=== PATIENT | male | born 1975 | race Caucasian/White ===

== ENCOUNTER 2021-08-12 17:37 | Inpatient (IN) | payer OTHER, SELFPAY ==
[2021-08-12] VITALS (33 sets, daily range): BP systolic 0–165; BP diastolic 0–120; PULSE 0–138; RESP 0–29; TEMP 33.8–34.8; O2SAT 0–100; BMI 22.8
--- NOTE | ~2021-08-12 | XR_ITS ---
EXAMINATION: XR chest 1V portable DATE: 08/14/2021 05:56 INDICATION: Respiratory failure. Cardiac arrest. TECHNIQUE: frontal view of the chest was obtained. COMPARISON: Chest radiograph dated 08/12/2021 FINDINGS: Endotracheal tube tip 5.2 cm above the [place]. Nasogastric tube extends below the left hemidiaphragm with distal tip collimated off the study. Defibrillator pads at the right upper and left lower chest stone. Mild left basilar opacities. No pulmonary edema, pleural effusion or pneumothorax. The cardiomediasti nal silhouette is normal. IMPRESSION: 1. Mild left basilar opacities which could represent atelectasis or pneumonia. Reviewed, dictated and finalized at location A.
--- NOTE | ~2021-08-12 | XR_ITS ---
EXAMINATION: XR chest 1V portable DATE: 08/16/2021 05:38 INDICATION: Respiratory failure. Cardiac arrest. TECHNIQUE: frontal view of the chest was obtained. COMPARISON: Chest radiograph dated 08/15/2021 FINDINGS: Endotracheal tube tip 5.6 cm above the le[place]. Nasogastric tube extends below the left hemidiaphragm with distal tip collimated off the study. Superolateral pads of the superolateral right chest and la teral left lower upper quadrant of the abdomen. Persistent opacities in the left lower lung zone. New more subtle opacities in the infrahilar region of the right lower lung zone. Prior opacities at the right upper lung zone have resolved. No pneumoth orax or pleural effusion. The cardiomediastinal silhouette is normal. Visualized bones and soft tissu es are unremarkable. IMPRESSION: 1. Opacities in the lower lung zones, left greater than right which could represent atelectasis and/o r pneumonia. Reviewed, dictated and finalized at location A. IMPRESSION: 1. Opacities in the lower lung zones, left greater than right which could repre sent atelectasis and/or pneumonia.
--- NOTE | ~2021-08-12 | US_ITS ---
EXAMINATION: US venous doppler [facility] DATE: 08/22/2021 12:59 INDICATION: Fevers. Respiratory failure. TECHNIQUE: Grayscale ultrasound images without and with compression and Doppler ultrasound images of the bilateral lower extremity veins were obtained. COMPARISON: None. FINDINGS: The visualized portions of right external iliac, common femoral vein, profunda (deep) femoral vein, f emoral vein, popliteal vein, posterior tibial veins, peroneal veins, gastrocnemius vein and greater s aphenous vein outflow are patent. Small amount of peripheral noncompressible, nonocclusive thrombus at the left common femoral vein. Th e visualized portions of left external iliac, profunda femoral vein, femoral vein, popliteal vein, po sterior tibial veins, peroneal veins, gastrocnemius vein and greater saphenous vein outflow are paten t. IMPRESSION: 1. Small amount of nonocclusive deep venous thrombosis at the right common femoral vein. Findings we re discussed with Sarah Sarkar, the nurse caring for the patient, at 1:05 PM. 2. No deep venous thrombosis in the right lower limb. Reviewed, dictated and finalized at location B. IMPRESSION: 1. Small amount of nonocclusive deep venous thrombosis at the right common fem oral vein. Findings were discussed with Sarah Sarkar, the nurse caring for the patient, at 1:05 PM. 2. No deep venous thrombosis in the right lower limb.
--- NOTE | ~2021-08-12 | XR_ITS ---
EXAMINATION: XR chest 1V portable DATE: 08/21/2021 05:37 INDICATION: Respiratory failure. TECHNIQUE: A single frontal view of the chest was obtained. COMPARISON: Chest single view 08/20/2021 FINDINGS: There is mild scarring at the lung apices. No pleural effusion or pneumothorax. The heart s ize is normal. The endotracheal tube tip is 5.6 cm above the leland. The nasogastric tube tip is beyo nd the inferior margin of the radiograph, but at least to the stomach. IMPRESSION: 1. Mild scarring at the lung apices. Reviewed, dictated and finalized at location A.
--- NOTE | ~2021-08-12 | XR_ITS ---
EXAMINATION: XR chest 1V portable DATE: 08/22/2021 05:36 INDICATION: Respiratory failure. TECHNIQUE: A single frontal view of the chest was obtained. COMPARISON: Chest single view 08/21/2021 FINDINGS: There is mild scarring at the lung apices. No pleural effusion or pneumothorax. The heart s ize is normal. The endotracheal tube tip is 7.0 cm above the leland. The nasogastric tube tip is in t he stomach. IMPRESSION: 1. Mild scarring at the lung apices. Reviewed, dictated and finalized at location A.
--- NOTE | ~2021-08-12 | XR_ITS ---
EXAMINATION: XR chest ET placement EXAM DATE: 08/12/2021 20:35 INDICATION: Chest Pain, post ET TUBE intubation. TECHNIQUE: Portable AP frontal chest x-ray was obtained. There is no prior study for comparison. FINDINGS: Endotracheal tube tip is 4 centimeters above the leland. There is a nasogastric tube seen with tip collimated off the study, but below the left hemidiaphragm. No confluent consolidation, pneu mothorax or pleural effusion suspected. Cardiomediastinal silhouette is normal. There are bony degene rative changes. IMPRESSION: ET, NG tube in position. Reviewed, dictated and finalized at location G. IMPRESSION: ET, NG tube in position.
--- NOTE | ~2021-08-12 | XR_ITS ---
XR chest ET placement DATE: 08/16/2021 13:13 INDICATION: ET tube placement. Cardiac arrest, respiratory failure. TECHNIQUE: Portable AP chest on 08/16/2021 at 1307 hours COMPARISON: 08/16/2021 portable AP chest at 0506 hours FINDINGS: ET tube is in satisfactory position 2.2 cm above leland. NG tube in stomach. No central lines are identified. Mild infiltrate and/or atelectasis in the mid to lower lung zones, left greater than right. Normal heart size. No hilar or mediastinal enlargement. No pleural effusion or pneumothorax. IMPRESSION: ET tube in satisfactory position NG tube in stomach Bilateral predominantly lower lung infiltrates, left greater than right Reviewed, dictated and finalized at Location A. Reviewed, dictated and finalized at location A.
--- NOTE | ~2021-08-12 | CT_ITS ---
EXAMINATION: CT brain wo [facility] EXAM DATE: 09/05/2021 08:32 INDICATION: Restlessness/agitation. On ventilator. TECHNIQUE: Spiral CT of the head was performed without contrast. Axial, coronal and sagittal images were reviewed. The dose-length product (DLP) for this examination was 681.00 mGy-cm. The exposure w as tailored according to patient size, and iterative reconstruction (ASIR) was used as additional dos e reduction technique. Comparison is made to prior examination from 08/19/2021. FINDINGS: There is artifact at the skull base, but on prior studies the cerebellum was low density, e nlarged from edema, consistent with acute ischemic event. This swelling has subsided and no definite encephalomalacia, no supratentorial focal density abnormality. There is no acute intraparenchymal hem orrhage. No evidence of intraparenchymal brain mass lesion. There is no mass effect or midline shift . The ventricles are normal in size. There are no extra-axial collections. There are no acute calv arial fractures. The orbits are unremarkable. Soft tissue is unremarkable. Small to moderate-sized right maxillary sinus mucous retention cyst. IMPRESSION: 1. Improvement or resolution of previously seen cerebellar edema. 2. Limited study but no acute intracranial findings. Reviewed, dictated and finalized at location A.
--- NOTE | ~2021-08-12 | CT_ITS ---
EXAMINATION: CT brain wo con DATE: 08/19/2021 16:03 INDICATION: Anoxic brain injury. TECHNIQUE: Computed tomography (CT) of the head was performed without intravenous contrast. The mA wa s adjusted according to patient size. Iterative reconstruction technique was employed. The dose-lengt h product was 681.00 mGy-cm. COMPARISON: Head CT 08/15/2021, 08/12/2021 FINDINGS: There is low attenuation involving the bilateral temporal lobes, cerebellum, and braulio. Ther e is no intracranial hemorrhage or abnormal mass lesion. The ventricles are normal in size. The masto id air cells are normal. There is mucosal thickening in the paranasal sinuses. The orbits are normal. IMPRESSION: 1. Low attenuation involving the bilateral temporal lobes, cerebellum, and braulio, stable from 08/15/21 and worsened from 08/12/21, consistent with infarcts from anoxic brain injury. Reviewed, dictated and finalized at location E. IMPRESSION: 1. Low attenuation involving the bilateral temporal lobes, cerebellum, and braulio , stable from 08/15/21 and worsened from 08/12/21, consistent with infarcts from anoxic brain injury.
--- NOTE | ~2021-08-12 | US_ITS ---
EXAMINATION: US abdomen limited DATE: 09/03/2021 09:08 INDICATION: Abnormal liver function tests. TECHNIQUE: Multiple grayscale and Doppler ultrasound images of the abdomen were obtained. COMPARISON: CT abdomen and pelvis 08/28/2021 FINDINGS: The visualized portions of the head and body of the pancreas are normal. The liver is yoana l without focal lesion. No liver surface nodularity. There is normal flow in main portal vein. The ga llbladder is contracted. No gallstones. The common duct is normal and measures 4 mm. IMPRESSION: 1. Normal right upper quadrant ultrasound. Reviewed, dictated and finalized at location B.
--- NOTE | ~2021-08-12 | XR_ITS ---
EXAMINATION: XR chest 1V portable INDICATION: Respiratory failure, cardiac arrest TECHNIQUE: Portable AP chest at 0511 hours COMPARISON: 08/17/2021 FINDINGS: The endotracheal tube ends approximately 6.0 cm above the [place]. The nasogastric tube is f ollowed as far as the stomach. Its tip is beyond the inferior margin of the radiograph. There are min imal left basilar airspace opacities. No pleural effusion or pneumothorax is identified. The cardiome diastinal silhouette is stable. IMPRESSION: 1. Left basilar airspace opacity, consistent with atelectasis versus pneumonia. Reviewed, dictated and finalized at location A.
--- NOTE | ~2021-08-12 | XR_ITS ---
EXAMINATION: XR chest 1V portable INDICATION: Sepsis TECHNIQUE: Portable AP chest at 0750 hours COMPARISON: 08/25/2021 FINDINGS: A tracheostomy is unchanged in position. The lungs are free of acute opacities. There is no pleural effusion or pneumothorax. The cardiomediastinal silhouette is normal. IMPRESSION: 1. No acute cardiopulmonary abnormality. Reviewed, dictated and finalized at location A.
--- NOTE | ~2021-08-12 | XR_ITS ---
EXAMINATION: XR chest 1V portable DATE: 08/15/2021 06:01 INDICATION: Respiratory failure. Cardiac arrest. TECHNIQUE: frontal view of the chest was obtained. COMPARISON: Chest radiograph dated 08/14/2021 FINDINGS: Endotracheal tube tip 4.6 cm above the leland. Nasogastric tube extends below the left hemidiaphragm with distal tip collimated off the study. Fibrillator pad projects over the superolateral right ches t wall. There are opacities in the right upper and left lower lung zone. Possible very small left ple ural effusion. No pneumothorax. The cardiomediastinal silhouette is normal. IMPRESSION: 1. Opacities in the right upper and left lower lung zones which could represent atelectasis and/or pn eumonia. 2. Possible very small left pleural effusion. Reviewed, dictated and finalized at location A. IMPRESSION: 1. Opacities in the right upper and left lower lung zones which could represent atelectasis and/or pneumonia. 2. Possible very small left pleural effusion.
--- NOTE | ~2021-08-12 | XR_ITS ---
EXAMINATION: XR chest 1V portable DATE: 08/20/2021 05:31 INDICATION: Respiratory failure. TECHNIQUE: A single frontal view of the chest was obtained. COMPARISON: Chest single view 08/19/2021 FINDINGS: There are mild airspace opacities in right mid and lower lung zones. There is mild scarring at the lung apices. No pleural effusion or pneumothorax. The heart size is normal. The endotracheal tube tip is 7.0 cm above the leland. The nasogastric tube tip is beyond the inferior margin of the ra diograph, but at least to the stomach. IMPRESSION: 1. Worsened mild airspace opacities in right mid and lower lung zones, consistent with atelectasis ve rsus pneumonia. Reviewed, dictated and finalized at location A. IMPRESSION: 1. Worsened mild airspace opacities in right mid and lower lung zones, consiste nt with atelectasis versus pneumonia.
--- NOTE | ~2021-08-12 | CT_ITS ---
EXAMINATION: CT brain wo con EXAM DATE: 08/15/2021 08:42 INDICATION: Anoxic Brain Injury . TECHNIQUE: Spiral CT of the head was performed without contrast. Axial, coronal and sagittal images were reviewed. The dose-length product (DLP) for this examination was 681.00 mGy-cm. The exposure w as tailored according to patient size, and iterative reconstruction (ASIR) was used as additional dos e reduction technique. Comparison is made to prior examination from 08/12/2021. FINDINGS: There has been interval development of decreased density involving the entire cerebellum, a nd diffuse cerebellar swelling. The cerebellum now crowds the posterior fossa and the cerebellar tons ils extending slightly below the foramen magnum. No ventricular dilation as yet, no evidence of obstr uctive hydronephrosis. The cerebral ascencio-white matter differentiation is intact. No acute hemorrhage. No brain mass. No extra-axial collections. There is endotracheal tube and orogastric tube. Sinus opa city. IMPRESSION: 1. Development of diffuse cerebellar swelling, anoxic injury. No obstructive hydrocephalus but patie nt at risk. 2. No acute hemorrhage. Reviewed, dictated and finalized at location B. IMPRESSION: 1. Development of diffuse cerebellar swelling, anoxic injury. No obstructive h ydrocephalus but patient at risk. 2. No acute hemorrhage.
--- NOTE | ~2021-08-12 | XR_ITS ---
EXAMINATION: XR abdomen NG/feed tube insert DATE: 08/16/2021 13:13 INDICATION: Orogastric tube placement TECHNIQUE: A supine view of the abdomen and lower chest was obtained for evaluation of feeding tube placement. COMPARISON: 08/12/2021 FINDINGS: Orogastric tube tip in proximal side port in the body of the stomach. Endotracheal tube tip 2.0 cm ab ove the leland. No dilated loops of gas-filled bowel in the visualized upper abdomen. Minimal streaky left basilar atelectasis. Heart size is normal. IMPRESSION: 1. Orogastric tube in the stomach. Reviewed, dictated and finalized at location A.
--- NOTE | ~2021-08-12 | CT_ITS ---
EXAMINATION: CT brain wo con EXAM DATE: 08/12/2021 22:28 INDICATION: Cardiac Arrest . Found unresponsive. TECHNIQUE: Spiral CT of the head was performed without contrast. Axial, coronal and sagittal images were reviewed. The dose-length product (DLP) for this examination was 681.00 mGy-cm. The exposure w as tailored according to patient size, and iterative reconstruction (ASIR) was used as additional dos e reduction technique. There is no prior study for comparison. FINDINGS: The arteries, sagittal and transverse sinuses, internal cerebral veins are hyperdense. Over all this appearance is suggesting that patient had contrast prior to this imaging. I discussed this f inding with Martha Melvin MD at 08/13/2021 08:22 CDT, states the patient had cardiac catheteriz ation. There is no acute intraparenchymal hemorrhage. No evidence of intraparenchymal brain mass lesion. N o evidence of acute infarction. There is no mass effect or midline shift. The ventricles are normal in size. There are no extra-axial collections. There are no acute calvarial fractures. The orbits are unremarkable. Soft tissue is unremarkable. The visualized sinuses and mastoid air cells are wel l aerated. IMPRESSION: 1. No acute intracranial findings. Reviewed, dictated and finalized at location B.
--- NOTE | ~2021-08-12 | XR_ITS ---
EXAMINATION: XR chest 1V portable EXAM DATE: 08/25/2021 10:06 INDICATION: Tracheostomy, respiratory failure. TECHNIQUE: Portable AP frontal chest x-ray was obtained. Comparison is made to prior examination from 08/23/2021. FINDINGS: Interval tracheostomy placement, in position. The previously seen feeding tube is no longer identified. No confluent consolidation, pneumothorax or pleural effusion suspected. Cardiomediastina l silhouette is normal. There are no osseous abnormalities identified. IMPRESSION: Tracheostomy tube in position. Reviewed, dictated and finalized at location A.
--- NOTE | ~2021-08-12 | XR_ITS ---
EXAMINATION: XR chest 1V portable DATE: 08/23/2021 05:36 INDICATION: Respiratory failure. TECHNIQUE: A single frontal view of the chest was obtained. COMPARISON: Chest single view 08/22/2021 FINDINGS: The patient is rotated to his right. There is mild atelectasis in right lower lung zone. No pleural effusion or pneumothorax. The heart size is normal. The endotracheal tube tip is 5.1 cm abov e the leland. The nasogastric tube tip is in the stomach. IMPRESSION: 1. Mild atelectasis in right lower lung zone. Reviewed, dictated and finalized at location A.
--- NOTE | ~2021-08-12 | CT_ITS ---
EXAMINATION: CT sinus wo con EXAM DATE: 08/28/2021 08:30 INDICATION: Fever TECHNIQUE: Spiral CT of the sinuses was acquired in the axial plane. Coronal and sagittal reformatte d images were also reviewed. The dose-length product (DLP) for this examination was 272.65 mGy-cm. Iterative reconstruction (ASIR) was used as dose reduction technique. Correlation is made to head CT 08/19/2021. FINDINGS: The sinuses are normally developed. Small to moderate amount of fluid in the larger left sphenoid sinus. Small to moderate-sized right maxillary sinus mucous retention cyst. Otherwise sinus es are well aerated. The ostiomeatal units are patent. There is no sinus wall thickening. There is moderate rightward nasal septal deviation. The mastoid air cells and middle ears are well aerated . External auditory canals are patent. The orbits and visualized soft tissues are unremarkable. IMPRESSION: 1. Small to moderate amount of left sphenoid fluid. 2. Small to moderate-sized right maxillary mucous retention cyst. Reviewed, dictated and finalized at location B.
--- NOTE | ~2021-08-12 | XR_ITS ---
EXAMINATION: XR chest 1V portable DATE: 08/17/2021 06:00 INDICATION: Respiratory failure. Cardiac arrest. TECHNIQUE: frontal view of the chest was obtained. COMPARISON: Chest radiograph dated 08/16/2021 FINDINGS: Endotracheal tube tip 4.9 cm above the leland. Nasogastric tube extends below the left hemidiaphragm with distal tip collimated off the study. Linear atelectasis/scarring at the lateral left lower lung zone. Additional more ill-defined patchy a irspace opacity in the bilateral infrahilar lower lungs. No pneumothorax. Possible very small right p leural effusion. The cardiomediastinal silhouette is normal. IMPRESSION: 1. No significant change in opacities in the lower lung zones which could represent atelectasis and/o r pneumonia. 2. Possible very small right pleural effusion. Reviewed, dictated and finalized at location A. IMPRESSION: 1. No significant change in opacities in the lower lung zones which could repre sent atelectasis and/or pneumonia. 2. Possible very small right pleural effusion.
--- NOTE | ~2021-08-12 | XR_ITS ---
EXAMINATION: XR chest 1V portable INDICATION: Respiratory failure TECHNIQUE: Portable AP chest at 0446 hours COMPARISON: 08/18/2021 FINDINGS: The endotracheal tube ends approximately 4.1 cm above the leland. The nasogastric tube is f ollowed as far as the stomach. Its tip is beyond the inferior margin of the radiograph. Left basilar airspace opacities have nearly completely resolved. There is mild atelectasis of the lung bases. No p leural effusion or pneumothorax is identified. The cardiomediastinal silhouette is stable. IMPRESSION: 1. Mild atelectasis. Reviewed, dictated and finalized at location A. IMPRESSION: 1. Mild atelectasis.
--- NOTE | ~2021-08-12 | XR_ITS ---
EXAMINATION: XR abdomen NG/feed tube insert EXAM DATE: 08/12/2021 20:35 INDICATION: Orogastric tube placed post arrest. TECHNIQUE: Frontal projection(s) of the abdomen for interpretation. There is no prior study for pat rios. FINDINGS: Feeding tube tip and side-port project over gastric bubble, expected position. There is no nobstructive bowel gas pattern. Lung bases are clear. There is no organomegaly. IMPRESSION: Feeding tube in position. Reviewed, dictated and finalized at location G. IMPRESSION: Feeding tube in position.
--- NOTE | ~2021-08-12 | CT_ITS ---
EXAMINATION: CT chest abdomen pelvis wo con EXAM DATE: 08/28/2021 08:30 INDICATION: Fever TECHNIQUE: Spiral CT of the chest, abdomen and pelvis was performed without contrast. Axial, driscoll l and sagittal images chest, abdomen and pelvis were reviewed. Coronal maximum intensity pixel image s of chest reviewed. The dose-length product (DLP) for this examination was 575.75 mGy-cm. The expo sure was tailored according to patient size (auto mA exposure control), and iterative reconstruction (ASIR) was used as additional dose reduction technique. There is no prior study for comparison. FINDINGS: CHEST: There is a tracheostomy tube in position. Bibasilar dependent subsegmental atelectasis. Trace small regions right upper lobe groundglass opacity, nonspecific pneumonitis. The lungs are otherwise clear. Mild emphysema. There are no pleural or pericardial effusions. Tracheobronchial tree is pa tent. There is no mediastinal, hilar or axillary lymphadenopathy. There is no pneumothorax. Hea rt normal in size. There is mild coronary arterial calcification, arterial sclerosis. ABDOMEN PELVIS: The liver, spleen, adrenal glands and pancreas are unremarkable. Gallbladder contrac ivon, difficult to visualize; there is motion on the study. There is no nephrolithiasis or hydronephr osis. The prostate is unremarkable. The bladder is collapsed with Steinberg catheter balloon anchor in side. There is no retroperitoneal or pelvic lymphadenopathy. There are no findings to suggest appendicitis. PEG tube. No small bowel obstruction. There is colon ic fluid, correlate for diarrhea. There is a rectal tube. No free intraperitoneal gas. There are no osteoblastic or osteolytic lesions identified. IMPRESSION: 1. Tracheostomy tube, PEG tube, rectal tube, Steinberg catheter in position. 2. Trace right upper lobe nonspecific pneumonitis. 3. Dependent subsegmental atelectasis. Mild emphysema. 4. Colonic fluid without wall thickening. Diarrhea. Reviewed, dictated and finalized at location B.
--- NOTE | ~2021-08-12 | XR_ITS ---
EXAMINATION: XR chest 1V portable INDICATION: Pneumonia and sepsis TECHNIQUE: Portable AP chest at 0535 hours COMPARISON: 08/27/2021 FINDINGS: A tracheostomy is noted. The lungs are free of acute opacities. There is no pleural effusio n or pneumothorax. The cardiomediastinal silhouette is normal. IMPRESSION: 1. No acute cardiopulmonary abnormality. Reviewed, dictated and finalized at location A.
--- NOTE | 2021-08-12 18:12 | PC.NURSE ---
additional mag 2 grams given ivp. runs of vtach noted on monitor. family at bedside
--- NOTE | 2021-08-12 18:14 | ECG_ITS ---
Measurements Intervals [place] Rate: 116 P: [place]: 0 QRS: -83 QRSD: 113 T: -25 QT: 329 QTc: 458 Interpretive Statements ATRIAL FIBRILLATION WITH RAPID VENTRICULAR RESPONSE WITH ABERRANT CONDUCTION OR VENTRICULAR PREMATURE COMPLEXES INFERIOR MYOCARDIAL INFARCTION , PROBABLY RECENT [40+ ms Q WAVE AND/OR ST/T ABNORMALITY IN II/aVF] MARKED ST ELEVATION, CONSIDER ANTEROLATERAL INJURY [MARKED ST ELEVATION W/O NORMALLY INFLECTED T WAVE IN V3-V6] ACUTE PR NO PREVIOUS ECG AVAILABLE FOR COMPARISON Electronically Signed On 08-12-2021 20:54:06 CDT by Mg Santos M.D.
--- NOTE | 2021-08-12 18:18 | ED.CPR ---
HPI - CPR General Chief Complaint: Cardiac Arrest/CPR Stated Complaint: cardiac arrest Time Seen by Provider: 08/12/21 18:18 Source: EMS Mode of arrival: EMS Limitations: altered mental status History of Present Illness HPI narrative: Patient is a 46-year-old male brought in by EMS in cardiorespiratory arrest. Total downtime before arrival 18 minutes. According to EMS patient was in the kitchen and suddenly went unresponsive, witnessed arrest by girlfriend. Patient's initial rhythm was V. fib, was shocked by EMS went into PEA. Patient intubated at the scene. Patient was given approximately 3 epi, 1 Narcan and 1 bicarb along with continuous cardiopulmonary resuscitation prior to arrival. Upon arrival to the emergency room patient was unresponsive with no pulse, ACLS continued. Review of Systems Review of Systems: ROS unobtainable: Yes unobtainable due to mental status Exam Narrative: PE: Unresponsive Pupils fixed and dilated No spontaneous respiration No pulse GCS 3 HENMT: Head: normal to inspection Neck: Neck: normal visual inspection Chest: Chest palpation & inspection: normal inspection of the chest Course Course Emergency Course: After 40 minutes of continuous cardiopulmonary resuscitation here in the emergency room, total downtime approximately an hour and 8 minutes, we are able to gain return of spontaneous circulation. Family at bedside throughout the resuscitation. EKG done, shows ST elevation in inferior leads, acute OR. STEMI protocol started. Discussed with Dr. Santos advised to give Brilinta and aspirin through an NG tube and patient will be taken to [facility]. Vital Signs Vital signs: Vital Signs Pulse Rate 82 08/12/21 18:26 Pulse Oximetry 100 08/12/21 18:26 Pulse Rate 82 08/12/21 18:26 Pulse Oximetry 100 08/12/21 18:26 MDM - Cardiac Arrest/CPR MDM Narrative Medical decision making narrative: Please see ACLS resuscitation sheet. After 40 minutes of continuous cardiopulmonary resuscitation here in the emergency room, with a total downtime of approximately 1 hour and 8 minutes, we were able to obtain return of spontaneous circulation. EKG done, shows ST elevation in the inferior leads, acute OR. STEMI protocol started. Discussed with Dr. Santos, advised to give aspirin and Brilinta per NG tube and will take the patient to the [facility]ist. Differential Diagnosis Differential diagnosis: Likely acute respiratory failure, acute myocardial infarction, cardiac arrest and sudden cardiac Lab Data Result diagrams: 08/12/21 18:18 08/12/21 18:18 Labs: Lab Results 08/12/21 08/12/21 08/12/21 Range/Units 18:18 18:18 18:18 WBC 15.0 H (4.5-10.0) K/mm3 RBC 4.68 (4.6-6.20) M/mm3 Hgb 13.5 L (14.0-18.0) g/dL Hct 45.1 (42.0-52.0) % MCV 96.4 (80-100) fl MCH 28.8 (26-34) pg MCHC 29.9 L (32-36) g/dl RDW 12.5 (11.5-14.5) % Plt Count 109 L (150-375) k/mm3 MPV 10.0 (7.4-10.4) fl Immature Gran % (Auto) 5.1 H (0-0.5) % Neut % (Auto) 42.0 L (45.5-73.1) % Lymph % (Auto) 46.9 H (18.3-44.2) % [place] % (Auto) 3.0 (2.6-8.5) % Eos % (Auto) 2.1 (0-4.4) % Baso % (Auto) 0.9 (0.2-1.2) % Lymph # (Auto) 7.03 H (0.9-3.2) K/mm3 [place] # (Auto) 0.5 (0.1-0.6) K/mm3 Eos # (Auto) 0.3 (0-0.3) K/mm3 Baso # (Auto) 0.1 (0.0-0.1) K/mm3 Abs Immat Gran (auto) 0.76 H (0.00-0.031) K/mm3 Absolute Neuts (auto) 6.3 (1.3-6.7) K/mm3 Absolute Nucleated RBC 0.0 (0.0-0.012) K/mm3 Nucleated RBC % 0.2 (0.0-0.2) % % Immature Plt Fraction 4.8 (0.9-11.2) % PT 17.0 H (11.1-14.7) Seconds INR 1.4 APTT 53.0 H (22.3-36.8) SECONDS Sodium 135 L (137-145) mmol/L Potassium 3.3 L (3.4-5.0) mmol/L Chloride 106 (98-107) mmol/L Carbon Dioxide 18 L (22-30) mmol/L Anion Gap 11 (8-16) mmol/L BUN 11 (9-20) mg/dL Creatinine 0.90 (0.7-1.3) mg/dL Estim Cr
--- NOTE | 2021-08-12 18:23 | PC.NURSE ---
pt went into vfib and pt shocked at 360 j into irregular rhythm
[2021-08-12 18:26] LABS: Basophils Absolute Auto 0.1 K/mm3 (0.0-0.1); Basophils Percent Auto 0.9 % (0.2-1.2); Eosinophils Absolute Auto 0.3 K/mm3 (0-0.3); Eosinophils Percent Auto 2.1 % (0-4.4); Hematocrit 45.1 % (42.0-52.0); Hemoglobin 13.5 g/dL (14.0-18.0); Immature Granulocyte Absolute 0.76 K/mm3 (0.00-0.031); Immature Granulocyte Percent A 5.1 % (0-0.5); Immature Platelet Fraction Pct 4.8 % (0.9-11.2); Lymphocytes Absolute Auto 7.03 K/mm3 (0.9-3.2); Lymphocytes Percent Auto 46.9 % (18.3-44.2); Mean Corpuscular HGB Conc 29.9 g/dl (32-36); Mean Corpuscular Hemoglobin 28.8 pg (26-34); Mean Corpuscular Volume 96.4 fl (80-100); Monocytes Absolute Auto 0.5 K/mm3 (0.1-0.6); Neutrophils Absolute Auto 6.3 K/mm3 (1.3-6.7); Nucleated Red Blood Cells Perc 0.2 % (0.0-0.2); Platelet Count Result 109 k/mm3 (150-375); Red Blood Count 4.68 M/mm3 (4.6-6.20); Red Cell Distribution Width 12.5 % (11.5-14.5)
--- NOTE | 2021-08-12 18:30 | PC.NURSE ---
stemi called on pt
[2021-08-12 18:35] LABS: Alanine Aminotransferase 250 U/L (4-50); Albumin Level 2.7 g/dL (3.5-5.1); Alkaline Phosphatase 95 U/L (38-126); Anion Gap 11 mmol/L (8-16); Aspartate Amino Transferase 440 U/L (17-59); Bilirubin,Total 0.4 mg/dL (0.2-1.3); Blood Urea Nitrogen 11 mg/dL (9-20); Calcium 7.3 mg/dL (8.4-10.2); Carbon Dioxide 18 mmol/L (22-30); Chloride 106 mmol/L (98-107); Estimated Glomerular Filt Rate > 60; Glucose 366 mg/dL (65-110); INR 1.4; Lipase 51 U/L (23-300); Potassium 3.3 mmol/L (3.4-5.0); Sodium 135 mmol/L (137-145)
--- NOTE | 2021-08-12 18:36 | PC.NURSE ---
heparin 4,000 units given ivp
--- NOTE | 2021-08-12 18:37 | PC.NURSE ---
Stemi O/H - 1830 Tom - 1831 Timothy - 1832 Kenna - 1832
[2021-08-12 18:47] LABS: Troponin I 0.431 ng/mL (0.000-0.034)
[2021-08-12 19:34] LABS: Glucose Point of Care 280 mg/dl (65-105)
--- NOTE | 2021-08-12 20:00 | ECG_ITS ---
Measurements Intervals [place] Rate: 87 P: 61 CT: 171 QRS: -33 QRSD: 110 T: -67 QT: 412 QTc: 496 Interpretive Statements SINUS RHYTHM INFERIOR MYOCARDIAL INFARCTION , ACUTE ACUTE MS COMPARED TO ECG 08/12/2021 18:21:06 SINUS RHYTHM NOW PRESENT Electronically Signed On 08-12-2021 20:55:39 CDT by Mg Santos M.D.
--- NOTE | 2021-08-12 20:01 | PM.IMHP ---
H&P: HPI History of Present Illness Date/Time: 08/12/21 20:01 Chief Complaint: [id number] cardiac arrest Narrative: this is a 46 patient was brought to the emergency room by EMS following out of hospital ventricular fibrillation. There is no direct history of painful from this patient at this time. He apparently was at his home in the kitchen this evening and suddenly lost consciousness. 911 was called and he was found in ventricular fibrillation. Resuscitation efforts were initiated and he was brought to the emergency room. Resuscitation efforts continued for more than an hour with finally return of spontaneous circulation. ECG at that time was felt to show evidence of acute inferior injury and I was activated for STEMI protocol. Patient is prepped for emergency coronary angiography as I dictate this. He is on on a ventilator. Was placed in the ER per my instructions and he received full dose of aspirin and 180 mg of Brilinta. There apparently is no previous history of cardiac disease. The ER physician indicates the patient has diabetes. I have no other medical history available to me. Review of Systems Review of Systems: ROS unobtainable: Yes unobtainable due to endotracheal tube, unobtainable due to medical condition and unobtainable due to mental status Meds Vital Signs Vital Signs - 24 hr 08/12/21 17:28 08/12/21 18:23 08/12/21 18:26 Pulse Rate 0 L 138 H 82 Respiratory Rate 0 L Blood Pressure 0/0 L 143/91 H Pulse Oximetry 0 L 100 08/12/21 18:30 08/12/21 19:00 Pulse Rate 118 H 100 Respiratory Rate Blood Pressure 110/86 94/76 L Pulse Oximetry 100 100 Exam Const: General: comfortable and no acute distress Other: Intubated unresponsive white male appears to be about his stated age HENMT: Mouth: Yes moist mucous membranes Eyes: Sclera: sclerae normal Neck: Neck: supple and no JVD Other: carotid pulses are intact and free of bruits Resp: Effort & Inspection: normal respiratory effort Auscultation: clear to auscultation bilaterally Cardio: Rate: regular rate Rhythm: regular rhythm Other: PMI grossly nondisplaced adequate activity there is no audible murmur or gallop GI: GI Palp: Yes Soft to palpation Auscultation: normal bowel sounds Skin: General skin exam: normal color Neuro: Other: intubated/unresponsive Extrem: General: normal to inspection H&P: Results Labs Labs: Short CBC 08/12/21 Range/Units 18:18 WBC 15.0 H (4.5-10.0) K/mm3 Hgb 13.5 L (14.0-18.0) g/dL Hct 45.1 (42.0-52.0) % Plt Count 109 L (150-375) k/mm3 BMP 08/12/21 18:18 Sodium 135 L Potassium 3.3 L Chloride 106 Carbon Dioxide 18 L BUN 11 Creatinine 0.90 Glucose 366 H Calcium 7.3 L Cardiac Enzymes 08/12/21 Range/Units 18:18 Troponin I 0.431 H* (0.000-0.034) ng/mL Liver Function 08/12/21 Range/Units 18:18 Total Bilirubin 0.4 (0.2-1.3) mg/dL AST 440 H (17-59) U/L ALT 250 H (4-50) U/L Alkaline Phosphatase 95 (38-126) U/L Albumin 2.7 L (3.5-5.1) g/dL Assessment and Plan Additional Plan this is a 46-year-old patient without prior history of cardiac disease apparently he has diabetes. The patient presented with out of hospital ventricular fibrillation and following a long resuscitation effort the patient was restored to effective rhythm and appears to have acute inferior wall current of injury. Despite his long resuscitation time the decision has been made to bring him to the [facility] for angiography and revascularization if indicated by the findings. Mg Santos MD [facility]
--- NOTE | 2021-08-12 20:05 | ADMGEN ---
This patient, Sidney Raphael, was admitted to [facility] ICU-8. Patient/family oriented to hospital policies and general routines including ID bracelet, bed and alarms, visiting hours, pain management, procedures, bathroom and other care routines, personal items, smoking policy, room service/diet, and visiting hours. Information on how to activate the Rapid Response Team has been discussed. Patient/Family are encouraged to report perceived risks to care and to ask questions if they do not understand what they are told or what they should do.
--- NOTE | 2021-08-12 20:05 | WPDCARDPROC ---
Cardiac Cath Procedure Note Date of procedure:: 08/12/21 Performing physician:: Mg Santos MD Indication:: inferior ST-elevation CA Brief clinical history:: this is a 46-year-old patient without previous cardiac history. Patient has diabetes. He was resuscitated out of out of hospital ventricular fibrillation this evening ECG following resuscitation appears to show inferior current of injury. Procedure Procedure performed:: Emergency coronary angiography emergency PCI(PAT) to the proximal right coronary artery left ventriculogram Sedation/Medication given:: no sedation /patient unresponsive Access site:: right femoral artery Estimated blood loss:: 25 cc Procedure note:: patient was brought to the cardiac catheterization lab intubated following resuscitation in the emergency department. The right femoral triangle was prepared and draped in the usual fashion. Anesthesia was provided with 1% lidocaine infiltrated locally. Using the modified Seldinger technique a 6 [place] sheath was placed into the right femoral artery after this left heart catheterization to placed. I used standard 5 [place] FL4 and JR4 catheters to engage and inject the left coronary artery and right coronary arteries respectively. The cineangiograms were then reviewed. Following this PCI of the right coronary artery was recommended and carried out as detailed below. Prior to PCI the patient received bolus and infusion of Angiomax for procedural anticoagulation. As mentioned above he already had received aspirin and Brilinta per the NG tube in the emergency department. Following PCI the patient had a left ventriculogram done using a 5 [place] angled pigtail catheter. The case was then terminated the sheath was sutured into position he was taken to the ICU for post CA PCI and post out of hospital VFib care. Findings:: Hemodynamics: Central aortic pressure is 104 over 76 left ventricle 104/12 end-diastolic pressure 25 there is no gradient on pullback across the aortic valve. Left ventricle: The LV is normal in size the infero posterior segments are akinetic the anterior wall contracts relatively well the global ejection fraction I would visually estimate to be 40%. The left artery is nicely patent the left anterior descending is a medium caliber artery extending down to and just around the apex. The LAD and its branches are free of significant disease. Circumflex is a medium caliber artery giving rise to marginal branches. The mid circumflex trunk has a 80% stenosis. There is LEIF 3 flow through the circumflex system. The right coronary artery is moderate to large in caliber and dominant to the posterior circulation the proximal RCA has subtotal 99% stenosis which is the culprit for the presentation. The remainder of the RCA trunk the PDA and PL branches are free of significant disease. Intervention: The right coronary artery was engaged using a 6 [place] JR4 catheter with side holes. I used a 0.014 BMW coronary guidewire to wire the RCA. The lesion was pre-dilated using a 3 by 20 mm Michael angioplasty balloon. The lesion was then stented using a 3.5 x 22 mm Joppeliro drug-eluting stent with an excellent anatomical result following to stent deployment there was no residual stenosis dissection disruption or distal embolization and LEIF 3 flow was restored in the RCA. Conclusion:: 1. Coronary artery disease unfortunately presenting with [id number] ventricular fibrillation with long time of resuscitation effort before circulation was restored. 2. ECG evidence of acute inferior current of injury with subtotal 99% proximal RCA lesion as described above which was successfully treated using the drug-eluting stent with an excellent anatomical result and samaritan of excellent flow in the vessel 3. moderate mid says stenosis of 80% in the trunk of the circumflex unrelated to this event 4. infero posterior akinesia with global ejection
[2021-08-12 20:18] LABS: Cholesterol 99 mg/dL (0-200); HDL Direct 21 mg/dL; Triglycerides 71 mg/dL (<150)
[2021-08-12 20:28] LABS: LDL Cholesterol Direct 67 mg/dL
[2021-08-12] MEDS: SODIUM CHLORIDE 0.9% IV 1,000 ML 125 ML IV CONT (20:31)
[2021-08-12 21:07] LABS: Alveolar/Arterial O2 Gradient 189.2 mmHg; Base Excess ABG -10.8 mEq/l (+/-2.0); Carboxyhemoglobin 0.8 % THb (0-2.0); Fractional Inspired Oxygen 50 %; HCO3 ABG 16.3 mEq/l (22.0-26.0); Methemoglobin ABG 0.3 %THb (0-1.5); Oxygen Content ABG 21.9 %vol (16.0-22.0); Oxygen Saturation ABG 97.7 % (95.0-100.0); Oxyhemoglobin 96.1 % THb (90.0-100.0); PCO2 ABG 40.6 mmHg (35.0-45.0); PO2 ABG 121.6 mmHg (80.0-100.0); PO2 FiO2 Ratio Arterial Blood 2.43 %; Reduced Hemoglobin 2.8 %THb (0-5.0); Total Hemoglobin 16.1 g/dL (12.0-18.0)
[2021-08-12 21:09] LABS: pH ABG 7.222 (7.350-7.450)
[2021-08-12 21:10] LABS: Arterial Blood Gas PEEP 5 cmH2O; Arterial Blood Gas Tidal Volume 420 ml; Arterial Blood Gas Vent Mode CMV; Arterial Blood Gas Ventilator rate 20 /MIN; Device VENTILATOR; Modified Allen's Test Unable to perform; Site Drawn LEFT RADIAL
[2021-08-12] MEDS: levETIRAcetam 1000MG/NACL100ML 1,000 MG/100 ML BAG 400 MG IVPB (21:15)
[2021-08-12 21:35] LABS: Glucose Point of Care 302 mg/dl (65-105)
[2021-08-12 21:59] LABS: Amphetamine Screen Urine Negative (Negative); Barbiturate Screen Urine Negative (Negative); Benzodiazepines Screen Urine Negative (Negative); Cannabinoid Screen Urine Negative (Negative); Cocaine Screen Urine Negative (Negative); Methadone Screen Urine Negative (Negative); Opiate Screen Urine Negative (Negative); Phencyclidine Screen Urine Negative (Negative)
[2021-08-12] MEDS: FENTANYL 2,500MCG/NS250ML(*CRX 2,500 MCG/250 ML BAG IV CONT (22:34)
[2021-08-12] MEDS: MIDAZOLAM 100MG/NS 100ML(*CRX) 100 MG/100 ML BAG IV CONT (22:35)
[2021-08-13] VITALS (77 sets, daily range): BP systolic 85–169; BP diastolic 54–100; PULSE 48–101; RESP 22–26; TEMP 31.1–35.4; O2SAT 100; BMI 24.4
--- NOTE | 2021-08-13 00:01 | PM.IMCN ---
Assessment and Plan Assessment and plan (1) Cardiac arrest: Code(s): I46.9 - Cardiac arrest, cause unspecified Status: Acute (2) ST elevation (STEMI) myocardial infarction: Qualifiers: Involved coronary artery: unspecified coronary artery Qualified Code(s): I21.3 - ST elevation (STEMI) myocardial infarction of unspecified site Code(s): I21.3 - ST elevation (STEMI) myocardial infarction of unspecified site Status: Acute (3) Diabetes mellitus with hyperglycemia, with long-term current use of insulin: Qualifiers: Diabetes mellitus type: type 2 Qualified Code(s): E11.65 - Type 2 diabetes mellitus with hyperglycemia; Z79.4 - nursing home (current) use of insulin Code(s): E11.65 - Type 2 diabetes mellitus with hyperglycemia; Z79.4 - adjunct faculty for medical terminology (current) use of insulin Status: Acute (4) Shock liver: Code(s): K72.00 - Acute and subacute hepatic failure without coma Status: Acute Additional Plan Patient had VFib arrest due to STEMI with 99% subtotal stenosis of the RCA status post cardiac stenting. The patient had prolonged down time and has been placed on targeted temperature therapy per protocol. Central line was placed after patient arrived to the ICU. Post arrest cardiac management per Cardiology Service. Patient has received dual anti-platelet therapy and is on heparin drip. He has also on statin therapy. Will check lipid The patient patient is ventilated and sedated. Repeat ABG demonstrated pH of 7.2 pCO2 of 40. We did try to increase patient's tidal volume of 500 however the patient was not having high peak pressures. Tidal volume was dropped back down to 470. Ventilator rate was increased to 26. Repeat ABG has been ordered for a.m.. Patient has diabetes with hyperglycemia. The patient will be placed on sliding scale insulin q.4 hours with Accu-Cheks q.4 hours. Hypoglycemia protocol has been ordered. Will check hemoglobin A1c in a.m.. Will also continue Lantus 10 units q.12 hours. The patient has markedly elevated liver enzymes. This could be in part due to his chronic hepatitis/cirrhosis. However, given the rapid elevation in LFTs there is definitely component of shock liver. The patient was having jerking movements uncertain if myoclonic jerks versus seizure. Patient was started on Keppra. Patient is on Protonix for stress ulcer prophylaxis. 1 hour spent in critical care activities. Due to a high probability of clinically significant, life threatening deterioration, the patient required my highest level of preparedness to intervene emergently and I personally spent this critical care time directly and personally managing the patient. This critical care time included obtaining a history; examining the patient; pulse oximetry; ordering and review of studies; arranging urgent treatment with development of a management plan; evaluation of patient's response to treatment; frequent reassessment; and discussions with other providers. It was exclusive of separately billable procedures and treating other patients and teaching time. Please see Assessment and Plan section and the rest of the note for further information on patient assessment and treatment. HPI Data of Consult Consult date: 08/13/21 Requesting Physician: Mg Santos MD Primary Care Provider: PHYSICIAN NOT ON STAFF Consult Narrative Narrative: Date and time of patient contact: 08/12/2021 at 10:00 p.m. Sidney Raphael is a 46 year old male with a past medical history of alcoholic pancreatitis, cirrhosis, tobacco abuse and insulin-dependent diabetes mellitus with complications who presented to the ER after cardiac arrest at home. Patient's girlfriend reports the patient was putting some food in the oven when he suddenly sat down on the floor and then collapsed backwards. The patient had brief episode of shaking and within 30 seconds was having agonal respirations. She called EMS who arrive
[2021-08-13 00:13] LABS: INR 1.7; Lactic Acid Reflex 3.9 mmol/L (0.7-2.1); Prothrombin Time 19.1 Seconds (11.1-14.7)
[2021-08-13 00:14] LABS: Alanine Aminotransferase 446 U/L (4-50); Albumin Level 3.7 g/dL (3.5-5.1); Alkaline Phosphatase 174 U/L (38-126); Anion Gap 10 mmol/L (8-16); Bilirubin,Total 0.6 mg/dL (0.2-1.3); Blood Urea Nitrogen 17 mg/dL (9-20); Calcium 7.4 mg/dL (8.4-10.2); Carbon Dioxide 21 mmol/L (22-30); Chloride 104 mmol/L (98-107); Estimated CRCL calculation 71 ml/min; Estimated Glomerular Filt Rate > 60; Glucose 440 mg/dL (65-110); Magnesium 2.2 mg/dL (1.6-2.3); Potassium 4.3 mmol/L (3.4-5.0); Sodium 135 mmol/L (137-145)
[2021-08-13 00:21] LABS: Glucose Point of Care 392 mg/dl (65-105)
[2021-08-13] MEDS: METOPROLOL TARTRATE 25 MG TABLET PO (00:21)
[2021-08-13 00:29] LABS: Creatine Kinase 7831 U/L (55-170)
[2021-08-13 00:32] LABS: Aspartate Amino Transferase 1156 U/L (17-59)
[2021-08-13 00:33] LABS: Hematocrit 45.4 % (42.0-52.0); Hemoglobin 14.4 g/dL (14.0-18.0); Mean Corpuscular HGB Conc 31.7 g/dl (32-36); Mean Corpuscular Volume 91.5 fl (80-100); Mean Platelet Volume 10.4 fl (7.4-10.4); Platelet Count Result 265 k/mm3 (150-375); Red Blood Count 4.96 M/mm3 (4.6-6.20); Red Cell Distribution Width 12.7 % (11.5-14.5); White Blood Count 31.9 K/mm3 (4.5-10.0)
[2021-08-13 00:46] LABS: Alveolar/Arterial O2 Gradient 124.5 mmHg; Base Excess ABG -10.4 mEq/l (+/-2.0); Carboxyhemoglobin 0.5 % THb (0-2.0); Fractional Inspired Oxygen 45 %; HCO3 ABG 16.7 mEq/l (22.0-26.0); Methemoglobin ABG 0.2 %THb (0-1.5); Oxygen Content ABG 20.8 %vol (16.0-22.0); Oxygen Saturation ABG 98.8 % (95.0-100.0); Oxyhemoglobin 97.5 % THb (90.0-100.0); PCO2 ABG 40.9 mmHg (35.0-45.0); PO2 ABG 165.3 mmHg (80.0-100.0); PO2 FiO2 Ratio Arterial Blood 3.67 %; Reduced Hemoglobin 1.8 %THb (0-5.0)
--- NOTE | 2021-08-13 00:46 | WPDPROCEDUR ---
Procedures Central Line Placement Left Femoral: Central Line Date: 08/12/21 Central Line Time: 23:23 Discussed w/ the patient/family/POA,the placement of a central venous catheter, including its clinical necessity/indication & associated potential risks, benifits and alternatives.: Yes The patient/family/POA understand(s) and acknowledge(s) the need to proceed with central venous catheter insertion as an important element of the patient's clinical management.: Yes Time Out Performed: Yes Patient Position: trendelenburg Patient placed on monitor/pulse ox: Yes Provider Prep: mask, sterile gown, sterile gloves, Max. sterile barrier precautions, cap and hand hygiene with conventional soap/water or alcohol based hand rub Central line prep: 2% Chlorhexidine scrub and sterile full body sheet applied Sterile US Technique with sterile gel/sterile probe covers: Yes Central line lumen inserted: triple [place]: 7 Length (cm): 20 Depth of Insertion (cm): 19 Post Procedure: sutured in place, good blood return, all ports aspirated, flushed, capped, transparent dressing, securement product and aseptic technique maintained throughout procedure Patient tolerated procedure: no complications
[2021-08-13 00:49] LABS: Device VENTILATOR; Site Drawn LEFT RADIAL; pH ABG 7.228 (7.350-7.450)
[2021-08-13 00:50] LABS: Arterial Blood Gas PEEP 5 cmH2O; Arterial Blood Gas Tidal Volume 470 ml; Arterial Blood Gas Vent Mode CMV; Arterial Blood Gas Ventilator rate 22 /MIN
[2021-08-13 01:20] LABS: Hemoglobin A1C 10.2 % (<5.7)
[2021-08-13] MEDS: ROCURONIUM BROMIDE 50 MG/5 ML VIAL IV PUSH ×2 (01:30→10:33)
[2021-08-13 01:38] LABS: Glucose Point of Care 430 mg/dl (65-105)
[2021-08-13] MEDS: INSULIN ASPART (*BKC) 100 UNITS/ML 15 UNITS SUB-Q (02:06)
--- NOTE | 2021-08-13 02:29 | WPDPROCEDUR ---
Procedures Arterial Line Arterial Line Date: 08/13/21 Arterial Line Time: 01:30 Discussed with the patient/family/POA, the placement of an arterial catheter, including its clinical necessity/indication and associated potential risks, benefits and alternatives.: Yes Patient/family/POA and/or understands and acknowledges the need to proceed with the arterial catheter insertion as an important element of the patient's clinical management.: Yes Time Out Performed: Yes Patient Position: supine [employer]st Prep: sterile gown, sterile gloves, mask and hat Site: right and radial Site Prep: chlorhexidine and sterile drape Technique used: direct puncture technique Size (Gauge): 20 Length: 12 cm Closure/Dressing: suture, transparent dressing and securement product Patient tolerated procedure: well Complications: none Additional comments: Attempted ultrasound-guided left radial art line but catheter would not advance or the guidewire. Subsequently the procedure was transitioned to a right radial art line with landmark technique.
[2021-08-13 02:58] LABS: Reflex Lactic Acid Yes or No Add Lactic
[2021-08-13] MEDS: NOREPINEPHRINE 8 MG/D5W 250 ML 8 MG/250 ML BAG 9.38 MG IV CONT (03:22)
[2021-08-13 03:43] LABS: Glucose Point of Care 435 mg/dl (65-105)
[2021-08-13 03:57] LABS: Lactic Acid Reflex 3.1 mmol/L (0.7-2.1)
[2021-08-13 04:24] LABS: Creatine Kinase 10931 U/L (55-170)
[2021-08-13 04:32] LABS: Glucose Point of Care 397 mg/dl (65-105)
[2021-08-13 04:57] LABS: Alveolar/Arterial O2 Gradient 75.2 mmHg; Carboxyhemoglobin 0.3 % THb (0-2.0); Fractional Inspired Oxygen 30 %; HCO3 ABG 17.3 mEq/l (22.0-26.0); Oxygen Content ABG 19.6 %vol (16.0-22.0); Oxygen Saturation ABG 97.6 % (95.0-100.0); Oxyhemoglobin 96.9 % THb (90.0-100.0); PCO2 ABG 38.6 mmHg (35.0-45.0); PO2 ABG 112.8 mmHg (80.0-100.0); PO2 FiO2 Ratio Arterial Blood 3.76 %; Reduced Hemoglobin 2.8 %THb (0-5.0); Total Hemoglobin 14.3 g/dL (12.0-18.0)
[2021-08-13 05:04] LABS: Arterial Blood Gas PEEP 5 cmH2O; Arterial Blood Gas Vent Mode CMV; Arterial Blood Gas Ventilator rate 26 /MIN; Device VENTILATOR; Site Drawn ARTLINE; pH ABG 7.269 (7.350-7.450)
[2021-08-13 05:05] LABS: Arterial Blood Gas Tidal Volume 470 ml
--- NOTE | 2021-08-13 05:11 | ECG_ITS ---
Measurements Intervals Secretary Rate: 73 P: 83 GA: 168 QRS: -43 QRSD: 101 T: -51 QT: 410 QTc: 453 Interpretive Statements SINUS RHYTHM LEFT AXIS DEVIATION [QRS AXIS < -30] ST DEVIATION AND MODERATE T-WAVE ABNORMALITY, CONSIDER INFERIOR ISCHEMIA [-0.1+ mV T WAVE IN II/aVF] INFERIOR INFARCTION, PROBABLY RECENT ABNORMAL ECG COMPARED TO ECG 08/12/2021 20:10:[address] ELEVATION NO LONGER APPRECIATED Electronically Signed On 08-13-2021 12:23:01 CDT by Fernando Groves M.D.
[2021-08-13] MEDS: INSULIN ASPART (*BKC) 100 UNITS/ML SUB-Q ×2 (05:37→09:13)
[2021-08-13 05:43] LABS: Glucose Point of Care 307 mg/dl (65-105)
[2021-08-13] MEDS: SODIUM CHLORIDE 0.9% IV 1,000 ML 100 ML IV CONT ×3 (06:00→16:51)
[2021-08-13 06:54] LABS: Glucose Point of Care 298 mg/dl (65-105)
[2021-08-13 06:57] LABS: Toxigenic C. Diff NEGATIVE (NEGATIVE)
[2021-08-13] MEDS: SODIUM CHLORIDE 0.9% IV 1,000 ML 999 ML IV CONT (07:08)
[2021-08-13] MEDS: SODIUM BICARBONATE 8.4% 50 MEQ/50 ML SYRINGE IV PUSH (08:09)
--- NOTE | 2021-08-13 08:16 | WPDCNINT ---
Assessment and Plan Assessment and plan (1) Acute respiratory failure: Code(s): J96.00 - Acute respiratory failure, unspecified whether with hypoxia or hypercapnia Status: Acute Assessment and Plan: Acute respiratory failure likely related to VFib arrest, patient was intubated on 08/12/2021 ABGs and chest x-ray reviewed -ventilator adjusted, currently on CMV mode of ventilation, peep of 5 and 30% FiO2 -add bronchodilators -patient sedated with fentanyl and Versed infusion -if she wearing occurs due to hypothermia protocol, may add neuromuscular blockade (2) Cardiac arrest: Code(s): I46.9 - Cardiac arrest, cause unspecified Status: Acute Assessment and Plan: Prolonged out of the hospital VFib arrest (down time was 1 hour and 8 minutes per records) -VFib likely secondary to inferior HI, status post cardiac catheterization with PTCA/PCI with PAT x1 to proximal RCA -currently on hypothermia protocol -currently on the cooling phase -Keppra has been started for possible myoclonic jerks (3) ST elevation (STEMI) myocardial infarction: Qualifiers: Involved coronary artery: unspecified coronary artery Qualified Code(s): I21.3 - ST elevation (STEMI) myocardial infarction of unspecified site Code(s): I21.3 - ST elevation (STEMI) myocardial infarction of unspecified site Status: Acute Assessment and Plan: As above -cardiology following the patient -continue aspirin, Brilinta, statin -will hold beta-tapan and losartan as patient is on vasopressors (4) Elevated LFTs: Code(s): R79.89 - Other specified abnormal findings of blood chemistry Status: Acute Assessment and Plan: Elevated LFTs most likely related to cardiac arrest, shock liver -continue to maintain adequate mean arterial pressures for end-organ perfusion (5) Diabetes mellitus with hyperglycemia, with long-term current use of insulin: Qualifiers: Diabetes mellitus type: type 2 Qualified Code(s): E11.65 - Type 2 diabetes mellitus with hyperglycemia; Z79.4 - terminologist (current) use of insulin Code(s): E11.65 - Type 2 diabetes mellitus with hyperglycemia; Z79.4 - terminologist (current) use of insulin Status: Acute Assessment and Plan: Hyperglycemia could be related to uncontrolled diabetes, acute stress from cardiac arrest, cardiac catheterization, shock -hemoglobin A1c 10.2 -continue sliding scale insulin and Lantus (6) Shock: Code(s): R57.9 - Shock, unspecified Status: Acute Assessment and Plan: Shock likely related to cardiac arrest -patient also could have developed aspiration pneumonia -lactic acid was initially elevated but has normalized -patient only received 1 L of IV fluids, given 1 L IV fluid bolus in the ICU this morning -patient also given an amp of bicarb -maintain mean arterial pressures > 70 mmHg for adequate end organ perfusion (7) Coffee ground emesis: Code(s): K92.0 - Hematemesis Status: Acute Assessment and Plan: NG with coffee-ground drainage, for possibility of some dark maroon drainage -this could be related to the Brilinta was given for a STEMI -patient started on a Protonix infusion, will monitor hemoglobin levels closely Additional Plan DVT prophylaxis: SCDs Stress ulcer prophylaxis: Protonix infusion Nutrition: NPO for now Code status: Full code Critical care time spent: 49 minutes This dictation may have been done utilizing a voice recognition system. Attempts have been made to correct errors. However, there may be uncorrected grammatical, spelling, and recognition errors present. Due to a high probability of clinically significant, life threatening deterioration, the patient required my highest level of preparedness to intervene emergently and I personally spent this critical care time directly and personally managing the patient. This critical care time included obtaining a history; examining the pat
[2021-08-13] MEDS: levETIRAcetam 500MG/NACL 100ML 500 MG/100 ML BAG 400 MG IVPB ×2 (08:24→20:40)
[2021-08-13 08:32] LABS: Basophils Absolute Auto 0.1 K/mm3 (0.0-0.1); Basophils Percent Auto 0.2 % (0.2-1.2); Hematocrit 39.6 % (42.0-52.0); Immature Granulocyte Absolute 0.27 K/mm3 (0.00-0.031); Immature Granulocyte Percent A 0.9 % (0-0.5); Lymphocytes Absolute Auto 2.28 K/mm3 (0.9-3.2); Lymphocytes Percent Auto 7.6 % (18.3-44.2); Mean Corpuscular HGB Conc 32.8 g/dl (32-36); Mean Corpuscular Hemoglobin 29.2 pg (26-34); Mean Platelet Volume 10.6 fl (7.4-10.4); Monocytes Absolute Auto 1.8 K/mm3 (0.1-0.6); Monocytes Percent Auto 5.9 % (2.6-8.5); Neutrophils Absolute Auto 25.7 K/mm3 (1.3-6.7); Neutrophils Percent Auto 85.4 % (45.5-73.1); Platelet Count Result 262 k/mm3 (150-375); Red Blood Count 4.45 M/mm3 (4.6-6.20); Red Cell Distribution Width 12.5 % (11.5-14.5)
[2021-08-13 08:38] LABS: Glucose Point of Care 205 mg/dl (65-105)
[2021-08-13 08:44] LABS: Ammonia < 9 umol/L (9-30)
[2021-08-13 08:46] LABS: Lactic Acid Reflex 1.6 mmol/L (0.7-2.1)
[2021-08-13 08:48] LABS: Alanine Aminotransferase 291 U/L (4-50); Albumin Level 2.5 g/dL (3.5-5.1); Alkaline Phosphatase 93 U/L (38-126); Anion Gap 0 mmol/L (8-16); Aspartate Amino Transferase 626 U/L (17-59); Bilirubin,Total 0.3 mg/dL (0.2-1.3); Blood Urea Nitrogen 20 mg/dL (9-20); Calcium 6.2 mg/dL (8.4-10.2); Carbon Dioxide 34 mmol/L (22-30); Chloride 104 mmol/L (98-107); Estimated CRCL calculation 96 ml/min; Estimated Glomerular Filt Rate > 60; Glucose 178 mg/dL (65-110); Magnesium 1.7 mg/dL (1.6-2.3); Phosphorus 2.8 mg/dL (2.5-4.5); Potassium 4.2 mmol/L (3.4-5.0); Sodium 138 mmol/L (137-145)
[2021-08-13 09:07] LABS: Lipase 16 U/L (23-300)
[2021-08-13] MEDS: MAGNESIUM SULF 2 GM/WATER 50ML 2 GM/50 ML BAG IVPB (09:12)
[2021-08-13] MEDS: INSULIN GLARGINE (*BKC) 100 UNITS/ML 10 UNITS SUB-Q (09:13)
[2021-08-13 09:20] LABS: INR 1.3; Prothrombin Time 15.5 Seconds (11.1-14.7)
[2021-08-13 09:21] LABS: Partial Thromboplastin Time 31.2 SECONDS (22.3-36.8)
[2021-08-13] MEDS: CALCIUM GLUC 2,000 MG/NS 100ML 2,000 MG/100 ML BAG 100 MG IVPB (09:27)
[2021-08-13] MEDS: hetaSTARCH 6%/NACL 500 ML 250 ML IV CONT (09:27)
[2021-08-13] MEDS: MINERAL OIL/WHITE PETROLATUM OINTMENT 1 APPLIC EACH EYE ×2 (09:33→20:33)
[2021-08-13] MEDS: ASPIRIN 81 MG CHEWABLE TABLET PO (09:34)
[2021-08-13] MEDS: TICAGRELOR 90 MG TABLET PO ×2 (09:34→20:33)
[2021-08-13] MEDS: ROSUVASTATIN 10 MG TABLET 20 MG PO (09:34)
--- NOTE | 2021-08-13 09:49 | PM.PNCARD ---
Progress Note: A&P Additional Plan 46-year-old patient with previous history of diabetes and alcohol abuse. Presenting yesterday with out of hospital ventricular fibrillation with subtotal occlusion of the proximal RCA and inferior ST segment elevation noted following resuscitation. Unfortunately resuscitation effort was prolonged with no effective pulse for more than an hour. Therefore do not anticipate a good neurological outcome. He is currently on hypothermia protocol and there are no other cardiac recommendations today to make. Mg Santos MD [facility] Subjective Date/time seen: Date of service: 08/13/21 09:49 Interval history: Follow-up visit in this 46-year-old man with: Acute inferior wall myocardial infarction unfortunately presenting with yit-ta-atitablr ventricular fibrillation. Following prolonged resuscitation effort he was brought to the rn cardiac cath and underwent successful emergency PCI of the proximal RCA. Patient also has moderate mid circumflex disease unrelated to this event. Patient is now in the ICU intubated sedated on hypothermia protocol. Receiving aspirin and Brilinta. Beta-tapan and ARB are on hold because of hypotension requiring pressor support. Prognosis for meaningful neurological recovery is very poor as dictated in initial notes Exam Const: Other: Sedated white male appears to be about his stated age intubated on ventilator support HENMT: Mouth: Yes moist mucous membranes Eyes: Sclera: sclerae normal Neck: Neck: supple and no JVD Other: Normal carotid pulses Resp: Other: Scattered rhonchi noted Cardio: Rate: regular rate Rhythm: regular rhythm Other: No murmur no gallop GI: GI Palp: Yes Soft to palpation Neuro: Other: Sedated unresponsive, pupils are fixed Extrem: General: normal to inspection Other: No edema, no hematoma at femoral puncture site Objective Data Vital Signs Vital Signs: Vital Signs - 24 hr 08/12/21 17:28 08/12/21 18:23 08/12/21 18:26 Temperature Pulse Rate 0 L 138 H 82 Pulse Rate [Bilateral Pedal (Dorsalis Pedis) Palpation] Pulse Rate [Left Pedal (Dorsalis Pedis) Doppler] Pulse Rate [Right Pedal (Dorsalis Pedis) Doppler] Respiratory Rate 0 L Blood Pressure 0/0 L 143/91 H Pulse Oximetry 0 L 100 08/12/21 18:30 08/12/21 19:00 08/12/21 20:15 Temperature Pulse Rate 118 H 90 85 Pulse Rate [Bilateral Pedal (Dorsalis Pedis) Palpation] Pulse Rate [Left Pedal (Dorsalis Pedis) Doppler] Pulse Rate [Right Pedal (Dorsalis Pedis) Doppler] Respiratory Rate Blood Pressure 110/86 94/76 L Pulse Oximetry 100 98 08/12/21 20:16 08/12/21 20:31 08/12/21 20:47 Temperature 33.9 C L 34.1 C L Pulse Rate 86 84 98 Pulse Rate [Bilateral Pedal (Dorsalis Pedis) Palpation] Pulse Rate [Left Pedal (Dorsalis Pedis) Doppler] Pulse Rate [Right Pedal (Dorsalis Pedis) Doppler] Respiratory Rate 20 20 16 Blood Pressure 125/92 H 134/93 H 155/96 H Pulse Oximetry 100 100 100 08/12/21 21:16 08/12/21 21:31 08/12/21 21:46 Temperature 34.2 C L 34.3 C L 34.4 C L Pulse Rate 89 92 87 Pulse Rate [Bilateral Pedal (Dorsalis Pedis) Palpation] Pulse Rate [Left Pedal (Dorsalis Pedis) Doppler] Pulse Rate [Right Pedal (Dorsalis Pedis) Doppler] Respiratory Rate 23 H 24 H 23 H Blood Pressure 131/94 H 148/117 H 126/98 H Pulse Oximetry 100 99 100 08/12/21 21:47 08/12/21 22:00 08/12/21 22:01 Temperature 34.4 C L 34.4 C L 34.4 C L Pulse Rate 90 87 105 H Pulse Rate [Bilateral Pedal (Dorsalis Pedis) Palpation] Pulse Rate [Left Pedal (Dorsalis Pedis) Doppler] Pulse Rate [Right Pedal (Dorsalis Pedis) Doppler] Respiratory Rate 27 H 23 H 29 H Blood Pressure 165/120 H Pulse Oximetry 100 100 100 08/12/21 22:12 08/12/21 22:15 08/12/21 22:16 Temperature Pulse Rate 90 95 95 Pulse Rate [Bilateral Pedal (Dorsalis Pedis) Palpation] Pulse Rate [Left Pedal (Dorsalis Pedis) Doppler] Pulse Rate [Right Pedal (Dorsalis Pedis) Dopp
[2021-08-13 09:51] LABS: Creatine Kinase 10742 U/L (55-170)
[2021-08-13 09:52] LABS: Glucose Point of Care 215 mg/dl (65-105)
[2021-08-13 11:12] LABS: Glucose Point of Care 177 mg/dl (65-105)
[2021-08-13 11:12] LABS: Glucose Point of Care 187 mg/dl (65-105)
[2021-08-13 12:09] LABS: Glucose Point of Care 150 mg/dl (65-105)
[2021-08-13] MEDS: FENTANYL 2,500MCG/NS250ML(*CRX 2,500 MCG/250 ML BAG 17.5 MCG IV CONT (12:46)
[2021-08-13 13:10] LABS: Glucose Point of Care 140 mg/dl (65-105)
--- NOTE | 2021-08-13 13:12 | PM.IMPN ---
Progress Note: A&P Assessment and Plan (1) Acute respiratory failure: Code(s): J96.00 - Acute respiratory failure, unspecified whether with hypoxia or hypercapnia Status: Acute Assessment and Plan: Acute respiratory failure likely related to VFib arrest, patient was intubated on 08/12/2021 ABGs and chest x-ray reviewed Ventilator management per transitional care manager. -patient sedated with fentanyl and Versed infusion Further management per transitional care manager (2) Cardiac arrest: Code(s): I46.9 - Cardiac arrest, cause unspecified Status: Acute Assessment and Plan: Prolonged out of the hospital VFib arrest (down time was 1 hour and 8 minutes per records) -VFib likely secondary to inferior VT, status post cardiac catheterization with PTCA/PCI with PAT x1 to proximal RCA -currently on hypothermia protocol -currently on the cooling phase -Keppra has been started for possible myoclonic jerks (3) ST elevation (STEMI) myocardial infarction: Qualifiers: Involved coronary artery: unspecified coronary artery Qualified Code(s): I21.3 - ST elevation (STEMI) myocardial infarction of unspecified site Code(s): I21.3 - ST elevation (STEMI) myocardial infarction of unspecified site Status: Acute Assessment and Plan: -cardiology following the patient -continue aspirin, Brilinta, statin -will hold beta-tapan and losartan as patient is on vasopressors (4) Elevated LFTs: Code(s): R79.89 - Other specified abnormal findings of blood chemistry Status: Acute Assessment and Plan: Elevated LFTs most likely related to cardiac arrest, shock liver -continue to maintain adequate mean arterial pressures for end-organ perfusion (5) Diabetes mellitus with hyperglycemia, with long-term current use of insulin: Qualifiers: Diabetes mellitus type: type 2 Qualified Code(s): E11.65 - Type 2 diabetes mellitus with hyperglycemia; Z79.4 - snf (current) use of insulin Code(s): E11.65 - Type 2 diabetes mellitus with hyperglycemia; Z79.4 - terminal operator (current) use of insulin Status: Acute Assessment and Plan: Hyperglycemia could be related to uncontrolled diabetes, acute stress from cardiac arrest, cardiac catheterization, shock -hemoglobin A1c 10.2 -continue sliding scale insulin and Lantus (6) Shock: Code(s): R57.9 - Shock, unspecified Status: Acute Assessment and Plan: Shock likely related to cardiac arrest -patient also could have developed aspiration pneumonia -lactic acid was initially elevated but has normalized -patient only received 1 L of IV fluids, given 1 L IV fluid bolus in the ICU this morning -patient also given an amp of bicarb -maintain mean arterial pressures > 70 mmHg for adequate end organ perfusion (7) Coffee ground emesis: Code(s): K92.0 - Hematemesis Status: Acute Assessment and Plan: NG with coffee-ground drainage, for possibility of some dark maroon drainage -this could be related to the Brilinta was given for a STEMI -patient started on a Protonix infusion, will monitor hemoglobin levels closely Additional Plan DVT prophylaxis: SCDs Stress ulcer prophylaxis: Protonix infusion Nutrition: NPO Code status: Full code Subjective Date/time seen: 08/13/21 13:12 Interval history: HPI:iSdney Raphael is a 46 year old male with a past medical history of alcoholic pancreatitis, cirrhosis, tobacco abuse and insulin-dependent diabetes mellitus with complications who presented to the ER after cardiac arrest at home. Patient's girlfriend reports the patient was putting some food in the oven when he suddenly sat down on the floor and then collapsed backwards. The patient had brief episode of shaking and within 30 seconds was having agonal respirations. She called EMS who arrived at the residence within 1-2 minutes of EMS call. She was unable to do chest compressions is she herself has any EF of 20% has a LifeVest
[2021-08-13] MEDS: IPRATROPIUM BR 0.02% INH SOLN 0.5 MG/2.5 ML VIAL INHALATION ×2 (14:10→21:23)
[2021-08-13] MEDS: LEVALBUTEROL NEB 1.25 MG/3 ML 0.63 MG INHALATION ×2 (14:10→21:23)
[2021-08-13] MEDS: MIDAZOLAM 100MG/NS 100ML(*CRX) 100 MG/100 ML BAG 6 MG IV CONT (14:12)
[2021-08-13 14:27] LABS: Glucose Point of Care 135 mg/dl (65-105)
[2021-08-13 15:33] LABS: Glucose Point of Care 117 mg/dl (65-105)
[2021-08-13] MEDS: NOREPINEPHRINE 8 MG/D5W 250 ML 8 MG/250 ML BAG 26.25 MG IV CONT (16:00)
[2021-08-13 16:13] LABS: Creatine Kinase 11316 U/L (55-170)
[2021-08-13 16:15] LABS: Glucose Point of Care 92 mg/dl (65-105)
[2021-08-13 16:57] LABS: Alveolar/Arterial O2 Gradient 31.9 mmHg; Base Excess ABG -7.8 mEq/l (+/-2.0); Fractional Inspired Oxygen 30 %; HCO3 ABG 18.4 mEq/l (22.0-26.0); Oxygen Content ABG 18.4 %vol (16.0-22.0); Oxygen Saturation ABG 98.4 % (95.0-100.0); Total Hemoglobin 13.3 g/dL (12.0-18.0)
[2021-08-13 16:58] LABS: Device VENTILATOR; Site Drawn ARTLINE; pH ABG 7.281 (7.350-7.450)
[2021-08-13 16:59] LABS: Arterial Blood Gas PEEP 5 cmH2O; Arterial Blood Gas Tidal Volume 470 ml; Arterial Blood Gas Vent Mode CMV; Arterial Blood Gas Ventilator rate 26 /MIN
[2021-08-13 17:08] LABS: Glucose Point of Care 68 mg/dl (65-105)
--- NOTE | 2021-08-13 17:14 | PC.NURSE ---
Notified Dr. Melvin of critical pH of 7.281 on ABG. Increasing CK of 11,316, 1 L LR bolus was ordered for this. Blood glucose of 68 also reported, D5NS ordered at 100 ml/hr.
[2021-08-13] MEDS: LACTATED RINGERS 1,000 ML 999 ML IV CONT ×2 (17:25→18:56)
[2021-08-13] MEDS: DEXTROSE 5%/0.9% SOD CHL 1,000 ML 100 ML IV CONT (17:25)
[2021-08-13 18:44] LABS: Glucose Point of Care 77 mg/dl (65-105)
[2021-08-13 19:30] LABS: Glucose Point of Care 83 mg/dl (65-105)
[2021-08-13 20:58] LABS: INR 1.2; Prothrombin Time 14.9 Seconds (11.1-14.7)
[2021-08-13 20:59] LABS: Partial Thromboplastin Time 35.7 SECONDS (22.3-36.8)
[2021-08-13 21:22] LABS: Glucose Point of Care 89 mg/dl (65-105)
[2021-08-13 21:22] LABS: Glucose Point of Care 71 mg/dl (65-105)
[2021-08-13 21:48] LABS: Creatine Kinase 10609 U/L (55-170)
[2021-08-13 22:12] LABS: Glucose Point of Care 96 mg/dl (65-105)
[2021-08-13 23:11] LABS: Glucose Point of Care 97 mg/dl (65-105)
[2021-08-14] VITALS (63 sets, daily range): BP systolic 89–118; BP diastolic 51–68; PULSE 52–88; RESP 26; TEMP 32.4–36.7; O2SAT 98–100; BMI 26.5
[2021-08-14 00:16] LABS: Glucose Point of Care 110 mg/dl (65-105)
[2021-08-14] MEDS: NOREPINEPHRINE 8 MG/D5W 250 ML 8 MG/250 ML BAG 24.38 MG IV CONT (01:18)
[2021-08-14 01:26] LABS: Glucose Point of Care 107 mg/dl (65-105)
[2021-08-14 02:08] LABS: Glucose Point of Care 133 mg/dl (65-105)
[2021-08-14] MEDS: IPRATROPIUM BR 0.02% INH SOLN 0.5 MG/2.5 ML VIAL INHALATION ×4 (02:31→20:24)
[2021-08-14] MEDS: LEVALBUTEROL NEB 1.25 MG/3 ML 0.63 MG INHALATION ×4 (02:32→20:24)
[2021-08-14 03:04] LABS: Glucose Point of Care 127 mg/dl (65-105)
[2021-08-14] MEDS: DEXTROSE 5%/0.9% SOD CHL 1,000 ML 100 ML IV CONT (03:06)
[2021-08-14] MEDS: FENTANYL 2,500MCG/NS250ML(*CRX 2,500 MCG/250 ML BAG 17.5 MCG IV CONT (03:08)
[2021-08-14 04:28] LABS: Glucose Point of Care 141 mg/dl (65-105)
[2021-08-14 04:32] LABS: Basophils Percent Auto 0.2 % (0.2-1.2); Eosinophils Absolute Auto 0.1 K/mm3 (0-0.3); Eosinophils Percent Auto 0.4 % (0-4.4); Hematocrit 37.2 % (42.0-52.0); Hemoglobin 12.5 g/dL (14.0-18.0); Immature Granulocyte Absolute 0.12 K/mm3 (0.00-0.031); Immature Granulocyte Percent A 0.5 % (0-0.5); Lymphocytes Absolute Auto 2.83 K/mm3 (0.9-3.2); Lymphocytes Percent Auto 12.3 % (18.3-44.2); Mean Corpuscular HGB Conc 33.6 g/dl (32-36); Mean Corpuscular Hemoglobin 29.3 pg (26-34); Mean Corpuscular Volume 87.1 fl (80-100); Mean Platelet Volume 10.3 fl (7.4-10.4); Monocytes Absolute Auto 1.2 K/mm3 (0.1-0.6); Monocytes Percent Auto 5.1 % (2.6-8.5); Neutrophils Absolute Auto 18.7 K/mm3 (1.3-6.7); Neutrophils Percent Auto 81.5 % (45.5-73.1); Platelet Count Result 215 k/mm3 (150-375); Red Blood Count 4.27 M/mm3 (4.6-6.20); Red Cell Distribution Width 12.8 % (11.5-14.5); White Blood Count 22.9 K/mm3 (4.5-10.0)
[2021-08-14 04:35] LABS: Alveolar/Arterial O2 Gradient 92.9 mmHg; Base Excess ABG -7.1 mEq/l (+/-2.0); Fractional Inspired Oxygen 30 %; HCO3 ABG 17.2 mEq/l (22.0-26.0); Oxygen Content ABG 18.2 %vol (16.0-22.0); Oxygen Saturation ABG 98.2 % (95.0-100.0); Oxyhemoglobin 97.1 % THb (90.0-100.0); PO2 ABG 116.3 mmHg (80.0-100.0); PO2 FiO2 Ratio Arterial Blood 3.88 %; Total Hemoglobin 13.2 g/dL (12.0-18.0); pH ABG 7.361 (7.350-7.450)
[2021-08-14 04:37] LABS: Device VENTILATOR; Site Drawn ARTLINE
[2021-08-14 04:38] LABS: Arterial Blood Gas PEEP 5 cmH2O; Arterial Blood Gas Tidal Volume 470 ml; Arterial Blood Gas Vent Mode CMV; Arterial Blood Gas Ventilator rate 26 /MIN
[2021-08-14 04:46] LABS: Lactic Acid Reflex 1.3 mmol/L (0.7-2.1)
[2021-08-14 04:47] LABS: Alanine Aminotransferase 227 U/L (4-50); Albumin Level 2.2 g/dL (3.5-5.1); Alkaline Phosphatase 83 U/L (38-126); Anion Gap 2 mmol/L (8-16); Aspartate Amino Transferase 476 U/L (17-59); Bilirubin,Total 0.4 mg/dL (0.2-1.3); Blood Urea Nitrogen 14 mg/dL (9-20); Calcium 7.1 mg/dL (8.4-10.2); Carbon Dioxide 20 mmol/L (22-30); Chloride 112 mmol/L (98-107); Estimated CRCL calculation 125 ml/min; Estimated Glomerular Filt Rate > 60; Glucose 203 mg/dL (65-110); Magnesium 1.7 mg/dL (1.6-2.3); Phosphorus 2.2 mg/dL (2.5-4.5); Potassium 3.2 mmol/L (3.4-5.0); Sodium 134 mmol/L (137-145)
[2021-08-14 04:54] LABS: Burr Cells 1+ (NORMAL); Platelet Estimate Adequate (Adequate)
[2021-08-14 05:28] LABS: Creatine Kinase 9379 U/L (55-170)
[2021-08-14] MEDS: MIDAZOLAM 100MG/NS 100ML(*CRX) 100 MG/100 ML BAG 6 MG IV CONT (05:42)
[2021-08-14 06:09] LABS: Glucose Point of Care 148 mg/dl (65-105)
[2021-08-14 06:25] LABS: Glucose Point of Care 182 mg/dl (65-105)
[2021-08-14 07:00] LABS: Glucose Point of Care 173 mg/dl (65-105)
[2021-08-14] MEDS: MAGNESIUM SULF 2 GM/WATER 50ML 2 GM/50 ML BAG IVPB (08:09)
[2021-08-14] MEDS: SODIUM BICARBONATE 8.4% 150 MEQ in WATER, STERILE FOR INJECTION 950 ML 125 MEQ IV CONT ×2 (08:09→17:47)
[2021-08-14] MEDS: SODIUM PHOSPHATE 20 MM in DEXTROSE 5% IN WATER 250 ML 50 MM IVPB (08:11)
[2021-08-14] MEDS: levETIRAcetam 500MG/NACL 100ML 500 MG/100 ML BAG 400 MG IVPB ×2 (08:11→20:28)
[2021-08-14] MEDS: CALCIUM CHLOR 1,000MG/100ML NS 1,000 MG/100 ML BAG 100 MG IVPB (08:15)
[2021-08-14] MEDS: ASPIRIN 81 MG CHEWABLE TABLET PO (08:18)
[2021-08-14] MEDS: MINERAL OIL/WHITE PETROLATUM OINTMENT 1 APPLIC EACH EYE ×2 (08:19→20:32)
[2021-08-14] MEDS: ROSUVASTATIN 10 MG TABLET 20 MG PO (08:19)
[2021-08-14] MEDS: TICAGRELOR 90 MG TABLET PO ×2 (08:19→20:32)
[2021-08-14 08:21] LABS: Glucose Point of Care 185 mg/dl (65-105)
[2021-08-14] MEDS: INSULIN ASPART (*BKC) 100 UNITS/ML SUB-Q (09:05)
[2021-08-14 09:21] LABS: Glucose Point of Care 204 mg/dl (65-105)
--- NOTE | 2021-08-14 09:50 | WPDINTPN ---
Progress Note: A&P Assessment and Plan (1) Acute respiratory failure: Code(s): J96.00 - Acute respiratory failure, unspecified whether with hypoxia or hypercapnia Status: Acute Assessment and Plan: Acute respiratory failure likely related to VFib arrest, patient was intubated on 08/12/2021 ABGs and chest x-ray reviewed -advance ET tube by 2 cm -ventilator settings reviewed -continue bronchodilators -patient sedated with fentanyl and Versed infusion -continue antibiotics for possible aspiration pneumonia. Cultures have been sent and are pending (2) Cardiac arrest: Code(s): I46.9 - Cardiac arrest, cause unspecified Status: Acute Assessment and Plan: Prolonged out of the hospital VFib arrest (down time was 1 hour and 8 minutes per records) -VFib likely secondary to inferior GA, status post cardiac catheterization with PTCA/PCI with PAT x1 to proximal RCA (3) ST elevation (STEMI) myocardial infarction: Qualifiers: Involved coronary artery: unspecified coronary artery Qualified Code(s): I21.3 - ST elevation (STEMI) myocardial infarction of unspecified site Code(s): I21.3 - ST elevation (STEMI) myocardial infarction of unspecified site Status: Acute Assessment and Plan: As above -cardiology following the patient -continue aspirin, Brilinta, statin -will hold beta-tapan and losartan as patient is on vasopressors (4) Elevated LFTs: Code(s): R79.89 - Other specified abnormal findings of blood chemistry Status: Acute Assessment and Plan: Elevated LFTs most likely related to cardiac arrest, shock liver -continue to maintain adequate mean arterial pressures for end-organ perfusion -improving (5) Diabetes mellitus with hyperglycemia, with long-term current use of insulin: Qualifiers: Diabetes mellitus type: type 2 Qualified Code(s): E11.65 - Type 2 diabetes mellitus with hyperglycemia; Z79.4 - assisted (current) use of insulin Code(s): E11.65 - Type 2 diabetes mellitus with hyperglycemia; Z79.4 - watermelon inspector (current) use of insulin Status: Acute Assessment and Plan: Hyperglycemia could be related to uncontrolled diabetes, acute stress from cardiac arrest, cardiac catheterization, shock -hemoglobin A1c 10.2 -patient was started on sliding scale insulin and Lantus but became hypoglycemic -blood sugars are now pain elevated. Discontinue dextrose IV fluids -continue sliding scale but hold Lantus for now (6) Shock: Code(s): R57.9 - Shock, unspecified Status: Acute Assessment and Plan: Shock likely related to cardiac arrest -patient also could have developed aspiration pneumonia -lactic acid was initially elevated but has normalized -patient only received 1 L of IV fluids, given 1 L IV fluid bolus in the ICU this morning -patient also given an amp of bicarb -maintain mean arterial pressures > 70 mmHg for adequate end organ perfusion -continue Levophed -continue antibiotics (7) Coffee ground emesis: Code(s): K92.0 - Hematemesis Status: Acute Assessment and Plan: NG with coffee-ground drainage, for possibility of some dark maroon drainage -this could be related to the Brilinta was given for a STEMI -patient started on a Protonix infusion -his hemoglobin has been stable. Change to Protonix IV q.12 hours -continue to monitor hemoglobin (8) Anoxic brain injury: Code(s): G93.1 - Anoxic brain damage, not elsewhere classified Status: Acute Assessment and Plan: Anoxic brain injury suspected due to prolonged down time Patient currently on TTM protocol and will start reforming around 11:00 a.m. this morning Will hold sedation once patient is rewarming Repeat head CT tomorrow and check EEG tomorrow Will consult neurology depending on neuro exam Continue Keppra that has been started for possible myoclonic jerks (9) Rhabdomyolysis: Code(s): M62.82 - Rhabdomyolysis
[2021-08-14 10:18] LABS: Glucose Point of Care 211 mg/dl (65-105)
--- NOTE | 2021-08-14 10:25 | PM.PNCARD ---
Progress Note: A&P Assessment and Plan (1) ST elevation (STEMI) myocardial infarction: Qualifiers: Involved coronary artery: unspecified coronary artery Qualified Code(s): I21.3 - ST elevation (STEMI) myocardial infarction of unspecified site Code(s): I21.3 - ST elevation (STEMI) myocardial infarction of unspecified site Status: Acute Assessment and Plan: Presented following witnessed cardiac arrest at home. ECG with findings consistent with inferior CT. He was taken to the custodial laborer emergently and was found to have 99% stenosis of the proximal RCA which was stented with The lesion was then stented using a 3.5 x 22 mm [employer] drug-eluting stent which provided a good anatomical result. EF estimated to be 40% Continue ASA Continue Brilinta Continue statin Losartan and metoprolol on hold as he is currently requiring vasopressors Echo has been ordered (2) Cardiac arrest: Code(s): I46.9 - Cardiac arrest, cause unspecified Status: Acute Assessment and Plan: Suffered VF cardiac arrest at home secondary to subtotal occlusion of RCA. (3) Anoxic brain injury: Code(s): G93.1 - Anoxic brain damage, not elsewhere classified Status: Acute Assessment and Plan: Reportedly had prolonged down time despite having a witnessed arrest. As such, likelihood of meaningful neurological recovery is low. Plan for EEG tomorrow per critical care team. Prognosis guarded. Subjective Date/time seen: 08/14/21 10:25 Interval history: Follow-up visit in this 46-year-old man with: Acute inferior wall myocardial infarction unfortunately presenting with [id number] ventricular fibrillation. Following prolonged resuscitation effort he was brought to the custodial laborer and underwent successful emergency PCI of the proximal RCA. Patient also has moderate mid circumflex disease unrelated to this event. Patient is now in the ICU intubated sedated on hypothermia protocol. Receiving aspirin and Brilinta. Beta-tapan and ARB are on hold because of hypotension requiring pressor support. Prognosis for meaningful neurological recovery is very poor as dictated in initial notes Date of service 08/14/2021: No acute events overnight. Patient remains intubated and sedated. Beginning to warm patient today. BP is improving, he does remain on norepinephrine. Review of Systems Review of Systems: ROS unobtainable: Yes unobtainable due to endotracheal tube, unobtainable due to medical condition and unobtainable due to mental status Exam Const: General: comfortable and no acute distress Other: Intubated and sedated white male appears to be about his stated age intubated on ventilator support HENMT: Mouth: Yes moist mucous membranes Eyes: Sclera: sclerae normal Neck: Neck: supple and no JVD Resp: Effort & Inspection: normal respiratory effort Auscultation: clear to auscultation bilaterally and rhonchi Cardio: Rate: regular rate Rhythm: regular rhythm Other: No murmur no gallop GI: Auscultation: normal bowel sounds Skin: General skin exam: normal color Neuro: Other: Sedated unresponsive, pupils are fixed Extrem: General: normal to inspection Other: Arterial access site free from bleeding, hematoma Objective Data Vital Signs Vital Signs: Vital Signs - 24 hr 08/13/21 10:35 08/13/21 10:50 08/13/21 10:55 Temperature Pulse Rate 77 62 69 Pulse Rate [Bilateral Pedal (Dorsalis Pedis) Palpation] Respiratory Rate Blood Pressure 119/71 169/95 H 158/89 H Pulse Oximetry 08/13/21 11:00 08/13/21 11:02 08/13/21 11:08 Temperature 32.7 C L Pulse Rate 58 L 59 L 58 L Pulse Rate [Bilateral Pedal (Dorsalis Pedis) Palpation] Respiratory Rate 26 H Blood Pressure 148/87 H 154/89 H 148/87 H Pulse Oximetry 100 08/13/21 11:18 08/13/21 11:25 08/13/21 11:31 Temperature Pulse Rate 56 L 56 L 54 L Pulse Rate [Bilateral Pedal (Dorsalis Pedis) Palpation] Respiratory
[2021-08-14 11:02] LABS: Glucose Point of Care 220 mg/dl (65-105)
[2021-08-14 12:31] LABS: Glucose Point of Care 183 mg/dl (65-105)
--- NOTE | 2021-08-14 13:21 | PM.IMPN ---
Progress Note: A&P Assessment and Plan (1) Acute respiratory failure: Code(s): J96.00 - Acute respiratory failure, unspecified whether with hypoxia or hypercapnia Status: Acute Assessment and Plan: Acute respiratory failure likely related to VFib arrest, patient was intubated on 08/12/2021 ABGs and chest x-ray reviewed Ventilator management per portfolio assistant. -patient sedated with fentanyl and Versed infusion Further management per portfolio assistant (2) Cardiac arrest: Code(s): I46.9 - Cardiac arrest, cause unspecified Status: Acute Assessment and Plan: Prolonged out of the hospital VFib arrest (down time was 1 hour and 8 minutes per records) -VFib likely secondary to inferior RI, status post cardiac catheterization with PTCA/PCI with PAT x1 to proximal RCA -currently on hypothermia protocol -currently on the cooling phase -Keppra has been started for possible myoclonic jerks (3) ST elevation (STEMI) myocardial infarction: Qualifiers: Involved coronary artery: unspecified coronary artery Qualified Code(s): I21.3 - ST elevation (STEMI) myocardial infarction of unspecified site Code(s): I21.3 - ST elevation (STEMI) myocardial infarction of unspecified site Status: Acute Assessment and Plan: -cardiology following the patient -continue aspirin, Brilinta, statin -will hold beta-tapan and losartan as patient is on vasopressors (4) Elevated LFTs: Code(s): R79.89 - Other specified abnormal findings of blood chemistry Status: Acute Assessment and Plan: Elevated LFTs most likely related to cardiac arrest, shock liver -continue to maintain adequate mean arterial pressures for end-organ perfusion (5) Diabetes mellitus with hyperglycemia, with long-term current use of insulin: Qualifiers: Diabetes mellitus type: type 2 Qualified Code(s): E11.65 - Type 2 diabetes mellitus with hyperglycemia; Z79.4 - group home (current) use of insulin Code(s): E11.65 - Type 2 diabetes mellitus with hyperglycemia; Z79.4 - theoretical physics teacher (current) use of insulin Status: Acute Assessment and Plan: Hyperglycemia could be related to uncontrolled diabetes, acute stress from cardiac arrest, cardiac catheterization, shock -hemoglobin A1c 10.2 -continue sliding scale insulin and Lantus (6) Shock: Code(s): R57.9 - Shock, unspecified Status: Acute Assessment and Plan: Shock likely related to cardiac arrest -patient also could have developed aspiration pneumonia -lactic acid was initially elevated but has normalized -patient only received 1 L of IV fluids, given 1 L IV fluid bolus in the ICU this morning -patient also given an amp of bicarb -maintain mean arterial pressures > 70 mmHg for adequate end organ perfusion (7) Coffee ground emesis: Code(s): K92.0 - Hematemesis Status: Acute Assessment and Plan: NG with coffee-ground drainage, for possibility of some dark maroon drainage -this could be related to the Brilinta was given for a STEMI -patient started on a Protonix infusion, will monitor hemoglobin levels closely Additional Plan DVT prophylaxis: SCDs Stress ulcer prophylaxis: Protonix infusion Nutrition: NPO Code status: Full code Subjective Date/time seen: 08/14/21 13:21 Interval history: HPI:Sidney Raphael is a 46 year old male with a past medical history of alcoholic pancreatitis, cirrhosis, tobacco abuse and insulin-dependent diabetes mellitus with complications who presented to the ER after cardiac arrest at home. Patient's girlfriend reports the patient was putting some food in the oven when he suddenly sat down on the floor and then collapsed backwards. The patient had brief episode of shaking and within 30 seconds was having agonal respirations. She called EMS who arrived at the residence within 1-2 minutes of EMS call. She was unable to do chest compressions is she herself has any EF of 20% has a LifeVest
[2021-08-14 13:37] LABS: Glucose Point of Care 171 mg/dl (65-105)
[2021-08-14 14:00] LABS: Glucose Point of Care 173 mg/dl (65-105)
[2021-08-14] MEDS: NOREPINEPHRINE 8 MG/D5W 250 ML 8 MG/250 ML BAG 22.5 MG IV CONT (14:03)
[2021-08-14 15:07] LABS: Glucose Point of Care 170 mg/dl (65-105)
[2021-08-14 16:52] LABS: Glucose Point of Care 131 mg/dl (65-105)
--- NOTE | 2021-08-14 18:08 | PC.NURSE ---
Spoke with Dr. Mukherjee regarding sedation medications. New order to stop sedation and d/c sedation orders. Give 500ml bolus of LR. Night RN to call MD if patient having seizure like activity or alarming ventilator
[2021-08-14] MEDS: LACTATED RINGERS 500 ML 999 ML IV CONT (18:20)
[2021-08-14] MEDS: PANTOPRAZOLE SODIUM IV 40 MG VIAL IV PUSH (20:32)
[2021-08-14 20:52] LABS: Glucose Point of Care 112 mg/dl (65-105)
[2021-08-14 22:36] LABS: Vancomycin Trough 10.3 ug/mL (10.0-20.0)
[2021-08-15] VITALS (33 sets, daily range): BP systolic 103–151; BP diastolic 57–79; PULSE 86–105; RESP 26; TEMP 36.4–37.4; O2SAT 95–99
[2021-08-15 01:09] LABS: Glucose Point of Care 71 mg/dl (65-105)
[2021-08-15] MEDS: SODIUM BICARBONATE 8.4% 150 MEQ in WATER, STERILE FOR INJECTION 950 ML 125 MEQ IV CONT (01:58)
[2021-08-15 02:04] LABS: Glucose Point of Care 74 mg/dl (65-105)
[2021-08-15] MEDS: LEVALBUTEROL NEB 1.25 MG/3 ML 0.63 MG INHALATION ×4 (02:12→20:20)
[2021-08-15] MEDS: IPRATROPIUM BR 0.02% INH SOLN 0.5 MG/2.5 ML VIAL INHALATION ×4 (02:12→20:20)
[2021-08-15 05:05] LABS: Glucose Point of Care 99 mg/dl (65-105)
[2021-08-15 05:11] LABS: Alveolar/Arterial O2 Gradient 103.2 mmHg; Base Excess ABG 4.4 mEq/l (+/-2.0); Carboxyhemoglobin 0.3 % THb (0-2.0); Fractional Inspired Oxygen 30 %; Methemoglobin ABG 0.3 %THb (0-1.5); Oxygen Content ABG 18.1 %vol (16.0-22.0); Oxygen Saturation ABG 94.3 % (95.0-100.0); Oxyhemoglobin 92.2 % THb (90.0-100.0); PCO2 ABG 38.3 mmHg (35.0-45.0); PO2 ABG 65.7 mmHg (80.0-100.0); PO2 FiO2 Ratio Arterial Blood 2.19 %; Reduced Hemoglobin 7.2 %THb (0-5.0); pH ABG 7.482 (7.350-7.450)
[2021-08-15 05:14] LABS: Arterial Blood Gas PEEP 5 cmH2O; Arterial Blood Gas Tidal Volume 470 ml; Arterial Blood Gas Vent Mode CMV; Arterial Blood Gas Ventilator rate 26 /MIN; Device VENTILATOR; Site Drawn ARTLINE
[2021-08-15 05:24] LABS: Basophils Percent Auto 0.1 % (0.2-1.2); Eosinophils Percent Auto 0.2 % (0-4.4); Hemoglobin 11.9 g/dL (14.0-18.0); Immature Granulocyte Absolute 0.09 K/mm3 (0.00-0.031); Immature Granulocyte Percent A 0.5 % (0-0.5); Lymphocytes Absolute Auto 2.03 K/mm3 (0.9-3.2); Lymphocytes Percent Auto 12.1 % (18.3-44.2); Mean Corpuscular Hemoglobin 29.1 pg (26-34); Mean Corpuscular Volume 85.6 fl (80-100); Mean Platelet Volume 10.8 fl (7.4-10.4); Monocytes Absolute Auto 0.9 K/mm3 (0.1-0.6); Monocytes Percent Auto 5.5 % (2.6-8.5); Neutrophils Absolute Auto 13.7 K/mm3 (1.3-6.7); Neutrophils Percent Auto 81.6 % (45.5-73.1); Platelet Count Result 184 k/mm3 (150-375); Red Blood Count 4.09 M/mm3 (4.6-6.20); Red Cell Distribution Width 13.1 % (11.5-14.5); White Blood Count 16.8 K/mm3 (4.5-10.0)
[2021-08-15 05:45] LABS: Alanine Aminotransferase 180 U/L (4-50); Albumin Level 2.3 g/dL (3.5-5.1); Alkaline Phosphatase 91 U/L (38-126); Anion Gap 2 mmol/L (8-16); Aspartate Amino Transferase 329 U/L (17-59); Bilirubin,Total 0.5 mg/dL (0.2-1.3); Blood Urea Nitrogen 12 mg/dL (9-20); Calcium 7.3 mg/dL (8.4-10.2); Carbon Dioxide 28 mmol/L (22-30); Chloride 103 mmol/L (98-107); Estimated CRCL calculation 96 ml/min; Estimated Glomerular Filt Rate > 60; Glucose 101 mg/dL (65-110); Magnesium 1.6 mg/dL (1.6-2.3); Phosphorus 3.7 mg/dL (2.5-4.5); Potassium 2.9 mmol/L (3.4-5.0); Sodium 133 mmol/L (137-145)
[2021-08-15 06:02] LABS: Creatine Kinase 4417 U/L (55-170)
[2021-08-15] MEDS: POTASSIUM CHLORIDE 20 MEQ PACKET (FOR LIQUID) 40 MEQ FEED TUBE ×2 (08:09→14:43)
[2021-08-15] MEDS: ROSUVASTATIN 10 MG TABLET 20 MG PO (08:10)
[2021-08-15] MEDS: MINERAL OIL/WHITE PETROLATUM OINTMENT 1 APPLIC EACH EYE ×2 (08:10→20:25)
[2021-08-15] MEDS: TICAGRELOR 90 MG TABLET PO ×2 (08:10→20:26)
[2021-08-15] MEDS: levETIRAcetam 500MG/NACL 100ML 500 MG/100 ML BAG 400 MG IVPB ×2 (08:11→20:24)
[2021-08-15] MEDS: ASPIRIN 81 MG CHEWABLE TABLET PO (08:11)
[2021-08-15] MEDS: LACTATED RINGERS 1,000 ML 50 ML IV CONT (08:14)
[2021-08-15] MEDS: PANTOPRAZOLE SODIUM IV 40 MG VIAL IV PUSH ×2 (08:20→20:25)
--- NOTE | 2021-08-15 09:00 | ECHO_ITS ---
Patient Info Name: Sidney Raphael Age: 46 years : 1975 Gender: Male Ht: 68 in Wt: 174 lbs BSA: 1.96 m2 HR: 100 bpm BP: 151 / 75 mmHg Heart Rhythm: Sinus Rhythm Technical Quality: Fair Exam Date: 08/15/2021 9:56 AM Exam Location: [facility] Patient Status: Inpatient Admit Date: 08/12/2021 Staff Ordering Physician: Juan Ramon Mukherjee MD [employer] Offbearer: Lauren Lyn RDCS Attending Provider: Mg Santos MD Exam Type: CA echo doppler color flow Study Info Indications - cardiac arrest Complete two-dimensional, color flow and Doppler transthoracic echocardiogram is performed. Summary 1. Complete two-dimensional, color flow and Doppler transthoracic echocardiogram is performed. 2. Left ventricular systolic function is normal, estimated at 60-65% with mild hypokinesis of the mid to basal inferoseptal, mid to basal inferolateral, and basal inferolateral stone.. 3. Left ventricular chamber dimension is normal. 4. Technically difficult study with limited views. 5. There is trace mitral valve regurgitation. 6. There is no aortic valve stenosis. 7. There is trace tricuspid valve regurgitation. 8. No pulmonary hypertension, estimated pulmonary arterial systolic pressure is 22 mmHg. Left Ventricle Technically difficult study with limited views. Left ventricular chamber dimension is normal. Left ventricular systolic function is normal, estimated at 60-65% with mild hypokinesis of the mid to basal inferoseptal, mid to basal inferolateral, and basal inferolateral stone.. There is no increased left ventricular wall thickness. The left ventricular diastolic function is normal. Right Ventricle Right ventricular chamber dimension is normal. Right ventricular systolic function is normal. Left Atria Left atrial chamber dimension is normal. Right Atria Right atrial chamber dimension is normal. Aortic Valve The aortic valve is not well visualized. There is no aortic valve stenosis. There is no aortic valve regurgitation. Pulmonic Valve The pulmonic valve is not well visualized. Mitral Valve The mitral valve has normal leaflets. There is trace mitral valve regurgitation. Tricuspid Valve The tricuspid valve leaflets are not well visualized. There is trace tricuspid valve regurgitation. No pulmonary hypertension, estimated pulmonary arterial systolic pressure is 22 mmHg. Pericardium/Pleural The pericardium appears not well visualized. Aorta The aortic root size at the sinus of Valsalva is normal. Left Ventricular Outflow Tract Name Value Normal LVOT 2D LVOT Diameter 2.0 cm LVOT Doppler LVOT Peak Gradient 5 mmHg LVOT Mean Gradient 3 mmHg LVOT VTI 16 cm LVOT VTI/AV VTI Ratio 0.9 LVOT Stroke Volume 51 ml LVOT CO 5.2 l/min LVOT CI 2.6 l/min/m2 Pulmonic Valve Name
[2021-08-15] MEDS: CALCIUM GLUC 2,000 MG/NS 100ML 2,000 MG/100 ML BAG 100 MG IVPB (09:07)
[2021-08-15] MEDS: KCL 40 MEQ/WATER 100 ML 100 ML 25 ML IVPB (09:08)
--- NOTE | 2021-08-15 09:39 | PM.PNCARD ---
Progress Note: A&P Additional Plan 46-year-old man with coronary artery disease unfortunately experienced [id number] ventricular fibrillation and a long resuscitation effort in sued prior to return of effective circulation. Patient had subtotal occlusion of the right coronary artery is the culprit for this event which was successfully treated with emergency PCI. Unfortunately and as expected he has a severe anoxic encephalopathy. EEG planned for this afternoon. Very unlikely there will be any meaningful neurological recovery Mg Santos MD [facility] Subjective Date/time seen: Date of service: 08/15/21 09:39 Interval history: Follow-up visit in this 46-year-old man with: Acute inferior wall myocardial infarction unfortunately presenting with [id number] ventricular fibrillation. Following prolonged resuscitation effort he was brought to the catheterization laboratory technician and underwent successful emergency PCI of the proximal RCA. Patient also has moderate mid circumflex disease unrelated to this event. Patient is now in the ICU intubated sedated on hypothermia protocol. Receiving aspirin and Brilinta. Beta-tapan and ARB are on hold because of hypotension requiring pressor support. Prognosis for meaningful neurological recovery is very poor as dictated in initial notes Date of service 08/14/2021: No acute events overnight. Patient remains intubated and sedated. Beginning to warm patient today. BP is improving, he does remain on norepinephrine. Date of service 08/15/2021: Clinically unchanged. Patient is off sedation and off of norepinephrine. On ventilator support remains unresponsive. EEG planned for later today Exam Const: General: comfortable and no acute distress Other: Intubated and sedated white male appears to be about his stated age intubated on ventilator support HENMT: Mouth: Yes moist mucous membranes Eyes: Sclera: sclerae normal Neck: Neck: supple and no JVD Other: Normal carotid pulses Resp: Effort & Inspection: normal respiratory effort Auscultation: clear to auscultation bilaterally and rhonchi Other: Scattered rhonchi noted Cardio: Rate: regular rate Rhythm: regular rhythm Other: No murmur no gallop GI: Auscultation: normal bowel sounds Skin: General skin exam: normal color Neuro: Other: Sedated unresponsive, pupils are fixed Extrem: General: normal to inspection Other: Arterial access site free from bleeding, hematoma Objective Data Vital Signs Vital Signs: Vital Signs - 24 hr 08/14/21 10:00 08/14/21 11:00 08/14/21 11:08 Temperature 33.5 C L 33.4 C L Pulse Rate 61 57 L 56 L Respiratory Rate 26 H 26 H Blood Pressure 97/57 L 97/57 L Pulse Oximetry 100 100 100 08/14/21 12:00 08/14/21 12:53 08/14/21 13:00 Temperature 32.7 C L 33.7 C L Pulse Rate 54 L 64 Respiratory Rate 26 H 26 H Blood Pressure 96/57 L 90/51 L 99/56 L Pulse Oximetry 100 100 08/14/21 13:22 08/14/21 13:51 08/14/21 13:54 Temperature Pulse Rate 73 Respiratory Rate 26 H Blood Pressure 92/53 L 106/58 L Pulse Oximetry 100 08/14/21 14:00 08/14/21 14:01 08/14/21 14:03 Temperature 34.7 C L Pulse Rate 73 75 Respiratory Rate 26 H 26 H Blood Pressure 103/57 L 106/58 L Pulse Oximetry 100 08/14/21 14:04 08/14/21 15:00 08/14/21 15:30 Temperature 36.2 C L Pulse Rate 73 83 85 Respiratory Rate 26 H 26 H Blood Pressure 103/57 L 110/57 L Pulse Oximetry 100 08/14/21 16:00 08/14/21 16:41 08/14/21 17:00 Temperature 36.6 C 36.7 C Pulse Rate 84 83 83 Respiratory Rate 26 H 26 H Blood Pressure 114/60 115/60 114/60 Pulse Oximetry 100 100 08/14/21 17:16 08/14/21 17:47 08/14/21 18:00 Temperature 36.6 C Pulse Rate 83 68 83 Respiratory Rate 26 H Blood Pressure 114/60 105/63 Pulse Oximetry 100 100 08/14/21 18:15 08/14/21 18:24 08/14/21 18:59 Temperature Pulse Rate 83 82 83 Respiratory Rate Blood Pressure 117/67 118/68 107/64 Pulse Oximetry
--- NOTE | 2021-08-15 09:44 | WPDINTPN ---
Progress Note: A&P Assessment and Plan (1) Acute respiratory failure: Code(s): J96.00 - Acute respiratory failure, unspecified whether with hypoxia or hypercapnia Status: Acute Assessment and Plan: Acute respiratory failure likely related to VFib arrest, patient was intubated on 08/12/2021 ABGs and chest x-ray reviewed -ventilator settings reviewed -continue bronchodilators - Off sedation. - Ventilator weaning will depend on his neurological improvement -continue antibiotics for possible aspiration pneumonia. Cultures have been sent and are pending (2) Cardiac arrest: Code(s): I46.9 - Cardiac arrest, cause unspecified Status: Acute Assessment and Plan: Prolonged out of the hospital VFib arrest (down time was 1 hour and 8 minutes per records) -VFib likely secondary to inferior [place], status post cardiac catheterization with PTCA/PCI with PAT x1 to proximal RCA (3) ST elevation (STEMI) myocardial infarction: Qualifiers: Involved coronary artery: unspecified coronary artery Qualified Code(s): I21.3 - ST elevation (STEMI) myocardial infarction of unspecified site Code(s): I21.3 - ST elevation (STEMI) myocardial infarction of unspecified site Status: Acute Assessment and Plan: As above -cardiology following the patient -continue aspirin, Brilinta, statin -beta-tapan and losartan are on hold as patient is on vasopressors (4) Elevated LFTs: Code(s): R79.89 - Other specified abnormal findings of blood chemistry Status: Acute Assessment and Plan: Elevated LFTs most likely related to cardiac arrest, shock liver -continue to maintain adequate mean arterial pressures for end-organ perfusion -improving (5) Diabetes mellitus with hyperglycemia, with long-term current use of insulin: Qualifiers: Diabetes mellitus type: type 2 Qualified Code(s): E11.65 - Type 2 diabetes mellitus with hyperglycemia; Z79.4 - [facility] (current[facility] use of insulin Code(s): E11.65 - Type 2 diabetes mellitus with hyperglycemia; Z79.4 - [facility] (current) use of insulin Status: Acute Assessment and Plan: Hyperglycemia could be related to uncontrolled diabetes, acute stress from cardiac arrest, cardiac catheterization, shock -hemoglobin A1c 10.2 -patient was started on sliding scale insulin and Lantus but became hypoglycemic -blood sugars are now pain elevated. Discontinue dextrose IV fluids -continue sliding scale but hold Lantus for now (6) Shock: Code(s): R57.9 - Shock, unspecified Status: Acute Assessment and Plan: Shock likely related to cardiac arrest -patient also could have developed aspiration pneumonia -lactic acid was initially elevated but has normalized -decrease IV fluids -maintain mean arterial pressures > 70 mmHg for adequate end organ perfusion -Levophed has been weaned off -continue antibiotics (7) Coffee ground emesis: Code(s): K92.0 - Hematemesis Status: Acute Assessment and Plan: NG with coffee-ground drainage, for possibility of some dark maroon drainage -this could be related to the Brilinta was given for a STEMI -patient started on a Protonix infusion later switched to IV q.12 hours Protonix IV q.12 hours -his hemoglobin has been stable and overnight there was no significant output from his OG tube -continue to monitor hemoglobin -I will start tube feeds (8) Anoxic brain injury: Code(s): G93.1 - Anoxic brain damage, not elsewhere classified Status: Acute Assessment and Plan: Patient has sustained a significant Anoxic brain injury due to prolonged down time Patient has completed TTM protocol and has rewarming Sedation has been discontinued since yesterday evening Neuro exam as above CT head done this morning showed - Development of diffuse cerebellar swelling, anoxic injury. No obstructive hydrocephalus but patient at risk. EEG pending Will consult neurology dependi
[2021-08-15 09:51] LABS: Glucose Point of Care 138 mg/dl (65-105)
--- NOTE | 2021-08-15 10:37 | PC.NURSE ---
1030-[facility] notified of patient's condition. Talked to Xenia.
--- NOTE | 2021-08-15 12:09 | PCFNICU ---
ICU Rounding Note: Pt current nutrition is Vital AF 1.2 at 20ml/hr over 22 hours. Last recorded weight is 80.1 kg, up from 72.8 kg on admit. Bowel Motility:+BM reported 08/13 Labs Reviewed:K 2.9,Alb 2.3,Hct 35.0,Hgb 11.9 Meds Noted:Keppra, LR, Atrovent, Levophed, Protonix,Crestor, Zosyn, KCL powder, Brilinta Skin: WNL Additional Notes: Patient remains on mechanical vent. Tube feeding running with Vital AF 1.2 at 20 ml/hr over 22 hours. Free water flush 30 ml q 4 hours. Plans for EEG. Family meeting today to discuss plan of care. Following daily in ICU rounds. Will monitor every Friday and Friday.
[2021-08-15 13:02] LABS: Glucose Point of Care 190 mg/dl (65-105)
[2021-08-15] MEDS: INSULIN ASPART (*BKC) 100 UNITS/ML SUB-Q (17:38)
[2021-08-15 18:02] LABS: Glucose Point of Care 262 mg/dl (65-105)
--- NOTE | 2021-08-15 19:57 | WPDNEUROLOGY ---
Neurology EEG Report General Information Date of Study: 08/15/21 TEST EEG DIAGNOSIS Coma. CONDITION OF RECORDING coma CLINICAL HISTORY coma after cardiac arrest EEG DESCRIPTION There was a background of medium to high voltage amplitude, generalized synchronous delta activity at 1.5 to 2.5 Hz . Hyperventilation and photic stimulation were not obtained. IMPRESSION This EEG was abnormal due the presence of severely diffuse background slowing. This EEG was indicative of the presence of severe, bihemispheric cerebral dysfunction of the type seen most commonly in the setting of severe toxicometabolic encephalopathies or anoxic injury.The was no evidence of epileptiform activity or focal cerebral dysfunction.
[2021-08-15 21:19] LABS: Glucose Point of Care 190 mg/dl (65-105)
[2021-08-15] MEDS: LABETALOL HCL INJ 100 MG/20 ML VIAL 20 MG IV PUSH (22:49)
[2021-08-15 23:47] LABS: Glucose Point of Care 223 mg/dl (65-105)
[2021-08-16] VITALS (37 sets, daily range): BP systolic 103–191; BP diastolic 64–107; PULSE 81–109; RESP 26–45; TEMP 37.1–37.7; O2SAT 95–99
[2021-08-16] MEDS: INSULIN ASPART (*BKC) 100 UNITS/ML SUB-Q ×5 (00:06→20:40)
[2021-08-16] MEDS: LEVALBUTEROL NEB 1.25 MG/3 ML 0.63 MG INHALATION ×4 (01:46→20:34)
[2021-08-16] MEDS: IPRATROPIUM BR 0.02% INH SOLN 0.5 MG/2.5 ML VIAL INHALATION ×4 (01:46→20:34)
[2021-08-16] MEDS: LABETALOL HCL INJ 100 MG/20 ML VIAL 20 MG IV PUSH (03:41)
--- NOTE | 2021-08-16 04:04 | PC.NURSE ---
02:20 Patient's significant other called. Update provided.
[2021-08-16] MEDS: LACTATED RINGERS 1,000 ML 50 ML IV CONT (04:14)
[2021-08-16] MEDS: METOPROLOL TARTRATE 25 MG TABLET PO (04:29)
[2021-08-16] MEDS: amLODIPine BESYLATE 5 MG TABLET 10 MG PO ×2 (04:29→16:49)
[2021-08-16 04:58] LABS: Glucose Point of Care 276 mg/dl (65-105)
[2021-08-16 05:02] LABS: Basophils Percent Auto 0.2 % (0.2-1.2); Eosinophils Percent Auto 0.2 % (0-4.4); Hematocrit 34.4 % (42.0-52.0); Hemoglobin 11.7 g/dL (14.0-18.0); Immature Granulocyte Absolute 0.12 K/mm3 (0.00-0.031); Immature Granulocyte Percent A 0.7 % (0-0.5); Lymphocytes Absolute Auto 1.82 K/mm3 (0.9-3.2); Lymphocytes Percent Auto 10.4 % (18.3-44.2); Mean Corpuscular Hemoglobin 29.5 pg (26-34); Mean Corpuscular Volume 86.9 fl (80-100); Mean Platelet Volume 10.3 fl (7.4-10.4); Monocytes Absolute Auto 0.9 K/mm3 (0.1-0.6); Monocytes Percent Auto 5.2 % (2.6-8.5); Neutrophils Absolute Auto 14.6 K/mm3 (1.3-6.7); Neutrophils Percent Auto 83.3 % (45.5-73.1); Platelet Count Result 150 k/mm3 (150-375); Red Blood Count 3.96 M/mm3 (4.6-6.20); Red Cell Distribution Width 13.2 % (11.5-14.5); White Blood Count 17.5 K/mm3 (4.5-10.0)
[2021-08-16 05:21] LABS: Alanine Aminotransferase 129 U/L (4-50); Albumin Level 2.4 g/dL (3.5-5.1); Alkaline Phosphatase 104 U/L (38-126); Anion Gap 0 mmol/L (8-16); Aspartate Amino Transferase 189 U/L (17-59); Bilirubin,Total 0.6 mg/dL (0.2-1.3); Blood Urea Nitrogen 16 mg/dL (9-20); Calcium 7.7 mg/dL (8.4-10.2); Carbon Dioxide 27 mmol/L (22-30); Chloride 104 mmol/L (98-107); Estimated CRCL calculation 78 ml/min; Estimated Glomerular Filt Rate > 60; Glucose 269 mg/dL (65-110); Magnesium 1.7 mg/dL (1.6-2.3); Phosphorus 3.1 mg/dL (2.5-4.5); Potassium 4.4 mmol/L (3.4-5.0); Sodium 131 mmol/L (137-145)
[2021-08-16 05:37] LABS: Creatine Kinase 2192 U/L (55-170)
[2021-08-16 05:52] LABS: Alveolar/Arterial O2 Gradient 69.6 mmHg; Base Excess ABG 0.1 mEq/l (+/-2.0); Carboxyhemoglobin 0.2 % THb (0-2.0); Fractional Inspired Oxygen 30 %; Methemoglobin ABG 0.3 %THb (0-1.5); Oxygen Content ABG 16.5 %vol (16.0-22.0); Oxygen Saturation ABG 97.8 % (95.0-100.0); Oxyhemoglobin 96.3 % THb (90.0-100.0); PCO2 ABG 36.4 mmHg (35.0-45.0); PO2 ABG 101.5 mmHg (80.0-100.0); PO2 FiO2 Ratio Arterial Blood 3.38 %; Reduced Hemoglobin 3.2 %THb (0-5.0); Total Hemoglobin 12.1 g/dL (12.0-18.0); pH ABG 7.437 (7.350-7.450)
[2021-08-16 05:53] LABS: Arterial Blood Gas PEEP 5 cmH2O; Arterial Blood Gas Tidal Volume 470 ml; Arterial Blood Gas Vent Mode CMV; Arterial Blood Gas Ventilator rate 26 /MIN; Device VENTILATOR; Site Drawn ARTLINE
[2021-08-16] MEDS: hydrALAZINE HCL 20 MG/ML VIAL IV PUSH (06:02)
[2021-08-16] MEDS: TICAGRELOR 90 MG TABLET PO ×2 (08:27→20:41)
[2021-08-16] MEDS: ROSUVASTATIN 10 MG TABLET 20 MG PO (08:27)
[2021-08-16] MEDS: ASPIRIN 81 MG CHEWABLE TABLET PO (08:30)
[2021-08-16] MEDS: MINERAL OIL/WHITE PETROLATUM OINTMENT 1 APPLIC EACH EYE ×2 (08:34→20:41)
[2021-08-16] MEDS: PANTOPRAZOLE SODIUM IV 40 MG VIAL IV PUSH ×2 (08:34→20:41)
[2021-08-16] MEDS: levETIRAcetam 500MG/NACL 100ML 500 MG/100 ML BAG 400 MG IVPB ×2 (08:42→20:38)
[2021-08-16 08:55] LABS: Glucose Point of Care 265 mg/dl (65-105)
--- NOTE | 2021-08-16 09:38 | WPDINTPN ---
Progress Note: A&P Assessment and Plan (1) Anoxic brain injury: Code(s): G93.1 - Anoxic brain damage, not elsewhere classified Status: Acute Assessment and Plan: Patient has sustained a significant Anoxic brain injury due to prolonged down time Patient has completed TTM protocol and has rewarming Sedation has been discontinued since 08/14 evening Neuro exam as above. There has been some improvement as expected after holding sedation but no purposeful activity at this point CT head done this morning showed - Development of diffuse cerebellar swelling, anoxic injury. No obstructive hydrocephalus but patient at risk. 08/15 EEG - This EEG was abnormal due the presence of severely diffuse background slowing. This EEG was indicative of the presence of severe, bihemispheric cerebral dysfunction of the type seen most commonly in the setting of severe toxicometabolic encephalopathies or anoxic injury.The was no evidence of epileptiform activity or focal cerebral dysfunction. Neurology consultation pending Continue Keppra that has been started for possible myoclonic jerks (2) Acute respiratory failure: Code(s): J96.00 - Acute respiratory failure, unspecified whether with hypoxia or hypercapnia Status: Acute Assessment and Plan: Acute respiratory failure likely related to VFib arrest, patient was intubated on 08/12/2021 ABGs and chest x-ray reviewed -advance ET tube by 2 cm -ventilator settings reviewed -continue bronchodilators - Off sedation. - Ventilator weaning will depend on his neurological improvement -continue antibiotics for possible aspiration pneumonia. Cultures have been sent and are pending -continue Zosyn but vancomycin was discontinued (3) Cardiac arrest: Code(s): I46.9 - Cardiac arrest, cause unspecified Status: Acute Assessment and Plan: Prolonged out of the hospital VFib arrest (down time was 1 hour and 8 minutes per records) -VFib likely secondary to inferior [place], status post cardiac catheterization with PTCA/PCI with PAT x1 to proximal RCA (4) ST elevation (STEMI) myocardial infarction: Qualifiers: Involved coronary artery: unspecified coronary artery Qualified Code(s): I21.3 - ST elevation (STEMI) myocardial infarction of unspecified site Code(s): I21.3 - ST elevation (STEMI) myocardial infarction of unspecified site Status: Acute Assessment and Plan: As above -cardiology following the patient -continue aspirin, Brilinta, statin -resume beta-tapan and losartan (5) Elevated LFTs: Code(s): R79.89 - Other specified abnormal findings of blood chemistry Status: Acute Assessment and Plan: Elevated LFTs most likely related to cardiac arrest, shock liver -continue to maintain adequate mean arterial pressures for end-organ perfusion -improving (6) Diabetes mellitus with hyperglycemia, with long-term current use of insulin: Qualifiers: Diabetes mellitus type: type 2 Qualified Code(s): E11.65 - Type 2 diabetes mellitus with hyperglycemia; Z79.4 - [facility] (current) use of insulin Code(s): E11.65 - Type 2 diabetes mellitus with hyperglycemia; Z79.4 - termite exterminator (current) use of insulin Status: Acute Assessment and Plan: Hyperglycemia could be related to uncontrolled diabetes, acute stress from cardiac arrest, cardiac catheterization, shock -hemoglobin A1c 10.2 -continue sliding scale -added Lantus again (7) Shock: Code(s): R57.9 - Shock, unspecified Status: Acute Assessment and Plan: Shock likely related to cardiac arrest -patient also could have developed aspiration pneumonia Resolved and now patient is hypertensive (8) Coffee ground emesis: Code(s): K92.0 - Hematemesis Status: Acute Assessment and Plan: NG with coffee-ground drainage, for possibility of some dark maroon drainage -this could be related to the Brilinta was given for a STEMI -patien
[2021-08-16] MEDS: METOPROLOL TARTRATE 50 MG TAB PO ×2 (09:53→20:40)
[2021-08-16] MEDS: INSULIN GLARGINE (*BKC) 100 UNITS/ML 20 UNITS SUB-Q ×2 (09:53→20:40)
[2021-08-16] MEDS: LOSARTAN POTASSIUM 12.5 MG TABLET PO (09:53)
[2021-08-16 11:11] LABS: Anion Gap 3 mmol/L (8-16); Blood Urea Nitrogen 16 mg/dL (9-20); Calcium 8.2 mg/dL (8.4-10.2); Carbon Dioxide 29 mmol/L (22-30); Chloride 106 mmol/L (98-107); Estimated CRCL calculation 78 ml/min; Estimated Glomerular Filt Rate > 60; Glucose 197 mg/dL (65-110); Sodium 138 mmol/L (137-145)
[2021-08-16 11:13] LABS: Creatinine Urine 10.1 mg/dL
[2021-08-16 11:17] LABS: Sodium Urine Random 126 meq/L
--- NOTE | 2021-08-16 11:24 | PCFNICU ---
ICU Rounding Note: Pt current nutrition is Vital AF 1.2 at 50 ml/hr over 22 hours. Last recorded weight is 79.8 kg, up from 72.8 kg on admit. Bowel Motility:+BM reported 08/13 Labs Reviewed:Na 131, Alb 2.4,Glu 269, Hgb 11.7,Hct 34.4 Meds Noted:Keppra, Brilinta, Cozaar, Levophed, Crestor, Protonix,NovoLog, Apresoline, Atrovent, Lantus Skin: WNL Additional Notes: Patient remains on mechanical vent/CMV mode. Tube feedings of Vital AF 1.2 at 50 ml/hr, goal rate at 70 ml/hr. Tolerating per nursing. EEG to be read today. Free water flush 30 ml q 4 hours. Agree with diet orders. Following daily in ICU rounds. Will monitor every Friday and Friday.
[2021-08-16] MEDS: PROPOFOL IV EMULSION 100 ML 11.97 MG IV CONT (13:00)
[2021-08-16 13:05] LABS: Glucose Point of Care 199 mg/dl (65-105)
--- NOTE | 2021-08-16 14:37 | P.PNIM_ITS ---
Progress Note: A&P Assessment and Plan (1) Acute respiratory failure: Code(s): J96.00 - Acute respiratory failure, unspecified whether with hypoxia or hypercapnia Status: Acute Assessment and Plan: Acute respiratory failure likely related to VFib arrest, patient was intubated on 08/12/2021 ABGs and chest x-ray reviewed -ventilator settings reviewed -continue bronchodilators - Off sedation. - Ventilator weaning will depend on his neurological improvement -continue antibiotics for possible aspiration pneumonia. Cultures have been sent and are pending (2) Cardiac arrest: Code(s): I46.9 - Cardiac arrest, cause unspecified Status: Acute Assessment and Plan: Prolonged out of the hospital VFib arrest (down time was 1 hour and 8 minutes per records) -VFib likely secondary to inferior [place], status post cardiac catheterization with PTCA/PCI with PAT x1 to proximal RCA (3) ST elevation (STEMI) myocardial infarction: Qualifiers: Involved coronary artery: unspecified coronary artery Qualified Code(s): I21.3 - ST elevation (STEMI) myocardial infarction of unspecified site Code(s): I21.3 - ST elevation (STEMI) myocardial infarction of unspecified site Status: Acute Assessment and Plan: As above -cardiology following the patient -continue aspirin, Brilinta, statin -beta-tapan and losartan are on hold as patient is on vasopressors (4) Elevated LFTs: Code(s): R79.89 - Other specified abnormal findings of blood chemistry Status: Acute Assessment and Plan: Elevated LFTs most likely related to cardiac arrest, shock liver -continue to maintain adequate mean arterial pressures for end-organ perfusion -improving (5) Diabetes mellitus with hyperglycemia, with long-term current use of insulin: Qualifiers: Diabetes mellitus type: type 2 Qualified Code(s): E11.65 - Type 2 diabetes mellitus with hyperglycemia; Z79.4 - [facility] (current) use of insulin Code(s): E11.65 - Type 2 diabetes mellitus with hyperglycemia; Z79.4 - [facility] (current) use of insulin Status: Acute Assessment and Plan: Hyperglycemia could be related to uncontrolled diabetes, acute stress from cardiac arrest, cardiac catheterization, shock -hemoglobin A1c 10.2 -patient was started on sliding scale insulin and Lantus but became hypoglycemic -blood sugars are now pain elevated. Discontinue dextrose IV fluids -continue sliding scale but hold Lantus for now (6) Shock: Code(s): R57.9 - Shock, unspecified Status: Acute Assessment and Plan: Shock likely related to cardiac arrest -patient also could have developed aspiration pneumonia -lactic acid was initially elevated but has normalized -decrease IV fluids -maintain mean arterial pressures > 70 mmHg for adequate end organ perfusion -Levophed has been weaned off -continue antibiotics (7) Coffee ground emesis: Code(s): K92.0 - Hematemesis Status: Acute Assessment and Plan: NG with coffee-ground drainage, for possibility of some dark maroon drainage -this could be related to the Brilinta was given for a STEMI -patient started on a Protonix infusion later switched to IV q.12 hours Protonix IV q.12 hours -his hemoglobin has been stable and overnight there was no significant output from his OG tube -continue to monitor hemoglobin -I will start tube feeds (8) Anoxic brain injury: Code(s): G93.1 - Anoxic brain damage, not elsewhere classified Status: Acute Assessment and Plan: Patient has sustained a signifi
[2021-08-16 14:52] LABS: Anion Gap 1 mmol/L (8-16); Blood Urea Nitrogen 16 mg/dL (9-20); Calcium 7.9 mg/dL (8.4-10.2); Carbon Dioxide 28 mmol/L (22-30); Chloride 107 mmol/L (98-107); Estimated CRCL calculation 78 ml/min; Estimated Glomerular Filt Rate > 60; Glucose 224 mg/dL (65-110); Potassium 4.1 mmol/L (3.4-5.0); Sodium 136 mmol/L (137-145)
--- NOTE | 2021-08-16 16:18 | PM.PNCARD ---
Progress Note: A&P Assessment and Plan (1) ST elevation (STEMI) myocardial infarction: Qualifiers: Involved coronary artery: unspecified coronary artery Qualified Code(s): I21.3 - ST elevation (STEMI) myocardial infarction of unspecified site Code(s): I21.3 - ST elevation (STEMI) myocardial infarction of unspecified site Status: Acute Assessment and Plan: Presented following witnessed cardiac arrest at home. ECG with findings consistent with inferior [place]. He was taken to the soap slabber emergently and was found to have 99% stenosis of the proximal RCA which was stented with The lesion was then stented using a 3.5 x 22 mm [employer] drug-eluting stent which provided a good anatomical result. EF estimated to be 40% Continue ASA Continue Brilinta Continue statin Losartan and metoprolol on hold as he is currently requiring vasopressors (2) Cardiac arrest: Code(s): I46.9 - Cardiac arrest, cause unspecified Status: Acute Assessment and Plan: Suffered VF cardiac arrest at home secondary to subtotal occlusion of RCA. (3) Anoxic brain injury: Code(s): G93.1 - Anoxic brain damage, not elsewhere classified Status: Acute Assessment and Plan: Reportedly had prolonged down time despite having a witnessed arrest. As such, likelihood of meaningful neurological recovery is low. Plan for EEG tomorrow per critical care team. Prognosis guarded. Subjective Date/time seen: 08/16/21 16:18 Interval history: Follow-up visit in this 46-year-old man with: Acute inferior wall myocardial infarction unfortunately presenting with [id number] ventricular fibrillation. Following prolonged resuscitation effort he was brought to the soap slabber and underwent successful emergency PCI of the proximal RCA. Patient also has moderate mid circumflex disease unrelated to this event. Patient is now in the ICU intubated sedated on hypothermia protocol. Receiving aspirin and Brilinta. Beta-tapan and ARB are on hold because of hypotension requiring pressor support. Prognosis for meaningful neurological recovery is very poor as dictated in initial notes Date of service 08/14/2021: No acute events overnight. Patient remains intubated and sedated. Beginning to warm patient today. BP is improving, he does remain on norepinephrine. Date of service 08/15/2021: Clinically unchanged. Patient is off sedation and off of norepinephrine. On ventilator support remains unresponsive. EEG planned for later today Date of service 08/16/3032: Remains largely unchanged, blood pressure has been somewhat labile. EEG yesterday abnormal. Review of Systems Review of Systems: ROS unobtainable: Yes unobtainable due to endotracheal tube, unobtainable due to medical condition and unobtainable due to mental status Exam Const: General: comfortable and no acute distress Other: Intubated and sedated white male appears to be about his stated age intubated on ventilator support HENMT: Mouth: Yes moist mucous membranes Eyes: Sclera: sclerae normal Neck: Neck: supple and no JVD Other: Normal carotid pulses Resp: Effort & Inspection: normal respiratory effort Auscultation: clear to auscultation bilaterally and rhonchi Other: Scattered rhonchi noted Cardio: Rate: regular rate Rhythm: regular rhythm Other: No murmur no gallop GI: Auscultation: normal bowel sounds Skin: General skin exam: normal color Neuro: Other: Sedated unresponsive, pupils are fixed Extrem: General: normal to inspection Other: Arterial access site free from bleeding, hematoma Objective Data Vital Signs Vital Signs: Vital Signs - 24 hr 08/15/21 17:17 08/15/21 18:00 08/15/21 19:45 Temperature 37.4 C Pulse Rate 100 101 H Respiratory Rate 26 H Blood Pressure 149/78 H Pulse Oximetry 98 98 98 08/15/21 19:53 08/15/21 20:00 08/15/21 20:20 Temperature 37.3 C Pulse Rate 96 98 98 Respiratory Rate 26 H 26 H 26 H Blood
[2021-08-16 17:36] LABS: Glucose Point of Care 281 mg/dl (65-105)
[2021-08-16 20:16] LABS: Glucose Point of Care 244 mg/dl (65-105)
[2021-08-17] VITALS (28 sets, daily range): BP systolic 100–148; BP diastolic 62–94; PULSE 75–98; RESP 18–30; TEMP 37.2–37.6; O2SAT 97–99
[2021-08-17 00:11] LABS: Glucose Point of Care 249 mg/dl (65-105)
[2021-08-17] MEDS: LACTATED RINGERS 1,000 ML 50 ML IV CONT ×2 (00:16→19:29)
[2021-08-17] MEDS: INSULIN ASPART (*BKC) 100 UNITS/ML SUB-Q ×5 (00:16→23:59)
[2021-08-17] MEDS: LEVALBUTEROL NEB 1.25 MG/3 ML 0.63 MG INHALATION ×4 (02:08→20:05)
[2021-08-17] MEDS: IPRATROPIUM BR 0.02% INH SOLN 0.5 MG/2.5 ML VIAL INHALATION ×4 (02:09→20:04)
[2021-08-17 04:40] LABS: Glucose Point of Care 242 mg/dl (65-105)
[2021-08-17 04:42] LABS: Basophils Percent Auto 0.3 % (0.2-1.2); Eosinophils Absolute Auto 0.1 K/mm3 (0-0.3); Eosinophils Percent Auto 0.4 % (0-4.4); Hematocrit 34.4 % (42.0-52.0); Hemoglobin 11.3 g/dL (14.0-18.0); Immature Granulocyte Absolute 0.08 K/mm3 (0.00-0.031); Immature Granulocyte Percent A 0.5 % (0-0.5); Lymphocytes Absolute Auto 2.28 K/mm3 (0.9-3.2); Lymphocytes Percent Auto 14.5 % (18.3-44.2); Mean Corpuscular HGB Conc 32.8 g/dl (32-36); Mean Corpuscular Volume 88.2 fl (80-100); Mean Platelet Volume 10.3 fl (7.4-10.4); Monocytes Absolute Auto 0.8 K/mm3 (0.1-0.6); Monocytes Percent Auto 5.2 % (2.6-8.5); Neutrophils Absolute Auto 12.4 K/mm3 (1.3-6.7); Neutrophils Percent Auto 79.1 % (45.5-73.1); Platelet Count Result 191 k/mm3 (150-375); Red Cell Distribution Width 13.2 % (11.5-14.5); White Blood Count 15.7 K/mm3 (4.5-10.0)
[2021-08-17 04:55] LABS: Alanine Aminotransferase 99 U/L (4-50); Albumin Level 2.5 g/dL (3.5-5.1); Alkaline Phosphatase 95 U/L (38-126); Anion Gap 3 mmol/L (8-16); Aspartate Amino Transferase 126 U/L (17-59); Bilirubin,Total 0.5 mg/dL (0.2-1.3); Blood Urea Nitrogen 16 mg/dL (9-20); Calcium 7.7 mg/dL (8.4-10.2); Carbon Dioxide 26 mmol/L (22-30); Chloride 108 mmol/L (98-107); Creatine Kinase 1480 U/L (55-170); Estimated CRCL calculation 96 ml/min; Estimated Glomerular Filt Rate > 60; Glucose 228 mg/dL (65-110); Magnesium 1.7 mg/dL (1.6-2.3); Phosphorus 3.2 mg/dL (2.5-4.5); Potassium 3.7 mmol/L (3.4-5.0); Sodium 137 mmol/L (137-145)
[2021-08-17 05:43] LABS: Alveolar/Arterial O2 Gradient 81.3 mmHg; Base Excess ABG 1.7 mEq/l (+/-2.0); Carboxyhemoglobin 0.2 % THb (0-2.0); Fractional Inspired Oxygen 30 %; HCO3 ABG 24.7 mEq/l (22.0-26.0); Methemoglobin ABG 0.3 %THb (0-1.5); Oxygen Content ABG 16.1 %vol (16.0-22.0); Oxygen Saturation ABG 97.7 % (95.0-100.0); Oxyhemoglobin 96.1 % THb (90.0-100.0); PCO2 ABG 33.3 mmHg (35.0-45.0); PO2 ABG 93.5 mmHg (80.0-100.0); PO2 FiO2 Ratio Arterial Blood 3.12 %; Reduced Hemoglobin 3.4 %THb (0-5.0); Total Hemoglobin 11.8 g/dL (12.0-18.0); pH ABG 7.488 (7.350-7.450)
[2021-08-17 05:44] LABS: Device VENTILATOR; Modified Allen's Test Pass; Site Drawn RIGHT RADIAL
[2021-08-17 05:45] LABS: Arterial Blood Gas PEEP 5 cmH2O; Arterial Blood Gas Tidal Volume 470 ml; Arterial Blood Gas Vent Mode CMV; Arterial Blood Gas Ventilator rate 26 /MIN
[2021-08-17] MEDS: PROPOFOL IV EMULSION 100 ML 2.39 MG IV CONT (05:54)
[2021-08-17] MEDS: LOSARTAN POTASSIUM 12.5 MG TABLET PO (08:08)
[2021-08-17] MEDS: ROSUVASTATIN 10 MG TABLET 20 MG PO (08:09)
[2021-08-17] MEDS: MINERAL OIL/WHITE PETROLATUM OINTMENT 1 APPLIC EACH EYE ×2 (08:10→20:49)
[2021-08-17] MEDS: PANTOPRAZOLE SODIUM IV 40 MG VIAL IV PUSH ×2 (08:10→20:47)
[2021-08-17] MEDS: METOPROLOL TARTRATE 50 MG TAB PO ×2 (08:10→20:47)
[2021-08-17] MEDS: TICAGRELOR 90 MG TABLET PO ×2 (08:10→20:47)
[2021-08-17] MEDS: levETIRAcetam 500MG/NACL 100ML 500 MG/100 ML BAG 400 MG IVPB ×2 (08:15→20:59)
--- NOTE | 2021-08-17 08:15 | WPDINTPN ---
Progress Note: A&P Assessment and Plan (1) Anoxic brain injury: Code(s): G93.1 - Anoxic brain damage, not elsewhere classified Status: Acute Assessment and Plan: Patient has sustained a significant Anoxic brain injury due to prolonged down time Patient has completed TTM protocol and has rewarming Sedation has been discontinued since 08/14 evening Neuro exam as above. There has been some improvement as expected after holding sedation but no purposeful activity at this point CT head done this morning showed - Development of diffuse cerebellar swelling, anoxic injury. No obstructive hydrocephalus but patient at risk. 08/15 EEG - This EEG was abnormal due the presence of severely diffuse background slowing. This EEG was indicative of the presence of severe, bihemispheric cerebral dysfunction of the type seen most commonly in the setting of severe toxicometabolic encephalopathies or anoxic injury.The was no evidence of epileptiform activity or focal cerebral dysfunction. Neurology consultation pending Continue Keppra that has been started for possible myoclonic jerks (2) Acute respiratory failure: Code(s): J96.00 - Acute respiratory failure, unspecified whether with hypoxia or hypercapnia Status: Acute Assessment and Plan: Acute respiratory failure likely related to VFib arrest, patient was intubated on 08/12/2021 ABGs and chest x-ray reviewed -ventilator settings reviewed. Decrease respiratory rate to 22 -continue bronchodilators - Off sedation. - Ventilator weaning will depend on his neurological improvement -continue antibiotics for possible aspiration pneumonia. Cultures have been sent and are negative till now -significant amount of secretions -continue Zosyn but vancomycin was discontinued (3) Cardiac arrest: Code(s): I46.9 - Cardiac arrest, cause unspecified Status: Acute Assessment and Plan: Prolonged out of the hospital VFib arrest (down time was 1 hour and 8 minutes per records) -VFib likely secondary to inferior [place], status post cardiac catheterization with PTCA/PCI with PAT x1 to proximal RCA (4) ST elevation (STEMI) myocardial infarction: Qualifiers: Involved coronary artery: unspecified coronary artery Qualified Code(s): I21.3 - ST elevation (STEMI) myocardial infarction of unspecified site Code(s): I21.3 - ST elevation (STEMI) myocardial infarction of unspecified site Status: Acute Assessment and Plan: As above -cardiology following the patient -continue aspirin, Brilinta, statin -resume beta-tapan and losartan (5) Elevated LFTs: Code(s): R79.89 - Other specified abnormal findings of blood chemistry Status: Acute Assessment and Plan: Elevated LFTs most likely related to cardiac arrest, shock liver -continue to maintain adequate mean arterial pressures for end-organ perfusion -improving (6) Diabetes mellitus with hyperglycemia, with long-term current use of insulin: Qualifiers: Diabetes mellitus type: type 2 Qualified Code(s): E11.65 - Type 2 diabetes mellitus with hyperglycemia; Z79.4 - hoop maker (current) use of insulin Code(s): E11.65 - Type 2 diabetes mellitus with hyperglycemia; Z79.4 - hoop maker (current) use of insulin Status: Acute Assessment and Plan: Hyperglycemia could be related to uncontrolled diabetes, acute stress from cardiac arrest, cardiac catheterization, shock -hemoglobin A1c 10.2 -continue sliding scale and Lantus (7) Shock: Code(s): R57.9 - Shock, unspecified Status: Acute Assessment and Plan: Shock likely related to cardiac arrest -patient also could have developed aspiration pneumonia Resolved and now patient is hypertensive (8) Coffee ground emesis: Code(s): K92.0 - Hematemesis Status: Acute Assessment and Plan: NG with coffee-ground drainage, for possibility of some dark maroon drainage -this could be related t
[2021-08-17] MEDS: INSULIN GLARGINE (*BKC) 100 UNITS/ML 20 UNITS SUB-Q ×2 (08:22→20:54)
[2021-08-17] MEDS: ASPIRIN 81 MG CHEWABLE TABLET PO (08:29)
--- NOTE | 2021-08-17 11:56 | PCNFU ---
Nutrition Follow-Up Complete: Inadequate Oral Intake as related to mechanical ventilation as evidenced by NPO. goal: Meet estimated nutritional needs Patient is progressing towards goal. We will continue current goal. Pt current nutrition is Vital AF 1.2 at 70 ml/hr over 22 hours. Last recorded weight is 78.5 kg,up from 72.8 kg on admit. Bowel Motility:+B reported 08/17 Labs Reviewed:Glu 228, HCt 34.4,Hgb 11.3,Alb 2.5 Meds Noted:Keppra, Brilinta, Cozaar, Levophed, Crestor, Protonix,NovoLog, Apresoline, Atrovent, Lantus, LR Skin: WNL Additional Notes: Patient remains on CMV mode on mechanical vent. Tube feedings running at goal rate of 70ml/hr over 22 hours, providing 1848 kcals/115 gm protein/1249 ml water. Free water flush 30 ml q 4 hours. Current tube feeding is meeting 100% of caloric needs on vent and 100% of protein needs. Agree with diet orders. Will monitor in ICU rounds and reassessing every Friday and Friday
[2021-08-17 12:34] LABS: Glucose Point of Care 161 mg/dl (65-105)
[2021-08-17 12:34] LABS: Glucose Point of Care 156 mg/dl (65-105)
--- NOTE | 2021-08-17 13:46 | PM.PNCARD ---
Progress Note: A&P Assessment and Plan (1) ST elevation (STEMI) myocardial infarction: Qualifiers: Involved coronary artery: unspecified coronary artery Qualified Code(s): I21.3 - ST elevation (STEMI) myocardial infarction of unspecified site Code(s): I21.3 - ST elevation (STEMI) myocardial infarction of unspecified site Status: Acute Assessment and Plan: Presented following witnessed cardiac arrest at home. ECG with findings consistent with inferior [place]. He was taken to the [facility] lab[facility] emergently and was found to have 99% stenosis of the proximal RCA which was stented with The lesion was then stented using a 3.5 x 22 mm Orsiro drug-eluting stent which provided a good anatomical result. EF estimated to be 40% Continue ASA Continue Brilinta Continue statin (2) Cardiac arrest: Code(s): I46.9 - Cardiac arrest, cause unspecified Status: Acute Assessment and Plan: Suffered VF cardiac arrest at home secondary to subtotal occlusion of RCA. (3) Anoxic brain injury: Code(s): G93.1 - Anoxic brain damage, not elsewhere classified Status: Acute Assessment and Plan: Reportedly had prolonged down time despite having a witnessed arrest. As such, likelihood of meaningful neurological recovery is low. Plan for EEG tomorrow per critical care team. Prognosis guarded. Subjective Date/time seen: Date of service 08/17/21 13:46: He does some movements but not purposeful. No significant arrhythmias Review of Systems Review of Systems: ROS unobtainable: Yes unobtainable due to endotracheal tube, unobtainable due to medical condition and unobtainable due to mental status Exam Const: General: comfortable and no acute distress Other: Intubated and sedated white male appears to be about his stated age intubated on ventilator support HENMT: Mouth: Yes moist mucous membranes Eyes: Sclera: sclerae normal Neck: Neck: supple and no JVD Other: Normal carotid pulses Resp: Effort & Inspection: normal respiratory effort Auscultation: clear to auscultation bilaterally and rhonchi Other: Scattered rhonchi noted Cardio: Rate: regular rate Rhythm: regular rhythm Other: No murmur no gallop GI: Auscultation: normal bowel sounds Skin: General skin exam: normal color Neuro: Other: Sedated unresponsive, pupils are fixed Extrem: General: normal to inspection Other: Arterial access site free from bleeding, hematoma Objective Data Vital Signs Vital Signs: Vital Signs - 24 hr 08/16/21 14:00 08/16/21 16:00 08/16/21 17:42 Temperature 37.4 C 37.7 C H Pulse Rate 92 98 89 Respiratory Rate 27 H 26 H Blood Pressure 103/74 139/95 H Pulse Oximetry 98 98 96 08/16/21 18:00 08/16/21 20:00 08/16/21 20:34 Temperature 37.4 C 37.3 C Pulse Rate 100 85 100 Respiratory Rate 26 H 29 H 26 H Blood Pressure 143/92 H 127/71 Pulse Oximetry 98 98 08/16/21 20:35 08/16/21 20:40 08/16/21 22:00 Temperature Pulse Rate 99 98 85 Respiratory Rate 28 H Blood Pressure 118/67 Pulse Oximetry 97 98 08/16/21 23:07 08/17/21 00:00 08/17/21 02:00 Temperature 37.4 C Pulse Rate 87 89 82 Respiratory Rate 30 H 28 H Blood Pressure 122/67 116/65 Pulse Oximetry 98 98 98 08/17/21 02:09 08/17/21 02:11 08/17/21 04:00 Temperature Pulse Rate 82 84 84 Respiratory Rate 26 H 29 H Blood Pressure 113/62 Pulse Oximetry 98 98 08/17/21 05:13 08/17/21 05:54 08/17/21 06:00 Temperature Pulse Rate 86 88 81 Respiratory Rate 26 H 27 H Blood Pressure 114/64 Pulse Oximetry 99 99 08/17/21 08:00 08/17/21 08:10 08/17/21 08:11 Temperature 37.2 C Pulse Rate 88 94 92 Respiratory Rate 20 22 H Blood Pressure 137/75 Pulse Oximetry 99 98 08/17/21 08:32 08/17/21 10:00 08/17/21 11:18 Temperature 37.3 C Pulse Rate 92 84 80 Respiratory Rate 23 H 22 H Blood Pressure 140/79 Pulse Oximetry 99 98 08/17/21 12:00 Temperature 37.2 C Pulse Rate 89 Resp
[2021-08-17 17:07] LABS: Glucose Point of Care 207 mg/dl (65-105)
[2021-08-17 20:47] LABS: Glucose Point of Care 265 mg/dl (65-105)
[2021-08-17 23:49] LABS: Glucose Point of Care 206 mg/dl (65-105)
[2021-08-18] VITALS (31 sets, daily range): BP systolic 102–151; BP diastolic 60–106; PULSE 78–102; RESP 20–33; TEMP 36.8–37.6; O2SAT 94–100
[2021-08-18] MEDS: LEVALBUTEROL NEB 1.25 MG/3 ML 0.63 MG INHALATION ×4 (01:42→20:05)
[2021-08-18] MEDS: IPRATROPIUM BR 0.02% INH SOLN 0.5 MG/2.5 ML VIAL INHALATION ×4 (01:42→20:05)
[2021-08-18 04:39] LABS: Basophils Absolute Auto 0.1 K/mm3 (0.0-0.1); Basophils Percent Auto 0.5 % (0.2-1.2); Eosinophils Absolute Auto 0.2 K/mm3 (0-0.3); Eosinophils Percent Auto 1.4 % (0-4.4); Hemoglobin 11.3 g/dL (14.0-18.0); Immature Granulocyte Absolute 0.06 K/mm3 (0.00-0.031); Immature Granulocyte Percent A 0.5 % (0-0.5); Lymphocytes Absolute Auto 2.88 K/mm3 (0.9-3.2); Lymphocytes Percent Auto 22.9 % (18.3-44.2); Mean Corpuscular HGB Conc 32.3 g/dl (32-36); Mean Corpuscular Hemoglobin 29.1 pg (26-34); Mean Corpuscular Volume 90.2 fl (80-100); Monocytes Absolute Auto 1.2 K/mm3 (0.1-0.6); Monocytes Percent Auto 9.4 % (2.6-8.5); Neutrophils Absolute Auto 8.2 K/mm3 (1.3-6.7); Neutrophils Percent Auto 65.3 % (45.5-73.1); Platelet Count Result 193 k/mm3 (150-375); Red Blood Count 3.88 M/mm3 (4.6-6.20); Red Cell Distribution Width 13.1 % (11.5-14.5); White Blood Count 12.6 K/mm3 (4.5-10.0)
[2021-08-18 04:42] LABS: Alveolar/Arterial O2 Gradient 67.8 mmHg; Base Excess ABG 1.4 mEq/l (+/-2.0); Carboxyhemoglobin 0.3 % THb (0-2.0); Fractional Inspired Oxygen 30 %; HCO3 ABG 24.6 mEq/l (22.0-26.0); Methemoglobin ABG 0.3 %THb (0-1.5); Oxygen Content ABG 17.5 %vol (16.0-22.0); Oxygen Saturation ABG 98.2 % (95.0-100.0); Oxyhemoglobin 96.4 % THb (90.0-100.0); PCO2 ABG 34.3 mmHg (35.0-45.0); PO2 ABG 105.8 mmHg (80.0-100.0); PO2 FiO2 Ratio Arterial Blood 3.53 %; Total Hemoglobin 12.8 g/dL (12.0-18.0); pH ABG 7.473 (7.350-7.450)
[2021-08-18 04:44] LABS: Device VENTILATOR; Site Drawn ARTLINE
[2021-08-18 04:45] LABS: Arterial Blood Gas PEEP 5 cmH2O; Arterial Blood Gas Tidal Volume 470 ml; Arterial Blood Gas Vent Mode CMV; Arterial Blood Gas Ventilator rate 22 /MIN
[2021-08-18 04:50] LABS: Alanine Aminotransferase 94 U/L (4-50); Albumin Level 2.9 g/dL (3.5-5.1); Alkaline Phosphatase 99 U/L (38-126); Anion Gap 4 mmol/L (8-16); Aspartate Amino Transferase 124 U/L (17-59); Bilirubin,Total 0.4 mg/dL (0.2-1.3); Blood Urea Nitrogen 16 mg/dL (9-20); Carbon Dioxide 29 mmol/L (22-30); Chloride 108 mmol/L (98-107); Creatine Kinase 1069 U/L (55-170); Estimated CRCL calculation 96 ml/min; Estimated Glomerular Filt Rate > 60; Glucose 172 mg/dL (65-110); Magnesium 1.7 mg/dL (1.6-2.3); Phosphorus 3.8 mg/dL (2.5-4.5); Potassium 3.7 mmol/L (3.4-5.0); Sodium 141 mmol/L (137-145)
[2021-08-18] MEDS: PROPOFOL IV EMULSION 100 ML 4.79 MG IV CONT (05:17)
[2021-08-18] MEDS: ASPIRIN 81 MG CHEWABLE TABLET PO (07:38)
[2021-08-18] MEDS: MINERAL OIL/WHITE PETROLATUM OINTMENT 1 APPLIC EACH EYE ×2 (08:13→21:11)
[2021-08-18] MEDS: TICAGRELOR 90 MG TABLET PO ×2 (08:13→21:12)
[2021-08-18] MEDS: LOSARTAN POTASSIUM 12.5 MG TABLET PO (08:13)
[2021-08-18] MEDS: ROSUVASTATIN 10 MG TABLET 20 MG PO (08:13)
[2021-08-18] MEDS: METOPROLOL TARTRATE 50 MG TAB PO ×2 (08:13→21:12)
[2021-08-18] MEDS: levETIRAcetam 500MG/NACL 100ML 500 MG/100 ML BAG 400 MG IVPB ×2 (08:14→21:11)
[2021-08-18] MEDS: INSULIN GLARGINE (*BKC) 100 UNITS/ML 20 UNITS SUB-Q ×2 (08:14→21:10)
[2021-08-18] MEDS: PANTOPRAZOLE SODIUM IV 40 MG VIAL IV PUSH ×2 (08:14→21:11)
[2021-08-18] MEDS: MAGNESIUM SULF 2 GM/WATER 50ML 2 GM/50 ML BAG IVPB (08:18)
[2021-08-18] MEDS: SODIUM CHLORIDE 0.45% 1,000 ML 50 ML IV CONT (08:19)
[2021-08-18] MEDS: POTASSIUM CHLORIDE 20 MEQ PACKET (FOR LIQUID) 40 MEQ FEED TUBE (08:20)
--- NOTE | 2021-08-18 09:26 | WPDINTPN ---
Progress Note: A&P Assessment and Plan (1) Anoxic brain injury: Code(s): G93.1 - Anoxic brain damage, not elsewhere classified Status: Acute Assessment and Plan: Patient has sustained a significant Anoxic brain injury due to prolonged down time Patient has completed TTM protocol and has reformed Sedation has been discontinued since 08/14 evening Neuro exam as above. There has been some improvement as expected after holding long-acting sedation but no purposeful activity at this point CT head done 08/15 showed - Development of diffuse cerebellar swelling, anoxic injury. No obstructive hydrocephalus but patient at risk. 08/15 EEG - This EEG was abnormal due the presence of severely diffuse background slowing. This EEG was indicative of the presence of severe, bihemispheric cerebral dysfunction of the type seen most commonly in the setting of severe toxicometabolic encephalopathies or anoxic injury.The was no evidence of epileptiform activity or focal cerebral dysfunction. Minimize use of propofol and continue supportive care to allow neurological improvement Neurology consultation pending Continue Keppra that has been started for possible myoclonic jerks (2) Acute respiratory failure: Code(s): J96.00 - Acute respiratory failure, unspecified whether with hypoxia or hypercapnia Status: Acute Assessment and Plan: Acute respiratory failure likely related to VFib arrest, patient was intubated on 08/12/2021 ABGs and chest x-ray reviewed -ventilator settings reviewed. Decrease respiratory rate to 22 -continue bronchodilators - Off sedation. - Ventilator weaning will depend on his neurological improvement -continue antibiotics for possible aspiration pneumonia. Cultures have been sent and are negative till now -significant amount of secretions -continue Zosyn but vancomycin was discontinued (3) Cardiac arrest: Code(s): I46.9 - Cardiac arrest, cause unspecified Status: Acute Assessment and Plan: Prolonged out of the hospital VFib arrest (down time was 1 hour and 8 minutes per records) -VFib likely secondary to inferior [place], status post cardiac catheterization with PTCA/PCI with PAT x1 to proximal RCA (4) ST elevation (STEMI) myocardial infarction: Qualifiers: Involved coronary artery: unspecified coronary artery Qualified Code(s): I21.3 - ST elevation (STEMI) myocardial infarction of unspecified site Code(s): I21.3 - ST elevation (STEMI) myocardial infarction of unspecified site Status: Acute Assessment and Plan: As above -cardiology following the patient -continue aspirin, Brilinta, statin -resume beta-tapan and losartan (5) Elevated LFTs: Code(s): R79.89 - Other specified abnormal findings of blood chemistry Status: Acute Assessment and Plan: Elevated LFTs most likely related to cardiac arrest, shock liver -continue to maintain adequate mean arterial pressures for end-organ perfusion -improving (6) Diabetes mellitus with hyperglycemia, with long-term current use of insulin: Qualifiers: Diabetes mellitus type: type 2 Qualified Code(s): E11.65 - Type 2 diabetes mellitus with hyperglycemia; Z79.4 - skilled nursing (current) use of insulin Code(s): E11.65 - Type 2 diabetes mellitus with hyperglycemia; Z79.4 - skilled nursing (current) use of insulin Status: Acute Assessment and Plan: Hyperglycemia could be related to uncontrolled diabetes, acute stress from cardiac arrest, cardiac catheterization, shock -hemoglobin A1c 10.2 -continue sliding scale and Lantus (7) Shock: Code(s): R57.9 - Shock, unspecified Status: Acute Assessment and Plan: Shock likely related to cardiac arrest -patient also could have developed aspiration pneumonia Resolved and now patient is hypertensive (8) Coffee ground emesis: Code(s): K92.0 - Hematemesis Status: Acute Assessment and Plan: NG with coff
[2021-08-18 12:39] LABS: Glucose Point of Care 174 mg/dl (65-105)
[2021-08-18 13:05] LABS: Anion Gap 2 mmol/L (8-16); Blood Urea Nitrogen 14 mg/dL (9-20); Calcium 8.2 mg/dL (8.4-10.2); Carbon Dioxide 29 mmol/L (22-30); Chloride 110 mmol/L (98-107); Estimated CRCL calculation 109 ml/min; Estimated Glomerular Filt Rate > 60; Glucose 178 mg/dL (65-110); Potassium 4.1 mmol/L (3.4-5.0); Sodium 141 mmol/L (137-145)
[2021-08-18 13:42] LABS: Glucose Point of Care 183 mg/dl (65-105)
[2021-08-18] MEDS: amLODIPine BESYLATE 5 MG TABLET 10 MG PO ×2 (16:35→17:03)
[2021-08-18 21:10] LABS: Glucose Point of Care 169 mg/dl (65-105)
[2021-08-18 21:10] LABS: Glucose Point of Care 157 mg/dl (65-105)
[2021-08-18 21:10] LABS: Glucose Point of Care 147 mg/dl (65-105)
[2021-08-19] VITALS (26 sets, daily range): BP systolic 95–157; BP diastolic 68–101; PULSE 57–108; RESP 15–32; TEMP 37.2–37.6; O2SAT 92–100
[2021-08-19] MEDS: DEXTROSE 50% 25 GM/50 ML SYRINGE IV PUSH (00:38)
[2021-08-19 00:39] LABS: Glucose Point of Care 57 mg/dl (65-105)
[2021-08-19 00:39] LABS: Glucose Point of Care 54 mg/dl (65-105)
[2021-08-19] MEDS: LEVALBUTEROL NEB 1.25 MG/3 ML 0.63 MG INHALATION ×4 (01:26→20:10)
[2021-08-19] MEDS: IPRATROPIUM BR 0.02% INH SOLN 0.5 MG/2.5 ML VIAL INHALATION ×4 (01:26→20:10)
[2021-08-19 01:32] LABS: Osmolality, Urine 311 mOsm/kg (50-1200)
[2021-08-19 01:36] LABS: Glucose Point of Care 124 mg/dl (65-105)
[2021-08-19 04:45] LABS: Hematocrit 34.2 % (42.0-52.0); Hemoglobin 11.1 g/dL (14.0-18.0); Mean Corpuscular HGB Conc 32.5 g/dl (32-36); Mean Corpuscular Hemoglobin 28.9 pg (26-34); Mean Corpuscular Volume 89.1 fl (80-100); Mean Platelet Volume 9.8 fl (7.4-10.4); Platelet Count Result 225 k/mm3 (150-375); Red Blood Count 3.84 M/mm3 (4.6-6.20); White Blood Count 13.4 K/mm3 (4.5-10.0)
[2021-08-19 04:58] LABS: Alanine Aminotransferase 83 U/L (4-50); Alkaline Phosphatase 95 U/L (38-126); Anion Gap 6 mmol/L (8-16); Aspartate Amino Transferase 107 U/L (17-59); Bilirubin,Total 0.5 mg/dL (0.2-1.3); Blood Urea Nitrogen 15 mg/dL (9-20); Calcium 8.2 mg/dL (8.4-10.2); Carbon Dioxide 27 mmol/L (22-30); Chloride 107 mmol/L (98-107); Creatine Kinase 558 U/L (55-170); Estimated CRCL calculation 96 ml/min; Estimated Glomerular Filt Rate > 60; Glucose 95 mg/dL (65-110); Magnesium 1.8 mg/dL (1.6-2.3); Phosphorus 3.8 mg/dL (2.5-4.5); Potassium 3.6 mmol/L (3.4-5.0); Sodium 140 mmol/L (137-145)
[2021-08-19 05:09] LABS: Alveolar/Arterial O2 Gradient 66.1 mmHg; Base Excess ABG 2.7 mEq/l (+/-2.0); Carboxyhemoglobin 0.3 % THb (0-2.0); Fractional Inspired Oxygen 30 %; HCO3 ABG 26.7 mEq/l (22.0-26.0); Methemoglobin ABG 0.3 %THb (0-1.5); Oxygen Content ABG 17.2 %vol (16.0-22.0); Oxygen Saturation ABG 97.9 % (95.0-100.0); Oxyhemoglobin 96.5 % THb (90.0-100.0); PCO2 ABG 38.7 mmHg (35.0-45.0); PO2 ABG 102.3 mmHg (80.0-100.0); PO2 FiO2 Ratio Arterial Blood 3.41 %; Reduced Hemoglobin 2.9 %THb (0-5.0); Total Hemoglobin 12.6 g/dL (12.0-18.0); pH ABG 7.456 (7.350-7.450)
[2021-08-19 05:10] LABS: Device VENTILATOR; Modified Allen's Test Unable to perform; Site Drawn LEFT RADIAL
[2021-08-19 05:11] LABS: Arterial Blood Gas PEEP 5 cmH2O; Arterial Blood Gas Tidal Volume 450 ml; Arterial Blood Gas Vent Mode CMV; Arterial Blood Gas Ventilator rate 20 /MIN
[2021-08-19] MEDS: SODIUM CHLORIDE 0.45% 1,000 ML 50 ML IV CONT (05:30)
[2021-08-19] MEDS: levETIRAcetam 500MG/NACL 100ML 500 MG/100 ML BAG 400 MG IVPB ×2 (08:35→20:52)
[2021-08-19] MEDS: ROSUVASTATIN 10 MG TABLET 20 MG PO (08:37)
[2021-08-19] MEDS: MINERAL OIL/WHITE PETROLATUM OINTMENT 1 APPLIC EACH EYE ×2 (08:37→20:53)
[2021-08-19] MEDS: LOSARTAN POTASSIUM 12.5 MG TABLET PO (08:37)
[2021-08-19] MEDS: METOPROLOL TARTRATE 50 MG TAB PO ×2 (08:38→20:54)
[2021-08-19] MEDS: ASPIRIN 81 MG CHEWABLE TABLET PO (08:38)
[2021-08-19] MEDS: PANTOPRAZOLE SODIUM IV 40 MG VIAL IV PUSH ×2 (08:38→20:54)
[2021-08-19] MEDS: POTASSIUM CHLORIDE 20 MEQ PACKET (FOR LIQUID) 40 MEQ FEED TUBE (08:38)
[2021-08-19] MEDS: TICAGRELOR 90 MG TABLET PO ×2 (08:38→20:54)
--- NOTE | 2021-08-19 08:55 | WPDINTPN ---
Progress Note: A&P Assessment and Plan (1) Anoxic brain injury: Code(s): G93.1 - Anoxic brain damage, not elsewhere classified Status: Acute Assessment and Plan: Patient has sustained a significant Anoxic brain injury due to prolonged down time Patient has completed TTM protocol and has reformed Sedation has been discontinued since 08/14 evening Neuro exam as above. There has been some improvement as expected after holding long-acting sedation but no purposeful activity at this point CT head done 08/15 showed - Development of diffuse cerebellar swelling, anoxic injury. No obstructive hydrocephalus but patient at risk. 08/15 EEG - This EEG was abnormal due the presence of severely diffuse background slowing. This EEG was indicative of the presence of severe, bihemispheric cerebral dysfunction of the type seen most commonly in the setting of severe toxicometabolic encephalopathies or anoxic injury.The was no evidence of epileptiform activity or focal cerebral dysfunction. Minimize use of propofol and continue supportive care to allow neurological improvement Repeat EEG tomorrow Neurology consultation pending Continue Keppra that has been started for possible myoclonic jerks (2) Acute respiratory failure: Code(s): J96.00 - Acute respiratory failure, unspecified whether with hypoxia or hypercapnia Status: Acute Assessment and Plan: Acute respiratory failure likely related to VFib arrest, patient was intubated on 08/12/2021 ABGs and chest x-ray reviewed -ventilator settings reviewed. I will try pressure support ventilation more today see if patient tolerates -continue bronchodilators - Off sedation. - Ventilator weaning will depend on his neurological improvement -continue antibiotics for possible aspiration pneumonia. Cultures have been sent and are negative till now -significant amount of secretions -continue Zosyn but vancomycin was discontinued (3) Cardiac arrest: Code(s): I46.9 - Cardiac arrest, cause unspecified Status: Acute Assessment and Plan: Prolonged out of the hospital VFib arrest (down time was 1 hour and 8 minutes per records) -VFib likely secondary to inferior [place], status post cardiac catheterization with PTCA/PCI with PAT x1 to proximal RCA (4) ST elevation (STEMI) myocardial infarction: Qualifiers: Involved coronary artery: unspecified coronary artery Qualified Code(s): I21.3 - ST elevation (STEMI) myocardial infarction of unspecified site Code(s): I21.3 - ST elevation (STEMI) myocardial infarction of unspecified site Status: Acute Assessment and Plan: As above -cardiology following the patient -continue aspirin, Brilinta, statin -resume beta-tapan and losartan (5) Elevated LFTs: Code(s): R79.89 - Other specified abnormal findings of blood chemistry Status: Acute Assessment and Plan: Elevated LFTs most likely related to cardiac arrest, shock liver -continue to maintain adequate mean arterial pressures for end-organ perfusion -improving (6) Diabetes mellitus with hyperglycemia, with long-term current use of insulin: Qualifiers: Diabetes mellitus type: type 2 Qualified Code(s): E11.65 - Type 2 diabetes mellitus with hyperglycemia; Z79.4 - advertising writer (current) use of insulin Code(s): E11.65 - Type 2 diabetes mellitus with hyperglycemia; Z79.4 - advertising writer (current) use of insulin Status: Acute Assessment and Plan: Hyperglycemia could be related to uncontrolled diabetes, acute stress from cardiac arrest, cardiac catheterization, shock -hemoglobin A1c 10.2 -continue sliding scale and Lantus (7) Shock: Code(s): R57.9 - Shock, unspecified Status: Acute Assessment and Plan: Shock likely related to cardiac arrest -patient also could have developed aspiration pneumonia Resolved and now patient is hypertensive (8) Coffee ground emesis: Code(s): K92.0 - Hematemes
[2021-08-19 09:32] LABS: Glucose Point of Care 115 mg/dl (65-105)
[2021-08-19] MEDS: INSULIN ASPART (*BKC) 100 UNITS/ML SUB-Q ×2 (13:10→23:55)
[2021-08-19 13:18] LABS: Glucose Point of Care 213 mg/dl (65-105)
[2021-08-19] MEDS: amLODIPine BESYLATE 5 MG TABLET 10 MG PO (17:29)
[2021-08-19] MEDS: TOLNAFTATE 1% POWDER 45 GM BTL 1 APPLIC TOPICAL ×2 (17:29→20:55)
[2021-08-19 17:43] LABS: Glucose Point of Care 141 mg/dl (65-105)
[2021-08-19 20:43] LABS: Glucose Point of Care 182 mg/dl (65-105)
[2021-08-19] MEDS: INSULIN GLARGINE (*BKC) 100 UNITS/ML 20 UNITS SUB-Q (20:51)
[2021-08-19 23:56] LABS: Glucose Point of Care 250 mg/dl (65-105)
[2021-08-20] VITALS (36 sets, daily range): BP systolic 91–157; BP diastolic 71–97; PULSE 82–114; RESP 20–40; TEMP 36.7–37.7; O2SAT 96–100
[2021-08-20] MEDS: IPRATROPIUM BR 0.02% INH SOLN 0.5 MG/2.5 ML VIAL INHALATION ×4 (02:25→20:32)
[2021-08-20] MEDS: LEVALBUTEROL NEB 1.25 MG/3 ML 0.63 MG INHALATION ×4 (02:25→20:32)
[2021-08-20 04:35] LABS: Glucose Point of Care 287 mg/dl (65-105)
[2021-08-20 04:44] LABS: Hematocrit 38.5 % (42.0-52.0); Hemoglobin 12.5 g/dL (14.0-18.0); Mean Corpuscular HGB Conc 32.5 g/dl (32-36); Mean Corpuscular Hemoglobin 29.1 pg (26-34); Mean Corpuscular Volume 89.7 fl (80-100); Mean Platelet Volume 10.1 fl (7.4-10.4); Platelet Count Result 290 k/mm3 (150-375); Red Blood Count 4.29 M/mm3 (4.6-6.20); Red Cell Distribution Width 12.9 % (11.5-14.5); White Blood Count 15.4 K/mm3 (4.5-10.0)
[2021-08-20 04:55] LABS: Alanine Aminotransferase 85 U/L (4-50); Albumin Level 3.5 g/dL (3.5-5.1); Alkaline Phosphatase 113 U/L (38-126); Anion Gap 4 mmol/L (8-16); Aspartate Amino Transferase 94 U/L (17-59); Bilirubin,Total 0.6 mg/dL (0.2-1.3); Blood Urea Nitrogen 18 mg/dL (9-20); Calcium 8.6 mg/dL (8.4-10.2); Carbon Dioxide 29 mmol/L (22-30); Chloride 104 mmol/L (98-107); Creatine Kinase 247 U/L (55-170); Estimated CRCL calculation 96 ml/min; Estimated Glomerular Filt Rate > 60; Glucose 293 mg/dL (65-110); Magnesium 1.8 mg/dL (1.6-2.3); Phosphorus 3.6 mg/dL (2.5-4.5); Potassium 4.4 mmol/L (3.4-5.0); Sodium 137 mmol/L (137-145)
[2021-08-20] MEDS: INSULIN ASPART (*BKC) 100 UNITS/ML SUB-Q ×5 (05:00→20:48)
[2021-08-20 05:20] LABS: Alveolar/Arterial O2 Gradient 43.8 mmHg; Base Excess ABG 0.8 mEq/l (+/-2.0); Carboxyhemoglobin 0.3 % THb (0-2.0); Fractional Inspired Oxygen 30 %; HCO3 ABG 25.7 mEq/l (22.0-26.0); Methemoglobin ABG 0.4 %THb (0-1.5); Oxygen Content ABG 20.6 %vol (16.0-22.0); Oxygen Saturation ABG 98.4 % (95.0-100.0); Oxyhemoglobin 96.9 % THb (90.0-100.0); PCO2 ABG 41.8 mmHg (35.0-45.0); PO2 FiO2 Ratio Arterial Blood 4.03 %; Reduced Hemoglobin 2.4 %THb (0-5.0); pH ABG 7.406 (7.350-7.450)
[2021-08-20 05:21] LABS: Arterial Blood Gas PEEP 5 cmH2O; Arterial Blood Gas Tidal Volume 420 ml; Arterial Blood Gas Vent Mode CMV; Arterial Blood Gas Ventilator rate 20 /MIN; Device VENTILATOR; Site Drawn LEFT BRACHIAL
[2021-08-20] MEDS: METOPROLOL TARTRATE 50 MG TAB PO ×2 (08:26→20:21)
[2021-08-20] MEDS: LOSARTAN POTASSIUM 12.5 MG TABLET PO (08:26)
[2021-08-20] MEDS: TICAGRELOR 90 MG TABLET PO ×2 (08:27→20:21)
[2021-08-20] MEDS: ROSUVASTATIN 10 MG TABLET 20 MG PO (08:27)
[2021-08-20] MEDS: ASPIRIN 81 MG CHEWABLE TABLET PO (08:29)
[2021-08-20] MEDS: ENOXAPARIN 40 MG/0.4 ML SYRINGE SUB-Q (08:29)
[2021-08-20] MEDS: PANTOPRAZOLE SODIUM IV 40 MG VIAL IV PUSH ×2 (08:29→20:21)
[2021-08-20 08:33] LABS: Glucose Point of Care 283 mg/dl (65-105)
[2021-08-20] MEDS: INSULIN GLARGINE (*BKC) 100 UNITS/ML 10 UNITS SUB-Q (08:37)
[2021-08-20] MEDS: TOLNAFTATE 1% POWDER 45 GM BTL 1 APPLIC TOPICAL ×2 (08:40→20:22)
[2021-08-20] MEDS: MINERAL OIL/WHITE PETROLATUM OINTMENT 1 APPLIC EACH EYE ×2 (08:40→20:21)
--- NOTE | 2021-08-20 08:46 | WPDINTPN ---
Progress Note: A&P Assessment and Plan (1) Anoxic brain injury: Code(s): G93.1 - Anoxic brain damage, not elsewhere classified Status: Acute Assessment and Plan: Patient has sustained a significant Anoxic brain injury due to prolonged down time Patient has completed TTM protocol and has reformed Sedation has been discontinued since 08/14 evening Neuro exam as above. There has been some improvement as expected after holding long-acting sedation but no purposeful activity at this point CT head done 08/15 showed - Development of diffuse cerebellar swelling, anoxic injury. No obstructive hydrocephalus but patient at risk. CT 08/19 - Low attenuation involving the bilateral temporal lobes, cerebellum, and braulio, stable from 08/15/21 and worsened from 08/12/21, consistent with infarcts from anoxic brain injury. 08/15 EEG - This EEG was abnormal due the presence of severely diffuse background slowing. This EEG was indicative of the presence of severe, bihemispheric cerebral dysfunction of the type seen most commonly in the setting of severe toxicometabolic encephalopathies or anoxic injury.The was no evidence of epileptiform activity or focal cerebral dysfunction. 08/20 repeat EEG is ordered Minimize use of propofol and continue supportive care to allow neurological improvement Neurology consultation pending Continue Keppra that has been started for possible myoclonic jerks (2) Acute respiratory failure: Code(s): J96.00 - Acute respiratory failure, unspecified whether with hypoxia or hypercapnia Status: Acute Assessment and Plan: Acute respiratory failure likely related to VFib arrest, patient was intubated on 08/12/2021 ABGs and chest x-ray reviewed -ventilator settings reviewed. I tried pressure support ventilation 10/5 and then 15/5 but patient had high RSBI and became diaphoretic with elevated heart rate and blood pressure. Patient was switched back to continuous mechanical ventilation mode. Will continue to assess for possible extubation daily -continue bronchodilators - Off sedation. - Ventilator weaning will depend on his neurological improvement -continue antibiotics for possible aspiration pneumonia. Cultures have been sent and are negative till now -significant amount of secretions -continue Zosyn but vancomycin was discontinued (3) Cardiac arrest: Code(s): I46.9 - Cardiac arrest, cause unspecified Status: Acute Assessment and Plan: Prolonged out of the hospital VFib arrest (down time was 1 hour and 8 minutes per records) -VFib likely secondary to inferior [place], status post cardiac catheterization with PTCA/PCI with PAT x1 to proximal RCA (4) ST elevation (STEMI) myocardial infarction: Qualifiers: Involved coronary artery: unspecified coronary artery Qualified Code(s): I21.3 - ST elevation (STEMI) myocardial infarction of unspecified site Code(s): I21.3 - ST elevation (STEMI) myocardial infarction of unspecified site Status: Acute Assessment and Plan: As above -cardiology following the patient -continue aspirin, Brilinta, statin -resume beta-tapan and losartan (5) Elevated LFTs: Code(s): R79.89 - Other specified abnormal findings of blood chemistry Status: Acute Assessment and Plan: Elevated LFTs most likely related to cardiac arrest, shock liver -continue to maintain adequate mean arterial pressures for end-organ perfusion -improving (6) Diabetes mellitus with hyperglycemia, with long-term current use of insulin: Qualifiers: Diabetes mellitus type: type 2 Qualified Code(s): E11.65 - Type 2 diabetes mellitus with hyperglycemia; Z79.4 - intermediate card tender (current) use of insulin Code(s): E11.65 - Type 2 diabetes mellitus with hyperglycemia; Z79.4 - intermediate card tender (current) use of insulin Status: Acute Assessment and Plan: Hyperglycemia could be related to uncontrolled diabetes, acute stress from cardiac arrest, c
[2021-08-20] MEDS: levETIRAcetam 500MG/NACL 100ML 500 MG/100 ML BAG 400 MG IVPB ×2 (10:18→20:46)
--- NOTE | 2021-08-20 10:24 | WPDNEUROLOGY ---
Neurology EEG Report General Information Date of Study: 08/20/21 TEST eeg DIAGNOSIS anoxic brain injury CONDITION OF RECORDING , comatose with eye movements artifacts noted throughout the whole tracing. EEG NUMBER [id number] CLINICAL HISTORY this is a repeat EEG on a patient in ICU, on vent, no sedation after being on hypothermia following a cardiac arrest. EEG DESCRIPTION Whole record consists of medium to high voltage 2 to 3 hertz per 2nd delta activity admixed with minimal amount of low-voltage 15 to 21 hertz per 2nd beta activity. No evidence of paroxysmal activity noted throughout the tracing. Non paroxysmal. Nonfocal. Nonlateralizing. IMPRESSION Abnormal record due to the presence of bihemispheric delta activity throughout the tracing with no evidence of paroxysmal activity. This abnormality is consistent with diffuse organic or metabolic encephalopathy clinical correlation recommended. Is not compatible with electrocerebral silence or status epilepticus
--- NOTE | 2021-08-20 11:23 | PCFNICU ---
ICU Rounding Note: Pt current nutrition is Vital AF 1.2 at 70 ml/hr over 22 hours. Last recorded weight is 71.6 kg, down from 72.8 kg on admit. Bowel Motility: FMS Labs Reviewed:Glu 293, Hct 38.5,Hgb 12.5 Meds Noted:Lovenox, NovoLog, Lantus, Atrovent, Xopenex, Keppra, Lopressor, Cozaar, Protonix, Zosyn, Crestor, Brilinta Skin: WNL Additional Notes: Patient remains on mechanical vent. Tube feedings are being tolerated of Vital AF 1.2 at 70 ml/hr over 22 hours. Repeat EEG planned. Agree with diet orders. Following daily in ICU rounds and reassessing every Friday and Friday.
[2021-08-20 12:33] LABS: Glucose Point of Care 280 mg/dl (65-105)
[2021-08-20 17:35] LABS: Glucose Point of Care 284 mg/dl (65-105)
[2021-08-20] MEDS: amLODIPine BESYLATE 5 MG TABLET 10 MG PO (18:05)
[2021-08-20 20:47] LABS: Glucose Point of Care 280 mg/dl (65-105)
[2021-08-20] MEDS: INSULIN GLARGINE (*BKC) 100 UNITS/ML 20 UNITS SUB-Q (20:48)
[2021-08-21] VITALS (42 sets, daily range): BP systolic 89–141; BP diastolic 67–90; PULSE 81–104; RESP 10–39; TEMP 37.3–37.9; O2SAT 95–100
[2021-08-21 00:35] LABS: Glucose Point of Care 158 mg/dl (65-105)
[2021-08-21] MEDS: IPRATROPIUM BR 0.02% INH SOLN 0.5 MG/2.5 ML VIAL INHALATION ×4 (02:21→20:56)
[2021-08-21] MEDS: LEVALBUTEROL NEB 1.25 MG/3 ML 0.63 MG INHALATION ×4 (02:21→20:56)
[2021-08-21 04:58] LABS: Hemoglobin 12.9 g/dL (14.0-18.0); Mean Corpuscular HGB Conc 32.3 g/dl (32-36); Mean Corpuscular Hemoglobin 28.9 pg (26-34); Mean Corpuscular Volume 89.5 fl (80-100); Mean Platelet Volume 9.6 fl (7.4-10.4); Platelet Count Result 358 k/mm3 (150-375); Red Blood Count 4.47 M/mm3 (4.6-6.20); Red Cell Distribution Width 12.7 % (11.5-14.5); White Blood Count 21.1 K/mm3 (4.5-10.0)
[2021-08-21 05:38] LABS: Alanine Aminotransferase 72 U/L (4-50); Albumin Level 3.5 g/dL (3.5-5.1); Alkaline Phosphatase 115 U/L (38-126); Anion Gap 5 mmol/L (8-16); Aspartate Amino Transferase 70 U/L (17-59); Bilirubin,Total 0.4 mg/dL (0.2-1.3); Blood Urea Nitrogen 33 mg/dL (9-20); Calcium 8.8 mg/dL (8.4-10.2); Carbon Dioxide 30 mmol/L (22-30); Chloride 104 mmol/L (98-107); Creatine Kinase 176 U/L (55-170); Estimated CRCL calculation 86 ml/min; Estimated Glomerular Filt Rate > 60; Glucose 303 mg/dL (65-110); Potassium 4.7 mmol/L (3.4-5.0); Sodium 139 mmol/L (137-145)
[2021-08-21] MEDS: INSULIN ASPART (*BKC) 100 UNITS/ML SUB-Q ×5 (06:03→21:03)
[2021-08-21] MEDS: PROPOFOL IV EMULSION 100 ML 7.18 MG IV CONT (06:04)
--- NOTE | 2021-08-21 08:43 | WPDINTPN ---
Progress Note: A&P Assessment and Plan (1) Anoxic brain injury: Code(s): G93.1 - Anoxic brain damage, not elsewhere classified Status: Acute Assessment and Plan: Patient has sustained a significant Anoxic brain injury due to prolonged down time Patient has completed TTM protocol and has reformed Sedation has been discontinued since 08/14 evening Neuro exam as above. There has been some improvement as expected after holding long-acting sedation but no purposeful activity at this point. Neuro status has been unchanged over last [address] head done 08/15 showed - Development of diffuse cerebellar swelling, anoxic injury. No obstructive hydrocephalus but patient at risk. CT 08/19 - Low attenuation involving the bilateral temporal lobes, cerebellum, and braulio, stable from 08/15/21 and worsened from 08/12/21, consistent with infarcts from anoxic brain injury. 08/15 EEG - This EEG was abnormal due the presence of severely diffuse background slowing. This EEG was indicative of the presence of severe, bihemispheric cerebral dysfunction of the type seen most commonly in the setting of severe toxicometabolic encephalopathies or anoxic injury.The was no evidence of epileptiform activity or focal cerebral dysfunction. 08/20 repeat EEG - Abnormal record due to the presence of bihemispheric delta activity throughout the tracing with no evidence of paroxysmal activity. This abnormality is consistent with diffuse organic or metabolic encephalopathy clinical correlation recommended. Is not compatible with electrocerebral silence or status epilepticus Continue to minimize use of propofol and continue supportive care to allow neurological improvement. Neurology consultation pending Continue Keppra that has been started for possible myoclonic jerks (2) Acute respiratory failure: Code(s): J96.00 - Acute respiratory failure, unspecified whether with hypoxia or hypercapnia Status: Acute Assessment and Plan: Acute respiratory failure likely related to VFib arrest, patient was intubated on 08/12/2021 ABGs and chest x-ray reviewed -ventilator settings reviewed. I tried pressure support ventilation 02/20 and then 15/ but patient had high RSBI and became diaphoretic with elevated heart rate and blood pressure. Patient was switched back to continuous mechanical ventilation mode. I will try pressure support ventilation again today -continue bronchodilators - Off sedation. - Ventilator weaning will depend on his neurological improvement -continue antibiotics for possible aspiration pneumonia. Cultures have been sent and are negative till now -significant amount of secretions -continue Zosyn but vancomycin was discontinued (3) Cardiac arrest: Code(s): I46.9 - Cardiac arrest, cause unspecified Status: Acute Assessment and Plan: Prolonged out of the hospital VFib arrest (down time was 1 hour and 8 minutes per records) -VFib likely secondary to inferior [place], status post cardiac catheterization with PTCA/PCI with PAT x1 to proximal RCA (4) ST elevation (STEMI) myocardial infarction: Qualifiers: Involved coronary artery: unspecified coronary artery Qualified Code(s): I21.3 - ST elevation (STEMI) myocardial infarction of unspecified site Code(s): I21.3 - ST elevation (STEMI) myocardial infarction of unspecified site Status: Acute Assessment and Plan: As above -cardiology following the patient -continue aspirin, Brilinta, statin -resume beta-tapan and losartan (5) Elevated LFTs: Code(s): R79.89 - Other specified abnormal findings of blood chemistry Status: Acute Assessment and Plan: Elevated LFTs most likely related to cardiac arrest, shock liver -continue to maintain adequate mean arterial pressures for end-organ perfusion -improving (6) Diabetes mellitus with hyperglycemia, with long-term current use of insulin: Qualifiers: Diabetes mellitus type: type
[2021-08-21 08:52] LABS: Glucose Point of Care 225 mg/dl (65-105)
[2021-08-21] MEDS: TICAGRELOR 90 MG TABLET PO ×2 (08:54→20:53)
[2021-08-21] MEDS: ASPIRIN 81 MG CHEWABLE TABLET PO (08:54)
[2021-08-21] MEDS: ROSUVASTATIN 10 MG TABLET 20 MG PO (08:54)
[2021-08-21] MEDS: LOSARTAN POTASSIUM 12.5 MG TABLET PO (08:54)
[2021-08-21] MEDS: INSULIN GLARGINE (*BKC) 100 UNITS/ML 20 UNITS SUB-Q ×2 (08:55→21:03)
[2021-08-21] MEDS: METOPROLOL TARTRATE 50 MG TAB PO ×2 (08:55→20:52)
[2021-08-21] MEDS: MINERAL OIL/WHITE PETROLATUM OINTMENT 1 APPLIC EACH EYE ×2 (08:57→20:52)
[2021-08-21] MEDS: ENOXAPARIN 40 MG/0.4 ML SYRINGE SUB-Q (08:57)
[2021-08-21] MEDS: TOLNAFTATE 1% POWDER 45 GM BTL 1 APPLIC TOPICAL ×2 (08:57→20:53)
[2021-08-21] MEDS: PANTOPRAZOLE SODIUM IV 40 MG VIAL IV PUSH ×2 (08:57→20:52)
[2021-08-21] MEDS: levETIRAcetam 500MG/NACL 100ML 500 MG/100 ML BAG 400 MG IVPB ×2 (08:57→20:52)
[2021-08-21] MEDS: ACETAMINOPHEN ELIXIR 325 MG/10.15 ML UDC 650 MG PO ×2 (09:11→16:15)
--- NOTE | 2021-08-21 09:14 | PM.PNCARD ---
Progress Note: A&P Assessment and Plan (1) ST elevation (STEMI) myocardial infarction: Qualifiers: Involved coronary artery: unspecified coronary artery Qualified Code(s): I21.3 - ST elevation (STEMI) myocardial infarction of unspecified site Code(s): I21.3 - ST elevation (STEMI) myocardial infarction of unspecified site Status: Acute Assessment and Plan: Presented following witnessed cardiac arrest at home. ECG with findings consistent with inferior DC. He was taken to the laboratory assistant emergently and was found to have 99% stenosis of the proximal RCA which was stented with The lesion was then stented using a 3.5 x 22 mm Orsiro drug-eluting stent which provided a good anatomical result. EF estimated to be 40% Continue ASA Continue Brilinta Continue statin (2) Cardiac arrest: Code(s): I46.9 - Cardiac arrest, cause unspecified Status: Acute Assessment and Plan: Suffered VF cardiac arrest at home secondary to subtotal occlusion of RCA. (3) Anoxic brain injury: Code(s): G93.1 - Anoxic brain damage, not elsewhere classified Status: Acute Assessment and Plan: Reportedly had prolonged down time despite having a witnessed arrest. As such, likelihood of meaningful neurological recovery is low. Prognosis guarded. Subjective Date/time seen: 08/21/21 09:14 Interval history: Follow-up visit in this 46-year-old man with: Acute inferior wall myocardial infarction unfortunately presenting with [id number] ventricular fibrillation. Following prolonged resuscitation effort he was brought to the laboratory assistant and underwent successful emergency PCI of the proximal RCA. Patient also has moderate mid circumflex disease unrelated to this event. Patient is now in the ICU intubated sedated on hypothermia protocol. Receiving aspirin and Brilinta. Beta-tapan and ARB are on hold because of hypotension requiring pressor support. Prognosis for meaningful neurological recovery is very poor as dictated in initial notes Date of service 08/14/2021: No acute events overnight. Patient remains intubated and sedated. Beginning to warm patient today. BP is improving, he does remain on norepinephrine. Date of service 08/15/2021: Clinically unchanged. Patient is off sedation and off of norepinephrine. On ventilator support remains unresponsive. EEG planned for later today Date of service 08/16/3032: Remains largely unchanged, blood pressure has been somewhat labile. EEG yesterday abnormal. Date of service 08/21/2021: Review of Systems Review of Systems: ROS unobtainable: Yes unobtainable due to endotracheal tube, unobtainable due to medical condition and unobtainable due to mental status Exam Const: General: comfortable and no acute distress Other: Intubated and sedated white male appears to be about his stated age intubated on ventilator support HENMT: Mouth: Yes moist mucous membranes Eyes: Sclera: sclerae normal Neck: Neck: supple and no JVD Other: Normal carotid pulses Resp: Effort & Inspection: normal respiratory effort Auscultation: clear to auscultation bilaterally and rhonchi Other: Scattered rhonchi noted Cardio: Rate: regular rate Rhythm: regular rhythm Other: No murmur no gallop GI: Auscultation: normal bowel sounds Skin: General skin exam: normal color Neuro: Other: Moves spontaneously but does not follow commands Extrem: General: normal to inspection Other: Arterial access site free from bleeding, hematoma Objective Data Vital Signs Vital Signs: Vital Signs - 24 hr 08/20/21 10:00 08/20/21 11:10 08/20/21 12:00 Temperature 37.4 C 37.4 C Pulse Rate 88 98 95 Respiratory Rate 27 H 33 H Blood Pressure 128/87 140/84 Pulse Oximetry 99 97 98 08/20/21 13:20 08/20/21 13:27 08/20/21 14:00 Temperature 37.7 C H Pulse Rate 99 100 93 Respiratory Rate 37 H 37 H 28 H Blood Pressure 133/87 Pulse Oximetry 100 99 08/20/21 15:41
--- NOTE | 2021-08-21 12:35 | PCNFU ---
Nutrition Follow-Up Complete: Inadequate Oral Intake as related to mechanical ventilation as evidenced by NPO. goal: Meet estimated nutritional needs patient is meeting nutrition goal. We will continue current goal. Pt current nutrition is Vital AF 1.2 at 70 ml/hr over 22 hours. Last recorded weight is 71.4 kg, down from 72.8 kg on admit. Bowel Motility:FMS Labs Reviewed:Glu 303, BUN 33, Hct 40.0,Hgb 12.9 Meds Noted:Lantus, Atrovent, NovoLog, Crestor, Protonix, Apresoline, Lopressor, Zosyn, Xopenex. Skin:WNL Additional Notes: Patient remains on mechanical vent with tube feedings of Vital AF 1.2 at 70 ml/hr and tolerating per nursing. Current tube feeding is providing 1848 kcals/115 gm protein/1249 ml water. Free water flush 30 ml q 4 hours. Tube feeding is meeting 100% of caloric vent needs and 100% of protein needs. Agree with diet orders. Monitoring: Will monitor in ICU rounds and reassess every Friday and Friday
[2021-08-21 12:39] LABS: Glucose Point of Care 378 mg/dl (65-105)
[2021-08-21 13:02] LABS: Add Urine Microscopic? YES; Appearance Urine Clear (Clear); Bilirubin Urine Negative (Negative); Blood Urine 2+ (Negative); Color Urine Yellow (Yellow); Glucose Urine UA 3+ mg/dL (Negative); Ketones Urine Negative (Negative); Leukocyte Esterase Ur Negative LEU/UL (Negative); Nitrate Urine Negative (Negative); Protein Urine Negative (Negative); RBC Urine 21-50 /hpf (0-2); Specific Grav Ur 1.028 (1.001-1.035); Urobilinogen Urine Negative mg/dL (<2.0)
--- NOTE | 2021-08-21 15:00 | PM.IMPN ---
Progress Note: A&P Assessment and Plan (1) Hypertension: Code(s): I10 - Essential (primary) hypertension Status: Acute (2) Electrolyte abnormality: Code(s): E87.8 - Other disorders of electrolyte and fluid balance, not elsewhere classified Status: Acute (3) Rhabdomyolysis: Code(s): M62.82 - Rhabdomyolysis Status: Acute (4) Anoxic brain injury: Code(s): G93.1 - Anoxic brain damage, not elsewhere classified Status: Acute (5) Coffee ground emesis: Code(s): K92.0 - Hematemesis Status: Acute (6) Acute respiratory failure: Code(s): J96.00 - Acute respiratory failure, unspecified whether with hypoxia or hypercapnia Status: Acute (7) Shock: Code(s): R57.9 - Shock, unspecified Status: Acute (8) Elevated LFTs: Code(s): R79.89 - Other specified abnormal findings of blood chemistry Status: Acute (9) Shock liver: Code(s): K72.00 - Acute and subacute hepatic failure without coma Status: Acute (10) Diabetes mellitus with hyperglycemia, with long-term current use of insulin: Qualifiers: Diabetes mellitus type: type 2 Qualified Code(s): E11.65 - Type 2 diabetes mellitus with hyperglycemia; Z79.4 - under presser (current) use of insulin Code(s): E11.65 - Type 2 diabetes mellitus with hyperglycemia; Z79.4 - group home (current) use of insulin Status: Acute (11) Cardiac arrest: Code(s): I46.9 - Cardiac arrest, cause unspecified Status: Acute (12) ST elevation (STEMI) myocardial infarction: Qualifiers: Involved coronary artery: unspecified coronary artery Qualified Code(s): I21.3 - ST elevation (STEMI) myocardial infarction of unspecified site Code(s): I21.3 - ST elevation (STEMI) myocardial infarction of unspecified site Status: Acute Additional Plan Interval history: HPI:Sidney Raphael is a 46 year old male with a past medical history of alcoholic pancreatitis, cirrhosis, tobacco abuse and insulin-dependent diabetes mellitus with complications who presented to the ER after cardiac arrest at home. Patient's girlfriend reports the patient was putting some food in the oven when he suddenly sat down on the floor and then collapsed backwards. The patient had brief episode of shaking and within 30 seconds was having agonal respirations. She called EMS who arrived at the residence within 1-2 minutes of EMS call. She was unable to do chest compressions is she herself has any EF of 20% has a LifeVest in place. On EMS arrival CPR was initiated the patient was found to be in ventricular fibrillation. The patient received defibrillator shock and was subsequently in PA. he received 2 mg of Narcan, 1 amp of bicarb and 3 rounds of epinephrine in the field. EMS placed ET tube. After ET tube was placed patient was still having some agonal respirations per triage note. The patient had 18 minutes the resuscitation efforts in the field. The patient had continued resuscitation efforts in the ER of 40 minutes for total down time of 1 hour and 8 minutes prior to return of circulation. EKG at that time demonstrated ST elevation in inferior leads and a STEMI was called. Patient was placed on Brilinta aspirin 3 in G-tube and was taken to the laboratory tester where was found he had 99% subtotal occlusion of the RCA and 80% stenosis of circumflex. Patient had a stent placed in the RCA. EF during cardiac catheterization was 40%. The patient's girlfriend reports that the patient does not check his blood sugars and takes his insulin twice a day. He had a hemoglobin A1c checked at [facility] last week but she does not know the results. She does state that the patient has been having intermittent chest pain and shortness of breath but she cannot delineate a time frame for how often he reports he symptoms. He often blinks his symptoms on his diabetes and or his history of pancreatitis and cirrhosis. He did have s
[2021-08-21 16:27] LABS: Glucose Point of Care 256 mg/dl (65-105)
[2021-08-21 21:04] LABS: Glucose Point of Care 336 mg/dl (65-105)
[2021-08-22] VITALS (32 sets, daily range): BP systolic 94–126; BP diastolic 69–85; PULSE 81–100; RESP 16–24; TEMP 37.4–37.8; O2SAT 33–100
[2021-08-22 00:14] LABS: Glucose Point of Care 216 mg/dl (65-105)
[2021-08-22] MEDS: INSULIN ASPART (*BKC) 100 UNITS/ML SUB-Q ×4 (00:18→23:50)
[2021-08-22] MEDS: LEVALBUTEROL NEB 1.25 MG/3 ML 0.63 MG INHALATION ×4 (02:54→20:21)
[2021-08-22] MEDS: IPRATROPIUM BR 0.02% INH SOLN 0.5 MG/2.5 ML VIAL INHALATION ×4 (02:55→20:21)
[2021-08-22 04:58] LABS: Hematocrit 39.3 % (42.0-52.0); Hemoglobin 12.5 g/dL (14.0-18.0); Mean Corpuscular HGB Conc 31.8 g/dl (32-36); Mean Corpuscular Hemoglobin 28.9 pg (26-34); Mean Corpuscular Volume 90.8 fl (80-100); Mean Platelet Volume 9.7 fl (7.4-10.4); Platelet Count Result 421 k/mm3 (150-375); Red Blood Count 4.33 M/mm3 (4.6-6.20); Red Cell Distribution Width 12.9 % (11.5-14.5); White Blood Count 19.7 K/mm3 (4.5-10.0)
[2021-08-22 05:12] LABS: Alanine Aminotransferase 62 U/L (4-50); Albumin Level 3.7 g/dL (3.5-5.1); Alkaline Phosphatase 106 U/L (38-126); Anion Gap 6 mmol/L (8-16); Aspartate Amino Transferase 47 U/L (17-59); Bilirubin,Total 0.4 mg/dL (0.2-1.3); Blood Urea Nitrogen 42 mg/dL (9-20); Calcium 9.2 mg/dL (8.4-10.2); Carbon Dioxide 31 mmol/L (22-30); Chloride 106 mmol/L (98-107); Creatine Kinase 242 U/L (55-170); Estimated CRCL calculation 86 ml/min; Estimated Glomerular Filt Rate > 60; Glucose 177 mg/dL (65-110); Magnesium 2.2 mg/dL (1.6-2.3); Phosphorus 4.3 mg/dL (2.5-4.5); Potassium 4.2 mmol/L (3.4-5.0); Sodium 143 mmol/L (137-145)
[2021-08-22 05:34] LABS: Alveolar/Arterial O2 Gradient 60.9 mmHg; Arterial Blood Gas Ventilator rate 20 /MIN; Base Excess ABG 3.9 mEq/l (+/-2.0); Carboxyhemoglobin 0.3 % THb (0-2.0); Device VENTILATOR; Fractional Inspired Oxygen 30 %; HCO3 ABG 28.6 mEq/l (22.0-26.0); Methemoglobin ABG 0.3 %THb (0-1.5); Oxygen Saturation ABG 97.8 % (95.0-100.0); Oxyhemoglobin 96.7 % THb (90.0-100.0); PCO2 ABG 43.1 mmHg (35.0-45.0); PO2 ABG 102.4 mmHg (80.0-100.0); PO2 FiO2 Ratio Arterial Blood 3.41 %; Reduced Hemoglobin 2.7 %THb (0-5.0); Site Drawn LEFT BRACHIAL; Total Hemoglobin 15.4 g/dL (12.0-18.0); pH ABG 7.439 (7.350-7.450)
[2021-08-22 05:35] LABS: Arterial Blood Gas PEEP 5 cmH2O; Arterial Blood Gas Tidal Volume 420 ml; Arterial Blood Gas Vent Mode CMV
[2021-08-22] MEDS: ACETAMINOPHEN ELIXIR 325 MG/10.15 ML UDC 650 MG PO ×2 (05:55→19:46)
[2021-08-22] MEDS: ASPIRIN 81 MG CHEWABLE TABLET PO (08:24)
[2021-08-22] MEDS: ENOXAPARIN 40 MG/0.4 ML SYRINGE SUB-Q (08:24)
[2021-08-22] MEDS: MINERAL OIL/WHITE PETROLATUM OINTMENT 1 APPLIC EACH EYE ×2 (08:24→19:26)
[2021-08-22] MEDS: LOSARTAN POTASSIUM 12.5 MG TABLET PO (08:25)
[2021-08-22] MEDS: PANTOPRAZOLE SODIUM IV 40 MG VIAL IV PUSH ×2 (08:25→19:25)
[2021-08-22] MEDS: METOPROLOL TARTRATE 50 MG TAB PO ×2 (08:25→19:26)
[2021-08-22] MEDS: ROSUVASTATIN 10 MG TABLET 20 MG PO (08:25)
[2021-08-22] MEDS: TICAGRELOR 90 MG TABLET PO ×2 (08:25→19:26)
[2021-08-22] MEDS: TOLNAFTATE 1% POWDER 45 GM BTL 1 APPLIC TOPICAL ×2 (08:26→19:26)
[2021-08-22 08:29] LABS: Glucose Point of Care 292 mg/dl (65-105)
[2021-08-22] MEDS: levETIRAcetam 500MG/NACL 100ML 500 MG/100 ML BAG 400 MG IVPB ×2 (08:37→19:46)
[2021-08-22] MEDS: INSULIN GLARGINE (*BKC) 100 UNITS/ML 28 UNITS SUB-Q ×2 (08:37→20:00)
--- NOTE | 2021-08-22 09:03 | WPDINTPN ---
Progress Note: A&P Assessment and Plan (1) Anoxic brain injury: Code(s): G93.1 - Anoxic brain damage, not elsewhere classified Status: Acute Assessment and Plan: Patient has sustained a significant Anoxic brain injury due to prolonged down time Patient has completed TTM protocol Sedation has been discontinued since 08/14 evening Neuro exam as above. There has been some improvement as expected after holding long-acting sedation but no purposeful activity at this point. Neuro status has been unchanged over last [address] head done 08/15 showed - Development of diffuse cerebellar swelling, anoxic injury. No obstructive hydrocephalus but patient at risk. CT 08/19 - Low attenuation involving the bilateral temporal lobes, cerebellum, and braulio, stable from 08/15/21 and worsened from 08/12/21, consistent with infarcts from anoxic brain injury. 08/15 EEG - This EEG was abnormal due the presence of severely diffuse background slowing. This EEG was indicative of the presence of severe, bihemispheric cerebral dysfunction of the type seen most commonly in the setting of severe toxic metabolic encephalopathies or anoxic injury.The was no evidence of epileptiform activity or focal cerebral dysfunction. 08/20 repeat EEG - Abnormal record due to the presence of bihemispheric delta activity throughout the tracing with no evidence of paroxysmal activity. This abnormality is consistent with diffuse organic or metabolic encephalopathy clinical correlation recommended. Is not compatible with electrocerebral silence or status epilepticus Remains OFF sedation -neurology to follow Continue Keppra that has been started for possible myoclonic jerks (2) Acute respiratory failure: Code(s): J96.00 - Acute respiratory failure, unspecified whether with hypoxia or hypercapnia Status: Acute Assessment and Plan: Acute respiratory failure likely related to VFib arrest, patient was intubated on 08/12/2021 ABGs and chest x-ray reviewed -currently on CMV mode of ventilation, 30% FiO2 and peep of 5. Patient has not been tolerating pressure support ventilation / and 02/20, he becomes diaphoretic, tachycardic, tachypneic, with elevated blood pressures. -will again place patient on pressure support ventilation and evaluate, if he does not do well will place him on ASV mode -continue bronchodilators - Off sedation. - Ventilator weaning will depend on his neurological improvement -continue antibiotics for possible aspiration pneumonia. Cultures have been sent and are negative till now -continues to have thick secretions from ETT -continue Zosyn, vancomycin was discontinued (3) Cardiac arrest: Code(s): I46.9 - Cardiac arrest, cause unspecified Status: Acute Assessment and Plan: Prolonged out of the hospital VFib arrest (down time was 1 hour and 8 minutes per records) -VFib likely secondary to inferior [place], status post cardiac catheterization with PTCA/PCI with PAT x1 to proximal RCA (4) ST elevation (STEMI) myocardial infarction: Qualifiers: Involved coronary artery: unspecified coronary artery Qualified Code(s): I21.3 - ST elevation (STEMI) myocardial infarction of unspecified site Code(s): I21.3 - ST elevation (STEMI) myocardial infarction of unspecified site Status: Acute Assessment and Plan: As above -cardiology following the patient -continue aspirin, Brilinta, statin -continue beta-tapan and losartan (5) Elevated LFTs: Code(s): R79.89 - Other specified abnormal findings of blood chemistry Status: Acute Assessment and Plan: Elevated LFTs most likely related to cardiac arrest, shock liver -continue to maintain adequate mean arterial pressures for end-organ perfusion -improving (6) Diabetes mellitus with hyperglycemia, with long-term current use of insulin: Qualifiers: Diabetes mellitus type: type 2 Qualified Code(s): E11.65 - Type 2 diabetes mellitus with h
--- NOTE | 2021-08-22 11:50 | PCFNICU ---
ICU Rounding Note: Pt current nutrition is Vital AF 1.2 at 70 ml/hr over 22 hours. Last recorded weight is 71.4 kg, down from 72.8 kg on admit. Bowel Motility: FMS Labs Reviewed:Glu 177, BUN 42, Hct 39.3,Hgb 12.5 Meds Noted:Lantus, Atrovent, NovoLog, Crestor, Protonix, Apresoline, Lopressor, Zosyn, Xopenex,Keppra, Cozaar. Skin: WNL Additional Notes: Patient remains on mechanical vent, Cpap settings. Tube feedings of Vital AF 1.2 are at goal rate of 70 ml/hr over 22 hours. Providing 1848 kcals/115 gm protein/1249 ml water. Free water flush 30 ml q 4 hours. Discussions of Trach/PEG consult. Agree with tube feedings. Following daily in ICU rounds. Will monitor every Friday and Friday.
[2021-08-22 12:22] LABS: Glucose Point of Care 340 mg/dl (65-105)
--- NOTE | 2021-08-22 13:57 | WPDGICN ---
Assessment and Plan Assessment and plan (1) Cardiopulmonary arrest with successful resuscitation: Code(s): I46.9 - Cardiac arrest, cause unspecified Status: Acute Assessment and Plan: as noted above he had sudden cardiac arrest with ventricular fibrillation about 9 or 10 days ago. He appears have anoxic brain injury. He will be unable to take oral feedings for a while Caridad have been asked to place a G-tube. His significant other at bedside mentioned that there is some risk of bleeding also possibility of perforation of internal organs but that that is complications a rare. I also called his son who is the POA and discussed this with him. After explaining the procedure and risks he is in agreement with that plan. He also has questions about tracheostomy and is waiting to hear from his somebody about that. (2) Elevated LFTs: Code(s): R79.89 - Other specified abnormal findings of blood chemistry Status: Acute Assessment and Plan: his liver enzymes actually are not very elevated and I do not think he has shock liver. . (3) Dysphagia, neurologic: Code(s): R13.19 - Other dysphagia Status: Acute Assessment and Plan: It appears the below while the for he is able to eat and therefore we will plan on placing PEG tomorrow. GI Consult Note Consult date/time: 08/22/21 13:57 HPI: Sidney Raphael is a 46 year old male was admitted 10 days ago when he suffered a cardiac arrest field. He was resuscitated apparently twice. He apparently collapsed at home. He was brought to the emergency room and CPR continued for another hour and finally cardiac circulation returned. He was intubated and dumb has Shiva last few days been able to be withdrawn from sedatives. He is breathing on his own but not lucid. There is no history of previous cardiac disease. There is no history of prior gastrointestinal diseases. I spoke to his a significant other at bedside also called his son, Da, and discussed with them the request for percutaneous gastrostomy tube. He has had a had OG tube and has been intubated since admission. Review of Systems Review of Systems: All systems reviewed & are unremarkable except as noted in HPI and below PMFSH Past Medical History Medical History Alcoholic pancreatitis Cirrhosis Continuous tobacco abuse Diabetes mellitus treated with insulin Diabetic peripheral neuropathy Surgical History Surgical History History of left inguinal hernia repair Family History Family History Other Unknown family medical history Social History Social History Social History: The patient lives with his girlfriend of 3 years. 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 Patient has 2 adult sons. He has smoked a pack of cigarettes per day since he was a teenager. 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 He drinks a pot of coffee a day. Code status: Full code Smoking packs per day: 1 Smoking cigarettes per day: 20.0 Years smoked: 33 Smoking pack-years: 33.00 Smoking status: Current every day smoker Tobacco type: cigarettes Alcohol intake: former Substance use: former Substance use type: sedatives, opiates and painkillers Spiritual care concerns: No Meds Home Medications and Allergies Home Medications Medication Instructions Recorded Confirmed Type insulin glargine [Basaglar KwikPen 20 unit SUBCUT Q12H 08/12/21 08/13/21 History U-100 Insulin] Allergies Allergy/AdvReac Type Severity Reaction Status Date / Time No Known Allergies Allergy Verified 08/12/21 20:35 Vital Signs Vital Signs - 24 hr 08/21/21 14:00 08/21/21 14:58 08/21/21 15:05 Temperature 37.7 C H
--- NOTE | 2021-08-22 17:25 | PM.IMPN ---
Progress Note: A&P Assessment and Plan (1) Hypertension: Code(s): I10 - Essential (primary) hypertension Status: Acute (2) Electrolyte abnormality: Code(s): E87.8 - Other disorders of electrolyte and fluid balance, not elsewhere classified Status: Acute (3) Rhabdomyolysis: Code(s): M62.82 - Rhabdomyolysis Status: Acute (4) Anoxic brain injury: Code(s): G93.1 - Anoxic brain damage, not elsewhere classified Status: Acute (5) Coffee ground emesis: Code(s): K92.0 - Hematemesis Status: Acute (6) Acute respiratory failure: Code(s): J96.00 - Acute respiratory failure, unspecified whether with hypoxia or hypercapnia Status: Acute (7) Shock: Code(s): R57.9 - Shock, unspecified Status: Acute (8) Elevated LFTs: Code(s): R79.89 - Other specified abnormal findings of blood chemistry Status: Acute (9) Shock liver: Code(s): K72.00 - Acute and subacute hepatic failure without coma Status: Acute (10) Diabetes mellitus with hyperglycemia, with long-term current use of insulin: Qualifiers: Diabetes mellitus type: type 2 Qualified Code(s): E11.65 - Type 2 diabetes mellitus with hyperglycemia; Z79.4 - salvage determiner (current) use of insulin Code(s): E11.65 - Type 2 diabetes mellitus with hyperglycemia; Z79.4 - residential (current) use of insulin Status: Acute (11) Cardiac arrest: Code(s): I46.9 - Cardiac arrest, cause unspecified Status: Acute (12) ST elevation (STEMI) myocardial infarction: Qualifiers: Involved coronary artery: unspecified coronary artery Qualified Code(s): I21.3 - ST elevation (STEMI) myocardial infarction of unspecified site Code(s): I21.3 - ST elevation (STEMI) myocardial infarction of unspecified site Status: Acute Additional Plan nterval history: HPI:Sidney Raphael is a 46 year old male with a past medical history of alcoholic pancreatitis, cirrhosis, tobacco abuse and insulin-dependent diabetes mellitus with complications who presented to the ER after cardiac arrest at home. Patient's girlfriend reports the patient was putting some food in the oven when he suddenly sat down on the floor and then collapsed backwards. The patient had brief episode of shaking and within 30 seconds was having agonal respirations. She called EMS who arrived at the residence within 1-2 minutes of EMS call. She was unable to do chest compressions is she herself has any EF of 20% has a LifeVest in place. On EMS arrival CPR was initiated the patient was found to be in ventricular fibrillation. The patient received defibrillator shock and was subsequently in PA. he received 2 mg of Narcan, 1 amp of bicarb and 3 rounds of epinephrine in the field. EMS placed ET tube. After ET tube was placed patient was still having some agonal respirations per triage note. The patient had 18 minutes the resuscitation efforts in the field. The patient had continued resuscitation efforts in the ER of 40 minutes for total down time of 1 hour and 8 minutes prior to return of circulation. EKG at that time demonstrated ST elevation in inferior leads and a STEMI was called. Patient was placed on Brilinta aspirin 3 in G-tube and was taken to the fence laborer where was found he had 99% subtotal occlusion of the RCA and 80% stenosis of circumflex. Patient had a stent placed in the RCA. EF during cardiac catheterization was 40%. The patient's girlfriend reports that the patient does not check his blood sugars and takes his insulin twice a day. He had a hemoglobin A1c checked at [facility] last week but she does not know the results. She does state that the patient has been having intermittent chest pain and shortness of breath but she cannot delineate a time frame for how often he reports he symptoms. He often blinks his symptoms on his diabetes and or his history of pancreatitis and cirrhosis. He did have so
[2021-08-22 18:23] LABS: Glucose Point of Care 283 mg/dl (65-105)
--- NOTE | 2021-08-22 18:23 | WPDCN ---
Assessment and Plan Assessment and plan (1) Acute respiratory failure: Code(s): J96.00 - Acute respiratory failure, unspecified whether with hypoxia or hypercapnia Status: Acute Assessment and Plan: Plan is for tracheostomy Friday. Please hold anticoagulation and make npo midnight prior. Please ensure consent signed. Personally discussed risks benefits with family. HPI Data of Consult Date/Time: 08/22/21 18:23 Requesting Physician: Mg Santos MD Primary Care Provider: PHYSICIAN NOT ON STAFF Consult Narrative Narrative: Sidney Raphael is a 46 year old male with neurologic injury and respiratory failure. ENT consulted for tracheostomy. FiO2 30 PEEP 5 Review of Systems Review of Systems: ROS unobtainable: Yes unobtainable due to endotracheal tube PMFSH Past Medical History Medical History Alcoholic pancreatitis Cirrhosis Continuous tobacco abuse Diabetes mellitus treated with insulin Diabetic peripheral neuropathy Surgical History Surgical History History of left inguinal hernia repair Family History Family History Other Unknown family medical history Social History Social History Social History: The patient lives with his girlfriend of 3 years. 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 Patient has 2 adult sons. He has smoked a pack of cigarettes per day since he was a teenager. 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 He drinks a pot of coffee a day. Code status: Full code Smoking packs per day: 1 Smoking cigarettes per day: 20.0 Years smoked: 33 Smoking pack-years: 33.00 Smoking status: Current every day smoker Tobacco type: cigarettes Alcohol intake: former Substance use: former Substance use type: sedatives, opiates and painkillers Spiritual care concerns: No Meds Home Medications and Allergies Home Medications Medication Instructions Recorded Confirmed Type insulin glargine [Basaglar KwikPen 20 unit SUBCUT Q12H 08/12/21 08/13/21 History U-100 Insulin] Allergies Allergy/AdvReac Type Severity Reaction Status Date / Time No Known Allergies Allergy Verified 08/12/21 20:35 Vital Signs Vital Signs - 24 hr 08/21/21 20:00 08/21/21 20:50 08/21/21 20:52 Temperature 37.6 C Pulse Rate 94 96 94 Respiratory Rate 29 H Blood Pressure 117/76 Pulse Oximetry 98 100 08/21/21 20:56 08/21/21 21:06 08/21/21 22:00 Temperature 37.7 C H Pulse Rate 96 93 89 Respiratory Rate 29 H 26 H 22 H Blood Pressure 102/71 Pulse Oximetry 98 08/21/21 23:30 08/21/21 23:36 08/22/21 00:00 Temperature 37.7 C H Pulse Rate 89 89 87 Respiratory Rate 25 H 20 Blood Pressure 94/71 L Pulse Oximetry 100 98 100 08/22/21 02:00 08/22/21 02:50 08/22/21 02:57 Temperature 37.7 C H Pulse Rate 92 94 94 Respiratory Rate 20 23 H Blood Pressure 115/80 Pulse Oximetry 100 100 08/22/21 03:39 08/22/21 04:00 08/22/21 04:10 Temperature 37.4 C Pulse Rate 87 89 92 Respiratory Rate 20 20 23 H Blood Pressure 109/77 Pulse Oximetry 99 99 08/22/21 05:03 08/22/21 06:00 08/22/21 07:58 Temperature 37.6 C Pulse Rate 88 92 92 Respiratory Rate 21 H 24 H Blood Pressure 103/72 Pulse Oximetry 100 100 08/22/21 08:00 08/22/21 08:02 08/22/21 08:07 Temperature 37.4 C Pulse Rate 88 92 91 Respiratory Rate 21 H 22 H Blood Pressure 118/78 Pulse Oximetry 99 99 08/22/21 10:00 08/22/21 11:15 08/22/21 12:00 Temperature 37.5 C 37.6 C H Pulse Rate 82 86 89 Respiratory Rate 21 H 22 H Blood Pressure 115/84 111/78 Pulse Oximetry 100 100 99 08/22/21 14:00 08/22/21 14:13 08/22/21 14:18 Temperature 37.6 C H Pulse Rate 93 90 90 Respiratory Rat
[2021-08-22] MEDS: ENOXAPARIN 80 MG/0.8 ML SYRINGE 70 MG SUB-Q (19:25)
[2021-08-22 20:11] LABS: Glucose Point of Care 273 mg/dl (65-105)
[2021-08-23] VITALS (31 sets, daily range): BP systolic 92–127; BP diastolic 63–94; PULSE 72–96; RESP 20–25; TEMP 36.5–37.8; O2SAT 98–100
[2021-08-23 00:06] LABS: Glucose Point of Care 238 mg/dl (65-105)
[2021-08-23] MEDS: LEVALBUTEROL NEB 1.25 MG/3 ML 0.63 MG INHALATION ×2 (01:51→20:44)
[2021-08-23] MEDS: IPRATROPIUM BR 0.02% INH SOLN 0.5 MG/2.5 ML VIAL INHALATION ×2 (01:51→20:45)
--- NOTE | 2021-08-23 02:33 | PC.NURSE ---
Patient breathing 40 to 50 times a minute on the vent. Unable to be calmed down or re directed. Patient chewing on endotracheal tube very hard. Dr. Melvin notified. Give 2mg of Ativan IV x1 now.
[2021-08-23] MEDS: LORazepam INJ (*CRX) 2 MG/ML VIAL IV PUSH (02:37)
[2021-08-23 04:34] LABS: Alveolar/Arterial O2 Gradient 73.2 mmHg; Carboxyhemoglobin 0.3 % THb (0-2.0); Fractional Inspired Oxygen 30 %; HCO3 ABG 28.7 mEq/l (22.0-26.0); Methemoglobin ABG 0.3 %THb (0-1.5); Oxygen Content ABG 18.3 %vol (16.0-22.0); Oxygen Saturation ABG 97.7 % (95.0-100.0); Oxyhemoglobin 96.5 % THb (90.0-100.0); PO2 ABG 94.9 mmHg (80.0-100.0); PO2 FiO2 Ratio Arterial Blood 3.16 %; Reduced Hemoglobin 2.9 %THb (0-5.0); Total Hemoglobin 13.4 g/dL (12.0-18.0); pH ABG 7.485 (7.350-7.450)
[2021-08-23 04:35] LABS: Arterial Blood Gas PEEP 5 cmH2O; Arterial Blood Gas Tidal Volume 420 ml; Arterial Blood Gas Vent Mode CMV; Arterial Blood Gas Ventilator rate 20 /MIN; Device VENTILATOR; Site Drawn LEFT BRACHIAL
[2021-08-23 04:47] LABS: Basophils Absolute Auto 0.1 K/mm3 (0.0-0.1); Basophils Percent Auto 0.6 % (0.2-1.2); Eosinophils Absolute Auto 0.6 K/mm3 (0-0.3); Eosinophils Percent Auto 3.1 % (0-4.4); Hematocrit 38.1 % (42.0-52.0); Hemoglobin 12.1 g/dL (14.0-18.0); Immature Granulocyte Absolute 0.08 K/mm3 (0.00-0.031); Immature Granulocyte Percent A 0.4 % (0-0.5); Lymphocytes Absolute Auto 2.99 K/mm3 (0.9-3.2); Lymphocytes Percent Auto 16.4 % (18.3-44.2); Mean Corpuscular HGB Conc 31.8 g/dl (32-36); Mean Corpuscular Volume 91.4 fl (80-100); Mean Platelet Volume 9.6 fl (7.4-10.4); Monocytes Percent Auto 5.5 % (2.6-8.5); Neutrophils Absolute Auto 13.5 K/mm3 (1.3-6.7); Platelet Count Result 464 k/mm3 (150-375); Red Blood Count 4.17 M/mm3 (4.6-6.20); Red Cell Distribution Width 13.1 % (11.5-14.5); White Blood Count 18.2 K/mm3 (4.5-10.0)
[2021-08-23 05:06] LABS: Alanine Aminotransferase 51 U/L (4-50); Albumin Level 3.7 g/dL (3.5-5.1); Alkaline Phosphatase 101 U/L (38-126); Anion Gap 8 mmol/L (8-16); Aspartate Amino Transferase 45 U/L (17-59); Bilirubin,Total 0.4 mg/dL (0.2-1.3); Blood Urea Nitrogen 45 mg/dL (9-20); Calcium 9.2 mg/dL (8.4-10.2); Carbon Dioxide 30 mmol/L (22-30); Chloride 108 mmol/L (98-107); Creatine Kinase 97 U/L (55-170); Estimated CRCL calculation 96 ml/min; Estimated Glomerular Filt Rate > 60; Glucose 168 mg/dL (65-110); Magnesium 2.1 mg/dL (1.6-2.3); Phosphorus 3.7 mg/dL (2.5-4.5); Potassium 4.2 mmol/L (3.4-5.0); Sodium 146 mmol/L (137-145)
--- NOTE | 2021-08-23 08:02 | WPDINTPN ---
Progress Note: A&P Assessment and Plan (1) Anoxic brain injury: Code(s): G93.1 - Anoxic brain damage, not elsewhere classified Status: Acute Assessment and Plan: Patient has sustained a significant Anoxic brain injury due to prolonged down time Patient has completed TTM protocol Sedation has been discontinued since 08/14 evening Neuro exam as above. There has been some improvement as expected after holding long-acting sedation but no purposeful activity at this point. Neuro status has been unchanged over last [address] head done 08/15 showed - Development of diffuse cerebellar swelling, anoxic injury. No obstructive hydrocephalus but patient at risk. CT 08/19 - Low attenuation involving the bilateral temporal lobes, cerebellum, and braulio, stable from 08/15/21 and worsened from 08/12/21, consistent with infarcts from anoxic brain injury. 08/15 EEG - This EEG was abnormal due the presence of severely diffuse background slowing. This EEG was indicative of the presence of severe, bihemispheric cerebral dysfunction of the type seen most commonly in the setting of severe toxic metabolic encephalopathies or anoxic injury.The was no evidence of epileptiform activity or focal cerebral dysfunction. 08/20 repeat EEG - Abnormal record due to the presence of bihemispheric delta activity throughout the tracing with no evidence of paroxysmal activity. This abnormality is consistent with diffuse organic or metabolic encephalopathy clinical correlation recommended. Is not compatible with electrocerebral silence or status epilepticus Remains OFF sedation -neurology to follow Continue Keppra that has been started for possible myoclonic jerks (2) Acute respiratory failure: Code(s): J96.00 - Acute respiratory failure, unspecified whether with hypoxia or hypercapnia Status: Acute Assessment and Plan: Acute respiratory failure likely related to VFib arrest, patient was intubated on 08/12/2021 ABGs and chest x-ray reviewed -currently on CMV mode of ventilation, 30% FiO2 and peep of 5. Patient has not been tolerating pressure support ventilation / and 02/20, he becomes diaphoretic, tachycardic, tachypneic, with elevated blood pressures. -will again place patient on pressure support ventilation and evaluate, if he does not do well will place him on ASV mode -continue bronchodilators - Off sedation. - Ventilator weaning will depend on his neurological improvement -continue antibiotics for possible aspiration pneumonia. Cultures have been sent and are negative till now -continues to have thick secretions from ETT -continue Zosyn ( stop on 08/24/21), vancomycin was discontinued -discuss with significant other, who stated the family has requested for tracheostomy and PEG tube placement. Have consulted ENT and GI -PEG tube to be placed today on 08/23/2021. -tracheostomy tube placed on 08/24/2021 (3) Cardiac arrest: Code(s): I46.9 - Cardiac arrest, cause unspecified Status: Acute Assessment and Plan: Prolonged out of the hospital VFib arrest (down time was 1 hour and 8 minutes per records) -VFib likely secondary to inferior AR, status post cardiac catheterization with PTCA/PCI with PAT x1 to proximal RCA (4) ST elevation (STEMI) myocardial infarction: Qualifiers: Involved coronary artery: unspecified coronary artery Qualified Code(s): I21.3 - ST elevation (STEMI) myocardial infarction of unspecified site Code(s): I21.3 - ST elevation (STEMI) myocardial infarction of unspecified site Status: Acute Assessment and Plan: As above -cardiology following the patient -continue aspirin, Brilinta, statin -continue beta-tapan and losartan (5) Elevated LFTs: Code(s): R79.89 - Other specified abnormal findings of blood chemistry Status: Acute Assessment and Plan: Elevated LFTs most likely related to cardiac arrest, shock liver -continue to maintain adequate mean arterial pressu
[2021-08-23] MEDS: levETIRAcetam 500MG/NACL 100ML 500 MG/100 ML BAG 400 MG IVPB ×2 (08:35→20:09)
[2021-08-23] MEDS: ASPIRIN 81 MG CHEWABLE TABLET PO (08:35)
[2021-08-23] MEDS: PANTOPRAZOLE SODIUM IV 40 MG VIAL IV PUSH ×2 (08:36→20:09)
[2021-08-23] MEDS: TOLNAFTATE 1% POWDER 45 GM BTL 1 APPLIC TOPICAL ×2 (08:36→20:10)
[2021-08-23] MEDS: ROSUVASTATIN 10 MG TABLET 20 MG PO (08:36)
[2021-08-23] MEDS: TICAGRELOR 90 MG TABLET PO ×2 (08:36→20:09)
[2021-08-23] MEDS: METOPROLOL TARTRATE 50 MG TAB PO ×2 (08:36→20:09)
[2021-08-23 09:08] LABS: Glucose Point of Care 126 mg/dl (65-105)
--- NOTE | 2021-08-23 11:06 | PCFNICU ---
ICU Rounding Note: Pt current nutrition is NPO. Last recorded weight is 70.1 kg, down from 72.8 kg on admit. Bowel Motility:FMS Labs Reviewed:Glu 168,BUN 45, Hgb 12.1, Hct 38.1 Meds Noted: Lantus, Atrovent, NovoLog, Crestor, Protonix, Apresoline, Lopressor, Zosyn, Xopenex,Keppra, Cozaar Skin:WNL Additional Notes: Patient currently NPO for PEG placement today. Tube feeding recommendations: Vital AF 1.2 at 70 ml/hr over 22 hours. Providing 1848 kcals/115 gm protein/1249 ml water. Free water flush 30 ml q 4 hours. Agree with diet orders. Following daily in ICU rounds. Will monitor every Friday and Friday.
[2021-08-23 12:17] LABS: Glucose Point of Care 109 mg/dl (65-105)
[2021-08-23] MEDS: PROPOFOL IV EMULSION 200 MG/20 ML VIAL (15:36)
--- NOTE | 2021-08-23 17:36 | PM.IMHP ---
H&P: HPI History of Present Illness Date/Time: 08/23/21 17:36 Chief Complaint: Neurologic injury respiratory failure Narrative: planned tracheostomy Review of Systems Review of Systems: ROS unobtainable: Yes unobtainable due to endotracheal tube PMFSH Past Medical History Medical History Alcoholic pancreatitis Cirrhosis Continuous tobacco abuse Diabetes mellitus treated with insulin Diabetic peripheral neuropathy Surgical History Surgical History History of left inguinal hernia repair Family History Family History Other Unknown family medical history Social History Social History Social History: The patient lives with his girlfriend of 3 years. 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 Patient has 2 adult sons. He has smoked a pack of cigarettes per day since he was a teenager. 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 He drinks a pot of coffee a day. Code status: Full code Smoking packs per day: 1 Smoking cigarettes per day: 20.0 Years smoked: 33 Smoking pack-years: 33.00 Smoking status: Current every day smoker Tobacco type: cigarettes Alcohol intake: former Substance use: former Substance use type: sedatives, opiates and painkillers Spiritual care concerns: No Meds Home Medications and Allergies Home Medications Medication Instructions Recorded Confirmed Type insulin glargine [Basaglar KwikPen 20 unit SUBCUT Q12H 08/12/21 08/13/21 History U-100 Insulin] Allergies Allergy/AdvReac Type Severity Reaction Status Date / Time No Known Allergies Allergy Verified 08/12/21 20:35 Vital Signs Vital Signs - 24 hr 08/22/21 18:00 08/22/21 19:46 08/22/21 20:00 Temperature 37.8 C H 37.8 C H 37.8 C H Pulse Rate 89 87 Respiratory Rate 20 16 Blood Pressure 121/81 111/69 Pulse Oximetry 98 98 08/22/21 20:22 08/22/21 20:24 08/22/21 20:35 Temperature Pulse Rate 89 91 100 Respiratory Rate 19 21 H Blood Pressure Pulse Oximetry 99 08/22/21 20:46 08/22/21 21:12 08/22/21 22:00 Temperature 37.7 C H 37.7 C H Pulse Rate 90 81 Respiratory Rate 20 Blood Pressure 99/74 L Pulse Oximetry 99 98 08/22/21 23:24 08/23/21 00:00 08/23/21 01:51 Temperature 36.5 C Pulse Rate 84 83 85 Respiratory Rate 20 20 Blood Pressure 113/83 Pulse Oximetry 100 99 08/23/21 01:52 08/23/21 02:00 08/23/21 04:00 Temperature 37.5 C 37.5 C Pulse Rate 91 96 84 Respiratory Rate 25 H 20 Blood Pressure 127/82 95/70 L Pulse Oximetry 100 100 100 08/23/21 04:15 08/23/21 04:36 08/23/21 06:00 Temperature 37.7 C H Pulse Rate 83 89 85 Respiratory Rate 20 20 Blood Pressure 98/80 L Pulse Oximetry 100 100 08/23/21 07:48 08/23/21 08:00 08/23/21 08:36 Temperature 37.8 C H Pulse Rate 82 83 87 Respiratory Rate 20 Blood Pressure 95/69 L Pulse Oximetry 100 100 08/23/21 10:00 08/23/21 10:31 08/23/21 12:00 Temperature 37.7 C H 37.4 C Pulse Rate 80 78 82 Respiratory Rate 20 20 Blood Pressure 123/90 110/74 Pulse Oximetry 100 100 100 08/23/21 14:00 08/23/21 14:30 08/23/21 14:45 Temperature Pulse Rate 82 74 80 Respiratory Rate 20 Blood Pressure 97/73 L Pulse Oximetry 100 100 08/23/21 14:50 08/23/21 14:55 08/23/21 15:00 Temperature Pulse Rate 80 79 79 Respiratory Rate 20 20 20 Blood Pressure 97/66 L 92/63 L 106/75 Pulse Oximetry 100 99 100 08/23/21 16:00 08/23/21 16:38 Temperature 36.9 C Pulse Rate 80 72 Respiratory Rate 20 Blood Pressure 118/94 H Pulse Oximetry 100 100 Exam Neck: Other: palpable neck landmarks H&P: Results Labs Labs: Short CBC 08/23/21 Range/Units 04:25 WBC 18.2 H (4.5-10.0) K/mm3 Hgb 12.1
[2021-08-23 18:00] LABS: Glucose Point of Care 112 mg/dl (65-105)
--- NOTE | 2021-08-23 18:10 | PM.IMPN ---
Progress Note: A&P Assessment and Plan (1) Hypertension: Code(s): I10 - Essential (primary) hypertension Status: Acute (2) Electrolyte abnormality: Code(s): E87.8 - Other disorders of electrolyte and fluid balance, not elsewhere classified Status: Acute (3) Rhabdomyolysis: Code(s): M62.82 - Rhabdomyolysis Status: Acute (4) Anoxic brain injury: Code(s): G93.1 - Anoxic brain damage, not elsewhere classified Status: Acute (5) Coffee ground emesis: Code(s): K92.0 - Hematemesis Status: Acute (6) Acute respiratory failure: Code(s): J96.00 - Acute respiratory failure, unspecified whether with hypoxia or hypercapnia Status: Acute (7) Shock: Code(s): R57.9 - Shock, unspecified Status: Acute (8) Elevated LFTs: Code(s): R79.89 - Other specified abnormal findings of blood chemistry Status: Acute (9) Shock liver: Code(s): K72.00 - Acute and subacute hepatic failure without coma Status: Acute (10) Diabetes mellitus with hyperglycemia, with long-term current use of insulin: Qualifiers: Diabetes mellitus type: type 2 Qualified Code(s): E11.65 - Type 2 diabetes mellitus with hyperglycemia; Z79.4 - extermination supervisor (current) use of insulin Code(s): E11.65 - Type 2 diabetes mellitus with hyperglycemia; Z79.4 - penitentiary (current) use of insulin Status: Acute (11) Cardiac arrest: Code(s): I46.9 - Cardiac arrest, cause unspecified Status: Acute (12) ST elevation (STEMI) myocardial infarction: Qualifiers: Involved coronary artery: unspecified coronary artery Qualified Code(s): I21.3 - ST elevation (STEMI) myocardial infarction of unspecified site Code(s): I21.3 - ST elevation (STEMI) myocardial infarction of unspecified site Status: Acute Additional Plan nterval history: HPI:Sidney Raphael is a 46 year old male with a past medical history of alcoholic pancreatitis, cirrhosis, tobacco abuse and insulin-dependent diabetes mellitus with complications who presented to the ER after cardiac arrest at home. Patient's girlfriend reports the patient was putting some food in the oven when he suddenly sat down on the floor and then collapsed backwards. The patient had brief episode of shaking and within 30 seconds was having agonal respirations. She called EMS who arrived at the residence within 1-2 minutes of EMS call. She was unable to do chest compressions is she herself has any EF of 20% has a LifeVest in place. On EMS arrival CPR was initiated the patient was found to be in ventricular fibrillation. The patient received defibrillator shock and was subsequently in PA. he received 2 mg of Narcan, 1 amp of bicarb and 3 rounds of epinephrine in the field. EMS placed ET tube. After ET tube was placed patient was still having some agonal respirations per triage note. The patient had 18 minutes the resuscitation efforts in the field. The patient had continued resuscitation efforts in the ER of 40 minutes for total down time of 1 hour and 8 minutes prior to return of circulation. EKG at that time demonstrated ST elevation in inferior leads and a STEMI was called. Patient was placed on Brilinta aspirin 3 in G-tube and was taken to the laborer road where was found he had 99% subtotal occlusion of the RCA and 80% stenosis of circumflex. Patient had a stent placed in the RCA. EF during cardiac catheterization was 40%. The patient's girlfriend reports that the patient does not check his blood sugars and takes his insulin twice a day. He had a hemoglobin A1c checked at [facility] last week but she does not know the results. She does state that the patient has been having intermittent chest pain and shortness of breath but she cannot delineate a time frame for how often he reports he symptoms. He often blinks his symptoms on his diabetes and or his history of pancreatitis and cirrhosis. He did have so
[2021-08-23] MEDS: MINERAL OIL/WHITE PETROLATUM OINTMENT 1 APPLIC EACH EYE (20:09)
[2021-08-23 22:04] LABS: Glucose Point of Care 121 mg/dl (65-105)
[2021-08-24] VITALS (37 sets, daily range): BP systolic 76–126; BP diastolic 53–93; PULSE 73–101; RESP 20–28; TEMP 36.8–37.5; O2SAT 93–100
[2021-08-24 00:37] LABS: Glucose Point of Care 146 mg/dl (65-105)
[2021-08-24] MEDS: IPRATROPIUM BR 0.02% INH SOLN 0.5 MG/2.5 ML VIAL INHALATION ×4 (02:36→19:52)
[2021-08-24] MEDS: LEVALBUTEROL NEB 1.25 MG/3 ML 0.63 MG INHALATION ×4 (02:36→19:52)
[2021-08-24 05:30] LABS: Alveolar/Arterial O2 Gradient 70.4 mmHg; Base Excess ABG 1.2 mEq/l (+/-2.0); Carboxyhemoglobin 0.3 % THb (0-2.0); Fractional Inspired Oxygen 30 %; HCO3 ABG 24.6 mEq/l (22.0-26.0); Methemoglobin ABG 0.3 %THb (0-1.5); Oxygen Content ABG 16.7 %vol (16.0-22.0); Oxyhemoglobin 96.5 % THb (90.0-100.0); PO2 ABG 102.4 mmHg (80.0-100.0); PO2 FiO2 Ratio Arterial Blood 3.41 %; Reduced Hemoglobin 2.9 %THb (0-5.0); Total Hemoglobin 12.2 g/dL (12.0-18.0); pH ABG 7.465 (7.350-7.450)
[2021-08-24 05:31] LABS: Arterial Blood Gas Vent Mode CMV; Arterial Blood Gas Ventilator rate 20 /MIN; Device VENTILATOR; Site Drawn LEFT BRACHIAL
[2021-08-24 05:32] LABS: Arterial Blood Gas PEEP 5 cmH2O; Arterial Blood Gas Tidal Volume 420 ml
[2021-08-24 05:58] LABS: Glucose Point of Care 251 mg/dl (65-105)
[2021-08-24] MEDS: INSULIN ASPART (*BKC) 100 UNITS/ML SUB-Q ×3 (06:01→18:25)
--- NOTE | 2021-08-24 07:09 | WPDHPUPDATE1 ---
History and Physical Update Update Date/Time: 08/24/21 07:09 History and Physical has been reviewed, including an updated exam of the patient. There are NO changes in the patient's condition. Risks, benefits, and alternatives have been discussed and questions answered. Patient agrees to proceed with procedure.
[2021-08-24 07:42] LABS: Basophils Absolute Auto 0.1 K/mm3 (0.0-0.1); Basophils Percent Auto 0.8 % (0.2-1.2); Eosinophils Absolute Auto 0.4 K/mm3 (0-0.3); Hematocrit 38.3 % (42.0-52.0); Immature Granulocyte Absolute 0.05 K/mm3 (0.00-0.031); Immature Granulocyte Percent A 0.3 % (0-0.5); Lymphocytes Absolute Auto 2.84 K/mm3 (0.9-3.2); Lymphocytes Percent Auto 19.7 % (18.3-44.2); Mean Corpuscular HGB Conc 31.3 g/dl (32-36); Mean Corpuscular Hemoglobin 28.6 pg (26-34); Mean Corpuscular Volume 91.4 fl (80-100); Mean Platelet Volume 9.4 fl (7.4-10.4); Monocytes Absolute Auto 0.9 K/mm3 (0.1-0.6); Monocytes Percent Auto 5.9 % (2.6-8.5); Neutrophils Absolute Auto 10.1 K/mm3 (1.3-6.7); Neutrophils Percent Auto 70.3 % (45.5-73.1); Platelet Count Result 529 k/mm3 (150-375); Red Blood Count 4.19 M/mm3 (4.6-6.20); Red Cell Distribution Width 12.9 % (11.5-14.5); White Blood Count 14.4 K/mm3 (4.5-10.0)
[2021-08-24 07:52] LABS: Alanine Aminotransferase 45 U/L (4-50); Albumin Level 3.8 g/dL (3.5-5.1); Alkaline Phosphatase 105 U/L (38-126); Anion Gap 7 mmol/L (8-16); Aspartate Amino Transferase 71 U/L (17-59); Bilirubin,Total 0.7 mg/dL (0.2-1.3); Blood Urea Nitrogen 44 mg/dL (9-20); Calcium 9.2 mg/dL (8.4-10.2); Carbon Dioxide 30 mmol/L (22-30); Chloride 108 mmol/L (98-107); Estimated CRCL calculation 86 ml/min; Estimated Glomerular Filt Rate > 60; Glucose 251 mg/dL (65-110); Magnesium 1.9 mg/dL (1.6-2.3); Phosphorus 3.4 mg/dL (2.5-4.5); Sodium 145 mmol/L (137-145)
[2021-08-24 07:53] LABS: Glucose Point of Care 265 mg/dl (65-105)
--- NOTE | 2021-08-24 08:00 | WPDINTPN ---
Progress Note: A&P Assessment and Plan (1) Anoxic brain injury: Code(s): G93.1 - Anoxic brain damage, not elsewhere classified Status: Acute Assessment and Plan: Patient has sustained a significant Anoxic brain injury due to prolonged down time Patient has completed TTM protocol Sedation has been discontinued since 08/14 evening Neuro exam as above. There has been some improvement as expected after holding long-acting sedation but no purposeful activity at this point. Neuro status has been unchanged over last [address] head done 08/15 showed - Development of diffuse cerebellar swelling, anoxic injury. No obstructive hydrocephalus but patient at risk. CT 08/19 - Low attenuation involving the bilateral temporal lobes, cerebellum, and braulio, stable from 08/15/21 and worsened from 08/12/21, consistent with infarcts from anoxic brain injury. 08/15 EEG - This EEG was abnormal due the presence of severely diffuse background slowing. This EEG was indicative of the presence of severe, bihemispheric cerebral dysfunction of the type seen most commonly in the setting of severe toxic metabolic encephalopathies or anoxic injury.The was no evidence of epileptiform activity or focal cerebral dysfunction. 08/20 repeat EEG - Abnormal record due to the presence of bihemispheric delta activity throughout the tracing with no evidence of paroxysmal activity. This abnormality is consistent with diffuse organic or metabolic encephalopathy clinical correlation recommended. Is not compatible with electrocerebral silence or status epilepticus Remains OFF sedation -neurology to follow Continue Keppra that has been started for possible myoclonic jerks (2) Acute respiratory failure: Code(s): J96.00 - Acute respiratory failure, unspecified whether with hypoxia or hypercapnia Status: Acute Assessment and Plan: Acute respiratory failure likely related to VFib arrest, patient was intubated on 08/12/2021 ABGs and chest x-ray reviewed -currently on CMV mode of ventilation, 30% FiO2 and peep of 5. Patient has not been tolerating pressure support ventilation / and 02/20, he becomes diaphoretic, tachycardic, tachypneic, with elevated blood pressures. -will again place patient on pressure support ventilation and evaluate, if he does not do well will place him on ASV mode -continue bronchodilators - Off sedation. - Ventilator weaning will depend on his neurological improvement -continue antibiotics for possible aspiration pneumonia. Cultures have been sent and are negative till now -continues to have thick secretions from ETT -continue Zosyn ( stop on 08/24/21), vancomycin was discontinued -discuss with significant other, who stated the family has requested for tracheostomy and PEG tube placement. Have consulted ENT and GI -PEG tube placed on 08/23/2021. -tracheostomy tube placed today, 08/24/2021 (3) Cardiac arrest: Code(s): I46.9 - Cardiac arrest, cause unspecified Status: Acute Assessment and Plan: Prolonged out of the hospital VFib arrest (down time was 1 hour and 8 minutes per records) -VFib likely secondary to inferior NC, status post cardiac catheterization with PTCA/PCI with PAT x1 to proximal RCA (4) ST elevation (STEMI) myocardial infarction: Qualifiers: Involved coronary artery: unspecified coronary artery Qualified Code(s): I21.3 - ST elevation (STEMI) myocardial infarction of unspecified site Code(s): I21.3 - ST elevation (STEMI) myocardial infarction of unspecified site Status: Acute Assessment and Plan: As above -cardiology following the patient -continue aspirin, Brilinta, statin -continue beta-tapan and losartan (5) Elevated LFTs: Code(s): R79.89 - Other specified abnormal findings of blood chemistry Status: Acute Assessment and Plan: Elevated LFTs most likely related to cardiac arrest, shock liver -continue to maintain adequate mean arterial pressures for
[2021-08-24] MEDS: PANTOPRAZOLE SODIUM IV 40 MG VIAL IV PUSH ×2 (08:09→20:01)
[2021-08-24] MEDS: levETIRAcetam 500MG/NACL 100ML 500 MG/100 ML BAG 400 MG IVPB ×2 (08:09→20:02)
[2021-08-24] MEDS: ASPIRIN 81 MG CHEWABLE TABLET PO (08:17)
[2021-08-24] MEDS: TOLNAFTATE 1% POWDER 45 GM BTL 1 APPLIC TOPICAL ×2 (08:18→20:02)
[2021-08-24] MEDS: LOSARTAN POTASSIUM 12.5 MG TABLET PO (08:18)
[2021-08-24] MEDS: ROSUVASTATIN 10 MG TABLET 20 MG PO (08:18)
[2021-08-24] MEDS: MINERAL OIL/WHITE PETROLATUM OINTMENT 1 APPLIC EACH EYE ×2 (08:18→20:02)
[2021-08-24] MEDS: TICAGRELOR 90 MG TABLET PO ×2 (08:18→20:01)
[2021-08-24] MEDS: METOPROLOL TARTRATE 50 MG TAB PO ×2 (08:18→20:01)
--- NOTE | 2021-08-24 09:25 | PC.NURSE ---
To OR per [bed ], with RN, surgery techs and RT, IV locked [ 20 LFA, 20 RFA]. Report given to [DEB Munoz ].
--- NOTE | 2021-08-24 09:31 | WPDANESEPPF ---
Anes - Initial Pre Proc Eval Procedure: Operation Date: 08/12/21 19:00 Proposed Procedures p Left Heart Cath - Mg Santos MD Operation Date: 08/23/21 14:30 Proposed Procedures p Percutaneous Endoscopic Gastrostomy - Tk Molina MD Operation Date: 08/24/21 10:00 Proposed Procedures p Tracheostomy - Jose Callejas MD Date/Time: 08/24/21 09:31 Surgeon: Mg Santos MD Pre Op Diagnosis: Out of hospital VFib/inferior ST elevation FL Patient Data Age: 46 Gender: M Height: 1.73 m Weight: 69.9 kg Last Vital Signs Temp 36.8 C 08/24/21 08:00 Pulse 86 08/24/21 08:29 Resp 20 08/24/21 08:27 BP 124/85 08/24/21 08:00 Pulse Ox 99 08/24/21 08:29 Allergies Allergy/AdvReac Type Severity Reaction Status Date / Time No Known Allergies Allergy Verified 08/12/21 20:35 Home Medications Medication Instructions Recorded Confirmed Type insulin glargine [Basaglar KwikPen 20 unit SUBCUT Q12H 08/12/21 08/13/21 History U-100 Insulin] Laboratory Tests 08/23/21 08/23/21 08/23/21 12:13 17:50 21:59 WBC RBC Hgb Hct MCV MCH MCHC RDW Plt Count MPV Immature Gran % (Auto) Neut % (Auto) Lymph % (Auto) [place] % (Auto) Eos % (Auto) Baso % (Auto) Lymph # (Auto) [place] # (Auto) Eos # (Auto) Baso # (Auto) Abs Immat Gran (auto) Absolute Neuts (auto) Absolute Nucleated RBC Nucleated RBC % Puncture Site ABG pH ABG pCO2 ABG pO2 ABG PO2/FiO2 Ratio ABG HCO3 ABG O2 Saturation ABG O2 Content ABG Base Excess A-a Gradient Oxyhemoglobin Carboxyhemoglobin Methemoglobin Reduced Hemoglobin Total Hemoglobin O2 Delivery Device O2 Liters/Min Minute Volume Vent Rate Vent Mode FiO2 Tidal Volume PEEP Peak Inspir Pressure Pressure Support Sodium Potassium Chloride Carbon Dioxide Anion Gap BUN Creatinine Estim Creat Clear Calc Estimated GFR Glucose POC Capillary Glucose 109 mg/dl H mg/dl 112 mg/dl H mg/dl 121 mg/dl H mg/dl (65-105) (65-105) (65-105) Calcium Phosphorus Magnesium Total Bilirubin AST ALT Alkaline Phosphatase Total Protein Albumin 08/24/21 08/24/21 08/24/21 00:26 05:02 05:56 WBC RBC Hgb Hct MCV MCH MCHC RDW Plt Count MPV Immature Gran % (Auto) Neut % (Auto) Lymph % (Auto) [place] % (Auto) Eos % (Auto) Baso % (Auto) Lymph # (Auto) [place] # (Auto) Eos # (Auto) Baso # (Auto) Abs Immat Gran (auto) Absolute Neuts (auto) Absolute Nucleated RBC Nucleated RBC % Puncture Site Left brachial ABG pH 7.465 H (7.350-7.450) ABG pCO2 35.0 mmHg mmHg (35.0-45.0) ABG pO2 102.4 mmHg H mmHg (80.0-100.0) ABG PO2/FiO2 Ratio 3.41 % % ABG HCO3 24.6 mEq/l mEq/l (22.0-26.0) ABG O2 Saturation 98.0 % % (95.0-100.0) ABG O2 Content 16.7 %vol %vol (16.0-22.0) ABG Base Excess 1.2 mEq/l mEq/l
[2021-08-24] MEDS: ceFAZolin SODIUM 1 GM VIAL 2 GM IV PUSH (09:35)
[2021-08-24] MEDS: LIDO 1%/EPINEPHRINE/PF 1:200,000 30 ML VIAL XX (09:37)
--- NOTE | 2021-08-24 09:45 | PM.PNCARD ---
Progress Note: A&P Additional Plan 46-year-old patient out of hospital cardiac arrest prolonged resuscitation effort as expected has resulted in significant anoxic encephalopathy. Patient not surprisingly still on ventilator support. Plans are now being made for long-term care with tracheostomy and PEG tube. Following this plans will be made for eventual transfer to LTAC. He is on appropriate medication for his recent RCA stent Mg Santos MD [facility] Subjective Date/time seen: Date of service: 08/24/21 09:45 Interval history: Follow-up visit in this 46-year-old man with: Acute inferior wall myocardial infarction unfortunately presenting with [id number] ventricular fibrillation. Following prolonged resuscitation effort he was brought to the director of cath lab and underwent successful emergency PCI of the proximal RCA. Patient also has moderate mid circumflex disease unrelated to this event. Patient is now in the ICU intubated sedated on hypothermia protocol. Receiving aspirin and Brilinta. Beta-tapan and ARB are on hold because of hypotension requiring pressor support. Prognosis for meaningful neurological recovery is very poor as dictated in initial notes Date of service 08/14/2021: No acute events overnight. Patient remains intubated and sedated. Beginning to warm patient today. BP is improving, he does remain on norepinephrine. Date of service 08/15/2021: Clinically unchanged. Patient is off sedation and off of norepinephrine. On ventilator support remains unresponsive. EEG planned for later today Date of service 08/16/3032: Remains largely unchanged, blood pressure has been somewhat labile. EEG yesterday abnormal. Date of service 08/24/2021: Clinically unchanged patient in the OR for tracheostomy/PEG tube placed yesterday Exam Const: General: comfortable and no acute distress Other: Intubated and sedated white male appears to be about his stated age intubated on ventilator support HENMT: Mouth: Yes moist mucous membranes Eyes: Sclera: sclerae normal Neck: Neck: supple and no JVD Other: Normal carotid pulses Resp: Effort & Inspection: normal respiratory effort Auscultation: clear to auscultation bilaterally and rhonchi Other: Scattered rhonchi noted Cardio: Rate: regular rate Rhythm: regular rhythm Other: No murmur no gallop GI: Auscultation: normal bowel sounds Skin: General skin exam: normal color Neuro: Other: Moves spontaneously but does not follow commands Extrem: General: normal to inspection Other: Arterial access site free from bleeding, hematoma Objective Data Vital Signs Vital Signs: Vital Signs - 24 hr 08/23/21 10:00 08/23/21 10:31 08/23/21 12:00 Temperature 37.7 C H 37.4 C Pulse Rate 80 78 82 Respiratory Rate 20 20 Blood Pressure 123/90 110/74 Pulse Oximetry 100 100 100 08/23/21 14:00 08/23/21 14:30 08/23/21 14:45 Temperature Pulse Rate 82 74 80 Respiratory Rate 20 Blood Pressure 97/73 L Pulse Oximetry 100 100 08/23/21 14:50 08/23/21 14:55 08/23/21 15:00 Temperature Pulse Rate 80 79 79 Respiratory Rate 20 20 20 Blood Pressure 97/66 L 92/63 L 106/75 Pulse Oximetry 100 99 100 08/23/21 16:00 08/23/21 16:38 08/23/21 18:00 Temperature 36.9 C 37.4 C Pulse Rate 80 72 85 Respiratory Rate 20 20 Blood Pressure 118/94 H 100/65 Pulse Oximetry 100 100 99 08/23/21 19:40 08/23/21 20:00 08/23/21 20:09 Temperature 37.4 C Pulse Rate 80 89 Respiratory Rate 20 Blood Pressure 123/85 Pulse Oximetry 98 100 08/23/21 20:47 08/23/21 20:48 08/23/21 21:06 Temperature Pulse Rate 81 81 82 Respiratory Rate 20 20 Blood Pressure Pulse Oximetry 100 08/23/21 22:00 08/23/21 23:30 08/24/21 00:00 Temperature 37.3 C Pulse Rate 79 82 79 Respiratory Rate 20 20 Blood Pressure 122/82 99/73 L Pulse Oximetry 100 99 100 08/24/21 02:00 08/24/21 02:37 08/24/21 02:42 Temperature Pulse Rate 80 80 80 Respiratory Rate 20 2
--- NOTE | 2021-08-24 10:23 | PC.NURSE ---
Returned from OR per [bed ]. Report received from [Tammy].Size 8 Shiley placed.
--- NOTE | 2021-08-24 10:28 | P.OP_ITS ---
Procedure Note - Detailed Date of Procedure 08/24/21 Pre-op Diagnosis Respiratory failure, respiratory insufficiency Post-op Diagnosis Same Procedure Performed Tracheostomy Surgeon Jose Callejas MD Mail Carrier Technician Monae Anesthesia General Indications See above Findings 8 double cuffed Shiley easily placed between tracheal rings 2/3 animal blood loss Description of Procedure Patient identified in ICU. Patient brought to OR. Time-out performed. Patient moved to operative bed. Anesthesia deep in. Patient prepped and draped for for mentioned procedure. Second time-out performed. 2 cc 1% lidocaine 1 100,000 parts epinephrine injected deep to read drawn surgical incision about 2 fingerbreadths above the sternal notch and below the cricoid. Fifteen blade utilized to make skin incision subcutaneous lipectomy performed with Bovie and pickup. Bovie electrocautery as well as [employer] utilized to dissect down to the tracheal rings hemostasis achieved using intermittent application bipolar electrocautery setting of 10. Anesthesia informed that airway was accessed. Thyroid isthmus superior to area of dissection. Cricoid identified. Cricoid hook placed. Tracheotomy performed between rings 2 and 3. Obviously the trach was tested prior to all of this. Anesthesia then removed the endotracheal tube until it was no longer visible in the tracheotomy. Airway suctioned. Trach [employer] police sergeant placed. Heavy [place] scissors utilized to widen tracheotomy. Bleeding minimal. Eight Shiley placed. Anesthesia connected to circuit to trach. End- tidal CO2 confirmed. For corner stitches 0 silk placed velcro trach ties applied tightly. Blood loss 5 cc. I performed all dictated portions of the procedure. Care the patient given Anesthesiology. Drain sponge placed deep to trach plate. Estimated Blood Loss -5.0 Urine Output 1,100 Drains No Packing No Pathology None sent Complications No immediate complications Condition Stable Disposition ICU
[2021-08-24] MEDS: hetaSTARCH 6%/NACL 500 ML 250 ML IV CONT (10:40)
--- NOTE | 2021-08-24 10:41 | PCNFU ---
Nutrition Follow-Up Complete: Inadequate Oral Intake as related to mechanical ventilation as evidenced by NPO. goal: Meet estimated nutritional needs Patient is progressing towards goal. We will continue current goal. Pt current nutrition is NPO. Nutrition Recommendation: Vital AF 1.2 at 70 ml/hr over 22 hours. Last recorded weight is 69.9 kg,down from 72.8 kg on admit. Bowel Motility: FMS Labs Reviewed:Glu 251, BUN 44, Hct 38.3,Hgb 12.0 Meds Noted:Lantus, Atrovent, NovoLog, Crestor, Protonix, Apresoline, Lopressor, Zosyn, Xopenex,Keppra, Cozaar Skin: WNL Additional Notes: Patient NPO for Trach today. PEG placed 08/23. Plans for tube feedings to be restarted of Vital AF 1.2 at 70 ml/hr over 22 hours providing 1848 kcals/116 gms protein/1249 ml water. Free water flush 30 ml q 4 hours. Agree with diet orders. Will monitor in ICU rounds and reassessing every Friday and Friday
[2021-08-24 12:11] LABS: Glucose Point of Care 226 mg/dl (65-105)
[2021-08-24] MEDS: ACETAMINOPHEN ELIXIR 325 MG/10.15 ML UDC 650 MG PO ×2 (12:22→18:24)
--- NOTE | 2021-08-24 16:53 | PM.IMPN ---
Progress Note: A&P Assessment and Plan (1) Hypertension: Code(s): I10 - Essential (primary) hypertension Status: Acute (2) Electrolyte abnormality: Code(s): E87.8 - Other disorders of electrolyte and fluid balance, not elsewhere classified Status: Acute (3) Rhabdomyolysis: Code(s): M62.82 - Rhabdomyolysis Status: Acute (4) Anoxic brain injury: Code(s): G93.1 - Anoxic brain damage, not elsewhere classified Status: Acute (5) Coffee ground emesis: Code(s): K92.0 - Hematemesis Status: Acute (6) Acute respiratory failure: Code(s): J96.00 - Acute respiratory failure, unspecified whether with hypoxia or hypercapnia Status: Acute (7) Shock: Code(s): R57.9 - Shock, unspecified Status: Acute (8) Elevated LFTs: Code(s): R79.89 - Other specified abnormal findings of blood chemistry Status: Acute (9) Shock liver: Code(s): K72.00 - Acute and subacute hepatic failure without coma Status: Acute (10) Diabetes mellitus with hyperglycemia, with long-term current use of insulin: Qualifiers: Diabetes mellitus type: type 2 Qualified Code(s): E11.65 - Type 2 diabetes mellitus with hyperglycemia; Z79.4 - termite inspector (current) use of insulin Code(s): E11.65 - Type 2 diabetes mellitus with hyperglycemia; Z79.4 - alf (current) use of insulin Status: Acute (11) Cardiac arrest: Code(s): I46.9 - Cardiac arrest, cause unspecified Status: Acute (12) ST elevation (STEMI) myocardial infarction: Qualifiers: Involved coronary artery: unspecified coronary artery Qualified Code(s): I21.3 - ST elevation (STEMI) myocardial infarction of unspecified site Code(s): I21.3 - ST elevation (STEMI) myocardial infarction of unspecified site Status: Acute Additional Plan nterval history: HPI:Sidney Raphael is a 46 year old male with a past medical history of alcoholic pancreatitis, cirrhosis, tobacco abuse and insulin-dependent diabetes mellitus with complications who presented to the ER after cardiac arrest at home. Patient's girlfriend reports the patient was putting some food in the oven when he suddenly sat down on the floor and then collapsed backwards. The patient had brief episode of shaking and within 30 seconds was having agonal respirations. She called EMS who arrived at the residence within 1-2 minutes of EMS call. She was unable to do chest compressions is she herself has any EF of 20% has a LifeVest in place. On EMS arrival CPR was initiated the patient was found to be in ventricular fibrillation. The patient received defibrillator shock and was subsequently in PA. he received 2 mg of Narcan, 1 amp of bicarb and 3 rounds of epinephrine in the field. EMS placed ET tube. After ET tube was placed patient was still having some agonal respirations per triage note. The patient had 18 minutes the resuscitation efforts in the field. The patient had continued resuscitation efforts in the ER of 40 minutes for total down time of 1 hour and 8 minutes prior to return of circulation. EKG at that time demonstrated ST elevation in inferior leads and a STEMI was called. Patient was placed on Brilinta aspirin 3 in G-tube and was taken to the environmental laboratory technician where was found he had 99% subtotal occlusion of the RCA and 80% stenosis of circumflex. Patient had a stent placed in the RCA. EF during cardiac catheterization was 40%. The patient's girlfriend reports that the patient does not check his blood sugars and takes his insulin twice a day. He had a hemoglobin A1c checked at [facility] last week but she does not know the results. She does state that the patient has been having intermittent chest pain and shortness of breath but she cannot delineate a time frame for how often he reports he symptoms. He often blinks his symptoms on his diabetes and or his history of pancreatitis and cirrhosis. He did have so
[2021-08-24 18:25] LABS: Glucose Point of Care 318 mg/dl (65-105)
[2021-08-24] MEDS: INSULIN GLARGINE (*BKC) 100 UNITS/ML 28 UNITS SUB-Q (20:02)
[2021-08-25] VITALS (31 sets, daily range): BP systolic 102–152; BP diastolic 70–103; PULSE 82–110; RESP 13–28; TEMP 37–37.8; O2SAT 88–100
[2021-08-25] MEDS: LEVALBUTEROL NEB 1.25 MG/3 ML 0.63 MG INHALATION ×4 (02:04→20:21)
[2021-08-25] MEDS: IPRATROPIUM BR 0.02% INH SOLN 0.5 MG/2.5 ML VIAL INHALATION ×4 (02:04→20:20)
[2021-08-25 05:08] LABS: Alveolar/Arterial O2 Gradient 64.3 mmHg; Carboxyhemoglobin 0.2 % THb (0-2.0); Fractional Inspired Oxygen 30 %; HCO3 ABG 25.3 mEq/l (22.0-26.0); Methemoglobin ABG 0.2 %THb (0-1.5); Oxygen Content ABG 15.9 %vol (16.0-22.0); Oxygen Saturation ABG 97.9 % (95.0-100.0); Oxyhemoglobin 96.6 % THb (90.0-100.0); PCO2 ABG 39.1 mmHg (35.0-45.0); PO2 ABG 103.7 mmHg (80.0-100.0); PO2 FiO2 Ratio Arterial Blood 3.46 %; Total Hemoglobin 11.6 g/dL (12.0-18.0); pH ABG 7.429 (7.350-7.450)
[2021-08-25 05:12] LABS: Site Drawn RIGHT RADIAL
[2021-08-25 05:13] LABS: Arterial Blood Gas PEEP 5 cmH2O; Arterial Blood Gas Tidal Volume 420 ml; Arterial Blood Gas Vent Mode CMV; Arterial Blood Gas Ventilator rate 20 /MIN; Device VENTILATOR
[2021-08-25 05:19] LABS: Basophils Absolute Auto 0.1 K/mm3 (0.0-0.1); Basophils Percent Auto 0.5 % (0.2-1.2); Eosinophils Absolute Auto 0.2 K/mm3 (0-0.3); Eosinophils Percent Auto 0.9 % (0-4.4); Hematocrit 35.3 % (42.0-52.0); Hemoglobin 11.1 g/dL (14.0-18.0); Immature Granulocyte Absolute 0.07 K/mm3 (0.00-0.031); Immature Granulocyte Percent A 0.4 % (0-0.5); Lymphocytes Absolute Auto 3.82 K/mm3 (0.9-3.2); Mean Corpuscular HGB Conc 31.4 g/dl (32-36); Mean Corpuscular Hemoglobin 28.7 pg (26-34); Mean Corpuscular Volume 91.2 fl (80-100); Mean Platelet Volume 9.8 fl (7.4-10.4); Monocytes Absolute Auto 1.1 K/mm3 (0.1-0.6); Monocytes Percent Auto 5.9 % (2.6-8.5); Neutrophils Percent Auto 71.3 % (45.5-73.1); Platelet Count Result 552 k/mm3 (150-375); Red Blood Count 3.87 M/mm3 (4.6-6.20); Red Cell Distribution Width 12.8 % (11.5-14.5); White Blood Count 18.2 K/mm3 (4.5-10.0)
[2021-08-25 05:31] LABS: Alanine Aminotransferase 34 U/L (4-50); Albumin Level 3.5 g/dL (3.5-5.1); Alkaline Phosphatase 105 U/L (38-126); Anion Gap 8 mmol/L (8-16); Aspartate Amino Transferase 48 U/L (17-59); Bilirubin,Total 0.5 mg/dL (0.2-1.3); Blood Urea Nitrogen 37 mg/dL (9-20); Calcium 8.8 mg/dL (8.4-10.2); Carbon Dioxide 28 mmol/L (22-30); Chloride 109 mmol/L (98-107); Estimated CRCL calculation 96 ml/min; Estimated Glomerular Filt Rate > 60; Glucose 227 mg/dL (65-110); Magnesium 1.8 mg/dL (1.6-2.3); Phosphorus 3.4 mg/dL (2.5-4.5); Potassium 4.1 mmol/L (3.4-5.0); Sodium 145 mmol/L (137-145)
[2021-08-25] MEDS: INSULIN ASPART (*BKC) 100 UNITS/ML SUB-Q ×3 (05:47→17:53)
--- NOTE | 2021-08-25 07:32 | WPDANESPN ---
Anes - Prog Note Post-Op Date/Time: 08/25/21 07:32 Cardiovascular status: other Respiratory status: other Airway patency: other Mental status: other Post-Op hydration status: other Vital Signs: Last Vital Signs Temp 37.0 C 08/25/21 04:00 Pulse 97 08/25/21 06:00 Resp 24 H 08/25/21 06:00 BP 121/84 08/25/21 06:00 Pulse Ox 100 08/25/21 06:00 Pain Score (VAS): unable to assess I/O: Intake & Output 08/24/21 08/24/21 08/25/21 15:59 23:59 07:59 Intake Total 1375 275 140 Output Total 1100 1120 580 Balance 156 -932 -031 Laboratory Tests 08/25/21 04:14 08/25/21 04:14 08/24/21 08/24/21 08/24/21 07:37 07:37 07:49 WBC 14.4 H RBC 4.19 L Hgb 12.0 L Hct 38.3 L MCV 91.4 MCH 28.6 MCHC 31.3 L RDW 12.9 Plt Count 529 H MPV 9.4 Immature Gran % (Auto) 0.3 Neut % (Auto) 70.3 Lymph % (Auto) 19.7 [place] % (Auto) 5.9 Eos % (Auto) 3.0 Baso % (Auto) 0.8 Lymph # (Auto) 2.84 [place] # (Auto) 0.9 H Eos # (Auto) 0.4 H Baso # (Auto) 0.1 Abs Immat Gran (auto) 0.05 H Absolute Neuts (auto) 10.1 H Absolute Nucleated RBC 0.0 Nucleated RBC % 0.0 Puncture Site ABG pH ABG pCO2 ABG pO2 ABG PO2/FiO2 Ratio ABG HCO3 ABG O2 Saturation ABG O2 Content ABG Base Excess A-a Gradient Oxyhemoglobin Carboxyhemoglobin Methemoglobin Reduced Hemoglobin Total Hemoglobin O2 Delivery Device O2 Liters/Min Minute Volume Vent Rate Vent Mode FiO2 Tidal Volume PEEP Peak Inspir Pressure Pressure Support Sodium 145 Potassium 4.0 Chloride 108 H Carbon Dioxide 30 Anion Gap 7 L BUN 44 H Creatinine 0.90 Estim Creat Clear Calc 86 Estimated GFR > 60 Glucose 251 H POC Capillary Glucose 265 H Calcium 9.2 Phosphorus 3.4 Magnesium 1.9 Total Bilirubin 0.7 AST 71 H ALT 45 Alkaline Phosphatase 105 Total Protein 8.0 Albumin 3.8 08/24/21 08/24/21 08/25/21 12:04 18:15 04:14 WBC 18.2 H RBC 3.87 L Hgb 11.1 L Hct 35.3 L MCV 91.2 MCH 28.7 MCHC 31.4 L RDW 12.8 Plt Count 552 H MPV 9.8 Immature Gran % (Auto) 0.4 Neut % (Auto) 71.3 Lymph % (Auto) 21.0 [place] % (Auto) 5.9 Eos % (Auto) 0.9 Baso % (Auto) 0.5 Lymph # (Auto) 3.82 H [place] # (Auto) 1.1 H Eos # (Auto) 0.2 Baso # (Auto) 0.1 Abs Immat Gran (auto) 0.07 H Absolute Neuts (auto) 13.0 H Absolute Nucleated RBC 0.0 Nucleated RBC % 0.0 Puncture Site ABG pH ABG pCO2 ABG pO2 ABG PO2/FiO2 Ratio ABG HCO3 ABG O2 Saturation ABG O2 Content ABG Base Excess A-a Gradient Oxyhemoglobin Carboxyhemoglobin Methemoglobin Reduced Hemoglobin Total Hemoglobin O2 Delivery Device O2 Liters/Min Minute Volume Vent Rate Vent Mode FiO2 Tidal Volume PEEP Peak Inspir Pressure Pressure Support Sodium Potassium Chloride Carbon Dioxide Anion Gap BUN Creatinine Estim Creat Clear Calc Estimated GFR Glucose POC Capillary Glucose 226 H 318 H Calcium Phosphorus Magnesium Total Bilirubin AST ALT Alkaline Phosphatase Total Protein Albumin 08/25/21 08/25/21 04:14 05:00 WBC RBC Hgb Hct MCV MCH MCHC RDW Plt Count MPV Immature Gran % (Auto) Neut % (Auto) Lymph % (Auto) [place] % (Auto) Eos % (Auto) Baso % (Auto) Lymph # (Auto) [place] # (Auto) Eos # (Auto) Baso # (Auto) Abs Immat Gran (auto) Absolute Neuts (auto) Absolute Nucleated RBC Nucleated RBC % Puncture Site Right radial ABG pH 7.429 ABG pCO2 39.1 ABG pO2 103.7 H ABG PO2/FiO2 Ratio 3.46 ABG HCO3 25.3 ABG O2 Saturation 97.9 ABG O2 Content 15.9 L ABG Base Excess 1.0 A-a Gradient 64.3 Oxyhemoglobin 96.6 Carboxyhemoglobin 0.2 Methem
--- NOTE | 2021-08-25 07:56 | WPDINTPN ---
Progress Note: A&P Assessment and Plan (1) Acute respiratory failure: Code(s): J96.00 - Acute respiratory failure, unspecified whether with hypoxia or hypercapnia Status: Acute Assessment and Plan: Acute respiratory failure likely related to VFib arrest, patient was intubated on 08/12/2021 ABGs and chest x-ray reviewed -currently on CMV mode of ventilation, 30% FiO2 and peep of 5. - Off all sedation. -secretions from ET tube have improved - Zosyn and vancomycin discontinued on 08/24/2021 -will start weaning trials now that patient has a tracheostomy tube -PEG tube placed on 08/23/2021. -tracheostomy tube placed 08/24/2021, IV Tylenol for pain, avoid sedatives or benzodiazepines -await LTAC placement (2) Anoxic brain injury: Code(s): G93.1 - Anoxic brain damage, not elsewhere classified Status: Acute Assessment and Plan: Patient has sustained a significant Anoxic brain injury due to prolonged down time Patient has completed TTM protocol Sedation has been discontinued since 08/14 evening Neuro exam as above. There has been some improvement as expected after holding long-acting sedation but no purposeful activity at this point. Neuro status has been unchanged over last [address] head done 08/15 showed - Development of diffuse cerebellar swelling, anoxic injury. No obstructive hydrocephalus but patient at risk. CT 08/19 - Low attenuation involving the bilateral temporal lobes, cerebellum, and braulio, stable from 08/15/21 and worsened from 08/12/21, consistent with infarcts from anoxic brain injury. 08/15 EEG - This EEG was abnormal due the presence of severely diffuse background slowing. This EEG was indicative of the presence of severe, bihemispheric cerebral dysfunction of the type seen most commonly in the setting of severe toxic metabolic encephalopathies or anoxic injury.The was no evidence of epileptiform activity or focal cerebral dysfunction. 08/20 repeat EEG - Abnormal record due to the presence of bihemispheric delta activity throughout the tracing with no evidence of paroxysmal activity. This abnormality is consistent with diffuse organic or metabolic encephalopathy clinical correlation recommended. Is not compatible with electrocerebral silence or status epilepticus Remains OFF sedation -neurology to follow Continue Keppra that has been started for possible myoclonic jerks (3) Cardiac arrest: Code(s): I46.9 - Cardiac arrest, cause unspecified Status: Acute Assessment and Plan: Prolonged out of the hospital VFib arrest (down time was 1 hour and 8 minutes per records) -VFib likely secondary to inferior DE, status post cardiac catheterization with PTCA/PCI with PAT x1 to proximal RCA (4) ST elevation (STEMI) myocardial infarction: Qualifiers: Involved coronary artery: unspecified coronary artery Qualified Code(s): I21.3 - ST elevation (STEMI) myocardial infarction of unspecified site Code(s): I21.3 - ST elevation (STEMI) myocardial infarction of unspecified site Status: Acute Assessment and Plan: As above -cardiology following the patient -continue aspirin, Brilinta, statin -continue beta-tapan and losartan (5) Elevated LFTs: Code(s): R79.89 - Other specified abnormal findings of blood chemistry Status: Acute Assessment and Plan: Elevated LFTs most likely related to cardiac arrest, shock liver -continue to maintain adequate mean arterial pressures for end-organ perfusion -improving (6) Diabetes mellitus with hyperglycemia, with long-term current use of insulin: Qualifiers: Diabetes mellitus type: type 2 Qualified Code(s): E11.65 - Type 2 diabetes mellitus with hyperglycemia; Z79.4 - retirement (current) use of insulin Code(s): E11.65 - Type 2 diabetes mellitus with hyperglycemia; Z79.4 - machine heel seat laster (current) use of insulin Status: Acute Assessment and Plan: Hyperglycemia could be related
[2021-08-25] MEDS: ASPIRIN 81 MG CHEWABLE TABLET PO (08:27)
[2021-08-25] MEDS: TICAGRELOR 90 MG TABLET PO ×2 (08:27→20:43)
[2021-08-25] MEDS: ROSUVASTATIN 10 MG TABLET 20 MG PO (08:27)
[2021-08-25] MEDS: LOSARTAN POTASSIUM 12.5 MG TABLET PO (08:27)
[2021-08-25] MEDS: METOPROLOL TARTRATE 50 MG TAB PO ×2 (08:28→20:43)
[2021-08-25] MEDS: PANTOPRAZOLE SODIUM IV 40 MG VIAL IV PUSH ×2 (08:28→20:45)
--- NOTE | 2021-08-25 08:33 | PM.IMPN ---
Progress Note: A&P Assessment and Plan (1) Hypertension: Code(s): I10 - Essential (primary) hypertension Status: Acute (2) Electrolyte abnormality: Code(s): E87.8 - Other disorders of electrolyte and fluid balance, not elsewhere classified Status: Acute (3) Rhabdomyolysis: Code(s): M62.82 - Rhabdomyolysis Status: Acute (4) Anoxic brain injury: Code(s): G93.1 - Anoxic brain damage, not elsewhere classified Status: Acute (5) Coffee ground emesis: Code(s): K92.0 - Hematemesis Status: Acute (6) Acute respiratory failure: Code(s): J96.00 - Acute respiratory failure, unspecified whether with hypoxia or hypercapnia Status: Acute (7) Shock: Code(s): R57.9 - Shock, unspecified Status: Acute (8) Elevated LFTs: Code(s): R79.89 - Other specified abnormal findings of blood chemistry Status: Acute (9) Shock liver: Code(s): K72.00 - Acute and subacute hepatic failure without coma Status: Acute (10) Diabetes mellitus with hyperglycemia, with long-term current use of insulin: Qualifiers: Diabetes mellitus type: type 2 Qualified Code(s): E11.65 - Type 2 diabetes mellitus with hyperglycemia; Z79.4 - intermodal customer service (current) use of insulin Code(s): E11.65 - Type 2 diabetes mellitus with hyperglycemia; Z79.4 - intermediate (current) use of insulin Status: Acute (11) Cardiac arrest: Code(s): I46.9 - Cardiac arrest, cause unspecified Status: Acute (12) ST elevation (STEMI) myocardial infarction: Qualifiers: Involved coronary artery: unspecified coronary artery Qualified Code(s): I21.3 - ST elevation (STEMI) myocardial infarction of unspecified site Code(s): I21.3 - ST elevation (STEMI) myocardial infarction of unspecified site Status: Acute Additional Plan nterval history: HPI:Sidney Raphael is a 46 year old male with a past medical history of alcoholic pancreatitis, cirrhosis, tobacco abuse and insulin-dependent diabetes mellitus with complications who presented to the ER after cardiac arrest at home. Patient's girlfriend reports the patient was putting some food in the oven when he suddenly sat down on the floor and then collapsed backwards. The patient had brief episode of shaking and within 30 seconds was having agonal respirations. She called EMS who arrived at the residence within 1-2 minutes of EMS call. She was unable to do chest compressions is she herself has any EF of 20% has a LifeVest in place. On EMS arrival CPR was initiated the patient was found to be in ventricular fibrillation. The patient received defibrillator shock and was subsequently in PA. he received 2 mg of Narcan, 1 amp of bicarb and 3 rounds of epinephrine in the field. EMS placed ET tube. After ET tube was placed patient was still having some agonal respirations per triage note. The patient had 18 minutes the resuscitation efforts in the field. The patient had continued resuscitation efforts in the ER of 40 minutes for total down time of 1 hour and 8 minutes prior to return of circulation. EKG at that time demonstrated ST elevation in inferior leads and a STEMI was called. Patient was placed on Brilinta aspirin 3 in G-tube and was taken to the animal laboratory technician where was found he had 99% subtotal occlusion of the RCA and 80% stenosis of circumflex. Patient had a stent placed in the RCA. EF during cardiac catheterization was 40%. The patient's girlfriend reports that the patient does not check his blood sugars and takes his insulin twice a day. He had a hemoglobin A1c checked at [facility] last week but she does not know the results. She does state that the patient has been having intermittent chest pain and shortness of breath but she cannot delineate a time frame for how often he reports he symptoms. He often blinks his symptoms on his diabetes and or his history of pancreatitis and cirrhosis. He did have so
[2021-08-25] MEDS: MAGNESIUM SULF 2 GM/WATER 50ML 2 GM/50 ML BAG IVPB (08:41)
[2021-08-25] MEDS: levETIRAcetam 500MG/NACL 100ML 500 MG/100 ML BAG 400 MG IVPB ×2 (08:44→20:37)
[2021-08-25] MEDS: ENOXAPARIN 80 MG/0.8 ML SYRINGE 70 MG SUB-Q ×2 (08:49→20:34)
[2021-08-25] MEDS: MINERAL OIL/WHITE PETROLATUM OINTMENT 1 APPLIC EACH EYE ×2 (08:50→20:45)
[2021-08-25] MEDS: TOLNAFTATE 1% POWDER 45 GM BTL 1 APPLIC TOPICAL ×2 (08:50→21:11)
[2021-08-25] MEDS: INSULIN GLARGINE (*BKC) 100 UNITS/ML 32 UNITS SUB-Q ×2 (09:01→21:09)
[2021-08-25 11:18] LABS: Glucose Point of Care 131 mg/dl (65-105)
[2021-08-25 12:19] LABS: Glucose Point of Care 362 mg/dl (65-105)
[2021-08-25 17:58] LABS: Glucose Point of Care 314 mg/dl (65-105)
[2021-08-25 21:00] LABS: Glucose Point of Care 314 mg/dl (65-105)
[2021-08-26] VITALS (34 sets, daily range): BP systolic 100–160; BP diastolic 76–110; PULSE 86–112; RESP 12–30; TEMP 37.1–38.4; O2SAT 95–100
[2021-08-26] MEDS: LEVALBUTEROL NEB 1.25 MG/3 ML 0.63 MG INHALATION ×4 (02:19→20:30)
[2021-08-26] MEDS: IPRATROPIUM BR 0.02% INH SOLN 0.5 MG/2.5 ML VIAL INHALATION ×4 (02:19→20:30)
[2021-08-26 04:43] LABS: Basophils Absolute Auto 0.1 K/mm3 (0.0-0.1); Basophils Percent Auto 0.5 % (0.2-1.2); Eosinophils Absolute Auto 0.4 K/mm3 (0-0.3); Eosinophils Percent Auto 2.3 % (0-4.4); Hematocrit 35.7 % (42.0-52.0); Hemoglobin 11.2 g/dL (14.0-18.0); Immature Granulocyte Absolute 0.07 K/mm3 (0.00-0.031); Immature Granulocyte Percent A 0.4 % (0-0.5); Lymphocytes Absolute Auto 3.43 K/mm3 (0.9-3.2); Lymphocytes Percent Auto 20.1 % (18.3-44.2); Mean Corpuscular HGB Conc 31.4 g/dl (32-36); Mean Corpuscular Hemoglobin 28.6 pg (26-34); Mean Corpuscular Volume 91.1 fl (80-100); Mean Platelet Volume 9.8 fl (7.4-10.4); Monocytes Absolute Auto 1.1 K/mm3 (0.1-0.6); Monocytes Percent Auto 6.5 % (2.6-8.5); Neutrophils Percent Auto 70.2 % (45.5-73.1); Platelet Count Result 565 k/mm3 (150-375); Red Blood Count 3.92 M/mm3 (4.6-6.20); Red Cell Distribution Width 12.8 % (11.5-14.5); White Blood Count 17.1 K/mm3 (4.5-10.0)
[2021-08-26 04:49] LABS: Base Excess ABG 3.1 mEq/l (+/-2.0); Carboxyhemoglobin 0.3 % THb (0-2.0); Fractional Inspired Oxygen 30 %; HCO3 ABG 28.5 mEq/l (22.0-26.0); Methemoglobin ABG 0.3 %THb (0-1.5); Oxygen Content ABG 20.6 %vol (16.0-22.0); Oxygen Saturation ABG 97.4 % (95.0-100.0); Oxyhemoglobin 96.6 % THb (90.0-100.0); PCO2 ABG 46.1 mmHg (35.0-45.0); PO2 ABG 97.7 mmHg (80.0-100.0); PO2 FiO2 Ratio Arterial Blood 3.26 %; Reduced Hemoglobin 2.8 %THb (0-5.0); Total Hemoglobin 15.1 g/dL (12.0-18.0); pH ABG 7.409 (7.350-7.450)
[2021-08-26 04:50] LABS: Arterial Blood Gas PEEP 5 cmH2O; Arterial Blood Gas Tidal Volume 420 ml; Arterial Blood Gas Vent Mode CMV; Arterial Blood Gas Ventilator rate 20 /MIN; Device VENTILATOR; Site Drawn LEFT BRACHIAL
[2021-08-26 05:04] LABS: Alanine Aminotransferase 29 U/L (4-50); Albumin Level 3.5 g/dL (3.5-5.1); Alkaline Phosphatase 107 U/L (38-126); Anion Gap 5 mmol/L (8-16); Aspartate Amino Transferase 38 U/L (17-59); Bilirubin,Total 0.5 mg/dL (0.2-1.3); Blood Urea Nitrogen 32 mg/dL (9-20); Calcium 8.8 mg/dL (8.4-10.2); Carbon Dioxide 30 mmol/L (22-30); Chloride 109 mmol/L (98-107); Estimated CRCL calculation 96 ml/min; Estimated Glomerular Filt Rate > 60; Glucose 370 mg/dL (65-110); Phosphorus 3.2 mg/dL (2.5-4.5); Potassium 4.1 mmol/L (3.4-5.0); Sodium 144 mmol/L (137-145)
[2021-08-26] MEDS: INSULIN ASPART (*BKC) 100 UNITS/ML SUB-Q ×3 (06:30→18:17)
[2021-08-26] MEDS: ASPIRIN 81 MG CHEWABLE TABLET PO (08:18)
[2021-08-26] MEDS: TICAGRELOR 90 MG TABLET PO ×2 (08:18→20:53)
[2021-08-26] MEDS: METOPROLOL TARTRATE 50 MG TAB PO ×2 (08:18→20:52)
[2021-08-26] MEDS: LOSARTAN POTASSIUM 12.5 MG TABLET PO (08:19)
[2021-08-26] MEDS: ROSUVASTATIN 10 MG TABLET 20 MG PO (08:19)
[2021-08-26] MEDS: TOLNAFTATE 1% POWDER 45 GM BTL 1 APPLIC TOPICAL ×2 (08:19→20:53)
--- NOTE | 2021-08-26 08:26 | WPDINTPN ---
Progress Note: A&P Assessment and Plan (1) Acute respiratory failure: Code(s): J96.00 - Acute respiratory failure, unspecified whether with hypoxia or hypercapnia Status: Acute Assessment and Plan: Acute respiratory failure likely related to VFib arrest, patient was intubated on 08/12/2021 ABGs and chest x-ray reviewed -currently on CMV mode of ventilation, 30% FiO2 and peep of 5. - Off all sedation. -secretions from ET tube have improved - Zosyn and vancomycin discontinued on 08/24/2021 -placed patient on ASV on 08/25, tolerated almost all day and then had periods of apnea so was placed back on CMV mode -08/26: placed patient on pressure support 02/20, tolerating -PEG tube placed on 08/23/2021. -tracheostomy tube placed 08/24/2021, IV Tylenol for pain, avoid sedatives or benzodiazepines -await LTAC placement (2) Anoxic brain injury: Code(s): G93.1 - Anoxic brain damage, not elsewhere classified Status: Acute Assessment and Plan: Patient has sustained a significant Anoxic brain injury due to prolonged down time Patient has completed TTM protocol Sedation has been discontinued since 08/14 evening Neuro exam as above. There has been some improvement as expected after holding long-acting sedation but no purposeful activity at this point. Neuro status has been unchanged over last [address] head done 08/15 showed - Development of diffuse cerebellar swelling, anoxic injury. No obstructive hydrocephalus but patient at risk. CT 08/19 - Low attenuation involving the bilateral temporal lobes, cerebellum, and braulio, stable from 08/15/21 and worsened from 08/12/21, consistent with infarcts from anoxic brain injury. 08/15 EEG - This EEG was abnormal due the presence of severely diffuse background slowing. This EEG was indicative of the presence of severe, bihemispheric cerebral dysfunction of the type seen most commonly in the setting of severe toxic metabolic encephalopathies or anoxic injury.The was no evidence of epileptiform activity or focal cerebral dysfunction. 08/20 repeat EEG - Abnormal record due to the presence of bihemispheric delta activity throughout the tracing with no evidence of paroxysmal activity. This abnormality is consistent with diffuse organic or metabolic encephalopathy clinical correlation recommended. Is not compatible with electrocerebral silence or status epilepticus Remains OFF sedation -neurology to follow Continue Keppra that has been started for possible myoclonic jerks (3) Cardiac arrest: Code(s): I46.9 - Cardiac arrest, cause unspecified Status: Acute Assessment and Plan: Prolonged out of the hospital VFib arrest (down time was 1 hour and 8 minutes per records) -VFib likely secondary to inferior MT, status post cardiac catheterization with PTCA/PCI with PAT x1 to proximal RCA (4) ST elevation (STEMI) myocardial infarction: Qualifiers: Involved coronary artery: unspecified coronary artery Qualified Code(s): I21.3 - ST elevation (STEMI) myocardial infarction of unspecified site Code(s): I21.3 - ST elevation (STEMI) myocardial infarction of unspecified site Status: Acute Assessment and Plan: As above -cardiology following the patient -continue aspirin, Brilinta, statin -continue beta-tapan and losartan (5) Elevated LFTs: Code(s): R79.89 - Other specified abnormal findings of blood chemistry Status: Acute Assessment and Plan: Elevated LFTs most likely related to cardiac arrest, shock liver -continue to maintain adequate mean arterial pressures for end-organ perfusion -improving (6) Diabetes mellitus with hyperglycemia, with long-term current use of insulin: Qualifiers: Diabetes mellitus type: type 2 Qualified Code(s): E11.65 - Type 2 diabetes mellitus with hyperglycemia; Z79.4 - intermediate card tender (current) use of insulin Code(s): E11.65 - Type 2 diabetes mellitus with hyperglycemia; Z79.4 - Long
[2021-08-26] MEDS: MINERAL OIL/WHITE PETROLATUM OINTMENT 1 APPLIC EACH EYE ×2 (08:29→20:51)
[2021-08-26] MEDS: PANTOPRAZOLE SODIUM IV 40 MG VIAL IV PUSH ×2 (08:29→20:52)
[2021-08-26] MEDS: levETIRAcetam 500MG/NACL 100ML 500 MG/100 ML BAG 400 MG IVPB ×2 (08:29→20:56)
[2021-08-26] MEDS: INSULIN GLARGINE (*BKC) 100 UNITS/ML 40 UNITS SUB-Q ×2 (08:42→20:51)
--- NOTE | 2021-08-26 11:48 | PM.IMPN ---
Progress Note: A&P Assessment and Plan (1) Hypertension: Code(s): I10 - Essential (primary) hypertension Status: Acute (2) Electrolyte abnormality: Code(s): E87.8 - Other disorders of electrolyte and fluid balance, not elsewhere classified Status: Acute (3) Rhabdomyolysis: Code(s): M62.82 - Rhabdomyolysis Status: Acute (4) Anoxic brain injury: Code(s): G93.1 - Anoxic brain damage, not elsewhere classified Status: Acute (5) Coffee ground emesis: Code(s): K92.0 - Hematemesis Status: Acute (6) Acute respiratory failure: Code(s): J96.00 - Acute respiratory failure, unspecified whether with hypoxia or hypercapnia Status: Acute (7) Shock: Code(s): R57.9 - Shock, unspecified Status: Acute (8) Elevated LFTs: Code(s): R79.89 - Other specified abnormal findings of blood chemistry Status: Acute (9) Shock liver: Code(s): K72.00 - Acute and subacute hepatic failure without coma Status: Acute (10) Diabetes mellitus with hyperglycemia, with long-term current use of insulin: Qualifiers: Diabetes mellitus type: type 2 Qualified Code(s): E11.65 - Type 2 diabetes mellitus with hyperglycemia; Z79.4 - watermelon inspector (current) use of insulin Code(s): E11.65 - Type 2 diabetes mellitus with hyperglycemia; Z79.4 - shelter (current) use of insulin Status: Acute (11) Cardiac arrest: Code(s): I46.9 - Cardiac arrest, cause unspecified Status: Acute (12) ST elevation (STEMI) myocardial infarction: Qualifiers: Involved coronary artery: unspecified coronary artery Qualified Code(s): I21.3 - ST elevation (STEMI) myocardial infarction of unspecified site Code(s): I21.3 - ST elevation (STEMI) myocardial infarction of unspecified site Status: Acute Additional Plan nterval history: HPI:Sidney Raphael is a 46 year old male with a past medical history of alcoholic pancreatitis, cirrhosis, tobacco abuse and insulin-dependent diabetes mellitus with complications who presented to the ER after cardiac arrest at home. Patient's girlfriend reports the patient was putting some food in the oven when he suddenly sat down on the floor and then collapsed backwards. The patient had brief episode of shaking and within 30 seconds was having agonal respirations. She called EMS who arrived at the residence within 1-2 minutes of EMS call. She was unable to do chest compressions is she herself has any EF of 20% has a LifeVest in place. On EMS arrival CPR was initiated the patient was found to be in ventricular fibrillation. The patient received defibrillator shock and was subsequently in PA. he received 2 mg of Narcan, 1 amp of bicarb and 3 rounds of epinephrine in the field. EMS placed ET tube. After ET tube was placed patient was still having some agonal respirations per triage note. The patient had 18 minutes the resuscitation efforts in the field. The patient had continued resuscitation efforts in the ER of 40 minutes for total down time of 1 hour and 8 minutes prior to return of circulation. EKG at that time demonstrated ST elevation in inferior leads and a STEMI was called. Patient was placed on Brilinta aspirin 3 in G-tube and was taken to the sleep lab technician where was found he had 99% subtotal occlusion of the RCA and 80% stenosis of circumflex. Patient had a stent placed in the RCA. EF during cardiac catheterization was 40%. The patient's girlfriend reports that the patient does not check his blood sugars and takes his insulin twice a day. He had a hemoglobin A1c checked at [facility] last week but she does not know the results. She does state that the patient has been having intermittent chest pain and shortness of breath but she cannot delineate a time frame for how often he reports he symptoms. He often blinks his symptoms on his diabetes and or his history of pancreatitis and cirrhosis. He did have so
[2021-08-26 12:13] LABS: Glucose Point of Care 246 mg/dl (65-105)
[2021-08-26] MEDS: ACETAMINOPHEN ELIXIR 325 MG/10.15 ML UDC 650 MG PO ×2 (16:10→21:25)
--- NOTE | 2021-08-26 17:10 | PC.NURSE ---
Patient in ASV ventilator setting with repeated low frequency alarms. Called Dr Melvin to notify, and obtained order to return patient to CMV tv 420, r 20, p5, fio2 30%. Notified respiratory therapy to make ventilator changes.
[2021-08-26 18:16] LABS: Glucose Point of Care 349 mg/dl (65-105)
[2021-08-26 20:48] LABS: Glucose Point of Care 274 mg/dl (65-105)
[2021-08-27] VITALS (38 sets, daily range): BP systolic 79–142; BP diastolic 52–94; PULSE 84–114; RESP 11–34; TEMP 37.7–38.7; O2SAT 94–100
[2021-08-27] MEDS: INSULIN ASPART (*BKC) 100 UNITS/ML SUB-Q ×3 (00:06→17:21)
[2021-08-27 00:08] LABS: Glucose Point of Care 331 mg/dl (65-105)
[2021-08-27] MEDS: IPRATROPIUM BR 0.02% INH SOLN 0.5 MG/2.5 ML VIAL INHALATION ×4 (02:31→20:02)
[2021-08-27] MEDS: LEVALBUTEROL NEB 1.25 MG/3 ML 0.63 MG INHALATION ×4 (02:31→20:02)
[2021-08-27] MEDS: ACETAMINOPHEN ELIXIR 325 MG/10.15 ML UDC 650 MG PO ×3 (04:17→17:21)
[2021-08-27 04:48] LABS: Basophils Absolute Auto 0.1 K/mm3 (0.0-0.1); Basophils Percent Auto 0.4 % (0.2-1.2); Eosinophils Absolute Auto 0.4 K/mm3 (0-0.3); Eosinophils Percent Auto 1.8 % (0-4.4); Hematocrit 39.3 % (42.0-52.0); Hemoglobin 12.5 g/dL (14.0-18.0); Immature Granulocyte Absolute 0.09 K/mm3 (0.00-0.031); Immature Granulocyte Percent A 0.4 % (0-0.5); Lymphocytes Absolute Auto 3.08 K/mm3 (0.9-3.2); Mean Corpuscular HGB Conc 31.8 g/dl (32-36); Mean Corpuscular Hemoglobin 28.6 pg (26-34); Mean Corpuscular Volume 89.9 fl (80-100); Mean Platelet Volume 9.7 fl (7.4-10.4); Monocytes Absolute Auto 1.4 K/mm3 (0.1-0.6); Neutrophils Absolute Auto 15.4 K/mm3 (1.3-6.7); Neutrophils Percent Auto 75.4 % (45.5-73.1); Platelet Count Result 615 k/mm3 (150-375); Red Blood Count 4.37 M/mm3 (4.6-6.20); Red Cell Distribution Width 12.4 % (11.5-14.5); White Blood Count 20.5 K/mm3 (4.5-10.0)
[2021-08-27 04:58] LABS: Alveolar/Arterial O2 Gradient 73.2 mmHg; Carboxyhemoglobin 0.3 % THb (0-2.0); Fractional Inspired Oxygen 30 %; HCO3 ABG 27.4 mEq/l (22.0-26.0); Methemoglobin ABG 0.3 %THb (0-1.5); Oxygen Content ABG 18.5 %vol (16.0-22.0); Oxygen Saturation ABG 97.3 % (95.0-100.0); Oxyhemoglobin 96.1 % THb (90.0-100.0); PCO2 ABG 41.1 mmHg (35.0-45.0); PO2 ABG 92.4 mmHg (80.0-100.0); PO2 FiO2 Ratio Arterial Blood 3.08 %; Reduced Hemoglobin 3.3 %THb (0-5.0); Total Hemoglobin 13.6 g/dL (12.0-18.0); pH ABG 7.442 (7.350-7.450)
[2021-08-27 04:59] LABS: Device VENTILATOR; Modified Allen's Test Pass; Site Drawn RIGHT RADIAL
[2021-08-27 05:00] LABS: Arterial Blood Gas PEEP 5 cmH2O; Arterial Blood Gas Tidal Volume 420 ml; Arterial Blood Gas Vent Mode CMV; Arterial Blood Gas Ventilator rate 20 /MIN
[2021-08-27 05:01] LABS: Alanine Aminotransferase 28 U/L (4-50); Alkaline Phosphatase 104 U/L (38-126); Anion Gap 8 mmol/L (8-16); Aspartate Amino Transferase 37 U/L (17-59); Bilirubin,Total 0.3 mg/dL (0.2-1.3); Blood Urea Nitrogen 40 mg/dL (9-20); Calcium 9.6 mg/dL (8.4-10.2); Carbon Dioxide 28 mmol/L (22-30); Chloride 112 mmol/L (98-107); Estimated CRCL calculation 79 ml/min; Estimated Glomerular Filt Rate > 60; Glucose 135 mg/dL (65-110); Magnesium 2.1 mg/dL (1.6-2.3); Phosphorus 4.2 mg/dL (2.5-4.5); Potassium 4.1 mmol/L (3.4-5.0); Sodium 148 mmol/L (137-145)
[2021-08-27] MEDS: MINERAL OIL/WHITE PETROLATUM OINTMENT 1 APPLIC EACH EYE ×2 (08:05→20:33)
[2021-08-27] MEDS: levETIRAcetam 500MG/NACL 100ML 500 MG/100 ML BAG 400 MG IVPB ×2 (08:06→20:33)
[2021-08-27] MEDS: LOSARTAN POTASSIUM 12.5 MG TABLET PO (08:06)
[2021-08-27] MEDS: INSULIN GLARGINE (*BKC) 100 UNITS/ML 50 UNITS SUB-Q ×2 (08:07→20:33)
[2021-08-27] MEDS: TICAGRELOR 90 MG TABLET PO ×2 (08:07→20:43)
[2021-08-27] MEDS: ROSUVASTATIN 10 MG TABLET 20 MG PO (08:07)
[2021-08-27] MEDS: ASPIRIN 81 MG CHEWABLE TABLET PO (08:07)
[2021-08-27] MEDS: PANTOPRAZOLE SODIUM IV 40 MG VIAL IV PUSH ×2 (08:07→20:43)
[2021-08-27] MEDS: METOPROLOL TARTRATE 50 MG TAB PO (08:08)
[2021-08-27 08:11] LABS: Glucose Point of Care 263 mg/dl (65-105)
[2021-08-27 09:09] LABS: Appearance Urine Clear (Clear); Bilirubin Urine Negative (Negative); Blood Urine 1+ (Negative); Color Urine Yellow (Yellow); Glucose Urine UA 2+ mg/dL (Negative); Ketones Urine Negative (Negative); Leukocyte Esterase Ur Negative LEU/UL (NEGATIVE); Nitrate Urine Negative (Negative); Protein Urine 2+ mg/dL (Negative); Specific Grav Ur 1.025 (1.001-1.035); Urobilinogen Urine 0.2 mg/dL (<2.0)
[2021-08-27] MEDS: ENOXAPARIN 80 MG/0.8 ML SYRINGE 70 MG SUB-Q ×2 (09:14→20:42)
[2021-08-27] MEDS: TOLNAFTATE 1% POWDER 45 GM BTL 1 APPLIC TOPICAL ×2 (09:14→20:34)
[2021-08-27 09:26] LABS: Calcium Oxalate Crystals Urine Present /hpf; Mucus Urine Rare /lpf
[2021-08-27 09:32] LABS: Add Urine Microscopic? YES
[2021-08-27] MEDS: dexmedeTOMIDine 400 MCG/100 ML 400 MCG/100 ML BAG IV CONT (09:40)
[2021-08-27 09:58] LABS: Toxigenic C. Diff NEGATIVE (NEGATIVE)
--- NOTE | 2021-08-27 11:21 | PCFNICU ---
ICU Rounding Note: Pt current nutrition is Vital AF 1.2 at 70 ml/hr over 22 hours. Last recorded weight is 59.9 kg, down from 63 kg on admit. Bowel Motility:FMS Labs Reviewed:Glu 135, Na 148, BUN 40, Hct 39.3, Hgb 12.5 Meds Noted:Keppra, Precedex, Lantus, Atrovent, NovoLog, Crestor, Protonix, Apresoline, Lopressor, Zosyn, Xopenex, Cozaar Skin: No skin issues Additional Notes: Patient is current with PEG and Trach. Tolerating tube feedings of Vital AF 1.2 at 70 ml/hr over 22 hours. Free water flush 30 ml q 4 hours. Agree with diet orders. Following daily in ICU rounds. Will monitor every Friday and Friday.
[2021-08-27 12:21] LABS: Glucose Point of Care 265 mg/dl (65-105)
--- NOTE | 2021-08-27 12:49 | WPDINTPN ---
Progress Note: A&P Assessment and Plan (1) Acute respiratory failure: Code(s): J96.00 - Acute respiratory failure, unspecified whether with hypoxia or hypercapnia Status: Acute Assessment and Plan: Acute respiratory failure likely related to VFib arrest, patient was intubated on 08/12/2021 ABGs and chest x-ray reviewed -currently on CMV mode of ventilation, 30% FiO2 and peep of 5. - Off all sedation. -secretions from ET tube have improved - Zosyn and vancomycin discontinued on 08/24/2021 -placed patient on ASV on 08/25, tolerated almost all day and then had periods of apnea so was placed back on CMV mode -08/26: patient tolerated PSV 10/5 almost all day yesterday, patient became tachycardic, tachypneic and restless and was desaturating was placed on CMV mode of ventilation. -take tracheostomy tube secretions, started on Pulmozyme and bronchodilators -PEG tube placed on 08/23/2021. -tracheostomy tube placed 08/24/2021, IV Tylenol for pain, avoid sedatives or benzodiazepines -await LTAC placement (2) Anoxic brain injury: Code(s): G93.1 - Anoxic brain damage, not elsewhere classified Status: Acute Assessment and Plan: Patient has sustained a significant Anoxic brain injury due to prolonged down time Patient has completed TTM protocol Sedation has been discontinued since 08/14 evening Neuro exam as above. There has been some improvement as expected after holding long-acting sedation but no purposeful activity at this point. Neuro status has been unchanged over last [address] head done 08/15 showed - Development of diffuse cerebellar swelling, anoxic injury. No obstructive hydrocephalus but patient at risk. CT 08/19 - Low attenuation involving the bilateral temporal lobes, cerebellum, and braulio, stable from 08/15/21 and worsened from 08/12/21, consistent with infarcts from anoxic brain injury. 08/15 EEG - This EEG was abnormal due the presence of severely diffuse background slowing. This EEG was indicative of the presence of severe, bihemispheric cerebral dysfunction of the type seen most commonly in the setting of severe toxic metabolic encephalopathies or anoxic injury.The was no evidence of epileptiform activity or focal cerebral dysfunction. 08/20 repeat EEG - Abnormal record due to the presence of bihemispheric delta activity throughout the tracing with no evidence of paroxysmal activity. This abnormality is consistent with diffuse organic or metabolic encephalopathy clinical correlation recommended. Is not compatible with electrocerebral silence or status epilepticus Remains OFF sedation -neurology to follow Continue Keppra that has been started for possible myoclonic jerks (3) Cardiac arrest: Code(s): I46.9 - Cardiac arrest, cause unspecified Status: Acute Assessment and Plan: Prolonged out of the hospital VFib arrest (down time was 1 hour and 8 minutes per records) -VFib likely secondary to inferior MA, status post cardiac catheterization with PTCA/PCI with PAT x1 to proximal RCA (4) ST elevation (STEMI) myocardial infarction: Qualifiers: Involved coronary artery: unspecified coronary artery Qualified Code(s): I21.3 - ST elevation (STEMI) myocardial infarction of unspecified site Code(s): I21.3 - ST elevation (STEMI) myocardial infarction of unspecified site Status: Acute Assessment and Plan: As above -cardiology following the patient -continue aspirin, Brilinta, statin -continue beta-tapan and losartan (5) Elevated LFTs: Code(s): R79.89 - Other specified abnormal findings of blood chemistry Status: Acute Assessment and Plan: Elevated LFTs most likely related to cardiac arrest, shock liver -continue to maintain adequate mean arterial pressures for end-organ perfusion -improving (6) Diabetes mellitus with hyperglycemia, with long-term current use of insulin: Qualifiers: Diabetes mellitus type: type 2 Qualified
[2021-08-27] MEDS: DORNASE ALFA INH SOLN 1 MG/ML 2.5 ML AMP 2.5 MG INHALATION ×2 (14:41→14:42)
--- NOTE | 2021-08-27 15:37 | PM.IMPN ---
Progress Note: A&P Assessment and Plan (1) Hypertension: Code(s): I10 - Essential (primary) hypertension Status: Acute (2) Electrolyte abnormality: Code(s): E87.8 - Other disorders of electrolyte and fluid balance, not elsewhere classified Status: Acute (3) Rhabdomyolysis: Code(s): M62.82 - Rhabdomyolysis Status: Acute (4) Anoxic brain injury: Code(s): G93.1 - Anoxic brain damage, not elsewhere classified Status: Acute (5) Coffee ground emesis: Code(s): K92.0 - Hematemesis Status: Acute (6) Acute respiratory failure: Code(s): J96.00 - Acute respiratory failure, unspecified whether with hypoxia or hypercapnia Status: Acute (7) Shock: Code(s): R57.9 - Shock, unspecified Status: Acute (8) Elevated LFTs: Code(s): R79.89 - Other specified abnormal findings of blood chemistry Status: Acute (9) Shock liver: Code(s): K72.00 - Acute and subacute hepatic failure without coma Status: Acute (10) Diabetes mellitus with hyperglycemia, with long-term current use of insulin: Qualifiers: Diabetes mellitus type: type 2 Qualified Code(s): E11.65 - Type 2 diabetes mellitus with hyperglycemia; Z79.4 - intermission coordinator (current) use of insulin Code(s): E11.65 - Type 2 diabetes mellitus with hyperglycemia; Z79.4 - nursing home (current) use of insulin Status: Acute (11) Cardiac arrest: Code(s): I46.9 - Cardiac arrest, cause unspecified Status: Acute (12) ST elevation (STEMI) myocardial infarction: Qualifiers: Involved coronary artery: unspecified coronary artery Qualified Code(s): I21.3 - ST elevation (STEMI) myocardial infarction of unspecified site Code(s): I21.3 - ST elevation (STEMI) myocardial infarction of unspecified site Status: Acute Additional Plan nterval history: HPI:Sidney Raphael is a 46 year old male with a past medical history of alcoholic pancreatitis, cirrhosis, tobacco abuse and insulin-dependent diabetes mellitus with complications who presented to the ER after cardiac arrest at home. Patient's girlfriend reports the patient was putting some food in the oven when he suddenly sat down on the floor and then collapsed backwards. The patient had brief episode of shaking and within 30 seconds was having agonal respirations. She called EMS who arrived at the residence within 1-2 minutes of EMS call. She was unable to do chest compressions is she herself has any EF of 20% has a LifeVest in place. On EMS arrival CPR was initiated the patient was found to be in ventricular fibrillation. The patient received defibrillator shock and was subsequently in PA. he received 2 mg of Narcan, 1 amp of bicarb and 3 rounds of epinephrine in the field. EMS placed ET tube. After ET tube was placed patient was still having some agonal respirations per triage note. The patient had 18 minutes the resuscitation efforts in the field. The patient had continued resuscitation efforts in the ER of 40 minutes for total down time of 1 hour and 8 minutes prior to return of circulation. EKG at that time demonstrated ST elevation in inferior leads and a STEMI was called. Patient was placed on Brilinta aspirin 3 in G-tube and was taken to the cardiac cath lab manager where was found he had 99% subtotal occlusion of the RCA and 80% stenosis of circumflex. Patient had a stent placed in the RCA. EF during cardiac catheterization was 40%. The patient's girlfriend reports that the patient does not check his blood sugars and takes his insulin twice a day. He had a hemoglobin A1c checked at [facility] last week but she does not know the results. She does state that the patient has been having intermittent chest pain and shortness of breath but she cannot delineate a time frame for how often he reports he symptoms. He often blinks his symptoms on his diabetes and or his history of pancreatitis and cirrhosis. He did have so
[2021-08-27 17:44] LABS: Glucose Point of Care 347 mg/dl (65-105)
[2021-08-27 20:20] LABS: Glucose Point of Care 260 mg/dl (65-105)
[2021-08-27] MEDS: SODIUM CHLORIDE 0.9% IV 1,000 ML 999 ML IV CONT (21:54)
[2021-08-28] VITALS (28 sets, daily range): BP systolic 88–148; BP diastolic 60–93; PULSE 76–117; RESP 20–33; TEMP 37.3–37.9; O2SAT 96–100
[2021-08-28] MEDS: INSULIN ASPART (*BKC) 100 UNITS/ML SUB-Q ×4 (00:13→17:19)
[2021-08-28 00:37] LABS: Glucose Point of Care 281 mg/dl (65-105)
[2021-08-28] MEDS: IPRATROPIUM BR 0.02% INH SOLN 0.5 MG/2.5 ML VIAL INHALATION ×4 (01:45→19:39)
[2021-08-28] MEDS: LEVALBUTEROL NEB 1.25 MG/3 ML 0.63 MG INHALATION ×4 (01:45→19:39)
[2021-08-28 04:41] LABS: Basophils Absolute Auto 0.1 K/mm3 (0.0-0.1); Basophils Percent Auto 0.7 % (0.2-1.2); Eosinophils Absolute Auto 0.5 K/mm3 (0-0.3); Eosinophils Percent Auto 2.5 % (0-4.4); Hematocrit 35.7 % (42.0-52.0); Immature Granulocyte Absolute 0.06 K/mm3 (0.00-0.031); Immature Granulocyte Percent A 0.3 % (0-0.5); Lymphocytes Absolute Auto 4.41 K/mm3 (0.9-3.2); Lymphocytes Percent Auto 23.6 % (18.3-44.2); Mean Corpuscular HGB Conc 30.8 g/dl (32-36); Mean Corpuscular Volume 94.2 fl (80-100); Monocytes Absolute Auto 1.2 K/mm3 (0.1-0.6); Monocytes Percent Auto 6.4 % (2.6-8.5); Neutrophils Absolute Auto 12.4 K/mm3 (1.3-6.7); Neutrophils Percent Auto 66.5 % (45.5-73.1); Platelet Count Result 546 k/mm3 (150-375); Red Blood Count 3.79 M/mm3 (4.6-6.20); Red Cell Distribution Width 12.8 % (11.5-14.5); White Blood Count 18.7 K/mm3 (4.5-10.0)
[2021-08-28 05:10] LABS: Alanine Aminotransferase 34 U/L (4-50); Albumin Level 3.4 g/dL (3.5-5.1); Alkaline Phosphatase 95 U/L (38-126); Anion Gap 8 mmol/L (8-16); Aspartate Amino Transferase 45 U/L (17-59); Bilirubin,Total 0.2 mg/dL (0.2-1.3); Blood Urea Nitrogen 52 mg/dL (9-20); Calcium 8.9 mg/dL (8.4-10.2); Carbon Dioxide 24 mmol/L (22-30); Chloride 114 mmol/L (98-107); Estimated CRCL calculation 84 ml/min; Estimated Glomerular Filt Rate > 60; Glucose 264 mg/dL (65-110); Magnesium 2.1 mg/dL (1.6-2.3); Phosphorus 4.1 mg/dL (2.5-4.5); Sodium 146 mmol/L (137-145)
[2021-08-28 05:17] LABS: Alveolar/Arterial O2 Gradient 56.3 mmHg; Base Excess ABG -1.1 mEq/l (+/-2.0); Carboxyhemoglobin 0.2 % THb (0-2.0); Device VENTILATOR; Fractional Inspired Oxygen 30 %; HCO3 ABG 23.7 mEq/l (22.0-26.0); Methemoglobin ABG 0.3 %THb (0-1.5); Modified Allen's Test Unable to perform; Oxyhemoglobin 96.7 % THb (90.0-100.0); PCO2 ABG 39.9 mmHg (35.0-45.0); PO2 ABG 110.7 mmHg (80.0-100.0); PO2 FiO2 Ratio Arterial Blood 3.69 %; Reduced Hemoglobin 2.8 %THb (0-5.0); Site Drawn RIGHT RADIAL; Total Hemoglobin 12.4 g/dL (12.0-18.0); pH ABG 7.391 (7.350-7.450)
[2021-08-28 05:18] LABS: Arterial Blood Gas PEEP 5 cmH2O; Arterial Blood Gas Tidal Volume 420 ml; Arterial Blood Gas Vent Mode CMV; Arterial Blood Gas Ventilator rate 20 /MIN
[2021-08-28 05:55] LABS: Atypical Lymphocytes Present; Platelet Estimate Increased (Adequate)
[2021-08-28 07:52] LABS: Lipase 13 U/L (23-300)
[2021-08-28] MEDS: DORNASE ALFA INH SOLN 1 MG/ML 2.5 ML AMP 2.5 MG INHALATION ×2 (07:53→19:45)
--- NOTE | 2021-08-28 08:16 | WPDINTPN ---
Progress Note: A&P Assessment and Plan (1) Acute respiratory failure: Code(s): J96.00 - Acute respiratory failure, unspecified whether with hypoxia or hypercapnia Status: Acute Assessment and Plan: Acute respiratory failure likely related to VFib arrest, patient was intubated on 08/12/2021 ABGs and chest x-ray reviewed -currently on ASV mode of ventilation, 30% FiO2 and peep of 5. -on low-dose Precedex -secretions from ET tube persist - Zosyn and vancomycin discontinued on 08/24/2021 -placed patient on ASV on 08/25, tolerated almost all day and then had periods of apnea so was placed back on CMV mode -take tracheostomy tube secretions, started on Pulmozyme and bronchodilators -PEG tube placed on 08/23/2021. -tracheostomy tube placed 08/24/2021, IV Tylenol for pain, avoid sedatives or benzodiazepines -await LTAC placement (2) Anoxic brain injury: Code(s): G93.1 - Anoxic brain damage, not elsewhere classified Status: Acute Assessment and Plan: Patient has sustained a significant Anoxic brain injury due to prolonged down time Patient has completed TTM protocol Sedation has been discontinued since 08/14 evening Neuro exam as above. There has been some improvement as expected after holding long-acting sedation but no purposeful activity at this point. Neuro status has been unchanged over last [address] head done 08/15 showed - Development of diffuse cerebellar swelling, anoxic injury. No obstructive hydrocephalus but patient at risk. CT 08/19 - Low attenuation involving the bilateral temporal lobes, cerebellum, and braulio, stable from 08/15/21 and worsened from 08/12/21, consistent with infarcts from anoxic brain injury. 08/15 EEG - This EEG was abnormal due the presence of severely diffuse background slowing. This EEG was indicative of the presence of severe, bihemispheric cerebral dysfunction of the type seen most commonly in the setting of severe toxic metabolic encephalopathies or anoxic injury.The was no evidence of epileptiform activity or focal cerebral dysfunction. 08/20 repeat EEG - Abnormal record due to the presence of bihemispheric delta activity throughout the tracing with no evidence of paroxysmal activity. This abnormality is consistent with diffuse organic or metabolic encephalopathy clinical correlation recommended. Is not compatible with electrocerebral silence or status epilepticus Remains OFF sedation except low-dose Precedex Neurology following Continue Keppra that has been started for possible myoclonic jerks (3) Cardiac arrest: Code(s): I46.9 - Cardiac arrest, cause unspecified Status: Acute Assessment and Plan: Prolonged out of the hospital VFib arrest (down time was 1 hour and 8 minutes per records) -VFib likely secondary to inferior [place], status post cardiac catheterization with PTCA/PCI with PAT x1 to proximal RCA (4) ST elevation (STEMI) myocardial infarction: Qualifiers: Involved coronary artery: unspecified coronary artery Qualified Code(s): I21.3 - ST elevation (STEMI) myocardial infarction of unspecified site Code(s): I21.3 - ST elevation (STEMI) myocardial infarction of unspecified site Status: Acute Assessment and Plan: As above -cardiology following the patient -continue aspirin, Brilinta, statin -continue beta-tapan and losartan (5) Elevated LFTs: Code(s): R79.89 - Other specified abnormal findings of blood chemistry Status: Acute Assessment and Plan: Elevated LFTs most likely related to cardiac arrest, shock liver -continue to maintain adequate mean arterial pressures for end-organ perfusion -improving (6) Diabetes mellitus with hyperglycemia, with long-term current use of insulin: Qualifiers: Diabetes mellitus type: type 2 Qualified Code(s): E11.65 - Type 2 diabetes mellitus with hyperglycemia; Z79.4 - retirement (current) use of insulin Code(s): E11.65 - Type 2 diabetes mellitus w
[2021-08-28] MEDS: ENOXAPARIN 80 MG/0.8 ML SYRINGE 70 MG SUB-Q ×2 (08:40→20:23)
[2021-08-28] MEDS: MINERAL OIL/WHITE PETROLATUM OINTMENT 1 APPLIC EACH EYE ×2 (08:41→20:23)
[2021-08-28] MEDS: ROSUVASTATIN 10 MG TABLET 20 MG PO (08:42)
[2021-08-28] MEDS: ASPIRIN 81 MG CHEWABLE TABLET PO (08:42)
[2021-08-28] MEDS: TICAGRELOR 90 MG TABLET PO ×2 (08:42→20:25)
[2021-08-28] MEDS: METOPROLOL TARTRATE 25 MG TABLET PO (08:42)
[2021-08-28] MEDS: PANTOPRAZOLE SODIUM IV 40 MG VIAL IV PUSH ×2 (08:43→20:24)
[2021-08-28] MEDS: levETIRAcetam 500MG/NACL 100ML 500 MG/100 ML BAG 400 MG IVPB ×2 (08:49→20:19)
[2021-08-28] MEDS: INSULIN GLARGINE (*BKC) 100 UNITS/ML 50 UNITS SUB-Q ×2 (08:50→20:18)
[2021-08-28] MEDS: TOLNAFTATE 1% POWDER 45 GM BTL 1 APPLIC TOPICAL ×2 (08:50→20:24)
[2021-08-28 08:53] LABS: Glucose Point of Care 143 mg/dl (65-105)
[2021-08-28 09:03] LABS: Procalcitonin 0.1 ng/mL
[2021-08-28 12:45] LABS: Glucose Point of Care 206 mg/dl (65-105)
--- NOTE | 2021-08-28 13:16 | PCNFU ---
Nutrition Follow-Up Complete: Inadequate Oral Intake as related to mechanical ventilation as evidenced by NPO. Goal: Meet estimated nutritional needs Patient is progressing towards goal. We will continue current goal. Pt current nutrition is Vital AF 1.2 at 70 ml/hr over 22 hours Last recorded weight is 60.1 kg, down from 72.8 kg on admit. Bowel Motility: FMS-Banatrol Plus started 08/26/21 Labs Reviewed:Glu 264, BUN 52, Na 146 Meds Noted:Keppra, Precedex, Lantus, Atrovent, NovoLog, Crestor, Protonix, Apresoline, Lopressor, Zosyn, Xopenex, Cozaar Skin: No skin issues Additional Notes: Patient current with PEG/Trach. Tube feedings of Vital AF 1.2 at 70 ml/hr over 22 hours, providing 1848 kals/115 gm protein/1249 ml fluid. 150 ml water flush up from 30 ml water flush q 4 hours, Na 146 today. Banatrol Plus added for stool bulking. Agree with diet orders. Will monitor in ICU rounds and reassessing every Friday and Friday
[2021-08-28] MEDS: dexmedeTOMIDine 400 MCG/100 ML 400 MCG/100 ML BAG IV CONT (14:30)
--- NOTE | 2021-08-28 15:00 | PM.IMPN ---
Progress Note: A&P Assessment and Plan (1) Cardiac arrest: Code(s): I46.9 - Cardiac arrest, cause unspecified Status: Acute (2) ST elevation (STEMI) myocardial infarction: Qualifiers: Involved coronary artery: unspecified coronary artery Qualified Code(s): I21.3 - ST elevation (STEMI) myocardial infarction of unspecified site Code(s): I21.3 - ST elevation (STEMI) myocardial infarction of unspecified site Status: Acute (3) Diabetes mellitus with hyperglycemia, with long-term current use of insulin: Qualifiers: Diabetes mellitus type: type 2 Qualified Code(s): E11.65 - Type 2 diabetes mellitus with hyperglycemia; Z79.4 - [facility] (current) use of insulin Code(s): E11.65 - Type 2 diabetes mellitus with hyperglycemia; Z79.4 - [facility] (current) use of insulin Status: Acute (4) Anoxic brain injury: Code(s): G93.1 - Anoxic brain damage, not elsewhere classified Status: Acute (5) DVT (deep venous thrombosis): Code(s): I82.409 - Acute embolism and thrombosis of unspecified deep veins of unspecified lower extremity Status: Acute Additional Plan DVT prophylaxis: SCDs. therapeutic Lovenox Stress ulcer prophylaxis: Protonix Nutrition: Patient tolerating tube feeds, will continue Code status: Full code Critical care time spent: 30 minutes This dictation may have been done utilizing a voice recognition system. Attempts have been made to correct errors. However, there may be uncorrected grammatical, spelling, and recognition errors present. Due to a high probability of clinically significant, life threatening deterioration, the patient required my highest level of preparedness to intervene emergently and I personally spent this critical care time directly and personally managing the patient. This critical care time included obtaining a history; examining the patient; pulse oximetry; ordering and review of studies; arranging urgent treatment with development of a management plan; evaluation of patient's response to treatment; frequent reassessment; and discussions with other providers. It was exclusive of separately billable procedures and treating other patients and teaching time. Please see Assessment and Plan section and the rest of the note for further information on patient assessment and treatment Subjective Date/time seen: 08/28/21 15:00 08/20/2021 Interval history: currently on ventilator, unable to provide any history review of symptom, patient with cardiac arrest secondary to severe coronary artery disease, was emergently taken to cath and showed stenosis of coronary artery and stent was placed, continue aspirin and Brilinta, it seems patient had a anoxic brain injury during the cardiac arrest, on 08/15 patient had EEG:This EEG was abnormal due the presence of severely diffuse background slowing. This EEG was indicative of the presence of severe, bihemispheric cerebral dysfunction of the type seen most commonly in the setting of severe toxicometabolic encephalopathies or anoxic injury.There was no evidence of epileptiform activity or focal cerebral dysfunction. repeat EEG today shows a similar presentation, Pending neurology consult, patient has a myoclonic jerking movement linux programmer started the patient on Keppra, today again discussed with linux programmer suspect most likely patient will get tract and PEG, linux programmer reviewed EEG with the family and family, patient sister is present in the room and discussed, will decide further planning, also discussed with linux programmer and appreciate. 08/28/2021 Interval history: patient had tracheostomy tube placed on 08/24/2021, PEG on 08/23/2021 patient remains on ventilator, discussed with linux programmer family has not decided the long-term plan patient may need to go to LTAC however patient does not have any insurance, social service is working on it will continue to monitor. Review of Systems Review of Systems:
[2021-08-28 17:33] LABS: Glucose Point of Care 286 mg/dl (65-105)
[2021-08-28 20:25] LABS: Glucose Point of Care 205 mg/dl (65-105)
[2021-08-28 23:53] LABS: Glucose Point of Care 165 mg/dl (65-105)
[2021-08-29] VITALS (29 sets, daily range): BP systolic 90–109; BP diastolic 65–79; PULSE 73–95; RESP 11–27; TEMP 36.8–37.5; O2SAT 90–99
[2021-08-29] MEDS: IPRATROPIUM BR 0.02% INH SOLN 0.5 MG/2.5 ML VIAL INHALATION ×4 (01:37→20:28)
[2021-08-29] MEDS: LEVALBUTEROL NEB 1.25 MG/3 ML 0.63 MG INHALATION ×4 (01:37→20:28)
[2021-08-29 04:26] LABS: Basophils Absolute Auto 0.1 K/mm3 (0.0-0.1); Basophils Percent Auto 0.8 % (0.2-1.2); Eosinophils Absolute Auto 0.8 K/mm3 (0-0.3); Eosinophils Percent Auto 4.9 % (0-4.4); Hematocrit 30.2 % (42.0-52.0); Hemoglobin 9.6 g/dL (14.0-18.0); Immature Granulocyte Absolute 0.05 K/mm3 (0.00-0.031); Immature Granulocyte Percent A 0.3 % (0-0.5); Lymphocytes Absolute Auto 4.04 K/mm3 (0.9-3.2); Lymphocytes Percent Auto 24.5 % (18.3-44.2); Mean Corpuscular HGB Conc 31.8 g/dl (32-36); Mean Corpuscular Hemoglobin 28.7 pg (26-34); Mean Corpuscular Volume 90.4 fl (80-100); Mean Platelet Volume 10.1 fl (7.4-10.4); Monocytes Percent Auto 5.8 % (2.6-8.5); Neutrophils Absolute Auto 10.5 K/mm3 (1.3-6.7); Neutrophils Percent Auto 63.7 % (45.5-73.1); Platelet Count Result 493 k/mm3 (150-375); Red Blood Count 3.34 M/mm3 (4.6-6.20); Red Cell Distribution Width 12.5 % (11.5-14.5); White Blood Count 16.5 K/mm3 (4.5-10.0)
[2021-08-29 04:50] LABS: Hyperchromasia 1+ (NORMAL); Platelet Estimate Increased (Adequate)
[2021-08-29 04:53] LABS: Alanine Aminotransferase 35 U/L (4-50); Albumin Level 2.9 g/dL (3.5-5.1); Alkaline Phosphatase 79 U/L (38-126); Anion Gap 6 mmol/L (8-16); Aspartate Amino Transferase 40 U/L (17-59); Bilirubin,Total 0.3 mg/dL (0.2-1.3); Blood Urea Nitrogen 36 mg/dL (9-20); Calcium 8.4 mg/dL (8.4-10.2); Carbon Dioxide 29 mmol/L (22-30); Chloride 107 mmol/L (98-107); Estimated CRCL calculation 111 ml/min; Estimated Glomerular Filt Rate > 60; Glucose 194 mg/dL (65-110); Magnesium 1.8 mg/dL (1.6-2.3); Phosphorus 3.5 mg/dL (2.5-4.5); Potassium 4.2 mmol/L (3.4-5.0); Sodium 142 mmol/L (137-145)
[2021-08-29 05:08] LABS: Alveolar/Arterial O2 Gradient 34.7 mmHg; Base Excess ABG 1.9 mEq/l (+/-2.0); Carboxyhemoglobin 0.3 % THb (0-2.0); Fractional Inspired Oxygen 30 %; HCO3 ABG 26.4 mEq/l (22.0-26.0); Methemoglobin ABG 0.2 %THb (0-1.5); Oxygen Saturation ABG 98.7 % (95.0-100.0); Oxyhemoglobin 97.1 % THb (90.0-100.0); PCO2 ABG 40.9 mmHg (35.0-45.0); PO2 ABG 131.1 mmHg (80.0-100.0); PO2 FiO2 Ratio Arterial Blood 4.37 %; Reduced Hemoglobin 2.4 %THb (0-5.0); Total Hemoglobin 10.8 g/dL (12.0-18.0); pH ABG 7.427 (7.350-7.450)
[2021-08-29 05:09] LABS: Arterial Blood Gas PEEP 5 cmH2O; Arterial Blood Gas Tidal Volume 420 ml; Arterial Blood Gas Vent Mode CMV; Arterial Blood Gas Ventilator rate 20 /MIN; Device VENTILATOR; Site Drawn LEFT BRACHIAL
[2021-08-29] MEDS: DORNASE ALFA INH SOLN 1 MG/ML 2.5 ML AMP 2.5 MG INHALATION ×2 (07:57→20:27)
--- NOTE | 2021-08-29 07:59 | WPDINTPN ---
Progress Note: A&P Assessment and Plan (1) Acute respiratory failure: Code(s): J96.00 - Acute respiratory failure, unspecified whether with hypoxia or hypercapnia Status: Acute Assessment and Plan: Acute respiratory failure likely related to VFib arrest, patient was intubated on 08/12/2021 ABGs and chest x-ray reviewed -currently on ASV mode of ventilation, 30% FiO2 and peep of 5. -on low-dose Precedex -secretions from ET tube persist - Zosyn and vancomycin discontinued on 08/24/2021 -placed patient on ASV on 08/25, tolerated almost all day and then had periods of apnea so was placed back on CMV mode -will try PSV 10/5 as tolerated today -take tracheostomy tube secretions, started on Pulmozyme and bronchodilators -PEG tube placed on 08/23/2021. -tracheostomy tube placed 08/24/2021,avoid sedatives or benzodiazepines -await LTAC placement (2) Anoxic brain injury: Code(s): G93.1 - Anoxic brain damage, not elsewhere classified Status: Acute Assessment and Plan: Patient has sustained a Anoxic brain injury due to prolonged down time Patient has completed TTM protocol Sedation has been discontinued since 08/14 evening Neuro exam as above. CT head done 08/15 showed - Development of diffuse cerebellar swelling, anoxic injury. No obstructive hydrocephalus but patient at risk. CT 08/19 - Low attenuation involving the bilateral temporal lobes, cerebellum, and braulio, stable from 08/15/21 and worsened from 08/12/21, consistent with infarcts from anoxic brain injury. 08/15 EEG - This EEG was abnormal due the presence of severely diffuse background slowing. This EEG was indicative of the presence of severe, bihemispheric cerebral dysfunction of the type seen most commonly in the setting of severe toxic metabolic encephalopathies or anoxic injury.The was no evidence of epileptiform activity or focal cerebral dysfunction. 08/20 repeat EEG - Abnormal record due to the presence of bihemispheric delta activity throughout the tracing with no evidence of paroxysmal activity. This abnormality is consistent with diffuse organic or metabolic encephalopathy clinical correlation recommended. Is not compatible with electrocerebral silence or status epilepticus Remains OFF sedation except low-dose Precedex Neurology following Continue Keppra (3) Cardiac arrest: Code(s): I46.9 - Cardiac arrest, cause unspecified Status: Acute Assessment and Plan: Prolonged out of the hospital VFib arrest (down time was 1 hour and 8 minutes per records) -VFib likely secondary to inferior [place], status post cardiac catheterization with PTCA/PCI with PAT x1 to proximal RCA (4) Fever: Code(s): R50.9 - Fever, unspecified Status: Acute Assessment and Plan: He completed course of antibiotics for aspiration pneumonia earlier in the hospitalization. He does have a DVT but has persistent fevers and elevated white cell count No central venous catheter at this time Steinberg was changed 08/27 UA was negative 08/27 urine sputum and blood culture sent 08/28 CT sinuses 1. Small to moderate amount of left sphenoid fluid. 2. Small to moderate-sized right maxillary mucous retention cyst. CT chest abdomen pelvis IMPRESSION: 1. Tracheostomy tube, PEG tube, rectal tube, Steinberg catheter in position. 2. Trace right upper lobe nonspecific pneumonitis. 3. Dependent subsegmental atelectasis. Mild emphysema. 4. Colonic fluid without wall thickening. Diarrhea. Procalcitonin level 0.1 Normal lipase, C diff negative 08/28 patient restarted on vancomycin and cefepime (5) DVT (deep venous thrombosis): Code(s): I82.409 - Acute embolism and thrombosis of unspecified deep veins of unspecified lower extremity Status: Acute Assessment and Plan: Patient with consistent fevers, lower extremity venous Dopplers done on 08/22/2021: Small amount of nonocclusive deep venous thrombosis at the LEFT common femoral vein -patient is on therape
[2021-08-29] MEDS: ENOXAPARIN 80 MG/0.8 ML SYRINGE 70 MG SUB-Q ×2 (08:24→21:55)
[2021-08-29] MEDS: ASPIRIN 81 MG CHEWABLE TABLET PO (08:24)
[2021-08-29] MEDS: TICAGRELOR 90 MG TABLET PO ×2 (08:27→21:58)
[2021-08-29] MEDS: PANTOPRAZOLE SODIUM IV 40 MG VIAL IV PUSH ×2 (08:27→21:58)
[2021-08-29] MEDS: ROSUVASTATIN 10 MG TABLET 20 MG PO (08:27)
[2021-08-29] MEDS: TOLNAFTATE 1% POWDER 45 GM BTL 1 APPLIC TOPICAL ×2 (08:30→21:59)
[2021-08-29] MEDS: METOPROLOL TARTRATE 25 MG TABLET PO (08:37)
[2021-08-29] MEDS: INSULIN GLARGINE (*BKC) 100 UNITS/ML 50 UNITS SUB-Q ×2 (08:37→21:55)
[2021-08-29 08:44] LABS: Glucose Point of Care 199 mg/dl (65-105)
[2021-08-29] MEDS: levETIRAcetam 500MG/NACL 100ML 500 MG/100 ML BAG 400 MG IVPB ×2 (10:27→21:56)
--- NOTE | 2021-08-29 11:49 | PCFNICU ---
ICU Rounding Note: Pt current nutrition is Vital AF 1.2 at 70ml/hr over 22 hours. Last recorded weight is 60.6 kg. Bowel Motility: FMS Labs Reviewed:Glu 194, BUN 36, Alb 2.9,Hct 30.2, Hgb 9.6 Meds Noted: Keppra, Precedex, Lantus, Atrovent, NovoLog, Crestor, Protonix, Apresoline, Lopressor, Zosyn, Xopenex, Cozaar,Vancomycin. Skin: WNL Additional Notes:Patient remains current with Trach/PEG. Tube feedings of Vital AF 1.2 at 70 ml/hr and tolerating per nursing. 150 ml water flush q 4 hours. Na-WNL. Banatrol Plus q 6 hours for stool bulking. Agree with diet orders. Following daily in ICU rounds. Will monitor every Friday and Friday.
--- NOTE | 2021-08-29 11:58 | PM.PNCARD ---
Progress Note: A&P Assessment and Plan (1) Cardiac arrest: Code(s): I46.9 - Cardiac arrest, cause unspecified Status: Acute Assessment and Plan: Prolonged resuscitation with resultant anoxic injury (2) ST elevation (STEMI) myocardial infarction: Qualifiers: Involved coronary artery: unspecified coronary artery Qualified Code(s): I21.3 - ST elevation (STEMI) myocardial infarction of unspecified site Code(s): I21.3 - ST elevation (STEMI) myocardial infarction of unspecified site Status: Acute Assessment and Plan: acute inferior current of injury with subtotal 99% proximal RCA lesion as described above which was successfully treated using the drug-eluting stent with an excellent anatomical result and amish of excellent flow in the vessel. moderate mid says stenosis of 80% in the trunk of the circumflex unrelated to this event. infero posterior akinesia with global ejection fraction of about 40% (3) Anoxic brain injury: Code(s): G93.1 - Anoxic brain damage, not elsewhere classified Status: Acute Assessment and Plan: Currently trached and PEG placement Subjective Date/time seen: 08/29/21 11:58 Interval history: 46-year-old with prolonged cardiac arrest Date of service 08/29/2021: Not following commands today. Awake. Eyes open. Will track with eyes. Review of Systems Cardiovascular: Cardiovascular: Denies chest pain Respiratory: Respiratory: Denies hemoptysis Exam Const: General: comfortable and no acute distress Other: Trached HENMT: Mouth: Yes moist mucous membranes Eyes: Sclera: sclerae normal Neck: Neck: supple and no JVD Other: Normal carotid pulses Resp: Effort & Inspection: normal respiratory effort Auscultation: clear to auscultation bilaterally and rhonchi Other: Scattered rhonchi noted Cardio: Rate: regular rate Rhythm: regular rhythm Other: No murmur no gallop GI: Auscultation: normal bowel sounds Skin: General skin exam: normal color Neuro: Other: Moves spontaneously but does not follow commands Extrem: General: normal to inspection Objective Data Vital Signs Vital Signs: Vital Signs - 24 hr 08/28/21 12:00 08/28/21 14:00 08/28/21 14:15 Temperature 37.5 C 37.6 C H Pulse Rate 104 H 92 96 Respiratory Rate 21 H 20 32 H Blood Pressure 124/90 99/77 L Pulse Oximetry 100 100 99 08/28/21 14:27 08/28/21 14:30 08/28/21 16:00 Temperature 37.6 C H Pulse Rate 94 91 80 Respiratory Rate 29 H 26 H 20 Blood Pressure 95/73 L Pulse Oximetry 100 08/28/21 16:54 08/28/21 18:00 08/28/21 19:41 Temperature 37.4 C Pulse Rate 78 94 97 Respiratory Rate 24 H 27 H Blood Pressure 125/86 Pulse Oximetry 100 98 08/28/21 19:46 08/28/21 19:52 08/28/21 20:00 Temperature 37.8 C H Pulse Rate 98 96 89 Respiratory Rate 26 H 20 Blood Pressure 111/76 Pulse Oximetry 96 98 08/28/21 22:00 08/28/21 22:36 08/29/21 00:00 Temperature 37.4 C 37.4 C Pulse Rate 76 82 79 Respiratory Rate 20 20 Blood Pressure 88/62 L 90/65 L Pulse Oximetry 98 96 99 08/29/21 01:38 08/29/21 01:41 08/29/21 01:42 Temperature Pulse Rate 77 79 77 Respiratory Rate 24 H 23 H Blood Pressure Pulse Oximetry 98 08/29/21 02:00 08/29/21 04:00 08/29/21 04:50 Temperature 37.2 C 37.2 C Pulse Rate 83 73 81 Respiratory Rate 20 20 Blood Pressure 107/75 93/69 L Pulse Oximetry 99 99 98 08/29/21 06:00 08/29/21 07:55 08/29/21 07:58 Temperature 37.3 C Pulse Rate 75 94 92 Respiratory Rate 20 24 H Blood Pressure 93/67 L Pulse Oximetry 99 99 08/29/21 08:00 08/29/21 10:51 Temperature 37.5 C Pulse Rate 79 84 Respiratory Rate 17 Blood Pressure 92/66 L Pulse Oximetry 93 90 Intake/Output Intake/Output: Intake & Output 08/26/21 08/27/21 08/28/21 08/29/21 23:59 23:59 23:59 23:59 Intake Total 2514 1850 1410 1750 Output Total 2400 1590 1400 815 Balance 114 260 10 935 Meds/Results
[2021-08-29 13:05] LABS: Glucose Point of Care 156 mg/dl (65-105)
[2021-08-29] MEDS: dexmedeTOMIDine 400 MCG/100 ML 400 MCG/100 ML BAG 6 MCG IV CONT (13:06)
--- NOTE | 2021-08-29 17:36 | PM.IMPN ---
Progress Note: A&P Assessment and Plan (1) Cardiac arrest: Code(s): I46.9 - Cardiac arrest, cause unspecified Status: Acute Assessment and Plan: Prolonged out of the hospital VFib arrest (down time was 1 hour and 8 minutes per records) -VFib likely secondary to inferior [place], status post cardiac catheterization with PTCA/PCI with PAT x1 to proximal RCA (2) ST elevation (STEMI) myocardial infarction: Qualifiers: Involved coronary artery: unspecified coronary artery Qualified Code(s): I21.3 - ST elevation (STEMI) myocardial infarction of unspecified site Code(s): I21.3 - ST elevation (STEMI) myocardial infarction of unspecified site Status: Acute Assessment and Plan: As above -cardiology following the patient -continue aspirin, Brilinta, statin -continue beta-tapan and losartan (3) Diabetes mellitus with hyperglycemia, with long-term current use of insulin: Qualifiers: Diabetes mellitus type: type 2 Qualified Code(s): E11.65 - Type 2 diabetes mellitus with hyperglycemia; Z79.4 - predatory animal exterminator (current) use of insulin Code(s): E11.65 - Type 2 diabetes mellitus with hyperglycemia; Z79.4 - [facility] (current) use of insulin Status: Acute Assessment and Plan: Hyperglycemia could be related to uncontrolled diabetes, acute stress from cardiac arrest, cardiac catheterization, shock -hemoglobin A1c 10.2 -continue sliding scale -continue Lantus (4) Hypertension: Code(s): I10 - Essential (primary) hypertension Status: Acute Assessment and Plan: Blood pressure on the softer side Hold Cozaar and continue low-dose metoprolol Norvasc has been DCed Continue p.r.n. labetalol and hydralazine Additional Plan DVT prophylaxis: SCDs. therapeutic Lovenox Stress ulcer prophylaxis: Protonix Nutrition: Patient tolerating tube feeds, will continue Code status: Full code I spoke to patient's girlfriend at bedside and updated her with patient's current status current treatment plan. I answered all her questions. Patient's health insurance has hence will delay placement in LTAC. Critical care time spent: 30 minutes This dictation may have been done utilizing a voice recognition system. Attempts have been made to correct errors. However, there may be uncorrected grammatical, spelling, and recognition errors present. Due to a high probability of clinically significant, life threatening deterioration, the patient required my highest level of preparedness to intervene emergently and I personally spent this critical care time directly and personally managing the patient. This critical care time included obtaining a history; examining the patient; pulse oximetry; ordering and review of studies; arranging urgent treatment with development of a management plan; evaluation of patient's response to treatment; frequent reassessment; and discussions with other providers. It was exclusive of separately billable procedures and treating other patients and teaching time. Please see Assessment and Plan section and the rest of the note for further information on patient assessment and treatment Subjective Date/time seen: 08/29/21 17:36 08/20/2021 Interval history: currently on ventilator, unable to provide any history review of symptom, patient with cardiac arrest secondary to severe coronary artery disease, was emergently taken to cath and showed stenosis of coronary artery and stent was placed, continue aspirin and Brilinta, it seems patient had a anoxic brain injury during the cardiac arrest, on 08/15 patient had EEG:This EEG was abnormal due the presence of severely diffuse background slowing. This EEG was indicative of the presence of severe, bihemispheric cerebral dysfunction of the type seen most commonly in the setting of severe toxicometabolic encephalopathies or anoxic injury.There was no evidence of epileptiform activity or focal cerebral dysfunction. repeat EEG toda
[2021-08-29 18:41] LABS: Glucose Point of Care 106 mg/dl (65-105)
[2021-08-29] MEDS: MINERAL OIL/WHITE PETROLATUM OINTMENT 1 APPLIC EACH EYE (21:57)
[2021-08-30] VITALS (46 sets, daily range): BP systolic 75–118; BP diastolic 58–83; PULSE 63–83; RESP 11–32; TEMP 36.6–37.2; O2SAT 96–100; BMI 10.0
[2021-08-30 00:58] LABS: Glucose Point of Care 92 mg/dl (65-105)
[2021-08-30] MEDS: LEVALBUTEROL NEB 1.25 MG/3 ML 0.63 MG INHALATION ×4 (02:30→20:28)
[2021-08-30] MEDS: IPRATROPIUM BR 0.02% INH SOLN 0.5 MG/2.5 ML VIAL INHALATION ×4 (02:30→20:28)
[2021-08-30 02:53] LABS: Vancomycin Trough 7.9 ug/mL (10.0-20.0)
[2021-08-30] MEDS: dexmedeTOMIDine 400 MCG/100 ML 400 MCG/100 ML BAG 7.49 MCG IV CONT ×2 (03:18→13:15)
[2021-08-30 04:51] LABS: Estimated CRCL calculation 96 ml/min; Estimated Glomerular Filt Rate > 60
[2021-08-30 05:26] LABS: Alveolar/Arterial O2 Gradient 57.9 mmHg; Base Excess ABG 4.8 mEq/l (+/-2.0); Carboxyhemoglobin 0.2 % THb (0-2.0); Fractional Inspired Oxygen 30 %; HCO3 ABG 29.4 mEq/l (22.0-26.0); Methemoglobin ABG 0.2 %THb (0-1.5); Oxygen Content ABG 13.6 %vol (16.0-22.0); Oxyhemoglobin 96.6 % THb (90.0-100.0); PCO2 ABG 43.5 mmHg (35.0-45.0); PO2 ABG 104.9 mmHg (80.0-100.0); Total Hemoglobin 9.9 g/dL (12.0-18.0); pH ABG 7.447 (7.350-7.450)
[2021-08-30 05:27] LABS: Site Drawn LEFT BRACHIAL
[2021-08-30 05:28] LABS: Arterial Blood Gas PEEP 5 cmH2O; Arterial Blood Gas Pressure Support 10 cmH2O; Arterial Blood Gas Vent Mode SPONTANEOUS; Device VENTILATOR
[2021-08-30 06:38] LABS: Glucose Point of Care 132 mg/dl (65-105)
[2021-08-30] MEDS: ENOXAPARIN 80 MG/0.8 ML SYRINGE 70 MG SUB-Q ×2 (08:00→20:45)
[2021-08-30] MEDS: levETIRAcetam 500MG/NACL 100ML 500 MG/100 ML BAG 400 MG IVPB ×2 (08:00→20:44)
[2021-08-30] MEDS: METOPROLOL TARTRATE 25 MG TABLET PO (08:00)
[2021-08-30] MEDS: PANTOPRAZOLE SODIUM IV 40 MG VIAL IV PUSH ×2 (08:01→20:46)
[2021-08-30] MEDS: ASPIRIN 81 MG CHEWABLE TABLET PO (08:01)
[2021-08-30] MEDS: MINERAL OIL/WHITE PETROLATUM OINTMENT 1 APPLIC EACH EYE ×2 (08:01→20:45)
[2021-08-30] MEDS: INSULIN GLARGINE (*BKC) 100 UNITS/ML 50 UNITS SUB-Q (08:08)
[2021-08-30] MEDS: ROSUVASTATIN 10 MG TABLET 20 MG PO (08:10)
--- NOTE | 2021-08-30 08:46 | WPDINTPN ---
Progress Note: A&P Assessment and Plan (1) Acute respiratory failure: Code(s): J96.00 - Acute respiratory failure, unspecified whether with hypoxia or hypercapnia Status: Acute Assessment and Plan: Acute respiratory failure likely related to VFib arrest, patient was intubated on 08/12/2021 Most recent ABGs and chest x-ray reviewed -currently on cm mode of ventilation, 30% FiO2 and peep of 5. -he was placed on pressure support ventilation yesterday and did well through the day but overnight became more tachypneic with increased work breathing was switched back to CMV. Will try pressure support ventilation again today -on low-dose Precedex -secretions from ET tube persist - Zosyn and vancomycin discontinued on 08/24/2021 -vancomycin and cefepime restarted 08/28 -tracheostomy tube secretions, started on Pulmozyme and bronchodilators -PEG tube placed on 08/23/2021. -tracheostomy tube placed 08/24/2021 -await LTAC placement (2) Anoxic brain injury: Code(s): G93.1 - Anoxic brain damage, not elsewhere classified Status: Acute Assessment and Plan: Patient has sustained a Anoxic brain injury due to prolonged down time Patient has completed TTM protocol Sedation has been discontinued since 08/14 evening Neuro exam as above. CT head done 08/15 showed - Development of diffuse cerebellar swelling, anoxic injury. No obstructive hydrocephalus but patient at risk. CT 08/19 - Low attenuation involving the bilateral temporal lobes, cerebellum, and braulio, stable from 08/15/21 and worsened from 08/12/21, consistent with infarcts from anoxic brain injury. 08/15 EEG - This EEG was abnormal due the presence of severely diffuse background slowing. This EEG was indicative of the presence of severe, bihemispheric cerebral dysfunction of the type seen most commonly in the setting of severe toxic metabolic encephalopathies or anoxic injury.The was no evidence of epileptiform activity or focal cerebral dysfunction. 08/20 repeat EEG - Abnormal record due to the presence of bihemispheric delta activity throughout the tracing with no evidence of paroxysmal activity. This abnormality is consistent with diffuse organic or metabolic encephalopathy clinical correlation recommended. Is not compatible with electrocerebral silence or status epilepticus Remains OFF sedation except low-dose Precedex Neurology following Continue Kera (3) Cardiac arrest: Code(s): I46.9 - Cardiac arrest, cause unspecified Status: Acute Assessment and Plan: Prolonged out of the hospital VFib arrest (down time was 1 hour and 8 minutes per records) -VFib likely secondary to inferior [place], status post cardiac catheterization with PTCA/PCI with PAT x1 to proximal RCA (4) Fever: Code(s): R50.9 - Fever, unspecified Status: Acute Assessment and Plan: He completed course of antibiotics for aspiration pneumonia earlier in the hospitalization. He does have a DVT but has persistent fevers and elevated white cell count No central venous catheter at this time Steinberg was changed 08/27 UA was negative 08/27 urine sputum and blood culture sent. Blood culture 05/20 is growing Staph hominis which is likely contaminant but is sensitive to vancomycin 08/28 CT sinuses 1. Small to moderate amount of left sphenoid fluid. 2. Small to moderate-sized right maxillary mucous retention cyst. CT chest abdomen pelvis IMPRESSION: 1. Tracheostomy tube, PEG tube, rectal tube, Steinberg catheter in position. 2. Trace right upper lobe nonspecific pneumonitis. 3. Dependent subsegmental atelectasis. Mild emphysema. 4. Colonic fluid without wall thickening. Diarrhea. Procalcitonin level 0.1 Normal lipase, C diff negative 08/28 patient restarted on vancomycin and cefepime afebrile now. Continue to monitor (5) DVT (deep venous thrombosis): Code(s): I82.409 - Acute embolism and thrombosis of unspecified deep veins of unspecified lower extremity Status: Acu
--- NOTE | 2021-08-30 08:56 | PM.PNCARD ---
Progress Note: A&P Assessment and Plan (1) Cardiac arrest: Code(s): I46.9 - Cardiac arrest, cause unspecified Status: Acute Assessment and Plan: Prolonged resuscitation with resultant anoxic injury. No changes from a cardiac perspective today (2) ST elevation (STEMI) myocardial infarction: Qualifiers: Involved coronary artery: unspecified coronary artery Qualified Code(s): I21.3 - ST elevation (STEMI) myocardial infarction of unspecified site Code(s): I21.3 - ST elevation (STEMI) myocardial infarction of unspecified site Status: Acute Assessment and Plan: acute inferior current of injury with subtotal 99% proximal RCA lesion as described above which was successfully treated using the drug-eluting stent with an excellent anatomical result and methodist of excellent flow in the vessel. moderate mid says stenosis of 80% in the trunk of the circumflex unrelated to this event. infero posterior akinesia with global ejection fraction of about 40% (3) Anoxic brain injury: Code(s): G93.1 - Anoxic brain damage, not elsewhere classified Status: Acute Assessment and Plan: Currently trached and PEG placement Subjective Date/time seen: 08/30/21 08:56 Interval history: 46-year-old with prolonged cardiac arrest Date of service 08/29/2021: Not following commands today. Awake. Eyes open. Will track with eyes. Date of service 08/30/2021: Resting in bed comfortably. No acute changes. Rhythm stable Review of Systems Review of Systems: ROS unobtainable: Yes unobtainable due to endotracheal tube, unobtainable due to medical condition and unobtainable due to mental status Cardiovascular: Cardiovascular: Denies chest pain Respiratory: Respiratory: Denies hemoptysis Exam Const: General: comfortable and no acute distress Other: Trached HENMT: Mouth: Yes moist mucous membranes Eyes: Sclera: sclerae normal Neck: Neck: supple and no JVD Other: Normal carotid pulses Resp: Effort & Inspection: normal respiratory effort Auscultation: clear to auscultation bilaterally and rhonchi Other: Scattered rhonchi noted Cardio: Rate: regular rate Rhythm: regular rhythm Other: No murmur no gallop GI: Auscultation: normal bowel sounds Skin: General skin exam: normal color Neuro: Other: Moves spontaneously but does not follow commands Extrem: General: normal to inspection Other: Arterial access site free from bleeding, hematoma Objective Data Vital Signs Vital Signs: Vital Signs - 24 hr 08/29/21 10:00 08/29/21 10:51 08/29/21 12:00 Temperature 37.3 C 37.3 C Pulse Rate 75 84 94 Respiratory Rate 15 27 H Blood Pressure 95/68 L 109/79 Pulse Oximetry 92 90 96 08/29/21 14:00 08/29/21 15:08 08/29/21 15:15 Temperature 36.9 C Pulse Rate 76 80 76 Respiratory Rate 22 H 18 Blood Pressure 97/69 L Pulse Oximetry 95 96 08/29/21 15:24 08/29/21 16:00 08/29/21 17:36 Temperature 36.9 C Pulse Rate 77 77 77 Respiratory Rate 18 16 Blood Pressure 92/68 L Pulse Oximetry 94 96 08/29/21 18:00 08/29/21 20:00 08/29/21 20:31 Temperature 36.8 C 37.2 C Pulse Rate 78 78 80 Respiratory Rate 11 L 21 H 22 H Blood Pressure 96/72 L 106/79 Pulse Oximetry 98 99 08/29/21 20:33 08/29/21 20:48 08/29/21 21:57 Temperature Pulse Rate 80 78 78 Respiratory Rate 22 H Blood Pressure Pulse Oximetry 99 08/29/21 22:00 08/29/21 23:00 08/30/21 00:00 Temperature 37.1 C 36.8 C Pulse Rate 78 76 73 Respiratory Rate 21 H 18 Blood Pressure 91/69 L 88/67 L Pulse Oximetry 99 99 99 08/30/21 02:00 08/30/21 02:30 08/30/21 02:32 Temperature 37.2 C Pulse Rate 77 76 76 Respiratory Rate 22 H 22 H Blood Pressure 97/67 L Pulse Oximetry 99 99 08/30/21 02:42 08/30/21 02:47 08/30/21 02:50 Temperature Pulse Rate 75 77 75 Respiratory Rate 22 H 11 L 20 Blood Pressure Pulse Oximetry 08/30/21 04:00 08/30/21 05:15
[2021-08-30] MEDS: TICAGRELOR 90 MG TABLET PO ×2 (09:02→20:46)
[2021-08-30] MEDS: TOLNAFTATE 1% POWDER 45 GM BTL 1 APPLIC TOPICAL ×2 (09:04→20:47)
[2021-08-30] MEDS: DORNASE ALFA INH SOLN 1 MG/ML 2.5 ML AMP 2.5 MG INHALATION ×2 (09:10→20:28)
[2021-08-30] MEDS: LOSARTAN POTASSIUM 12.5 MG TABLET PO (09:11)
--- NOTE | 2021-08-30 10:37 | PCFNICU ---
ICU Rounding Note: Pt current nutrition is Vital AF 1.2 at 70 ml/hr over 22 hours. Last recorded weight is 65.4 kg-stable. Bowel Motility:FMS Labs Reviewed:No labs to review today. Meds Noted:Keppra,Lantus, Atrovent, NovoLog, Crestor, Protonix, Apresoline, Lopressor, Zosyn, Xopenex, Cozaar,Vancomycin Skin: WNL Additional Notes: Patient current with PEG/Trach. Per nursing tube feedings are being tolerated of Vital AF 1.2 at 70 ml/hr over 22 hours. Free water flush 150 ml q 4 hours. Banatrol Plus q 6 hours for stool bulking. Agree with diet orders. Following daily in ICU rounds. Will monitor every Friday and Friday.
[2021-08-30] MEDS: ACETAMINOPHEN ELIXIR 325 MG/10.15 ML UDC 650 MG PO (11:06)
[2021-08-30 11:22] LABS: Glucose Point of Care 112 mg/dl (65-105)
[2021-08-30] MEDS: LORazepam INJ (*CRX) 2 MG/ML VIAL IV PUSH (15:23)
[2021-08-30] MEDS: DEXTROSE 50% 25 GM/50 ML SYRINGE IV PUSH ×2 (17:51→20:53)
[2021-08-30 17:52] LABS: Glucose Point of Care 55 mg/dl (65-105)
[2021-08-30 18:07] LABS: Glucose Point of Care 107 mg/dl (65-105)
[2021-08-30 21:21] LABS: Glucose Point of Care 171 mg/dl (65-105)
[2021-08-30 21:21] LABS: Glucose Point of Care 67 mg/dl (65-105)
[2021-08-30] MEDS: dexmedeTOMIDine 400 MCG/100 ML 400 MCG/100 ML BAG 11.98 MCG IV CONT (21:23)
[2021-08-30 22:36] LABS: Glucose Point of Care 142 mg/dl (65-105)
[2021-08-31] VITALS (36 sets, daily range): BP systolic 80–140; BP diastolic 55–100; PULSE 74–103; RESP 18–32; TEMP 36.6–37.4; O2SAT 94–100; BMI 21.8
[2021-08-31] MEDS: PROPOFOL IV EMULSION 100 ML 1.96 MG IV CONT (00:30)
[2021-08-31 00:38] LABS: Glucose Point of Care 91 mg/dl (65-105)
[2021-08-31] MEDS: LEVALBUTEROL NEB 1.25 MG/3 ML 0.63 MG INHALATION ×4 (02:40→19:46)
[2021-08-31] MEDS: IPRATROPIUM BR 0.02% INH SOLN 0.5 MG/2.5 ML VIAL INHALATION ×4 (02:40→19:46)
[2021-08-31 05:22] LABS: Alveolar/Arterial O2 Gradient 67.1 mmHg; Base Excess ABG 3.3 mEq/l (+/-2.0); Carboxyhemoglobin 0.1 % THb (0-2.0); Fractional Inspired Oxygen 30 %; HCO3 ABG 27.6 mEq/l (22.0-26.0); Methemoglobin ABG 0.3 %THb (0-1.5); Oxygen Content ABG 13.7 %vol (16.0-22.0); Oxygen Saturation ABG 97.7 % (95.0-100.0); PCO2 ABG 40.8 mmHg (35.0-45.0); PO2 ABG 98.9 mmHg (80.0-100.0); Reduced Hemoglobin 3.6 %THb (0-5.0); pH ABG 7.448 (7.350-7.450)
[2021-08-31 05:23] LABS: Arterial Blood Gas Ventilator rate 20 /MIN; Device VENTILATOR; Modified Allen's Test Pass; Site Drawn RIGHT RADIAL
[2021-08-31 05:24] LABS: Arterial Blood Gas PEEP 5 cmH2O; Arterial Blood Gas Tidal Volume 420 ml; Arterial Blood Gas Vent Mode CMV
[2021-08-31 05:46] LABS: Alanine Aminotransferase 70 U/L (4-50); Albumin Level 3.1 g/dL (3.5-5.1); Alkaline Phosphatase 87 U/L (38-126); Anion Gap 5 mmol/L (8-16); Aspartate Amino Transferase 94 U/L (17-59); Bilirubin,Total 0.2 mg/dL (0.2-1.3); Blood Urea Nitrogen 35 mg/dL (9-20); Calcium 8.3 mg/dL (8.4-10.2); Carbon Dioxide 30 mmol/L (22-30); Chloride 102 mmol/L (98-107); Estimated CRCL calculation 104 ml/min; Estimated Glomerular Filt Rate > 60; Glucose 68 mg/dL (65-110); Sodium 137 mmol/L (137-145)
[2021-08-31 06:10] LABS: Hematocrit 29.1 % (42.0-52.0); Mean Corpuscular HGB Conc 30.9 g/dl (32-36); Mean Corpuscular Hemoglobin 28.7 pg (26-34); Mean Corpuscular Volume 92.7 fl (80-100); Mean Platelet Volume 10.8 fl (7.4-10.4); Platelet Count Result 452 k/mm3 (150-375); Red Blood Count 3.14 M/mm3 (4.6-6.20); Red Cell Distribution Width 12.3 % (11.5-14.5); White Blood Count 12.4 K/mm3 (4.5-10.0)
[2021-08-31] MEDS: DEXTROSE 50% 25 GM/50 ML SYRINGE IV PUSH ×2 (06:22→12:50)
[2021-08-31] MEDS: DORNASE ALFA INH SOLN 1 MG/ML 2.5 ML AMP 2.5 MG INHALATION ×2 (08:21→19:47)
[2021-08-31] MEDS: ENOXAPARIN 80 MG/0.8 ML SYRINGE 70 MG SUB-Q ×2 (08:47→21:22)
--- NOTE | 2021-08-31 08:48 | PM.PNCARD ---
Progress Note: A&P Assessment and Plan (1) Cardiac arrest: Code(s): I46.9 - Cardiac arrest, cause unspecified Status: Acute Assessment and Plan: Prolonged resuscitation with resultant anoxic injury. No changes from a cardiac perspective today (2) ST elevation (STEMI) myocardial infarction: Qualifiers: Involved coronary artery: unspecified coronary artery Qualified Code(s): I21.3 - ST elevation (STEMI) myocardial infarction of unspecified site Code(s): I21.3 - ST elevation (STEMI) myocardial infarction of unspecified site Status: Acute Assessment and Plan: acute inferior current of injury with subtotal 99% proximal RCA lesion as described above which was successfully treated using the drug-eluting stent with an excellent anatomical result and presybeterian of excellent flow in the vessel. moderate mid says stenosis of 80% in the trunk of the circumflex unrelated to this event. infero posterior akinesia with global ejection fraction of about 40% (3) Anoxic brain injury: Code(s): G93.1 - Anoxic brain damage, not elsewhere classified Status: Acute Assessment and Plan: Currently trached and PEG placement. Awaiting placement Subjective Date/time seen: 08/31/21 08:48 Interval history: 46-year-old with prolonged cardiac arrest Date of service 08/29/2021: Not following commands today. Awake. Eyes open. Will track with eyes. Date of service 08/30/2021: Resting in bed comfortably. No acute changes. Rhythm stable Date of service 08/31/2021: No changes overall. Rhythm stable. Resting comfortably in bed. No bleeding issues Review of Systems Review of Systems: ROS unobtainable: Yes unobtainable due to endotracheal tube, unobtainable due to medical condition and unobtainable due to mental status Cardiovascular: Cardiovascular: Denies chest pain Respiratory: Respiratory: Denies hemoptysis Exam Const: General: comfortable and no acute distress Other: Trached HENMT: Mouth: Yes moist mucous membranes Eyes: Sclera: sclerae normal Neck: Neck: supple and no JVD Other: Normal carotid pulses Resp: Effort & Inspection: normal respiratory effort Auscultation: clear to auscultation bilaterally and rhonchi Other: Scattered rhonchi noted Cardio: Rate: regular rate Rhythm: regular rhythm Other: No murmur no gallop GI: Auscultation: normal bowel sounds Skin: General skin exam: normal color Neuro: Other: Moves spontaneously but does not follow commands Extrem: General: normal to inspection Other: Arterial access site free from bleeding, hematoma Objective Data Vital Signs Vital Signs: Vital Signs - 24 hr 08/30/21 09:11 08/30/21 09:16 08/30/21 09:19 Temperature Pulse Rate 74 75 75 Respiratory Rate 24 H 21 H Blood Pressure Pulse Oximetry 98 08/30/21 09:32 08/30/21 09:54 08/30/21 10:00 Temperature 37.1 C Pulse Rate 78 78 77 Respiratory Rate 20 20 20 Blood Pressure 102/65 Pulse Oximetry 96 08/30/21 10:56 08/30/21 11:27 08/30/21 11:44 Temperature Pulse Rate 83 80 80 Respiratory Rate 27 H 27 H Blood Pressure Pulse Oximetry 100 100 08/30/21 12:00 08/30/21 13:15 08/30/21 14:00 Temperature 37.1 C 37.2 C Pulse Rate 82 74 79 Respiratory Rate 24 H 24 H 20 Blood Pressure 99/72 L 92/67 L Pulse Oximetry 100 100 08/30/21 15:14 08/30/21 15:15 08/30/21 15:17 Temperature Pulse Rate 72 73 83 Respiratory Rate 23 H 32 H Blood Pressure Pulse Oximetry 100 08/30/21 15:36 08/30/21 15:39 08/30/21 16:00 Temperature 36.9 C Pulse Rate 74 74 71 Respiratory Rate 20 20 20 Blood Pressure 89/71 L Pulse Oximetry 100 100 08/30/21 17:12 08/30/21 17:33 08/30/21 17:53 Temperature Pulse Rate 73 66 65 Respiratory Rate 20 20 Blood Pressure Pulse Oximetry 100 08/30/21 18:00 08/30/21 20:00 08/30/21 20:29 Temperature 36.6 C 36.6 C Pulse Rate 63 63 65 Respiratory Rate 20 20 20
[2021-08-31] MEDS: QUEtiapine FUMARATE 25 MG TABLET PO ×2 (08:50→21:25)
[2021-08-31] MEDS: PANTOPRAZOLE SODIUM IV 40 MG VIAL IV PUSH ×2 (08:51→21:24)
[2021-08-31] MEDS: MINERAL OIL/WHITE PETROLATUM OINTMENT 1 APPLIC EACH EYE ×2 (08:51→21:25)
[2021-08-31] MEDS: ROSUVASTATIN 10 MG TABLET 20 MG PO (08:52)
[2021-08-31] MEDS: ASPIRIN 81 MG CHEWABLE TABLET PO (08:52)
[2021-08-31] MEDS: TOLNAFTATE 1% POWDER 45 GM BTL 1 APPLIC TOPICAL ×2 (08:53→21:37)
[2021-08-31] MEDS: TICAGRELOR 90 MG TABLET PO ×2 (09:07→21:25)
--- NOTE | 2021-08-31 09:12 | WPDINTPN ---
Progress Note: A&P Assessment and Plan (1) Acute respiratory failure: Code(s): J96.00 - Acute respiratory failure, unspecified whether with hypoxia or hypercapnia Status: Acute Assessment and Plan: Acute respiratory failure likely related to VFib arrest, patient was intubated on 08/12/2021 Most recent ABGs and chest x-ray reviewed -currently on cmv mode of ventilation, 30% FiO2 and peep of 5. -continue pressure support as tolerated -secretions from ET tube persist - Zosyn and vancomycin discontinued on 08/24/2021 -vancomycin and cefepime restarted 08/28 -tracheostomy tube secretions, started on Pulmozyme and bronchodilators -PEG tube placed on 08/23/2021. -tracheostomy tube placed 08/24/2021 -await LTAC placement (2) Anoxic brain injury: Code(s): G93.1 - Anoxic brain damage, not elsewhere classified Status: Acute Assessment and Plan: Patient has sustained a Anoxic brain injury due to prolonged down time Patient has completed TTM protocol Sedation has been discontinued since 08/14 evening Neuro exam as above. CT head done 08/15 showed - Development of diffuse cerebellar swelling, anoxic injury. No obstructive hydrocephalus but patient at risk. CT 08/19 - Low attenuation involving the bilateral temporal lobes, cerebellum, and braulio, stable from 08/15/21 and worsened from 08/12/21, consistent with infarcts from anoxic brain injury. 08/15 EEG - This EEG was abnormal due the presence of severely diffuse background slowing. This EEG was indicative of the presence of severe, bihemispheric cerebral dysfunction of the type seen most commonly in the setting of severe toxic metabolic encephalopathies or anoxic injury.The was no evidence of epileptiform activity or focal cerebral dysfunction. 08/20 repeat EEG - Abnormal record due to the presence of bihemispheric delta activity throughout the tracing with no evidence of paroxysmal activity. This abnormality is consistent with diffuse organic or metabolic encephalopathy clinical correlation recommended. Is not compatible with electrocerebral silence or status epilepticus Neurology following Continue Kegwenra (3) Cardiac arrest: Code(s): I46.9 - Cardiac arrest, cause unspecified Status: Acute Assessment and Plan: Prolonged out of the hospital VFib arrest (down time was 1 hour and 8 minutes per records) -VFib likely secondary to inferior CO, status post cardiac catheterization with PTCA/PCI with PAT x1 to proximal RCA (4) Fever: Code(s): R50.9 - Fever, unspecified Status: Acute Assessment and Plan: He completed course of antibiotics for aspiration pneumonia earlier in the hospitalization. He does have a DVT but has persistent fevers and elevated white cell count No central venous catheter at this time Steinberg was changed 08/27 UA was negative 08/27 urine sputum and blood culture sent. Blood culture 05/20 is growing Staph hominis which is likely contaminant but is sensitive to vancomycin 08/28 CT sinuses 1. Small to moderate amount of left sphenoid fluid. 2. Small to moderate-sized right maxillary mucous retention cyst. CT chest abdomen pelvis IMPRESSION: 1. Tracheostomy tube, PEG tube, rectal tube, Steinberg catheter in position. 2. Trace right upper lobe nonspecific pneumonitis. 3. Dependent subsegmental atelectasis. Mild emphysema. 4. Colonic fluid without wall thickening. Diarrhea. Procalcitonin level 0.1 Normal lipase, C diff negative 08/28 patient restarted on vancomycin and cefepime afebrile now. Continue to monitor (5) DVT (deep venous thrombosis): Code(s): I82.409 - Acute embolism and thrombosis of unspecified deep veins of unspecified lower extremity Status: Acute Assessment and Plan: Patient with consistent fevers, lower extremity venous Dopplers done on 08/22/2021: Small amount of nonocclusive deep venous thrombosis at the LEFT common femoral vein -patient is on therapeutic Lovenox, (6) ST elevation (STEM
[2021-08-31] MEDS: LORazepam INJ (*CRX) 2 MG/ML VIAL IV PUSH ×3 (09:16→15:48)
[2021-08-31] MEDS: levETIRAcetam 500MG/NACL 100ML 500 MG/100 ML BAG 400 MG IVPB ×2 (09:27→20:24)
--- NOTE | 2021-08-31 11:14 | PCNFU ---
Addendum entered by Monae Grover RD, LDN 08/31/21 12:35: Correction: Tube feeding flush order changed from 150 ml q 4 hours to 75 ml q 4 hours. Original Note: Nutrition Follow-Up Complete: Inadequate Oral Intake as related to mechanical ventilation as evidenced by NPO. goal: Meet estimated nutritional needs Patient is progressing towards goal. We will continue current goal. Pt current nutrition is Vital AF 1.2 at 70 ml/hr over 22 hours. Last recorded weight is 65.1 kg-stable Bowel Motility:FMS Labs Reviewed:BUN 35, Alb 3.1,Hct 29.1,Hgb 9.0 Meds Noted:Vancomycin, Atrovent, Lovenox, Ativan, Keppra, Protonix, Propofol 10 zutt=202 kcals. Skin: WNL Additional Notes: Patient is current with PEG/Trach. Tube feedings of Vital AF 1.2 at 70 ml/hr over 22 hours, providing 1848 kcals/115 gms protein/1249 ml water. Total kcal intake including 103 kcals from vanserur=3447 kcals/115 gms protein/1249 ml water. Free water flush 150 ml q 4 hours. Current tube feeding meeting caloric and protein needs. Banatrol Plus q 6 hours for stool bulking. Agree with diet orders. Will monitor in ICU rounds and reassessing every Friday and Friday
[2021-08-31 12:42] LABS: Glucose Point of Care 56 mg/dl (65-105)
[2021-08-31] MEDS: PROPOFOL IV EMULSION 100 ML 9.81 MG IV CONT (13:01)
[2021-08-31 13:31] LABS: Glucose Point of Care 139 mg/dl (65-105)
[2021-08-31 16:52] LABS: Glucose Point of Care 79 mg/dl (65-105)
[2021-08-31 18:54] LABS: Glucose Point of Care 117 mg/dl (65-105)
[2021-08-31] MEDS: PROPOFOL IV EMULSION 100 ML 11.77 MG IV CONT (20:16)
[2021-08-31] MEDS: METOPROLOL TARTRATE 25 MG TABLET PO (21:25)
[2021-09-01] VITALS (36 sets, daily range): BP systolic 81–154; BP diastolic 63–94; PULSE 67–104; RESP 16–31; TEMP 36.6–37.8; O2SAT 95–100
[2021-09-01 00:31] LABS: Glucose Point of Care 152 mg/dl (65-105)
[2021-09-01] MEDS: LORazepam INJ (*CRX) 2 MG/ML VIAL IV PUSH ×4 (01:07→23:39)
[2021-09-01] MEDS: LEVALBUTEROL NEB 1.25 MG/3 ML 0.63 MG INHALATION ×4 (01:48→20:30)
[2021-09-01] MEDS: IPRATROPIUM BR 0.02% INH SOLN 0.5 MG/2.5 ML VIAL INHALATION ×4 (01:48→20:30)
[2021-09-01 04:35] LABS: Alveolar/Arterial O2 Gradient 61.2 mmHg; Carboxyhemoglobin 0.3 % THb (0-2.0); Fractional Inspired Oxygen 30 %; HCO3 ABG 28.6 mEq/l (22.0-26.0); Methemoglobin ABG 0.2 %THb (0-1.5); Oxygen Content ABG 16.6 %vol (16.0-22.0); Oxygen Saturation ABG 97.8 % (95.0-100.0); Oxyhemoglobin 96.7 % THb (90.0-100.0); PCO2 ABG 43.3 mmHg (35.0-45.0); PO2 ABG 101.8 mmHg (80.0-100.0); PO2 FiO2 Ratio Arterial Blood 3.39 %; Reduced Hemoglobin 2.8 %THb (0-5.0); Total Hemoglobin 12.1 g/dL (12.0-18.0); pH ABG 7.438 (7.350-7.450)
[2021-09-01 04:47] LABS: Arterial Blood Gas PEEP 5 cmH2O; Arterial Blood Gas Tidal Volume 420 ml; Arterial Blood Gas Vent Mode CMV; Arterial Blood Gas Ventilator rate 20 /MIN; Device VENTILATOR; Modified Allen's Test Unable to perform; Site Drawn RIGHT RADIAL
[2021-09-01 04:59] LABS: Hematocrit 26.7 % (42.0-52.0); Hemoglobin 8.7 g/dL (14.0-18.0); Mean Corpuscular HGB Conc 32.6 g/dl (32-36); Mean Corpuscular Hemoglobin 28.8 pg (26-34); Mean Corpuscular Volume 88.4 fl (80-100); Mean Platelet Volume 10.6 fl (7.4-10.4); Platelet Count Result 412 k/mm3 (150-375); Red Blood Count 3.02 M/mm3 (4.6-6.20); Red Cell Distribution Width 12.1 % (11.5-14.5); White Blood Count 10.5 K/mm3 (4.5-10.0)
[2021-09-01 05:25] LABS: Alanine Aminotransferase 104 U/L (4-50); Albumin Level 2.9 g/dL (3.5-5.1); Alkaline Phosphatase 101 U/L (38-126); Anion Gap 3 mmol/L (8-16); Aspartate Amino Transferase 111 U/L (17-59); Bilirubin,Total 0.2 mg/dL (0.2-1.3); Blood Urea Nitrogen 20 mg/dL (9-20); Calcium 7.9 mg/dL (8.4-10.2); Carbon Dioxide 31 mmol/L (22-30); Chloride 102 mmol/L (98-107); Estimated CRCL calculation 119 ml/min; Estimated Glomerular Filt Rate > 60; Glucose 216 mg/dL (65-110); Magnesium 1.8 mg/dL (1.6-2.3); Potassium 3.9 mmol/L (3.4-5.0); Sodium 136 mmol/L (137-145)
[2021-09-01] MEDS: PROPOFOL IV EMULSION 100 ML 5.89 MG IV CONT (05:27)
[2021-09-01] MEDS: INSULIN ASPART (*BKC) 100 UNITS/ML SUB-Q ×3 (05:50→18:51)
[2021-09-01 05:56] LABS: Glucose Point of Care 214 mg/dl (65-105)
--- NOTE | 2021-09-01 08:31 | WPDINTPN ---
Progress Note: A&P Assessment and Plan (1) Acute respiratory failure: Code(s): J96.00 - Acute respiratory failure, unspecified whether with hypoxia or hypercapnia Status: Acute Assessment and Plan: Acute respiratory failure likely related to VFib arrest, patient was intubated on 08/12/2021 Most recent ABGs and chest x-ray reviewed -currently on cmv mode of ventilation, 30% FiO2 and peep of 5. -continue pressure support as tolerated -secretions from ET tube persist - Zosyn and vancomycin discontinued on 08/24/2021 -vancomycin and cefepime restarted 08/28 and we continued for 7 days -tracheostomy tube secretions, started on Pulmozyme and bronchodilators -PEG tube placed on 08/23/2021. -tracheostomy tube placed 08/24/2021 -await LTAC placement (2) Anoxic brain injury: Code(s): G93.1 - Anoxic brain damage, not elsewhere classified Status: Acute Assessment and Plan: Patient has sustained a Anoxic brain injury due to prolonged down time Patient has completed TTM protocol Sedation has been discontinued since 08/14 evening Neuro exam as above. CT head done 08/15 showed - Development of diffuse cerebellar swelling, anoxic injury. No obstructive hydrocephalus but patient at risk. CT 08/19 - Low attenuation involving the bilateral temporal lobes, cerebellum, and braulio, stable from 08/15/21 and worsened from 08/12/21, consistent with infarcts from anoxic brain injury. 08/15 EEG - This EEG was abnormal due the presence of severely diffuse background slowing. This EEG was indicative of the presence of severe, bihemispheric cerebral dysfunction of the type seen most commonly in the setting of severe toxic metabolic encephalopathies or anoxic injury.The was no evidence of epileptiform activity or focal cerebral dysfunction. 08/20 repeat EEG - Abnormal record due to the presence of bihemispheric delta activity throughout the tracing with no evidence of paroxysmal activity. This abnormality is consistent with diffuse organic or metabolic encephalopathy clinical correlation recommended. Is not compatible with electrocerebral silence or status epilepticus Neurology following Continue Kegwenra (3) Cardiac arrest: Code(s): I46.9 - Cardiac arrest, cause unspecified Status: Acute Assessment and Plan: Prolonged out of the hospital VFib arrest (down time was 1 hour and 8 minutes per records) -VFib likely secondary to inferior CO, status post cardiac catheterization with PTCA/PCI with PAT x1 to proximal RCA (4) Fever: Code(s): R50.9 - Fever, unspecified Status: Acute Assessment and Plan: He completed course of antibiotics for aspiration pneumonia earlier in the hospitalization. He does have a DVT but has persistent fevers and elevated white cell count No central venous catheter at this time Steinberg was changed 08/27 UA was negative 08/27 urine sputum and blood culture sent. Blood culture 05/20 is growing Staph hominis which is likely contaminant but is sensitive to vancomycin 08/28 CT sinuses 1. Small to moderate amount of left sphenoid fluid. 2. Small to moderate-sized right maxillary mucous retention cyst. CT chest abdomen pelvis IMPRESSION: 1. Tracheostomy tube, PEG tube, rectal tube, Steinberg catheter in position. 2. Trace right upper lobe nonspecific pneumonitis. 3. Dependent subsegmental atelectasis. Mild emphysema. 4. Colonic fluid without wall thickening. Diarrhea. Procalcitonin level 0.1 Normal lipase, C diff negative 08/28 patient restarted on vancomycin and cefepime which will be continued for 7 days afebrile now. Continue to monitor (5) DVT (deep venous thrombosis): Code(s): I82.409 - Acute embolism and thrombosis of unspecified deep veins of unspecified lower extremity Status: Acute Assessment and Plan: Patient with consistent fevers, lower extremity venous Dopplers done on 08/22/2021: Small amount of nonocclusive deep venous thrombosis at the LEFT common femoral ve
[2021-09-01] MEDS: QUEtiapine FUMARATE 25 MG TABLET 50 MG FEED TUBE ×2 (08:34→20:17)
[2021-09-01] MEDS: diazePAM (*CRX) 5 MG TABLET FEED TUBE ×3 (08:36→20:16)
[2021-09-01] MEDS: ENOXAPARIN 80 MG/0.8 ML SYRINGE 70 MG SUB-Q ×2 (08:37→20:14)
[2021-09-01] MEDS: ASPIRIN 81 MG CHEWABLE TABLET PO (08:38)
[2021-09-01] MEDS: ROSUVASTATIN 10 MG TABLET 20 MG PO (08:38)
[2021-09-01] MEDS: METOPROLOL TARTRATE 25 MG TABLET PO ×2 (08:38→20:16)
[2021-09-01] MEDS: TICAGRELOR 90 MG TABLET PO ×2 (08:38→20:16)
[2021-09-01] MEDS: INSULIN GLARGINE (*BKC) 100 UNITS/ML 25 UNITS SUB-Q ×2 (08:39→20:31)
[2021-09-01] MEDS: MINERAL OIL/WHITE PETROLATUM OINTMENT 1 APPLIC EACH EYE ×2 (08:39→20:15)
[2021-09-01] MEDS: TOLNAFTATE 1% POWDER 45 GM BTL 1 APPLIC TOPICAL ×2 (08:39→20:47)
[2021-09-01] MEDS: levETIRAcetam 500MG/NACL 100ML 500 MG/100 ML BAG 400 MG IVPB ×2 (08:39→20:13)
[2021-09-01] MEDS: PANTOPRAZOLE SODIUM IV 40 MG VIAL IV PUSH ×2 (08:39→20:41)
--- NOTE | 2021-09-01 08:40 | PM.PNCARD ---
Progress Note: A&P Assessment and Plan (1) Cardiac arrest: Code(s): I46.9 - Cardiac arrest, cause unspecified Status: Acute Assessment and Plan: Prolonged resuscitation with resultant anoxic injury. No changes from a cardiac perspective today (2) ST elevation (STEMI) myocardial infarction: Qualifiers: Involved coronary artery: unspecified coronary artery Qualified Code(s): I21.3 - ST elevation (STEMI) myocardial infarction of unspecified site Code(s): I21.3 - ST elevation (STEMI) myocardial infarction of unspecified site Status: Acute Assessment and Plan: acute inferior current of injury with subtotal 99% proximal RCA lesion as described above which was successfully treated using the drug-eluting stent with an excellent anatomical result and anabaptist of excellent flow in the vessel. moderate mid says stenosis of 80% in the trunk of the circumflex unrelated to this event. infero posterior akinesia with global ejection fraction of about 40% (3) Anoxic brain injury: Code(s): G93.1 - Anoxic brain damage, not elsewhere classified Status: Acute Assessment and Plan: Currently trached and PEG placement. Awaiting placement Subjective Date/time seen: 09/01/21 08:40 Interval history: 46-year-old with prolonged cardiac arrest Date of service 08/29/2021: Not following commands today. Awake. Eyes open. Will track with eyes. Date of service 08/30/2021: Resting in bed comfortably. No acute changes. Rhythm stable Date of service 08/31/2021: No changes overall. Rhythm stable. Resting comfortably in bed. No bleeding issues Date of service 09/01/2021: Rhythm remained stable. Resting in bed. Arousable. Review of Systems Review of Systems: ROS unobtainable: Yes unobtainable due to endotracheal tube, unobtainable due to medical condition and unobtainable due to mental status Cardiovascular: Cardiovascular: Denies chest pain Respiratory: Respiratory: Denies hemoptysis Exam Const: General: comfortable and no acute distress Other: Trached HENMT: Mouth: Yes moist mucous membranes Eyes: Sclera: sclerae normal Neck: Neck: supple and no JVD Other: Normal carotid pulses Resp: Effort & Inspection: normal respiratory effort Auscultation: clear to auscultation bilaterally and rhonchi Other: Scattered rhonchi noted Cardio: Rate: regular rate Rhythm: regular rhythm Other: No murmur no gallop GI: Auscultation: normal bowel sounds Skin: General skin exam: normal color Neuro: Other: Moves spontaneously but does not follow commands Extrem: General: normal to inspection Other: Arterial access site free from bleeding, hematoma Objective Data Vital Signs Vital Signs: Vital Signs - 24 hr 08/31/21 08:44 08/31/21 08:51 08/31/21 10:00 Temperature 36.7 C Pulse Rate 74 80 92 Respiratory Rate 21 H 21 H Blood Pressure 99/79 L Pulse Oximetry 94 08/31/21 10:57 08/31/21 12:00 08/31/21 13:01 Temperature 36.8 C Pulse Rate 82 79 88 Respiratory Rate 20 Blood Pressure 85/59 L Pulse Oximetry 99 100 08/31/21 13:21 08/31/21 13:29 08/31/21 13:55 Temperature Pulse Rate 76 89 80 Respiratory Rate 20 23 H Blood Pressure Pulse Oximetry 98 08/31/21 14:00 08/31/21 14:40 08/31/21 16:00 Temperature 37.2 C 36.9 C Pulse Rate 101 H 103 H 85 Respiratory Rate 18 21 H Blood Pressure 111/82 113/81 Pulse Oximetry 99 98 08/31/21 17:32 08/31/21 18:00 08/31/21 19:47 Temperature 36.9 C Pulse Rate 93 87 90 Respiratory Rate 22 H 22 H Blood Pressure 101/71 Pulse Oximetry 98 97 96 08/31/21 20:00 08/31/21 20:07 08/31/21 20:16 Temperature 37.4 C Pulse Rate 93 90 102 H Respiratory Rate 21 H 22 H Blood Pressure 133/85 Pulse Oximetry 96 08/31/21 21:25 08/31/21 22:00 08/31/21 23:20 Temperature 37.4 C Pulse Rate 90 94 84 Respiratory Rate 23 H Blood Pressure 103/76 Pulse Oximetry 96 97 09/01
--- NOTE | 2021-09-01 11:54 | PM.IMPN ---
Progress Note: A&P Assessment and Plan (1) Cardiac arrest: Code(s): I46.9 - Cardiac arrest, cause unspecified Status: Acute Assessment and Plan: Prolonged out of the hospital VFib arrest (down time was 1 hour and 8 minutes per records) -VFib likely secondary to inferior [place], status post cardiac catheterization with PTCA/PCI with PAT x1 to proximal RCA (2) ST elevation (STEMI) myocardial infarction: Qualifiers: Involved coronary artery: unspecified coronary artery Qualified Code(s): I21.3 - ST elevation (STEMI) myocardial infarction of unspecified site Code(s): I21.3 - ST elevation (STEMI) myocardial infarction of unspecified site Status: Acute Assessment and Plan: As above -cardiology following the patient -continue aspirin, Brilinta, statin -continue beta-tapan and losartan (3) Diabetes mellitus with hyperglycemia, with long-term current use of insulin: Qualifiers: Diabetes mellitus type: type 2 Qualified Code(s): E11.65 - Type 2 diabetes mellitus with hyperglycemia; Z79.4 - rat exterminator (current) use of insulin Code(s): E11.65 - Type 2 diabetes mellitus with hyperglycemia; Z79.4 - nursing home (current) use of insulin Status: Acute Assessment and Plan: Hyperglycemia could be related to uncontrolled diabetes, acute stress from cardiac arrest, cardiac catheterization, shock -hemoglobin A1c 10.2 -continue sliding scale -continue Lantus (4) Hypertension: Code(s): I10 - Essential (primary) hypertension Status: Acute Assessment and Plan: Blood pressure on the softer side Hold Cozaar and continue low-dose metoprolol Norvasc has been DCed Continue p.r.n. labetalol and hydralazine Additional Plan DVT prophylaxis: SCDs. therapeutic Lovenox Stress ulcer prophylaxis: Protonix Nutrition: Patient tolerating tube feeds, will continue Code status: Full code I spoke to patient's girlfriend at bedside and updated her with patient's current status current treatment plan. I answered all her questions. Patient's health insurance has hence will delay placement in LTAC. Critical care time spent: 30 minutes This dictation may have been done utilizing a voice recognition system. Attempts have been made to correct errors. However, there may be uncorrected grammatical, spelling, and recognition errors present. Due to a high probability of clinically significant, life threatening deterioration, the patient required my highest level of preparedness to intervene emergently and I personally spent this critical care time directly and personally managing the patient. This critical care time included obtaining a history; examining the patient; pulse oximetry; ordering and review of studies; arranging urgent treatment with development of a management plan; evaluation of patient's response to treatment; frequent reassessment; and discussions with other providers. It was exclusive of separately billable procedures and treating other patients and teaching time. Please see Assessment and Plan section and the rest of the note for further information on patient assessment and treatment Subjective Date/time seen: 09/01/21 11:54 08/20/2021 Interval history: currently on ventilator, unable to provide any history review of symptom, patient with cardiac arrest secondary to severe coronary artery disease, was emergently taken to cath and showed stenosis of coronary artery and stent was placed, continue aspirin and Brilinta, it seems patient had a anoxic brain injury during the cardiac arrest, on 08/15 patient had EEG:This EEG was abnormal due the presence of severely diffuse background slowing. This EEG was indicative of the presence of severe, bihemispheric cerebral dysfunction of the type seen most commonly in the setting of severe toxicometabolic encephalopathies or anoxic injury.There was no evidence of epileptiform activity or focal cerebral dysfunction. repeat EEG to
[2021-09-01 11:56] LABS: Glucose Point of Care 285 mg/dl (65-105)
[2021-09-01] MEDS: ACETAMINOPHEN ELIXIR 325 MG/10.15 ML UDC 650 MG PO (16:36)
[2021-09-01 18:49] LABS: Glucose Point of Care 211 mg/dl (65-105)
[2021-09-01] MEDS: PROPOFOL IV EMULSION 100 ML 7.85 MG IV CONT (20:10)
[2021-09-01 20:52] LABS: Glucose Point of Care 177 mg/dl (65-105)
[2021-09-01 23:52] LABS: Glucose Point of Care 121 mg/dl (65-105)
[2021-09-02] VITALS (36 sets, daily range): BP systolic 87–142; BP diastolic 61–99; PULSE 72–106; RESP 16–32; TEMP 36.7–37.6; O2SAT 96–100
[2021-09-02] MEDS: IPRATROPIUM BR 0.02% INH SOLN 0.5 MG/2.5 ML VIAL INHALATION ×4 (02:00→19:08)
[2021-09-02] MEDS: LEVALBUTEROL NEB 1.25 MG/3 ML 0.63 MG INHALATION ×4 (02:00→19:08)
[2021-09-02] MEDS: diazePAM (*CRX) 5 MG TABLET FEED TUBE (02:47)
[2021-09-02 03:57] LABS: Hematocrit 28.8 % (42.0-52.0); Hemoglobin 9.7 g/dL (14.0-18.0); Mean Corpuscular HGB Conc 33.7 g/dl (32-36); Mean Platelet Volume 10.4 fl (7.4-10.4); Platelet Count Result 471 k/mm3 (150-375); Red Blood Count 3.35 M/mm3 (4.6-6.20); Red Cell Distribution Width 11.9 % (11.5-14.5); White Blood Count 12.9 K/mm3 (4.5-10.0)
[2021-09-02 04:22] LABS: Alanine Aminotransferase 95 U/L (4-50); Albumin Level 3.2 g/dL (3.5-5.1); Alkaline Phosphatase 118 U/L (38-126); Anion Gap 5 mmol/L (8-16); Aspartate Amino Transferase 75 U/L (17-59); Bilirubin,Total 0.1 mg/dL (0.2-1.3); Blood Urea Nitrogen 17 mg/dL (9-20); Calcium 8.3 mg/dL (8.4-10.2); Carbon Dioxide 30 mmol/L (22-30); Chloride 103 mmol/L (98-107); Estimated CRCL calculation 147 ml/min; Estimated Glomerular Filt Rate > 60; Glucose 162 mg/dL (65-110); Magnesium 1.7 mg/dL (1.6-2.3); Sodium 138 mmol/L (137-145)
[2021-09-02 04:29] LABS: Vancomycin Trough 9.8 ug/mL (10.0-20.0)
[2021-09-02] MEDS: fentaNYL CITRATE INJ (*CRX) 100 MCG/2 ML VIAL 25 MCG IV PUSH ×2 (04:31→06:53)
[2021-09-02 06:07] LABS: Alveolar/Arterial O2 Gradient 38.4 mmHg; Base Excess ABG 5.1 mEq/l (+/-2.0); Carboxyhemoglobin 0.2 % THb (0-2.0); Device VENTILATOR; Fractional Inspired Oxygen 25 %; HCO3 ABG 29.9 mEq/l (22.0-26.0); Methemoglobin ABG 0.3 %THb (0-1.5); Modified Allen's Test Unable to perform; Oxygen Saturation ABG 96.8 % (95.0-100.0); Oxyhemoglobin 95.1 % THb (90.0-100.0); PCO2 ABG 45.1 mmHg (35.0-45.0); PO2 ABG 86.3 mmHg (80.0-100.0); PO2 FiO2 Ratio Arterial Blood 3.45 %; Reduced Hemoglobin 4.4 %THb (0-5.0); Site Drawn RIGHT RADIAL; Total Hemoglobin 9.6 g/dL (12.0-18.0); pH ABG 7.439 (7.350-7.450)
[2021-09-02 06:09] LABS: Arterial Blood Gas Ventilator rate 20 /MIN
[2021-09-02 06:10] LABS: Arterial Blood Gas PEEP 5 cmH2O; Arterial Blood Gas Tidal Volume 420 ml; Arterial Blood Gas Vent Mode CMV
[2021-09-02] MEDS: LORazepam INJ (*CRX) 2 MG/ML VIAL IV PUSH (07:35)
--- NOTE | 2021-09-02 07:53 | WPDINTPN ---
Progress Note: A&P Assessment and Plan (1) Acute respiratory failure: Code(s): J96.00 - Acute respiratory failure, unspecified whether with hypoxia or hypercapnia Status: Acute Assessment and Plan: Acute respiratory failure likely related to VFib arrest, patient was intubated on 08/12/2021 Most recent ABGs and chest x-ray reviewed -currently on cmv mode of ventilation, 30% FiO2 and peep of 5. -continue pressure support as tolerated -secretions from trach and overly persist - Zosyn and vancomycin discontinued on 08/24/2021 -vancomycin and cefepime restarted 08/28 and we continued for 7 days -tracheostomy tube secretions, started on Pulmozyme and bronchodilators -PEG tube placed on 08/23/2021. -tracheostomy tube placed 08/24/2021 -await LTAC placement (2) Anoxic brain injury: Code(s): G93.1 - Anoxic brain damage, not elsewhere classified Status: Acute Assessment and Plan: Patient has sustained a Anoxic brain injury due to prolonged down time Patient has completed TTM protocol Sedation has been discontinued since 08/14 evening Neuro exam as above. CT head done 08/15 showed - Development of diffuse cerebellar swelling, anoxic injury. No obstructive hydrocephalus but patient at risk. CT 08/19 - Low attenuation involving the bilateral temporal lobes, cerebellum, and braulio, stable from 08/15/21 and worsened from 08/12/21, consistent with infarcts from anoxic brain injury. 08/15 EEG - This EEG was abnormal due the presence of severely diffuse background slowing. This EEG was indicative of the presence of severe, bihemispheric cerebral dysfunction of the type seen most commonly in the setting of severe toxic metabolic encephalopathies or anoxic injury.The was no evidence of epileptiform activity or focal cerebral dysfunction. 08/20 repeat EEG - Abnormal record due to the presence of bihemispheric delta activity throughout the tracing with no evidence of paroxysmal activity. This abnormality is consistent with diffuse organic or metabolic encephalopathy clinical correlation recommended. Is not compatible with electrocerebral silence or status epilepticus Neurology following Continue Eliasra (3) Fever: Code(s): R50.9 - Fever, unspecified Status: Acute Assessment and Plan: He completed course of antibiotics for aspiration pneumonia earlier in the hospitalization. He does have a DVT but has persistent fevers and elevated white cell count No central venous catheter at this time Steinberg was changed 08/27 UA was negative 08/27 urine sputum and blood culture sent. Blood culture 05/20 is growing Staph hominis which is likely contaminant but is sensitive to vancomycin 08/28 CT sinuses 1. Small to moderate amount of left sphenoid fluid. 2. Small to moderate-sized right maxillary mucous retention cyst. CT chest abdomen pelvis IMPRESSION: 1. Tracheostomy tube, PEG tube, rectal tube, Steinberg catheter in position. 2. Trace right upper lobe nonspecific pneumonitis. 3. Dependent subsegmental atelectasis. Mild emphysema. 4. Colonic fluid without wall thickening. Diarrhea. Procalcitonin level 0.1 Normal lipase, C diff negative 08/28 patient restarted on vancomycin and cefepime which will be continued for 7 days Afebrile now. Continue to monitor (4) Cardiac arrest: Code(s): I46.9 - Cardiac arrest, cause unspecified Status: Acute Assessment and Plan: Prolonged out of the hospital VFib arrest (down time was 1 hour and 8 minutes per records) -VFib likely secondary to inferior [place], status post cardiac catheterization with PTCA/PCI with PAT x1 to proximal RCA (5) DVT (deep venous thrombosis): Code(s): I82.409 - Acute embolism and thrombosis of unspecified deep veins of unspecified lower extremity Status: Acute Assessment and Plan: Patient with consistent fevers, lower extremity venous Dopplers done on 08/22/2021: Small amount of nonocclusive deep venous thrombosis at the LEFT commo
--- NOTE | 2021-09-02 08:00 | PC.NURSE ---
Patient agitated, kicking legs over side of bed, grimacing, respiratory rate between 23-28, and appearing in discomfort. Medication given for comfort, patient repositioned. Will continue to monitor closely.
[2021-09-02] MEDS: levETIRAcetam 500MG/NACL 100ML 500 MG/100 ML BAG 400 MG IVPB ×2 (08:28→21:09)
[2021-09-02] MEDS: ROSUVASTATIN 10 MG TABLET 20 MG PO (08:30)
[2021-09-02] MEDS: ENOXAPARIN 80 MG/0.8 ML SYRINGE 70 MG SUB-Q ×2 (08:30→21:10)
[2021-09-02] MEDS: QUEtiapine FUMARATE 25 MG TABLET 50 MG FEED TUBE ×2 (08:30→21:58)
[2021-09-02] MEDS: ASPIRIN 81 MG CHEWABLE TABLET PO (08:36)
[2021-09-02] MEDS: PANTOPRAZOLE SODIUM IV 40 MG VIAL IV PUSH ×2 (08:36→21:11)
[2021-09-02] MEDS: METOPROLOL TARTRATE 25 MG TABLET PO ×2 (08:36→21:11)
[2021-09-02] MEDS: MINERAL OIL/WHITE PETROLATUM OINTMENT 1 APPLIC EACH EYE ×2 (08:36→21:11)
[2021-09-02] MEDS: TICAGRELOR 90 MG TABLET PO ×2 (08:36→21:59)
[2021-09-02] MEDS: TOLNAFTATE 1% POWDER 45 GM BTL 1 APPLIC TOPICAL ×2 (08:38→21:28)
[2021-09-02] MEDS: diazePAM (*CRX) 10 MG TABLET FEED TUBE ×3 (08:44→21:11)
[2021-09-02] MEDS: INSULIN GLARGINE (*BKC) 100 UNITS/ML 25 UNITS SUB-Q ×2 (08:58→21:10)
[2021-09-02] MEDS: PROPOFOL IV EMULSION 100 ML 9.81 MG IV CONT (09:59)
--- NOTE | 2021-09-02 10:02 | PM.PNCARD ---
Progress Note: A&P Assessment and Plan (1) Cardiac arrest: Code(s): I46.9 - Cardiac arrest, cause unspecified Status: Acute Assessment and Plan: Prolonged resuscitation with resultant anoxic injury. (2) ST elevation (STEMI) myocardial infarction: Qualifiers: Involved coronary artery: unspecified coronary artery Qualified Code(s): I21.3 - ST elevation (STEMI) myocardial infarction of unspecified site Code(s): I21.3 - ST elevation (STEMI) myocardial infarction of unspecified site Status: Acute Assessment and Plan: acute inferior current of injury with subtotal 99% proximal RCA lesion as described above which was successfully treated using the drug-eluting stent with an excellent anatomical result and christian of excellent flow in the vessel. moderate mid says stenosis of 80% in the trunk of the circumflex unrelated to this event. infero posterior akinesia with global ejection fraction of about 40% (3) Anoxic brain injury: Code(s): G93.1 - Anoxic brain damage, not elsewhere classified Status: Acute Assessment and Plan: Currently trached and PEG placement. Awaiting placement (4) Hypomagnesemia: Code(s): E83.42 - Hypomagnesemia Status: Acute Assessment and Plan: Will give 2 g of IV magnesium today Subjective Date/time seen: 09/02/21 10:02 Interval history: 46-year-old with prolonged cardiac arrest Date of service 08/29/2021: Not following commands today. Awake. Eyes open. Will track with eyes. Date of service 08/30/2021: Resting in bed comfortably. No acute changes. Rhythm stable Date of service 08/31/2021: No changes overall. Rhythm stable. Resting comfortably in bed. No bleeding issues Date of service 09/01/2021: Rhythm remained stable. Resting in bed. Arousable. Date of service 09/02/2021: No change. Arousable. Rhythm stable Review of Systems Review of Systems: ROS unobtainable: Yes unobtainable due to endotracheal tube, unobtainable due to medical condition and unobtainable due to mental status Cardiovascular: Cardiovascular: Denies chest pain Respiratory: Respiratory: Denies hemoptysis Exam Const: General: comfortable and no acute distress Other: Trached HENMT: Mouth: Yes moist mucous membranes Eyes: Sclera: sclerae normal Neck: Neck: supple and no JVD Other: Normal carotid pulses Resp: Effort & Inspection: normal respiratory effort Auscultation: clear to auscultation bilaterally and rhonchi Other: Scattered rhonchi noted Cardio: Rate: regular rate Rhythm: regular rhythm Other: No murmur no gallop GI: Auscultation: normal bowel sounds Skin: General skin exam: normal color Neuro: Other: Moves spontaneously but does not follow commands Extrem: General: normal to inspection Other: Arterial access site free from bleeding, hematoma Objective Data Vital Signs Vital Signs: Vital Signs - 24 hr 09/01/21 11:15 09/01/21 12:00 09/01/21 13:44 Temperature 37.4 C Pulse Rate 83 67 83 Respiratory Rate 26 H 25 H Blood Pressure 106/67 Pulse Oximetry 98 97 09/01/21 14:00 09/01/21 14:26 09/01/21 14:44 Temperature 37.6 C H Pulse Rate 102 H 92 100 Respiratory Rate 19 24 H 28 H Blood Pressure 92/63 L Pulse Oximetry 98 98 09/01/21 14:50 09/01/21 16:00 09/01/21 16:36 Temperature 37.8 C H 37.8 C H Pulse Rate 95 104 H Respiratory Rate 22 H 27 H Blood Pressure 148/94 H Pulse Oximetry 99 09/01/21 17:02 09/01/21 18:00 09/01/21 18:44 Temperature 37.2 C Pulse Rate 87 87 Respiratory Rate 25 H Blood Pressure 118/76 Pulse Oximetry 99 99 09/01/21 18:50 09/01/21 20:00 09/01/21 20:10 Temperature 37.2 C Pulse Rate 100 97 93 Respiratory Rate 31 H 20 Blood Pressure 154/92 H Pulse Oximetry 96 09/01/21 20:16 09/01/21 20:20 09/01/21 20:31 Temperature Pulse Rate 96 83 85 Respiratory Rate 22 H Blood Pressure Pulse Oximetry 99
--- NOTE | 2021-09-02 10:35 | PC.NURSE ---
Patient continues to appear in discomfort - grimacing, kicking legs over the side of the bed. Titrated medication per Dr. Mukherjee order.
--- NOTE | 2021-09-02 11:14 | PM.IMPN ---
Progress Note: A&P Assessment and Plan (1) Cardiac arrest: Code(s): I46.9 - Cardiac arrest, cause unspecified Status: Acute Assessment and Plan: Prolonged out of the hospital VFib arrest (down time was 1 hour and 8 minutes per records) -VFib likely secondary to inferior [place], status post cardiac catheterization with PTCA/PCI with PAT x1 to proximal RCA (2) ST elevation (STEMI) myocardial infarction: Qualifiers: Involved coronary artery: unspecified coronary artery Qualified Code(s): I21.3 - ST elevation (STEMI) myocardial infarction of unspecified site Code(s): I21.3 - ST elevation (STEMI) myocardial infarction of unspecified site Status: Acute Assessment and Plan: As above -cardiology following the patient -continue aspirin, Brilinta, statin -continue beta-tapan and losartan (3) Diabetes mellitus with hyperglycemia, with long-term current use of insulin: Qualifiers: Diabetes mellitus type: type 2 Qualified Code(s): E11.65 - Type 2 diabetes mellitus with hyperglycemia; Z79.4 - terminal gauger supervisor (current) use of insulin Code(s): E11.65 - Type 2 diabetes mellitus with hyperglycemia; Z79.4 - USP (current) use of insulin Status: Acute Assessment and Plan: Hyperglycemia could be related to uncontrolled diabetes, acute stress from cardiac arrest, cardiac catheterization, shock -hemoglobin A1c 10.2 -continue sliding scale -continue Lantus (4) Hypertension: Code(s): I10 - Essential (primary) hypertension Status: Acute Assessment and Plan: Blood pressure on the softer side Hold Cozaar and continue low-dose metoprolol Norvasc has been DCed Continue p.r.n. labetalol and hydralazine Subjective Date/time seen: 09/02/21 11:14 08/20/2021 Interval history: currently on ventilator, unable to provide any history review of symptom, patient with cardiac arrest secondary to severe coronary artery disease, was emergently taken to cath and showed stenosis of coronary artery and stent was placed, continue aspirin and Brilinta, it seems patient had a anoxic brain injury during the cardiac arrest, on 08/15 patient had EEG:This EEG was abnormal due the presence of severely diffuse background slowing. This EEG was indicative of the presence of severe, bihemispheric cerebral dysfunction of the type seen most commonly in the setting of severe toxicometabolic encephalopathies or anoxic injury.There was no evidence of epileptiform activity or focal cerebral dysfunction. repeat EEG today shows a similar presentation, Pending neurology consult, patient has a myoclonic jerking movement dry house wheeler started the patient on Keppra, today again discussed with dry house wheeler suspect most likely patient will get tract and PEG, dry house wheeler reviewed EEG with the family and family, patient sister is present in the room and discussed, will decide further planning, also discussed with dry house wheeler and appreciate. 08/28/2021 Interval history: patient had tracheostomy tube placed on 08/24/2021, PEG on 08/23/2021 patient remains on ventilator, discussed with dry house wheeler family has not decided the long-term plan patient may need to go to LTAC however patient does not have any insurance, social service is working on it will continue to monitor. 08/29/2021 interval history: today patient was able to respond to stimuli per family and was minimal interactive, he off vent but on precedex, SW is working of LTAC once accepted will dischargee the patient 09/01/2021 interval history: patient remains on ventilator and agitated on and off currently on Precedex and Ativan, no family member is present, social service is working on getting answers authorization for LTAC will continue to monitor seen by dry house wheeler and appreciate. 09/02/2021 interval history: patient remains on ventilator and agitated on and off currently on Propofol and Ativan, no family member is present, patient is accepted by the LTAC
[2021-09-02] MEDS: MAGNESIUM SULF 2 GM/WATER 50ML 2 GM/50 ML BAG IVPB (11:35)
[2021-09-02 11:55] LABS: Glucose Point of Care 271 mg/dl (65-105)
[2021-09-02] MEDS: INSULIN ASPART (*BKC) 100 UNITS/ML SUB-Q ×2 (12:33→23:37)
[2021-09-02] MEDS: PROPOFOL IV EMULSION 100 ML 7.85 MG IV CONT (16:47)
[2021-09-02 17:48] LABS: Glucose Point of Care 196 mg/dl (65-105)
[2021-09-02 23:53] LABS: Glucose Point of Care 219 mg/dl (65-105)
[2021-09-03] VITALS (30 sets, daily range): BP systolic 84–158; BP diastolic 56–101; PULSE 77–106; RESP 18–28; TEMP 36.5–38.3; O2SAT 96–100
[2021-09-03] MEDS: diazePAM (*CRX) 10 MG TABLET FEED TUBE ×2 (01:45→09:54)
[2021-09-03] MEDS: LEVALBUTEROL NEB 1.25 MG/3 ML 0.63 MG INHALATION ×4 (02:13→20:30)
[2021-09-03] MEDS: IPRATROPIUM BR 0.02% INH SOLN 0.5 MG/2.5 ML VIAL INHALATION ×4 (02:13→20:30)
[2021-09-03] MEDS: PROPOFOL IV EMULSION 100 ML 7.85 MG IV CONT ×2 (04:34→10:23)
[2021-09-03 04:48] LABS: Hematocrit 28.5 % (42.0-52.0); Hemoglobin 9.6 g/dL (14.0-18.0); Mean Corpuscular HGB Conc 33.7 g/dl (32-36); Mean Corpuscular Hemoglobin 29.3 pg (26-34); Mean Corpuscular Volume 86.9 fl (80-100); Mean Platelet Volume 10.6 fl (7.4-10.4); Platelet Count Result 469 k/mm3 (150-375); Red Blood Count 3.28 M/mm3 (4.6-6.20); White Blood Count 11.7 K/mm3 (4.5-10.0)
[2021-09-03 05:03] LABS: Alveolar/Arterial O2 Gradient 46.2 mmHg; Base Excess ABG 4.4 mEq/l (+/-2.0); Carboxyhemoglobin 0.2 % THb (0-2.0); Fractional Inspired Oxygen 25 %; HCO3 ABG 28.4 mEq/l (22.0-26.0); Methemoglobin ABG 0.2 %THb (0-1.5); Oxygen Content ABG 14.1 %vol (16.0-22.0); Oxygen Saturation ABG 96.9 % (95.0-100.0); Oxyhemoglobin 95.5 % THb (90.0-100.0); PO2 ABG 84.6 mmHg (80.0-100.0); PO2 FiO2 Ratio Arterial Blood 3.38 %; Reduced Hemoglobin 4.1 %THb (0-5.0); Total Hemoglobin 10.4 g/dL (12.0-18.0); pH ABG 7.469 (7.350-7.450)
[2021-09-03 05:03] LABS: Alanine Aminotransferase 124 U/L (4-50); Albumin Level 3.1 g/dL (3.5-5.1); Alkaline Phosphatase 132 U/L (38-126); Anion Gap 6 mmol/L (8-16); Aspartate Amino Transferase 105 U/L (17-59); Bilirubin,Total 0.1 mg/dL (0.2-1.3); Blood Urea Nitrogen 20 mg/dL (9-20); Calcium 8.3 mg/dL (8.4-10.2); Carbon Dioxide 28 mmol/L (22-30); Chloride 102 mmol/L (98-107); Estimated CRCL calculation 122 ml/min; Estimated Glomerular Filt Rate > 60; Glucose 258 mg/dL (65-110); Magnesium 1.8 mg/dL (1.6-2.3); Sodium 136 mmol/L (137-145)
[2021-09-03 05:04] LABS: Device VENTILATOR; Modified Allen's Test Pass; Site Drawn RIGHT RADIAL
[2021-09-03 05:05] LABS: Arterial Blood Gas PEEP 5 cmH2O; Arterial Blood Gas Tidal Volume 420 ml; Arterial Blood Gas Vent Mode CMV; Arterial Blood Gas Ventilator rate 20 /MIN
[2021-09-03] MEDS: INSULIN ASPART (*BKC) 100 UNITS/ML SUB-Q ×3 (05:19→23:51)
--- NOTE | 2021-09-03 08:46 | PCRCNOTE ---
pt placed on PSV 10/5 25%, trail failed
--- NOTE | 2021-09-03 09:12 | PM.PNCARD ---
Progress Note: A&P Assessment and Plan (1) Cardiac arrest: Code(s): I46.9 - Cardiac arrest, cause unspecified Status: Acute Assessment and Plan: Secondary to VF in setting of ST-elevation [place] with successful but prolonged resuscitation with out of hospital arrest with resultant anoxic injury. (2) ST elevation (STEMI) myocardial infarction: Qualifiers: Involved coronary artery: unspecified coronary artery Qualified Code(s): I21.3 - ST elevation (STEMI) myocardial infarction of unspecified site Code(s): I21.3 - ST elevation (STEMI) myocardial infarction of unspecified site Status: Acute Assessment and Plan: acute inferior current of injury with subtotal 99% proximal RCA lesion as described above which was successfully treated using the drug-eluting stent with an excellent anatomical result and jehovah's witness of excellent flow in the vessel. moderate mid says stenosis of 80% in the trunk of the circumflex unrelated to this event. infero posterior akinesia with global ejection fraction of about 40% Continue dual antiplatelet therapy with aspirin and ticagrelor, rosuvastatin, losartan, metoprolol. (3) Anoxic brain injury: Code(s): G93.1 - Anoxic brain damage, not elsewhere classified Status: Acute Assessment and Plan: Secondary to VF arrest and prolonged resuscitation. Status post trach and PEG. Moves extremities, not following commands. Awaiting placement. Remains on Keppra. Guarded prognosis. (4) Acute respiratory failure: Code(s): J96.00 - Acute respiratory failure, unspecified whether with hypoxia or hypercapnia Status: Acute Assessment and Plan: Secondary to VFib arrest intubated 08/12/2021 status post trach and PEG. (5) Diabetes mellitus with hyperglycemia, with long-term current use of insulin: Qualifiers: Diabetes mellitus type: type 2 Qualified Code(s): E11.65 - Type 2 diabetes mellitus with hyperglycemia; Z79.4 - assisted (current) use of insulin Code(s): E11.65 - Type 2 diabetes mellitus with hyperglycemia; Z79.4 - terminal gauger (current) use of insulin Status: Acute Assessment and Plan: Management per primary service. Subjective Date/time seen: Date of service: 09/03/21 09:12 Interval history: 46-year-old seen in follow-up status post prolonged cardiac arrest, anoxic encephalopathy, respiratory failure, and acute myocardial infarction status post PCI to RCA Date of service 08/29/2021: Not following commands today. Awake. Eyes open. Will track with eyes. Date of service 08/30/2021: Resting in bed comfortably. No acute changes. Rhythm stable Date of service 08/31/2021: No changes overall. Rhythm stable. Resting comfortably in bed. No bleeding issues Date of service 09/01/2021: Rhythm remained stable. Resting in bed. Arousable. Date of service 09/02/2021: No change. Arousable. Rhythm stable Date of service 09/03/2021: No new issues overnight. Patient moves his extremities, remains intubated, trach, failed breathing trial this morning. Requiring propofol to remain come. Patient not following commands or answering questions. Review of Systems Review of Systems: ROS unobtainable: Yes unobtainable due to endotracheal tube, unobtainable due to medical condition and unobtainable due to mental status Cardiovascular: Cardiovascular: Denies chest pain Respiratory: Respiratory: Denies hemoptysis Exam Const: General: comfortable and no acute distress Other: No apparent distress, ventilatory support via Trach, frequently moving upper and lower extremities moving head back and forth not following commands. HENMT: Mouth: Yes moist mucous membranes Eyes: Sclera: sclerae normal Neck: Neck: supple and no JVD Other: Normal carotid pulses Resp: Effort & Inspection: normal respiratory effort Auscultation: clear to auscultation bilaterally and rhonchi Other: Faint rhonchi at the base bilat
[2021-09-03] MEDS: MINERAL OIL/WHITE PETROLATUM OINTMENT 1 APPLIC EACH EYE ×2 (10:00→20:38)
[2021-09-03] MEDS: TOLNAFTATE 1% POWDER 45 GM BTL 1 APPLIC TOPICAL ×2 (10:01→20:50)
[2021-09-03] MEDS: INSULIN GLARGINE (*BKC) 100 UNITS/ML 35 UNITS SUB-Q ×2 (10:07→21:37)
--- NOTE | 2021-09-03 10:22 | WPDINTPN ---
Progress Note: A&P Assessment and Plan (1) Acute respiratory failure: Code(s): J96.00 - Acute respiratory failure, unspecified whether with hypoxia or hypercapnia Status: Acute Assessment and Plan: Acute respiratory failure likely related to VFib arrest, patient was intubated on 08/12/2021 Most recent ABGs and chest x-ray reviewed -currently on cmv mode of ventilation, 30% FiO2 and peep of 5. -tried PSV 02/20 but patient failed quickly due to high RSBI -secretions from trach and oral persist - Zosyn and vancomycin discontinued on 08/24/2021 -vancomycin and cefepime restarted 08/28 and we continued for 7 days -tracheostomy tube secretions, started on Pulmozyme and bronchodilators -PEG tube placed on 08/23/2021. -tracheostomy tube placed 08/24/2021 -await LTAC placement (2) Anoxic brain injury: Code(s): G93.1 - Anoxic brain damage, not elsewhere classified Status: Acute Assessment and Plan: Patient has sustained a Anoxic brain injury due to prolonged down time Patient has completed TTM protocol Sedation has been discontinued since 08/14 evening Neuro exam as above. CT head done 08/15 showed - Development of diffuse cerebellar swelling, anoxic injury. No obstructive hydrocephalus but patient at risk. CT 08/19 - Low attenuation involving the bilateral temporal lobes, cerebellum, and braulio, stable from 08/15/21 and worsened from 08/12/21, consistent with infarcts from anoxic brain injury. 08/15 EEG - This EEG was abnormal due the presence of severely diffuse background slowing. This EEG was indicative of the presence of severe, bihemispheric cerebral dysfunction of the type seen most commonly in the setting of severe toxic metabolic encephalopathies or anoxic injury.The was no evidence of epileptiform activity or focal cerebral dysfunction. 08/20 repeat EEG - Abnormal record due to the presence of bihemispheric delta activity throughout the tracing with no evidence of paroxysmal activity. This abnormality is consistent with diffuse organic or metabolic encephalopathy clinical correlation recommended. Is not compatible with electrocerebral silence or status epilepticus Neurology following Continue Keppra (3) Fever: Code(s): R50.9 - Fever, unspecified Status: Acute Assessment and Plan: He completed course of antibiotics for aspiration pneumonia earlier in the hospitalization. He does have a DVT but has persistent fevers and elevated white cell count No central venous catheter at this time Steinebrg was changed 08/27 UA was negative 08/27 urine sputum and blood culture sent. Blood culture 05/20 is growing Staph hominis which is likely contaminant but is sensitive to vancomycin 08/28 CT sinuses 1. Small to moderate amount of left sphenoid fluid. 2. Small to moderate-sized right maxillary mucous retention cyst. CT chest abdomen pelvis IMPRESSION: 1. Tracheostomy tube, PEG tube, rectal tube, Steinberg catheter in position. 2. Trace right upper lobe nonspecific pneumonitis. 3. Dependent subsegmental atelectasis. Mild emphysema. 4. Colonic fluid without wall thickening. Diarrhea. Procalcitonin level 0.1 Normal lipase, C diff negative 08/28 patient restarted on vancomycin and cefepime which will be continued for 7 days Afebrile now. Continue to monitor (4) Cardiac arrest: Code(s): I46.9 - Cardiac arrest, cause unspecified Status: Acute Assessment and Plan: Prolonged out of the hospital VFib arrest (down time was 1 hour and 8 minutes per records) -VFib likely secondary to inferior [place], status post cardiac catheterization with PTCA/PCI with PAT x1 to proximal RCA (5) DVT (deep venous thrombosis): Code(s): I82.409 - Acute embolism and thrombosis of unspecified deep veins of unspecified lower extremity Status: Acute Assessment and Plan: Patient with consistent fevers, lower extremity venous Dopplers done on 08/22/2021: Small amount of nonocclusive deep venous thrombosis
[2021-09-03] MEDS: QUEtiapine FUMARATE 25 MG TABLET 50 MG FEED TUBE ×2 (10:28→20:40)
[2021-09-03] MEDS: TICAGRELOR 90 MG TABLET PO ×2 (10:28→20:40)
[2021-09-03] MEDS: PANTOPRAZOLE SODIUM IV 40 MG VIAL IV PUSH ×2 (10:28→20:40)
[2021-09-03] MEDS: ENOXAPARIN 80 MG/0.8 ML SYRINGE 70 MG SUB-Q ×2 (10:29→20:40)
[2021-09-03] MEDS: METOPROLOL TARTRATE 25 MG TABLET PO ×2 (10:29→20:40)
[2021-09-03] MEDS: levETIRAcetam 500MG/NACL 100ML 500 MG/100 ML BAG 400 MG IVPB ×2 (10:29→20:50)
[2021-09-03] MEDS: ASPIRIN 81 MG CHEWABLE TABLET PO (10:29)
[2021-09-03] MEDS: diazePAM (*CRX) 5 MG TABLET 15 MG FEED TUBE ×3 (10:57→23:40)
--- NOTE | 2021-09-03 11:21 | PCFNICU ---
ICU Rounding Note: Pt current nutrition is Vital AF 1.2 at 70 ml/hr over 22 hours. Last recorded weight is 66.9 kg-stable Bowel Motility:Last BM reported 08/31 Labs Reviewed:Glu 258, Cr 0.6,Na 136, Alb 3.1,Hct 28.5,Hgb 9.6 Meds Noted:Propofol 9.81 ml/ql=148 kcals, Vancomycin, Brilinta, Lantus, NovoLog, Lovenox, Valium, Maxipime, Protonix, Lopressor, Atrovent, Xopenex, Keppra, Seroquel. Skin: WNL Additional Notes: Patient remains current with Trach/PEG. Tube feedings remain at 70 ml/hr of Vital AF 1.2 and tolerating per nursing. Free water flush 30 ml q 4 hours. Propofol infusion continues, Stonecutter Assistant reports goal is to have it discontinued in time. Recommend Triglyceride lab draw. Banatrol Plus has been discontinued. No further diarrhea has been reported/FMS has been discontinued. Agree with diet orders. Following daily in ICU rounds. Will monitor every Friday and Friday.
--- NOTE | 2021-09-03 11:56 | PCOTNOTE ---
Attempted to see patient this date, however RN advised not to see secondary to level of sedation and inability to participate at this time.
[2021-09-03 13:15] LABS: Glucose Point of Care 331 mg/dl (65-105)
[2021-09-03] MEDS: LORazepam INJ (*CRX) 2 MG/ML VIAL IV PUSH ×2 (14:41→17:00)
--- NOTE | 2021-09-03 16:59 | PM.IMPN ---
Progress Note: A&P Assessment and Plan (1) Cardiac arrest: Code(s): I46.9 - Cardiac arrest, cause unspecified Status: Acute Assessment and Plan: Prolonged out of the hospital VFib arrest (down time was 1 hour and 8 minutes per records) -VFib likely secondary to inferior [place], status post cardiac catheterization with PTCA/PCI with PAT x1 to proximal RCA (2) ST elevation (STEMI) myocardial infarction: Qualifiers: Involved coronary artery: unspecified coronary artery Qualified Code(s): I21.3 - ST elevation (STEMI) myocardial infarction of unspecified site Code(s): I21.3 - ST elevation (STEMI) myocardial infarction of unspecified site Status: Acute Assessment and Plan: As above -cardiology following the patient -continue aspirin, Brilinta, statin -continue beta-tapan and losartan (3) Diabetes mellitus with hyperglycemia, with long-term current use of insulin: Qualifiers: Diabetes mellitus type: type 2 Qualified Code(s): E11.65 - Type 2 diabetes mellitus with hyperglycemia; Z79.4 - director long term care (current) use of insulin Code(s): E11.65 - Type 2 diabetes mellitus with hyperglycemia; Z79.4 - custodial (current) use of insulin Status: Acute Assessment and Plan: Hyperglycemia could be related to uncontrolled diabetes, acute stress from cardiac arrest, cardiac catheterization, shock -hemoglobin A1c 10.2 -continue sliding scale -increase Lantus (4) Hypertension: Code(s): I10 - Essential (primary) hypertension Status: Acute Assessment and Plan: Continue Cozaar and continue low-dose metoprolol Continue p.r.n. labetalol and hydralazine (5) Anoxic brain injury: Code(s): G93.1 - Anoxic brain damage, not elsewhere classified Status: Acute Assessment and Plan: Patient has sustained a Anoxic brain injury due to prolonged down time Patient has completed TTM protocol Sedation has been discontinued since 08/14 evening Neuro exam as above. CT head done 08/15 showed - Development of diffuse cerebellar swelling, anoxic injury. No obstructive hydrocephalus but patient at risk. CT 08/19 - Low attenuation involving the bilateral temporal lobes, cerebellum, and braulio, stable from 08/15/21 and worsened from 08/12/21, consistent with infarcts from anoxic brain injury. 08/15 EEG - This EEG was abnormal due the presence of severely diffuse background slowing. This EEG was indicative of the presence of severe, bihemispheric cerebral dysfunction of the type seen most commonly in the setting of severe toxic metabolic encephalopathies or anoxic injury.The was no evidence of epileptiform activity or focal cerebral dysfunction. 4/4 repeat EEG - Abnormal record due to the presence of bihemispheric delta activity throughout the tracing with no evidence of paroxysmal activity. This abnormality is consistent with diffuse organic or metabolic encephalopathy clinical correlation recommended. Is not compatible with electrocerebral silence or status epilepticus Neurology following Continue Luly (6) Electrolyte abnormality: Code(s): E87.8 - Other disorders of electrolyte and fluid balance, not elsewhere classified Status: Acute Assessment and Plan: Sodium improved with decreased free water flush and now on the low-normal side. continue free water flush to 30 mL Additional Plan DVT prophylaxis: SCDs. therapeutic Lovenox Stress ulcer prophylaxis: Protonix Nutrition: Patient tolerating tube feeds, will continue Code status: Full code Patient awaits placement in LTAC. Subjective Date/time seen: 09/03/21 16:59 08/20/2021 Interval history: currently on ventilator, unable to provide any history review of symptom, patient with cardiac arrest secondary to severe coronary artery disease, was emergently taken to cath and showed stenosis of coronary artery and stent was placed, continue aspirin and Brilinta, it seems patient had a anoxic brai
[2021-09-03 17:36] LABS: Vancomycin Trough 12.4 ug/mL (10.0-20.0)
[2021-09-03 17:48] LABS: Glucose Point of Care 187 mg/dl (65-105)
[2021-09-03] MEDS: fentaNYL CITRATE INJ (*CRX) 100 MCG/2 ML VIAL 25 MCG IV PUSH (20:34)
[2021-09-03 21:44] LABS: Glucose Point of Care 251 mg/dl (65-105)
[2021-09-03 23:49] LABS: Glucose Point of Care 247 mg/dl (65-105)
[2021-09-04] VITALS (28 sets, daily range): BP systolic 85–163; BP diastolic 54–102; PULSE 74–115; RESP 18–33; TEMP 36.6–37.8; O2SAT 95–100
[2021-09-04] MEDS: fentaNYL CITRATE INJ (*CRX) 100 MCG/2 ML VIAL 25 MCG IV PUSH ×5 (00:17→22:39)
[2021-09-04] MEDS: LORazepam INJ (*CRX) 2 MG/ML VIAL IV PUSH ×5 (01:49→23:47)
[2021-09-04] MEDS: IPRATROPIUM BR 0.02% INH SOLN 0.5 MG/2.5 ML VIAL INHALATION ×4 (02:00→20:02)
[2021-09-04] MEDS: LEVALBUTEROL NEB 1.25 MG/3 ML 0.63 MG INHALATION ×4 (02:00→20:01)
[2021-09-04] MEDS: diazePAM (*CRX) 5 MG TABLET 15 MG FEED TUBE ×4 (04:23→23:52)
[2021-09-04 04:50] LABS: Hematocrit 30.1 % (42.0-52.0); Mean Corpuscular HGB Conc 33.2 g/dl (32-36); Mean Corpuscular Hemoglobin 29.1 pg (26-34); Mean Corpuscular Volume 87.5 fl (80-100); Mean Platelet Volume 10.5 fl (7.4-10.4); Platelet Count Result 464 k/mm3 (150-375); Red Blood Count 3.44 M/mm3 (4.6-6.20); Red Cell Distribution Width 12.1 % (11.5-14.5); White Blood Count 14.1 K/mm3 (4.5-10.0)
[2021-09-04 05:05] LABS: Alanine Aminotransferase 151 U/L (4-50); Albumin Level 3.5 g/dL (3.5-5.1); Alkaline Phosphatase 138 U/L (38-126); Anion Gap 6 mmol/L (8-16); Aspartate Amino Transferase 105 U/L (17-59); Bilirubin,Total 0.2 mg/dL (0.2-1.3); Blood Urea Nitrogen 25 mg/dL (9-20); Calcium 8.7 mg/dL (8.4-10.2); Carbon Dioxide 28 mmol/L (22-30); Chloride 101 mmol/L (98-107); Estimated CRCL calculation 109 ml/min; Estimated Glomerular Filt Rate > 60; Glucose 208 mg/dL (65-110); Magnesium 1.9 mg/dL (1.6-2.3); Sodium 135 mmol/L (137-145)
[2021-09-04 05:43] LABS: Alveolar/Arterial O2 Gradient 40.8 mmHg; Base Excess ABG 3.2 mEq/l (+/-2.0); Carboxyhemoglobin 0.2 % THb (0-2.0); Fractional Inspired Oxygen 25 %; Methemoglobin ABG 0.1 %THb (0-1.5); Oxygen Content ABG 14.1 %vol (16.0-22.0); Oxygen Saturation ABG 97.5 % (95.0-100.0); Oxyhemoglobin 96.4 % THb (90.0-100.0); PCO2 ABG 37.8 mmHg (35.0-45.0); PO2 ABG 92.6 mmHg (80.0-100.0); Reduced Hemoglobin 3.3 %THb (0-5.0); Total Hemoglobin 10.3 g/dL (12.0-18.0); pH ABG 7.471 (7.350-7.450)
[2021-09-04 05:44] LABS: Arterial Blood Gas Ventilator rate 20 /MIN; Device VENTILATOR; Modified Allen's Test Unable to perform; Site Drawn RIGHT BRACHIAL
[2021-09-04 05:45] LABS: Arterial Blood Gas PEEP 5 cmH2O; Arterial Blood Gas Tidal Volume 420 ml; Arterial Blood Gas Vent Mode CMV
[2021-09-04] MEDS: INSULIN ASPART (*BKC) 100 UNITS/ML SUB-Q ×2 (06:08→12:33)
[2021-09-04] MEDS: levETIRAcetam 500MG/NACL 100ML 500 MG/100 ML BAG 400 MG IVPB (08:12)
[2021-09-04] MEDS: ASPIRIN 81 MG CHEWABLE TABLET PO (08:13)
[2021-09-04] MEDS: MINERAL OIL/WHITE PETROLATUM OINTMENT 1 APPLIC EACH EYE ×2 (08:13→20:24)
[2021-09-04] MEDS: PANTOPRAZOLE SODIUM IV 40 MG VIAL IV PUSH (08:13)
[2021-09-04] MEDS: ENOXAPARIN 80 MG/0.8 ML SYRINGE 70 MG SUB-Q ×2 (08:13→20:23)
[2021-09-04] MEDS: TICAGRELOR 90 MG TABLET PO ×2 (08:13→20:24)
[2021-09-04] MEDS: TOLNAFTATE 1% POWDER 45 GM BTL 1 APPLIC TOPICAL ×2 (08:14→20:28)
[2021-09-04] MEDS: INSULIN GLARGINE (*BKC) 100 UNITS/ML 38 UNITS SUB-Q (08:15)
[2021-09-04] MEDS: QUEtiapine FUMARATE 100 MG TABLET FEED TUBE ×2 (08:24→20:24)
[2021-09-04] MEDS: METOPROLOL TARTRATE 25 MG TABLET PO ×2 (08:24→20:23)
[2021-09-04] MEDS: LOSARTAN POTASSIUM 12.5 MG TABLET PO (08:24)
--- NOTE | 2021-09-04 09:58 | PM.CNCAR ---
Assessment and Plan Assessment and plan (1) Cardiac arrest: Code(s): I46.9 - Cardiac arrest, cause unspecified Status: Acute Assessment and Plan: Secondary to VF in setting of ST-elevation [place] with successful but prolonged resuscitation with out of hospital arrest with resultant anoxic injury. Patient is status post trach. Patient receiving supportive care for now. (2) ST elevation (STEMI) myocardial infarction: Qualifiers: Involved coronary artery: unspecified coronary artery Qualified Code(s): I21.3 - ST elevation (STEMI) myocardial infarction of unspecified site Code(s): I21.3 - ST elevation (STEMI) myocardial infarction of unspecified site Status: Acute Assessment and Plan: acute inferior current of injury with subtotal 99% proximal RCA lesion as described above which was successfully treated using the drug-eluting stent with an excellent anatomical result and jewish of excellent flow in the vessel. moderate mid says stenosis of 80% in the trunk of the circumflex unrelated to this event. infero posterior akinesia with global ejection fraction of about 40% Continue dual antiplatelet therapy with aspirin and ticagrelor, rosuvastatin, losartan, metoprolol. (3) Diabetes mellitus with hyperglycemia, with long-term current use of insulin: Qualifiers: Diabetes mellitus type: type 2 Qualified Code(s): E11.65 - Type 2 diabetes mellitus with hyperglycemia; Z79.4 - custodial (current) use of insulin Code(s): E11.65 - Type 2 diabetes mellitus with hyperglycemia; Z79.4 - buttermaker helper (current) use of insulin Status: Acute Assessment and Plan: Management per primary service. History of Present Illness History of Present Illness Consult date/time: 09/04/21 09:58 Date of service 09/04/2021-patient is sedated and on trach. A female attendant in the room who describes herself as patient's fiancee . Reason For Visit: Out of hospital VFib/inferior ST elevation [facility] Past Medical History Medical History (Updated 09/02/21 @ 10:[address] MD) Alcoholic pancreatitis Cirrhosis Continuous tobacco abuse Diabetes mellitus treated with insulin Diabetic peripheral neuropathy Surgical History Surgical History (Updated 08/28/21 @ 10:27 by Kp Arias) History of left inguinal hernia repair Family History Family History (System 08/28/21 @ 10:27 by Kp Arias) Father Family history of migraine headaches Mother Family history of alcoholism Other Unknown family medical history Social History Social History (System 08/28/21 @ 10:27 by Kp Arias) Social History: The patient lives with his girlfriend of 3 years. 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 Patient has 2 adult sons. He has smoked a pack of cigarettes per day since he was a teenager. 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 He drinks a pot of coffee a day. Code status: Full code Smoking packs per day: 1 Smoking cigarettes per day: 20.0 Years smoked: 33 Smoking pack-years: 33.00 Smoking status: Current every day smoker Tobacco type: cigarettes Second hand tobacco smoke exposure: Yes Smoking end date: 05/19/10 Alcohol intake: former Substance use: former Substance use type: sedatives, opiates and painkillers Spiritual care concerns: No Meds Home Medications and Allergies Home Medications Medication Instructions Recorded Confirmed Type insulin glargine [Basaglar KwikPen 18 unit SUBCUT Q12H 08/12/21 08/31/21 History U-100 Insulin] Allergies Allergy/AdvReac Type Severity Reaction Status Date / Time codeine Allergy Unknown Verified 08/28/21 10:27 Vital Signs Vital Signs - 24 hr 09/03/21 10:00 09/03/21 10:23 09/03/21 11:36 Temperature Pulse Rate 93 95 97 Respiratory Rate 18 21 H Blood Pressure 110/85 Pulse Oximetry 98 98 09/03/21 12:00
--- NOTE | 2021-09-04 10:31 | WPDINTPN ---
Progress Note: A&P Assessment and Plan (1) Acute respiratory failure with hypercapnia: Code(s): J96.02 - Acute respiratory failure with hypercapnia Status: Acute Assessment and Plan: Acute respiratory failure likely related to VFib arrest, patient was intubated on 08/12/2021 Most recent ABGs and chest x-ray reviewed -currently on cmv mode of ventilation, 30% FiO2 and peep of 5. -Pt has been failing PSV 02/20 due to high RSBI and agitation -secretions from trach and oral persist - Zosyn and vancomycin discontinued on 08/24/2021 -vancomycin and cefepime restarted 08/28 and we continued for 10 days -Continue bronchodilators -PEG tube placed on 08/23/2021. -tracheostomy tube placed 08/24/2021 -await LTAC placement (2) Anoxic brain injury: Code(s): G93.1 - Anoxic brain damage, not elsewhere classified Status: Acute Assessment and Plan: Patient has sustained a Anoxic brain injury due to prolonged down time Patient has completed TTM protocol Sedation has been discontinued since 08/14 evening Neuro exam as above. CT head done 08/15 showed - Development of diffuse cerebellar swelling, anoxic injury. No obstructive hydrocephalus but patient at risk. CT 08/19 - Low attenuation involving the bilateral temporal lobes, cerebellum, and braulio, stable from 08/15/21 and worsened from 08/12/21, consistent with infarcts from anoxic brain injury. 08/15 EEG - This EEG was abnormal due the presence of severely diffuse background slowing. This EEG was indicative of the presence of severe, bihemispheric cerebral dysfunction of the type seen most commonly in the setting of severe toxic metabolic encephalopathies or anoxic injury.The was no evidence of epileptiform activity or focal cerebral dysfunction. 08/20 repeat EEG - Abnormal record due to the presence of bihemispheric delta activity throughout the tracing with no evidence of paroxysmal activity. This abnormality is consistent with diffuse organic or metabolic encephalopathy clinical correlation recommended. Is not compatible with electrocerebral silence or status epilepticus Neurology following Switch Keppra to per tube currently afebrile (3) Fever: Code(s): R50.9 - Fever, unspecified Status: Acute Assessment and Plan: He completed course of antibiotics for aspiration pneumonia earlier in the hospitalization. He does have a DVT but has persistent fevers and elevated white cell count No central venous catheter at this time Steinberg was changed 4/11 UA was negative 08/27 urine sputum and blood culture sent. Blood culture 05/20 is growing Staph hominis which is likely contaminant but is sensitive to vancomycin 08/28 CT sinuses 1. Small to moderate amount of left sphenoid fluid. 2. Small to moderate-sized right maxillary mucous retention cyst. CT chest abdomen pelvis IMPRESSION: 1. Tracheostomy tube, PEG tube, rectal tube, Steinberg catheter in position. 2. Trace right upper lobe nonspecific pneumonitis. 3. Dependent subsegmental atelectasis. Mild emphysema. 4. Colonic fluid without wall thickening. Diarrhea. Procalcitonin level 0.1 Normal lipase, C diff negative 08/28 patient restarted on vancomycin and cefepime which will be continued for 10 days Afebrile now. Continue to monitor (4) Cardiac arrest: Code(s): I46.9 - Cardiac arrest, cause unspecified Status: Acute Assessment and Plan: Prolonged out of the hospital VFib arrest (down time was 1 hour and 8 minutes per records) -VFib likely secondary to inferior [place], status post cardiac catheterization with PTCA/PCI with PAT x1 to proximal RCA (5) DVT (deep venous thrombosis): Code(s): I82.409 - Acute embolism and thrombosis of unspecified deep veins of unspecified lower extremity Status: Acute Assessment and Plan: Patient with consistent fevers, lower extremity venous Dopplers done on 08/22/2021: Small amount of nonocclusive deep venous thrombosis at the LEFT common femoral vein -pa
--- NOTE | 2021-09-04 11:22 | PCOTNOTE ---
Attempted to see patient this am, however per RN patient unable to participate reporting He's not able to follow directions or anything right now. RN reported giving patient Ativan earlier this am, and patient has been asleep since.
--- NOTE | 2021-09-04 11:35 | PCNFU ---
Nutrition Follow-Up Complete: Inadequate Oral Intake as related to mechanical ventilation as evidenced by NPO. Goal: Meet estimated nutritional needs Patient is meeting current nutrition goal. No new goal. Pt current nutrition is Vital AF 1.2 at 70 ml/hr over 22 hours. Last recorded weight is 68.9 kg-stable Bowel Motility: +BM reported 09/04 Labs Reviewed:BUN 25, Na 135, Hct 30.1,Hgb 10.0 Meds Noted:Vancomycin, Brilinta, Lantus, NovoLog, Lovenox, Maxipime, Protonix, Lopressor, Atrovent, Xopenex, Seroquel, Sublimaze. Skin: WNL Additional Notes: Patient remains current with Trach ASV mode and PEG. Tube feeding of Vital AF 1.2 at 70 ml/hr over 22 hours are being tolerating per nursing. Current tube feeding is providing 1848 kcals/115 gms protein/1249 ml waterf. Free water flush 30 ml q 4 hours. Banatrol Plus has been discontinued, no diarrhea noted. Propofol has been discontinued. Awaiting LTAC placement. Agree with diet orders. Will monitor in ICU rounds and reassess every Friday and Friday
--- NOTE | 2021-09-04 12:03 | WPDNEURCNPN ---
Assessment and Plan Additional Plan improving neurological status with bihemispheric theta and delta slow activity compatible with the post anoxic insult but without evidence of any seizure-like activity, treatment will be continued as such Consult date: 09/04/21 HPI: Sidney Raphael is a 46 year old male with history of cardiopulmonary arrest that is prolonged out of the hospital V fib arrest with down time of 1hour and 8 minutes per records and VFib secondary to inferior MRI is status post cardiac catheterization with PTCA PCI with gas x1 to proximal RCA and documented ST elevated myocardial infarction, neurology consultation next obtain to evaluate the neurological status at this stage, patient has already undergone EEG, most recent CT scan of the head was done on 08/19 21 documenting low attenuation involving the bilateral temporal lobes cerebellum and braulio but again stable since August 15, 2021 consistent with the anoxic brain injury and infarction Review of Systems Review of Systems: All systems reviewed & are unremarkable except as noted in HPI and below PMFSH Past Medical History Medical History Alcoholic pancreatitis Cirrhosis Continuous tobacco abuse Diabetes mellitus treated with insulin Diabetic peripheral neuropathy Surgical History Surgical History History of left inguinal hernia repair Family History Family History Father Family history of migraine headaches Mother Family history of alcoholism Other Unknown family medical history Social History Social History Social History: The patient lives with his girlfriend of 3 years. 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 Patient has 2 adult sons. He has smoked a pack of cigarettes per day since he was a teenager. 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 He drinks a pot of coffee a day. Code status: Full code Smoking packs per day: 1 Smoking cigarettes per day: 20.0 Years smoked: 33 Smoking pack-years: 33.00 Smoking status: Current every day smoker Tobacco type: cigarettes Second hand tobacco smoke exposure: Yes Smoking end date: 05/19/10 Alcohol intake: former Substance use: former Substance use type: sedatives, opiates and painkillers Spiritual care concerns: No Meds Home Medications and Allergies Home Medications Medication Instructions Recorded Confirmed Type insulin glargine [Clayton Muñoz 18 unit SUBCUT Q12H 08/12/21 08/31/21 History U-100 Insulin] Allergies Allergy/AdvReac Type Severity Reaction Status Date / Time codeine Allergy Unknown Verified 08/28/21 10:27 Vital Signs Vital Signs - 24 hr 09/03/21 14:00 09/03/21 14:30 09/03/21 14:40 Temperature 37.9 C H Pulse Rate 101 H 106 H 106 H Respiratory Rate 23 H 20 Blood Pressure 134/84 Pulse Oximetry 99 98 09/03/21 14:41 09/03/21 16:00 09/03/21 17:06 Temperature 38.3 C H Pulse Rate 105 H 103 H 98 Respiratory Rate 20 18 Blood Pressure 98/63 L Pulse Oximetry 97 98 09/03/21 18:00 09/03/21 20:00 09/03/21 20:30 Temperature 37.2 C Pulse Rate 97 97 81 Respiratory Rate 24 H 23 H 20 Blood Pressure 146/95 H 158/101 H Pulse Oximetry 98 98 09/03/21 20:40 09/03/21 20:44 09/03/21 21:36 Temperature Pulse Rate 87 82 81 Respiratory Rate 20 20 Blood Pressure Pulse Oximetry 09/03/21 22:00 09/03/21 23:05 09/04/21 00:00 Temperature 37.1 C 37.0 C Pulse Rate 81 81 81 Respiratory Rate 21 H 24 H Blood Pressure 95/70 L 128/87 Pulse Oximetry 99 99 98 09/04/21 02:00 09/04/21 02:01 09/04/21 02:10 Temperature 36.9 C Pulse Rate 77 77 77 Respiratory Rate 29 H 25 H 24 H Blood Pressure 111/73 Pulse Oximetry 96 09/04/21 03:09 09/04/21 04:00 09/04/21
[2021-09-04 12:29] LABS: Glucose Point of Care 259 mg/dl (65-105)
--- NOTE | 2021-09-04 13:01 | PCPTNOTE ---
The patient treatment was not able to be completed on 09/04/2021 due to patient sedated and unable to participate. Will plan to continue treatment per plan of care.
--- NOTE | 2021-09-04 14:28 | PM.IMPN ---
Progress Note: A&P Assessment and Plan (1) Cardiac arrest: Code(s): I46.9 - Cardiac arrest, cause unspecified Status: Acute Assessment and Plan: Prolonged out of the hospital VFib arrest (down time was 1 hour and 8 minutes per records) -VFib likely secondary to inferior [place], status post cardiac catheterization with PTCA/PCI with PAT x1 to proximal RCA (2) ST elevation (STEMI) myocardial infarction: Qualifiers: Involved coronary artery: unspecified coronary artery Qualified Code(s): I21.3 - ST elevation (STEMI) myocardial infarction of unspecified site Code(s): I21.3 - ST elevation (STEMI) myocardial infarction of unspecified site Status: Acute Assessment and Plan: As above -cardiology following the patient -continue aspirin, Brilinta, statin -continue beta-tapan and losartan (3) Diabetes mellitus with hyperglycemia, with long-term current use of insulin: Qualifiers: Diabetes mellitus type: type 2 Qualified Code(s): E11.65 - Type 2 diabetes mellitus with hyperglycemia; Z79.4 - terminal makeup operator (current) use of insulin Code(s): E11.65 - Type 2 diabetes mellitus with hyperglycemia; Z79.4 - longterm (current) use of insulin Status: Acute Assessment and Plan: Hyperglycemia could be related to uncontrolled diabetes, acute stress from cardiac arrest, cardiac catheterization, shock -hemoglobin A1c 10.2 -continue sliding scale -increase Lantus (4) Hypertension: Code(s): I10 - Essential (primary) hypertension Status: Acute Assessment and Plan: Continue Cozaar and continue low-dose metoprolol Continue p.r.n. labetalol and hydralazine (5) Anoxic brain injury: Code(s): G93.1 - Anoxic brain damage, not elsewhere classified Status: Acute Assessment and Plan: Patient has sustained a Anoxic brain injury due to prolonged down time Patient has completed TTM protocol Sedation has been discontinued since 08/14 evening Neuro exam as above. CT head done 08/15 showed - Development of diffuse cerebellar swelling, anoxic injury. No obstructive hydrocephalus but patient at risk. CT 08/19 - Low attenuation involving the bilateral temporal lobes, cerebellum, and braulio, stable from 08/15/21 and worsened from 08/12/21, consistent with infarcts from anoxic brain injury. 08/15 EEG - This EEG was abnormal due the presence of severely diffuse background slowing. This EEG was indicative of the presence of severe, bihemispheric cerebral dysfunction of the type seen most commonly in the setting of severe toxic metabolic encephalopathies or anoxic injury.The was no evidence of epileptiform activity or focal cerebral dysfunction. 4/4 repeat EEG - Abnormal record due to the presence of bihemispheric delta activity throughout the tracing with no evidence of paroxysmal activity. This abnormality is consistent with diffuse organic or metabolic encephalopathy clinical correlation recommended. Is not compatible with electrocerebral silence or status epilepticus Neurology following Continue Luly (6) Electrolyte abnormality: Code(s): E87.8 - Other disorders of electrolyte and fluid balance, not elsewhere classified Status: Acute Assessment and Plan: Sodium improved with decreased free water flush and now on the low-normal side. continue free water flush to 30 mL Additional Plan DVT prophylaxis: SCDs. therapeutic Lovenox Stress ulcer prophylaxis: Protonix Nutrition: Patient tolerating tube feeds, will continue Code status: Full code Patient awaits placement in LTAC. Subjective Date/time seen: 09/04/21 14:28 08/20/2021 Interval history: currently on ventilator, unable to provide any history review of symptom, patient with cardiac arrest secondary to severe coronary artery disease, was emergently taken to cath and showed stenosis of coronary artery and stent was placed, continue aspirin and Brilinta, it seems patient had a anoxic br
[2021-09-04 17:47] LABS: Glucose Point of Care 70 mg/dl (65-105)
[2021-09-04] MEDS: levETIRAcetam ORAL SOL 500 MG/5 ML UDC FEED TUBE (20:23)
[2021-09-04] MEDS: LANSOPRAZOLE ORAL SUSP 30 MG/10 ML ORAL.SUSP FEED TUBE (20:32)
[2021-09-04 21:00] LABS: Glucose Point of Care 43 mg/dl (65-105)
[2021-09-04 21:33] LABS: Glucose Point of Care 135 mg/dl (65-105)
[2021-09-04] MEDS: DEXTROSE 50% 25 GM/50 ML SYRINGE IV PUSH (23:54)
[2021-09-05] VITALS (25 sets, daily range): BP systolic 66–177; BP diastolic 44–96; PULSE 95–124; RESP 20–33; TEMP 36.7–38.1; O2SAT 94–100
[2021-09-05 00:01] LABS: Glucose Point of Care 62 mg/dl (65-105)
[2021-09-05 01:11] LABS: Glucose Point of Care 90 mg/dl (65-105)
[2021-09-05] MEDS: fentaNYL CITRATE INJ (*CRX) 100 MCG/2 ML VIAL 25 MCG IV PUSH ×2 (01:19→03:30)
[2021-09-05] MEDS: IPRATROPIUM BR 0.02% INH SOLN 0.5 MG/2.5 ML VIAL INHALATION ×3 (02:14→14:32)
[2021-09-05] MEDS: LEVALBUTEROL NEB 1.25 MG/3 ML 0.63 MG INHALATION ×3 (02:14→14:31)
[2021-09-05] MEDS: DEXTROSE 50% 25 GM/50 ML SYRINGE IV PUSH ×2 (02:54→16:35)
[2021-09-05] MEDS: LORazepam INJ (*CRX) 2 MG/ML VIAL IV PUSH ×3 (03:20→14:11)
[2021-09-05 03:29] LABS: Glucose Point of Care 57 mg/dl (65-105)
[2021-09-05 03:29] LABS: Glucose Point of Care 148 mg/dl (65-105)
[2021-09-05 04:49] LABS: Alveolar/Arterial O2 Gradient 83.3 mmHg; Base Excess ABG 3.4 mEq/l (+/-2.0); Carboxyhemoglobin 0.2 % THb (0-2.0); Fractional Inspired Oxygen 30 %; HCO3 ABG 27.3 mEq/l (22.0-26.0); Methemoglobin ABG 0.3 %THb (0-1.5); Oxygen Content ABG 15.1 %vol (16.0-22.0); Oxygen Saturation ABG 96.9 % (95.0-100.0); Oxyhemoglobin 95.5 % THb (90.0-100.0); PO2 ABG 84.8 mmHg (80.0-100.0); PO2 FiO2 Ratio Arterial Blood 2.83 %; Total Hemoglobin 11.2 g/dL (12.0-18.0); pH ABG 7.463 (7.350-7.450)
[2021-09-05 04:50] LABS: Device VENTILATOR; Modified Allen's Test Pass; Site Drawn RIGHT RADIAL
[2021-09-05 04:51] LABS: Arterial Blood Gas PEEP 5 cmH2O; Arterial Blood Gas Vent Mode ASV
[2021-09-05] MEDS: diazePAM (*CRX) 5 MG TABLET 15 MG FEED TUBE ×2 (05:32→11:51)
[2021-09-05 06:42] LABS: Glucose Point of Care 114 mg/dl (65-105)
[2021-09-05] MEDS: ACETAMINOPHEN ELIXIR 325 MG/10.15 ML UDC 650 MG PO ×2 (07:25→13:13)
[2021-09-05] MEDS: PROPOFOL IV EMULSION 100 ML 6.01 MG IV CONT (08:12)
[2021-09-05] MEDS: LANSOPRAZOLE ORAL SUSP 30 MG/10 ML ORAL.SUSP FEED TUBE (08:53)
[2021-09-05] MEDS: INSULIN GLARGINE (*BKC) 100 UNITS/ML 10 UNITS SUB-Q (08:53)
[2021-09-05] MEDS: ASPIRIN 81 MG CHEWABLE TABLET PO (08:53)
[2021-09-05] MEDS: levETIRAcetam ORAL SOL 500 MG/5 ML UDC FEED TUBE (08:54)
[2021-09-05] MEDS: QUEtiapine FUMARATE 100 MG TABLET FEED TUBE (08:54)
[2021-09-05] MEDS: MINERAL OIL/WHITE PETROLATUM OINTMENT 1 APPLIC EACH EYE (08:54)
[2021-09-05] MEDS: TICAGRELOR 90 MG TABLET PO (08:54)
[2021-09-05] MEDS: TOLNAFTATE 1% POWDER 45 GM BTL 1 APPLIC TOPICAL (08:55)
[2021-09-05] MEDS: ENOXAPARIN 80 MG/0.8 ML SYRINGE 70 MG SUB-Q (08:55)
--- NOTE | 2021-09-05 10:05 | PC.NURSE ---
Dr. Melvin notified of drop in pt's BP. BP was 66/50. BP cuff was repositioned and BP rechecked; BP was 61/49. New order for 1L NS bolus.
[2021-09-05] MEDS: SODIUM CHLORIDE 0.9% IV 1,000 ML 999 ML IV CONT ×2 (10:10→16:29)
--- NOTE | 2021-09-05 11:37 | WPDINTPN ---
Progress Note: A&P Assessment and Plan (1) Acute respiratory failure with hypercapnia: Code(s): J96.02 - Acute respiratory failure with hypercapnia Status: Acute Assessment and Plan: Acute respiratory failure likely related to VFib arrest, patient was intubated on 08/12/2021 Most recent ABGs and chest x-ray reviewed -currently on cmv mode of ventilation, 30% FiO2 and peep of 5. -Pt has been failing PSV 02/20 due to high RSBI and agitation -secretions from trach and oral persist - Zosyn and vancomycin discontinued on 08/24/2021 -vancomycin and cefepime restarted 08/28 and we continued for 10 days -Continue bronchodilators -PEG tube placed on 08/23/2021. -tracheostomy tube placed 08/24/2021 -await LTAC placement (2) Anoxic brain injury: Code(s): G93.1 - Anoxic brain damage, not elsewhere classified Status: Acute Assessment and Plan: Patient has sustained a Anoxic brain injury due to prolonged down time Patient has completed TTM protocol Sedation has been discontinued since 08/14 evening Neuro exam as above. CT head done 08/15 showed - Development of diffuse cerebellar swelling, anoxic injury. No obstructive hydrocephalus but patient at risk. CT 08/19 - Low attenuation involving the bilateral temporal lobes, cerebellum, and braulio, stable from 08/15/21 and worsened from 08/12/21, consistent with infarcts from anoxic brain injury. 08/15 EEG - This EEG was abnormal due the presence of severely diffuse background slowing. This EEG was indicative of the presence of severe, bihemispheric cerebral dysfunction of the type seen most commonly in the setting of severe toxic metabolic encephalopathies or anoxic injury.The was no evidence of epileptiform activity or focal cerebral dysfunction. 08/20 repeat EEG - Abnormal record due to the presence of bihemispheric delta activity throughout the tracing with no evidence of paroxysmal activity. This abnormality is consistent with diffuse organic or metabolic encephalopathy clinical correlation recommended. Is not compatible with electrocerebral silence or status epilepticus Neurology following Keppra was switched put tube on 09/04/2021 (3) Fever: Code(s): R50.9 - Fever, unspecified Status: Acute Assessment and Plan: He completed course of antibiotics for aspiration pneumonia earlier in the hospitalization. He does have a DVT but has persistent fevers and elevated white cell count No central venous catheter at this time Steinberg was changed 08/27 UA was negative 08/27 urine sputum and blood culture sent. Blood culture 05/20 is growing Staph hominis which is likely contaminant but is sensitive to vancomycin 08/28 CT sinuses 1. Small to moderate amount of left sphenoid fluid. 2. Small to moderate-sized right maxillary mucous retention cyst. CT chest abdomen pelvis IMPRESSION: 1. Tracheostomy tube, PEG tube, rectal tube, Steinberg catheter in position. 2. Trace right upper lobe nonspecific pneumonitis. 3. Dependent subsegmental atelectasis. Mild emphysema. 4. Colonic fluid without wall thickening. Diarrhea. Procalcitonin level 0.1 Normal lipase, C diff negative 08/28 patient restarted on vancomycin and cefepime which will be continued for 10 days Low-grade fevers. Continue to monitor (4) Cardiac arrest: Code(s): I46.9 - Cardiac arrest, cause unspecified Status: Acute Assessment and Plan: Prolonged out of the hospital VFib arrest (down time was 1 hour and 8 minutes per records) -VFib likely secondary to inferior MT, status post cardiac catheterization with PTCA/PCI with PAT x1 to proximal RCA (5) DVT (deep venous thrombosis): Code(s): I82.409 - Acute embolism and thrombosis of unspecified deep veins of unspecified lower extremity Status: Acute Assessment and Plan: Patient with consistent fevers, lower extremity venous Dopplers done on 08/22/2021: Small amount of nonocclusive deep venous thrombosis at the LEFT common femoral vein -
--- NOTE | 2021-09-05 11:43 | PCFNICU ---
ICU Rounding Note: Pt current nutrition is Vital AF 1.2 at 70 ml/hr over 22 hours. Last recorded weight is 66.8 kg-stable Bowel Motility:from EMR documentation it has been reported BM on 09/04. Spoke with nursing today, that documentation was not documented correctly. Last reported BM 08/30 Labs Reviewed:No labs to report Meds Noted:Miralax,Vancomycin, Brilinta, Lantus, NovoLog, Lovenox, Maxipime, Protonix, Lopressor, Atrovent, Xopenex, Seroquel, Sublimaze, Valium, Keppra, Ativan. Skin: WNL Additional Notes: Patient current with PEG/Trach. Tube feedings of Vital AF 1.2 running at 70 ml/hr over 22 hours. Patient is tolerating tube feedings which are providing 1848 kcals/115 gm protein/1249 ml water. 30 ml free water flush q 4 hours. orders for Miralax today due to no BM reported since 08/30. Plans for LTAC. Following daily in ICU rounds. Will monitor every Friday and Friday.
[2021-09-05] MEDS: INSULIN ASPART (*BKC) 100 UNITS/ML SUB-Q (11:54)
[2021-09-05 12:15] LABS: Glucose Point of Care 225 mg/dl (65-105)
--- NOTE | 2021-09-05 12:35 | WPDNEUROPN ---
Progress Note: A&P Additional Plan reviewed, examined, remains unresponsive to verbal commands but at times flickers the eyes does not follow the verbal commands to look to the right or left but moves the upper and lower extremities on simple sternal rub definitely improving neurological status treatment will be continued as such if necessary will repeat the EEG later on Time Spent With Patient Time with patient: 15 - 25 minutes Subjective Date/time seen: 09/05/21 12:35 Objective Data Vital Signs Vital Signs: Vital Signs - 24 hr 09/04/21 14:00 09/04/21 16:00 09/04/21 17:10 Temperature 36.9 C 36.9 C Pulse Rate 105 H 95 110 H Respiratory Rate 25 H 23 H Blood Pressure 138/93 H 90/65 L Pulse Oximetry 96 100 100 09/04/21 18:00 09/04/21 20:00 09/04/21 20:03 Temperature 37.6 C Pulse Rate 110 H 114 H 104 H Respiratory Rate 33 H 27 H Blood Pressure 122/74 Pulse Oximetry 100 100 09/04/21 20:05 09/04/21 20:23 09/04/21 20:40 Temperature 37.8 C H Pulse Rate 112 H 114 H 115 H Respiratory Rate 22 H Blood Pressure 163/98 H Pulse Oximetry 100 100 09/04/21 22:00 09/04/21 22:58 09/05/21 00:00 Temperature 37.8 C H 37.8 C H Pulse Rate 105 H 110 H 112 H Respiratory Rate 22 H 24 H Blood Pressure 130/81 130/70 Pulse Oximetry 100 99 100 09/05/21 02:00 09/05/21 02:16 09/05/21 04:00 Temperature 36.8 C 36.7 C Pulse Rate 113 H 113 H 117 H Respiratory Rate 31 H 31 H 29 H Blood Pressure 106/82 133/96 H Pulse Oximetry 100 100 09/05/21 04:40 09/05/21 06:00 09/05/21 07:25 Temperature 38.1 C H 38.0 C H Pulse Rate 110 H 115 H Respiratory Rate 25 H Blood Pressure 149/69 H Pulse Oximetry 100 99 09/05/21 08:00 09/05/21 08:12 09/05/21 08:51 Temperature 37.8 C H Pulse Rate 124 H 124 H 100 Respiratory Rate 33 H 30 H 23 H Blood Pressure 177/86 H Pulse Oximetry 100 09/05/21 08:55 09/05/21 08:56 09/05/21 08:57 Temperature 37.6 C H Pulse Rate 100 99 Respiratory Rate 22 H Blood Pressure Pulse Oximetry 97 09/05/21 09:01 09/05/21 09:04 09/05/21 10:00 Temperature 37.1 C Pulse Rate 96 100 97 Respiratory Rate 23 H 22 H 20 Blood Pressure 66/50 L Pulse Oximetry 94 09/05/21 11:52 09/05/21 12:00 Temperature 36.7 C Pulse Rate 99 101 H Respiratory Rate 21 H Blood Pressure 92/63 L Pulse Oximetry 100 100 Intake/Output Intake/Output: Intake & Output 09/02/21 09/03/21 09/04/21 09/05/21 23:59 23:59 23:59 23:59 Intake Total 2932 3373 2629 1257 Output Total 3200 4250 1800 925 Balance -268 877 829 332 Meds/Results Medications: Active Medications Generic Name Dose Route Start Last Admin Trade Name Freq PRN Reason Stop Dose Admin Acetaminophen 650 mg 08/21/21 09:04 09/05/21 07:25 Acetaminophen Elixir 325 Mg/10.15 Ml Udc PO 650 mg Q6H PRN Administration Mild Pain (1-3) or Fever Aspirin 81 mg 08/13/21 08:00 09/05/21 08:53 Aspirin 81 Mg Chewable Tablet PO 81 mg DAILY@0800 MAGGIE Administration Dextrose 12.5 gm 08/13/21 00:29 09/05/21 02:54 Dextrose 50% 25 Gm/50 Ml Syringe IV PUSH 12.5 gm PRN PRN Administration Hypoglycemia Protocol Diazepam 15 mg 09/04/21 18:00 09/05/21 11:51 Diazepam (*Crx) 5 Mg Tablet FEED TUBE 15 mg Q6HR MAGGIE Administration Enoxaparin Sodium 70 mg 08/25/21 09:00 09/05/21 08:55 Enoxaparin 80 Mg/0.8 Ml Syringe SUB-Q 70 mg Q12HR MAGGIE Administration Fentanyl Citrate 25 mcg 08/31/21 07:53 09/05/21 03:30 Fentanyl Citrate Inj (*Crx) 100 Mcg/2 Ml Vial IV PUSH 25 mcg Q2H PRN Administration Pain Rated 7-10 Glucagon 1 mg 08/13/21 00:29 Glucagon For Inj 1 Mg Vial IM PRN PRN Hypoglycemia Protocol Glucose 15 gm 08/13/21 00:29 Glucose Oral Gel 15 Gm Of Glucse In 37.5 Gm Tube PO PRN PRN Hypoglycemia Protocol Hydralazine HCl 20 mg 08/16/21 03:54 08/16/21 06:02 Hydralazine Hcl 20 Mg/Ml Vial IV PUSH 20 mg Q4HR
[2021-09-05 12:48] LABS: Hemoglobin 8.9 g/dL (14.0-18.0); Mean Corpuscular HGB Conc 31.8 g/dl (32-36); Mean Corpuscular Hemoglobin 28.9 pg (26-34); Mean Corpuscular Volume 90.9 fl (80-100); Mean Platelet Volume 10.4 fl (7.4-10.4); Platelet Count Result 414 k/mm3 (150-375); Red Blood Count 3.08 M/mm3 (4.6-6.20); Red Cell Distribution Width 12.3 % (11.5-14.5); White Blood Count 12.6 K/mm3 (4.5-10.0)
[2021-09-05 12:59] LABS: Alanine Aminotransferase 108 U/L (4-50); Alkaline Phosphatase 120 U/L (38-126); Anion Gap 8 mmol/L (8-16); Aspartate Amino Transferase 70 U/L (17-59); Bilirubin,Total 0.2 mg/dL (0.2-1.3); Blood Urea Nitrogen 31 mg/dL (9-20); Calcium 8.4 mg/dL (8.4-10.2); Carbon Dioxide 24 mmol/L (22-30); Chloride 103 mmol/L (98-107); Estimated CRCL calculation 84 ml/min; Estimated Glomerular Filt Rate > 60; Glucose 221 mg/dL (65-110); Magnesium 1.7 mg/dL (1.6-2.3); Phosphorus 4.6 mg/dL (2.5-4.5); Potassium 3.6 mmol/L (3.4-5.0); Sodium 135 mmol/L (137-145)
[2021-09-05] MEDS: POTASSIUM CHLORIDE 20 MEQ PACKET (FOR LIQUID) 40 MEQ PO (13:13)
[2021-09-05] MEDS: MAGNESIUM SULF 2 GM/WATER 50ML 2 GM/50 ML BAG IVPB (13:13)
--- NOTE | 2021-09-05 14:37 | PC.NURSE ---
Pt became hypotensive when HOB was elevated to restart tube feedings. HOB returned to flat position and BP rebounded to normal. Tube feedings turned off for safety (aspiration risk and per protocol). Dr. Melvin notified of situation. New order to continue to hold tube feedings and patient to remain supine until BP stabilizes. BP readings: 1200: 92/63 1215: 73/50 1230: 65/41 1235: 70/49 1245: 93/62 1300: 121/63 1330: 106/65 1400: 115/63
--- NOTE | 2021-09-05 15:54 | PM.DS ---
DS: Admitting Diagnosis Discharge Date 09/05/2021 Admitting Diagnosis cardiac arrest DS: Discharge Diagnosis Discharge Diagnosis (1) Cardiac arrest: Code(s): I46.9 - Cardiac arrest, cause unspecified Status: Acute Assessment and Plan: Prolonged out of the hospital VFib arrest (down time was 1 hour and 8 minutes per records) -VFib likely secondary to inferior UT, status post cardiac catheterization with PTCA/PCI with PAT x1 to proximal RCA (2) ST elevation (STEMI) myocardial infarction: Qualifiers: Involved coronary artery: unspecified coronary artery Qualified Code(s): I21.3 - ST elevation (STEMI) myocardial infarction of unspecified site Code(s): I21.3 - ST elevation (STEMI) myocardial infarction of unspecified site Status: Acute Assessment and Plan: As above -cardiology following the patient -continue aspirin, Brilinta, statin -continue beta-tapan and losartan (3) Diabetes mellitus with hyperglycemia, with long-term current use of insulin: Qualifiers: Diabetes mellitus type: type 2 Qualified Code(s): E11.65 - Type 2 diabetes mellitus with hyperglycemia; Z79.4 - long term (current) use of insulin Code(s): E11.65 - Type 2 diabetes mellitus with hyperglycemia; Z79.4 - assisted (current) use of insulin Status: Acute Assessment and Plan: Hyperglycemia could be related to uncontrolled diabetes, acute stress from cardiac arrest, cardiac catheterization, shock -hemoglobin A1c 10.2 -continue sliding scale -increase Lantus (4) Hypertension: Code(s): I10 - Essential (primary) hypertension Status: Acute Assessment and Plan: Continue Cozaar and continue low-dose metoprolol Continue p.r.n. labetalol and hydralazine (5) Anoxic brain injury: Code(s): G93.1 - Anoxic brain damage, not elsewhere classified Status: Acute Assessment and Plan: Patient has sustained a Anoxic brain injury due to prolonged down time Patient has completed TTM protocol Sedation has been discontinued since 08/14 evening Neuro exam as above. CT head done 08/15 showed - Development of diffuse cerebellar swelling, anoxic injury. No obstructive hydrocephalus but patient at risk. CT 08/19 - Low attenuation involving the bilateral temporal lobes, cerebellum, and braulio, stable from 08/15/21 and worsened from 08/12/21, consistent with infarcts from anoxic brain injury. 08/15 EEG - This EEG was abnormal due the presence of severely diffuse background slowing. This EEG was indicative of the presence of severe, bihemispheric cerebral dysfunction of the type seen most commonly in the setting of severe toxic metabolic encephalopathies or anoxic injury.The was no evidence of epileptiform activity or focal cerebral dysfunction. 08/20 repeat EEG - Abnormal record due to the presence of bihemispheric delta activity throughout the tracing with no evidence of paroxysmal activity. This abnormality is consistent with diffuse organic or metabolic encephalopathy clinical correlation recommended. Is not compatible with electrocerebral silence or status epilepticus Neurology following Continue Luly (6) Electrolyte abnormality: Code(s): E87.8 - Other disorders of electrolyte and fluid balance, not elsewhere classified Status: Acute Assessment and Plan: Sodium improved with decreased free water flush and now on the low-normal side. continue free water flush to 30 mL DS: Summary Hospital Course Reason for hospitalization: Sidney Raphael is a 46 year old male with a past medical history of alcoholic pancreatitis, cirrhosis, tobacco abuse and insulin-dependent diabetes mellitus with complications who presented to the ER after cardiac arrest at home. Patient's girlfriend reports the patient was putting some food in the oven when he suddenly sat down on the floor and then collapsed backwards. The patient had brief episode of shaking and within 30 seconds was h
[2021-09-05 15:55] LABS: EDCOVIDSCREEN Negative (Negative)
[2021-09-05 16:52] LABS: Glucose Point of Care 148 mg/dl (65-105)
[2021-09-05 16:52] LABS: Glucose Point of Care 22 mg/dl (65-105)
== END 2021-09-05 17:30 | DRG 3 ==
LOC: ANHED 18:54 → ANHICU 20:23
PROVIDERS: Internal Medicine; Internal Medicine Gastroenterology; Otolaryngology; Admitting Provider Specialist; Emergency Provider Emergency Medicine; Visit Provider Family Medicine
PROC: 4A023N7 Measurement of Cardiac Sampling and Pressure, Left Heart, Percutaneous Approach (ICD-10-PCS; CPT 93452; principal; 2021-08-12 19:00)
PROC: 027034Z Dilation of Coronary Artery, One Artery with Drug-eluting Intraluminal Device, Percutaneous Approach (ICD-10-PCS; 2021-08-12 19:00)
PROC: 0DH63UZ Insertion of Feeding Device into Stomach, Percutaneous Approach (ICD-10-PCS; CPT 43246; principal; 2021-08-23 14:30)
PROC: 0B110F4 Bypass Trachea to Cutaneous with Tracheostomy Device, Open Approach (ICD-10-PCS; principal; 2021-08-24 10:00)
DX: I21.19 ST elevation (STEMI) myocardial infarction involving other coronary artery of inferior wall (principal); I46.9 Cardiac arrest, cause unspecified; K72.00 Acute and subacute hepatic failure without coma; I49.01 Ventricular fibrillation; J96.00 Acute respiratory failure, unspecified whether with hypoxia or hypercapnia; R57.0 Cardiogenic shock; J69.0 Pneumonitis due to inhalation of food and vomit; K86.0 Alcohol-induced chronic pancreatitis; K92.0 Hematemesis; G93.1 Anoxic brain damage, not elsewhere classified; M62.82 Rhabdomyolysis; I82.412 Acute embolism and thrombosis of left femoral vein; I95.9 Hypotension, unspecified; K86.81 Exocrine pancreatic insufficiency; E11.65 Type 2 diabetes mellitus with hyperglycemia; Z79.4 Long term (current) use of insulin; I25.10 Atherosclerotic heart disease of native coronary artery without angina pectoris; K74.60 Unspecified cirrhosis of liver; E11.42 Type 2 diabetes mellitus with diabetic polyneuropathy; F17.210 Nicotine dependence, cigarettes, uncomplicated; G25.3 Myoclonus; E11.649 Type 2 diabetes mellitus with hypoglycemia without coma; E87.8 Other disorders of electrolyte and fluid balance, not elsewhere classified; E87.6 Hypokalemia; I10 Essential (primary) hypertension; Z20.822 Contact with and (suspected) exposure to COVID-19; R45.1 Restlessness and agitation; R50.9 Fever, unspecified
CPT/HCPCS: 36415; 36600; 43246; 70450; 70486; 71045; 71250; 74176; 76705; 80048; 80053; 80061; 80202; 80307; 81001; 82140; 82375; 82550; 82565; 82570; 82805; 82948; 83036; 83050; 83605; 83690; 83735; 83930; 83935; 84100; 84145; 84300; 84484; 85025; 85027; 85055; 85610; 85730; 87040; 87070; 87077; 87086; 87186; 87205; 87426; 87493; 92950; 93005; 93306; 93458; 93970; 94002; 94003; 94640; 95816; 97110; 97162; 97163; 97166; 97167; 99291; A9270; C1751; C1769; C1874; C1887; C1894; C9113; C9606; C9803; J0131; J0171; J0282; J0360; J0583; J0610; J0690; J0692; J1100; J1644; J1650; J1815; J1953; J2060; J2250; J2370; J2405; J2543; J2704; J3010; J3370; J3475; J3480; J7030; J7042; J7060; J7120

== ENCOUNTER → 2021-12-17 15:35 | Outpatient (CLI) | payer OTHER, SELFPAY ==
--- NOTE | ~2021-12-17 | XR_ITS ---
XR shoulder RT min 2V DATE: 12/17/2021 16:06 INDICATION: Bilateral shoulder pain TECHNIQUE: 4 views COMPARISON: None FINDINGS: No fracture or dislocation, periosteal reaction or bone destruction or abnormal soft tissue calcification of the right shoulder. IMPRESSION: Negative Reviewed, dictated and finalized at location B. IMPRESSION: Negative
--- NOTE | ~2021-12-17 | XR_ITS ---
XR shoulder LT min 2V DATE: 12/17/2021 16:06 INDICATION: Bilateral shoulder pain TECHNIQUE: 4 views COMPARISON: None FINDINGS: No fracture or dislocation, periosteal reaction or bone destruction or abnormal soft tissue calcification. IMPRESSION: No significant abnormality Reviewed, dictated and finalized at location B. IMPRESSION: No significant abnormality
== END ==
PROVIDERS: PCP Family Medicine; Visit Provider Nurse Practitioner Family
DX: M25.512 Pain in left shoulder (principal); M25.511 Pain in right shoulder
CPT/HCPCS: 73030

== ENCOUNTER 2022-09-11 17:14 | Emergency (ER) | payer OTHER, MEDICAID, SELFPAY ==
[2022-09-11 17:38] VITALS: BP 121/72; PULSE 104; RESP 16; TEMP 37.1; O2SAT 99
--- NOTE | 2022-09-11 18:06 | ED.URI ---
HPI - URI/Sore Throat General Chief Complaint: Upper Respiratory Infection Stated Complaint: Sore Throat Time Seen by Provider: 09/11/22 17:46 Source: patient, family () and RN notes reviewed Mode of arrival: ambulatory Limitations: no limitations History of Present Illness HPI Narrative: Patient presents today complaining sore throat since this morning. Denies any additional symptoms. Currently rates his pain 5/10 and took a dose of Coricidin with mild relief. Meño presents also with similar symptoms and is diagnosed with strep throat. Related Data Home Medications Medication Instructions Recorded Confirmed aspirin 81 mg chewable tablet 81 mg PO DAILY 09/11/22 09/11/22 atorvastatin 40 mg tablet 40 mg PO DAILY 09/11/22 09/11/22 insulin aspart U-100 100 unit/mL 20 unit subcut TID 09/11/22 09/11/22 (3 mL) subcutaneous pen (Novolog FlexPen U-100 Insulin aspart) insulin glargine 100 unit/mL (3 30 unit subcut DAILY 09/11/22 09/11/22 mL) subcutaneous pen (Basaglar KwikPen U-100 Insulin) mirtazapine 30 mg tablet 30 mg PO HS 09/11/22 09/11/22 ticagrelor 90 mg tablet (Brilinta) 90 mg PO DAILY 09/11/22 09/11/22 Allergies Allergy/AdvReac Type Severity Reaction Status Date / Time codeine Allergy Intermediate Vomiting Verified 09/11/22 18:00 olanzapine Allergy Intermediate Other Verified 09/11/22 18:00 Review of Systems Review of Systems: CONSTITUTIONAL: Denies body aches, fever, chills, or sweats. EYES: Denies visual changes, redness, or discharge. ENT: Denies rhinorrhea, congestion,,or otalgia.+ sore throat CARDIOVASCULAR: Denies chest pain, palpitations, or edema. RESPIRATORY: Denies cough or dyspnea. GASTROINTESTINAL: Denies abdominal pain, nausea, vomiting, or diarrhea. GENITOURINARY: Denies dysuria or hematuria. SKIN: Denies rash, itching, or wounds. MUSCULOSKELETAL: Denies back pain, joint pain, or myalgia. NEUROLOGIC: Denies headache, numbness, tingling, or weakness. PSYCH: Denies depression or anxiety. [facility] Past Medical History Medical History Alcoholic pancreatitis Cirrhosis Continuous tobacco abuse Diabetes mellitus treated with insulin Diabetic peripheral neuropathy Surgical History Surgical History History of left inguinal hernia repair Family History Family History Father Family history of migraine headaches Mother Family history of alcoholism Other Unknown family medical history Social History Social History Social History: The patient lives with his girlfriend of 3 years. 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 Patient has 2 adult sons. He has smoked a pack of cigarettes per day since he was a teenager. 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 He drinks a pot of coffee a day. Code status: Full code Smoking packs per day: 1 Smoking cigarettes per day: 20.0 Years smoked: 33 Smoking pack-years: 33.00 Smoking status: Current every day smoker Tobacco type: cigarettes Second hand tobacco smoke exposure: Yes Smoking end date: 05/19/10 Alcohol intake: former Substance use: former Substance use type: sedatives, opiates and painkillers Spiritual care concerns: No Comments At time of signature, I have reviewed and agree with nursing past medical, surgical, social and family history unless otherwise noted. Please see nursing chart for further information. There is no relevant family history pertinent to the presenting complaint Exam Narrative: GENERAL: Mildly ill-appearing, well-nourished, and in no acute distress. HEAD: Normocephalic, atraumatic. EYES: EOMI. No redness or drainage. Conjunctivae normal. ENT: Mucous membranes pink and moist. Nare
== END 2022-09-11 18:20 | disposition home or self-care (01) ==
PROVIDERS: Emergency Provider Nurse Practitioner; PCP Family Medicine
DX: J02.9 Acute pharyngitis, unspecified (principal); Z87.891 Personal history of nicotine dependence; K74.60 Unspecified cirrhosis of liver; E11.42 Type 2 diabetes mellitus with diabetic polyneuropathy; Z79.4 Long term (current) use of insulin; Z79.82 Long term (current) use of aspirin
CPT/HCPCS: 87081; 87880; 99213; G0463

== ENCOUNTER 2022-11-30 22:43 | Observation (INO) | payer OTHER, MEDICAID, SELFPAY ==
--- NOTE | ~2022-11-30 | CT_ITS ---
EXAMINATION: CT brain wo con DATE: 12/01/2022 10:25 INDICATION: Spell of unresponsiveness. Dizziness. TECHNIQUE: Computed tomography (CT) of the head was performed without intravenous contrast. The mA wa s adjusted according to patient size. Iterative reconstruction technique was employed. The dose-lengt h product was 681.00 mGy-cm. COMPARISON: Head CT 09/05/2021, 08/15/21, 06/08/15 FINDINGS: There is widespread low-attenuation in the cerebellum, consistent with old infarct. There a re scattered areas of low attenuation in the cerebral white matter. There is no intracranial hemorrha ge, acute infarction, or abnormal intracranial mass lesion. The ventricles are normal in size. There is mild mucosal thickening in the paranasal sinuses. The orbits are normal. The mastoid air cells are normal. IMPRESSION: 1. Chronic encephalomalacia involving the cerebellum. 2. Mild nonspecific cerebral white matter disease, which likely represents chronic small vessel ische jessy disease. Reviewed, dictated and finalized at location E. IMPRESSION: 1. Chronic encephalomalacia involving the cerebellum. 2. Mild nonspecific cerebral white matter disease, which likely represents interactive web developer speedy small vessel ischemic disease.
--- NOTE | ~2022-11-30 | XR_ITS ---
XR chest 1V portable DATE: 11/30/2022 23:40 INDICATION: Weakness TECHNIQUE: Portable upright AP chest on 11/30/2022 2338 hours COMPARISON: 08/28/2021 portable AP chest and CT chest abdomen pelvis FINDINGS: Tracheostomy tube noted on 08/28/2021 is no longer present. Heart size is within normal range. No pulmonary infiltrate or consolidation, pleural effusion or pulm onary vascular congestion or pneumothorax is detected. IMPRESSION: No active cardiopulmonary disease Reviewed, dictated and finalized at location A.
--- NOTE | ~2022-11-30 | CT_ITS ---
EXAMINATION: CTA chest PE abdomen pel DATE: 12/01/2022 00:41 INDICATION: Dyspnea. Hypotension. TECHNIQUE: Computed tomography angiography (CTA) of the chest, abdomen and pelvis was performed with 100 mL Omnipaque-350 intravenous contrast timed to evaluate the pulmonary arteries. Coronal maximum i ntensity projection 3D-reconstructions were created by the technologist. Automated exposure control a nd iterative reconstruction technique were employed. Exam dose: 934.87 mGy-cm total exam DLP. COMPARISON: 11/30/2012 portable AP chest September 03, 2021 Limited abdominal ultrasound examination, reported normal August 28, 2021 CT chest abdomen pelvis FINDINGS: There is diagnostic contrast enhancement of the pulmonary arteries and no evidence of pulmo nary embolism. Mild to moderate emphysematous changes of the lungs. No pulmonary infiltrate or consolidation or susp icious pulmonary mass lesion is evident. No hilar or mediastinal mass lesion or lymphadenopathy. No thoracic aortic aneurysm or dissection. Normal heart size. Coronary artery calcifications. No pericardial or pleural effusion. The liver, gallbladder, bile ducts, spleen are unremarkable. Multiple calcifications of the pancreatic head and uncinate process consistent with chronic pancreati tis. The body and tail the pancreas in particular are atrophic. Normal morphology of the adrenal glands. 9 mm probable cyst of the upper pole the right kidney, probable 4 mm posterior lower pole right renal cyst. 6.5 mm left renal lower pole probable cyst. No urinary tract calculi or hydroureteronephrosis or evid ent. There is moderate diffuse thickening of the urinary bladder wall. Prostate calcifications, mild prostate enlargement. There is atherosclerotic calcification of the abdominal aorta. No intraperitoneal or retroperitoneal or pelvic mass lesion or adenopathy or ascites. There is a prominent amount of fecal material in the rectum and colon. No bowel obstruction, bowel wa ll thickening, pneumatosis or intraperitoneal free air is evident. Normal appendix. No suspicious osteolytic or osteoblastic lesions are noted. IMPRESSION: Chronic pancreatitis. Atrophied pancreas Small renal cysts Diffuse bladder wall thickening which may be due to prostatomegaly, less likely cystitis. Clinical co rrelation is advised Emphysema No evidence of pulmonary embolism Reviewed, dictated and finalized at Location A. Reviewed, dictated and finalized at location A. IMPRESSION: Chronic pancreatitis. Atrophied pancreas Small renal cysts Diffuse bladder wall thickening which may be due to prostatomegaly, less likely cystitis. Clinical correlation is advised Emphysema No evidence of pulmonary embolism
--- NOTE | ~2022-11-30 | US_ITS ---
EXAMINATION: US renal BI DATE: 12/01/2022 10:38 INDICATION: Diabetic nephropathy. TECHNIQUE: Multiple ultrasound grayscale images of the kidneys were obtained. COMPARISON: CT abdomen and pelvis 12/01/2022 FINDINGS: The right kidney measures 10.9 x 5.7 x 5.9 cm. The left kidney measures 11.2 x 5.3 x 4.9 cm. The kidn eys demonstrate normal parenchymal echogenicity. There is no hydronephrosis. The bladder is decompres sed. IMPRESSION: 1. Normal kidneys. No hydronephrosis. Reviewed, dictated and finalized at location E.
[2022-11-30 22:42] VITALS: BP 92/75; PULSE 69; RESP 10; TEMP 37; O2SAT 100
[2022-11-30 22:51] VITALS: PULSE 75
--- NOTE | 2022-11-30 22:51 | ECG_ITS ---
Measurements Intervals [place] Rate: 71 P: 52 IN: 179 QRS: -34 QRSD: 109 T: 28 QT: 394 QTc: 429 Interpretive Statements SINUS RHYTHM MINIMAL Q WAVES- ANTEROLATERAL LEADS INFERIOR INFARCT, AGE INDETERMINATE BASELINE ARTIFACT- II, III, AVR, AVL, AVF ABNORMAL ECG NO PREVIOUS ECG AVAILABLE FOR COMPARISON Electronically Signed On 12-01-2022 16:16:53 CDT by Sudheer Joy D.O.
[2022-11-30 23:01] LABS: Basophils Absolute Auto 0.2 K/mm3 (0.0-0.1); Basophils Percent Auto 0.9 % (0.2-1.2); Eosinophils Absolute Auto 0.5 K/mm3 (0-0.3); Eosinophils Percent Auto 2.9 % (0-4.4); Hemoglobin 14.3 g/dL (14.0-18.0); Immature Granulocyte Absolute 0.04 K/mm3 (0.00-0.031); Immature Granulocyte Percent A 0.2 % (0-0.5); Lymphocytes Absolute Auto 8.31 K/mm3 (0.9-3.2); Lymphocytes Percent Auto 48.6 % (18.3-44.2); Mean Corpuscular HGB Conc 32.5 g/dl (32-36); Mean Corpuscular Hemoglobin 29.1 pg (26-34); Mean Corpuscular Volume 89.6 fl (80-100); Mean Platelet Volume 10.6 fl (7.4-10.4); Monocytes Absolute Auto 0.9 K/mm3 (0.1-0.6); Monocytes Percent Auto 5.2 % (2.6-8.5); Neutrophils Absolute Auto 7.2 K/mm3 (1.3-6.7); Neutrophils Percent Auto 42.2 % (45.5-73.1); Platelet Count Result 300 k/mm3 (150-375); Red Blood Count 4.91 M/mm3 (4.6-6.20); Red Cell Distribution Width 12.5 % (11.5-14.5); White Blood Count 17.1 K/mm3 (4.5-10.0)
[2022-11-30 23:14] LABS: Alanine Aminotransferase 31 U/L (6-50); Albumin Level 4.4 g/dL (3.5-5.1); Alkaline Phosphatase 92 U/L (38-126); Anion Gap 11 mmol/L (8-16); Aspartate Amino Transferase 28 U/L (17-59); Bilirubin,Total 0.7 mg/dL (0.2-1.3); Blood Urea Nitrogen 18 mg/dL (9-20); Calcium 9.4 mg/dL (8.4-10.2); Carbon Dioxide 27 mmol/L (22-30); Chloride 104 mmol/L (98-107); Estimated Glomerular Filt Rate > 60; Glucose 103 mg/dL (65-110); Lactic Acid Reflex 3.2 mmol/L (0.7-2.0); Sodium 142 mmol/L (137-145)
[2022-11-30 23:16] LABS: Prothrombin Time 13.9 Seconds (11.1-14.7)
[2022-11-30 23:17] LABS: Partial Thromboplastin Time 25.4 SECONDS (22.3-36.8)
[2022-11-30] MEDS: SODIUM CHLORIDE 0.9% IV 1,000 ML 999 ML IV CONT (23:27)
[2022-11-30 23:57] VITALS: BP 105/59; PULSE 82; RESP 19
[2022-12-01] VITALS (53 sets, daily range): BP systolic 83–145; BP diastolic 57–91; PULSE 66–88; RESP 12–20; TEMP 36.3–37.2; O2SAT 95–98; BMI 23.0
[2022-12-01 00:23] LABS: Lipase 16 U/L (23-300); Magnesium 1.6 mg/dL (1.6-2.3)
[2022-12-01 00:26] LABS: Amorphous Sediment Urine Present; Appearance Urine Turbid (Clear); Bacteria Urine None Seen /hpf; Bilirubin Urine 1+ (Negative); Blood Urine Negative (Negative); Color Urine Dark Yellow (Yellow); Glucose Urine UA Negative (Negative); Ketones Urine Trace mg/dL (Negative); Leukocyte Esterase Ur Trace LEU/UL (Negative); Nitrate Urine Negative (Negative); Non Pathogenic Casts >20; Protein Urine 2+ mg/dL (Negative); Specific Grav Ur 1.025 (1.001-1.035); Squamous Epithelial Cell Urine None seen /hpf (Few); WBC Urine 0-5 /hpf; pH Urine 5.5 (5.0-9.0)
[2022-12-01 00:29] LABS: Add Urine Microscopic? YES
[2022-12-01 00:36] LABS: NT Pro B Type Natriuretic Pept 99 pg/mL (19.9-100); Troponin I < 0.012 ng/mL (0.000-0.034)
--- NOTE | 2022-12-01 00:36 | ED.GENADULT ---
HPI - General Adult General Chief complaint: Dizziness Stated complaint: dizzy History of Present Illness HPI narrative: Patient is a 47-year-old gentleman who presents emerged department with chief complaint of dizziness and hypotension. Patient has history of a traumatic brain injury and today started feeling lightheaded and not feeling well when EMS was called he was found to be hypotensive with a pressure in the 60s and was diaphoretic. The patient denied chest pain denied shortness of breath stated he did have some discomfort in his abdomen with this patient denies vomiting denies diarrhea. Related Data Home Medications Medication Instructions Recorded Confirmed aspirin 81 mg chewable tablet 81 mg PO DAILY 09/11/22 09/11/22 atorvastatin 40 mg tablet 40 mg PO DAILY 09/11/22 09/11/22 insulin aspart U-100 100 unit/mL 20 unit subcut TID 09/11/22 09/11/22 (3 mL) subcutaneous pen (Novolog FlexPen U-100 Insulin aspart) insulin glargine 100 unit/mL (3 30 unit subcut DAILY 09/11/22 09/11/22 mL) subcutaneous pen (Basaglar KwikPen U-100 Insulin) mirtazapine 30 mg tablet 30 mg PO HS 09/11/22 09/11/22 ticagrelor 90 mg tablet (Brilinta) 90 mg PO DAILY 09/11/22 09/11/22 Allergies Allergy/AdvReac Type Severity Reaction Status Date / Time codeine Allergy Intermediate Vomiting Verified 09/11/22 18:00 olanzapine Allergy Intermediate Other Verified 09/11/22 18:00 Review of Systems Review of Systems: A 10 system review of systems was completed on the patient and is negative except for what is stated in the HPI. Nursing and ancillary documentation was reviewed. [facility] Past Medical History Medical History Alcoholic pancreatitis Cirrhosis Continuous tobacco abuse Diabetes mellitus treated with insulin Diabetic peripheral neuropathy Surgical History Surgical History History of left inguinal hernia repair Family History Family History Father Family history of migraine headaches Mother Family history of alcoholism Other Unknown family medical history Social History Social History Social History: The patient lives with his girlfriend of 3 years. 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 Patient has 2 adult sons. He has smoked a pack of cigarettes per day since he was a teenager. 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 He drinks a pot of coffee a day. Code status: Full code Smoking packs per day: 1 Smoking cigarettes per day: 20.0 Years smoked: 33 Smoking pack-years: 33.00 Smoking status: Current every day smoker Tobacco type: cigarettes Second hand tobacco smoke exposure: Yes Smoking end date: 05/19/10 Alcohol intake: former Substance use: former Substance use type: sedatives, opiates and painkillers Spiritual care concerns: No Exam Narrative: GENERAL: He will-appearing, diaphoretic thin , and in mild acute distress. HEAD: Normocephalic, atraumatic. EYES: PERRLA and EOMI. ENT: Nares clear, no rhinorrhea or epistaxis. Mucous membranes moist. NECK: Supple. CHEST: Clear to auscultation. No respiratory distress. HEART: Regular rate and rhythm. No murmur heard. Normal peripheral pulses. ABDOMEN: Soft, mild tenderness palpation, nondistended, normal active bowel sounds. EXTREMITIES: Normal range of motion. No edema. SKIN: Warm, dry, no rash. NEURO: No focal deficits. Alert and oriented x3. PSYCH: Normal mood and affect. Course Vital Signs Vital signs: Vital Signs Temperature 37.0 C 11/30/22 22:42 Pulse Rate 69 11/30/22 22:42 Respiratory Rate 10 L 11/30/22 22:42 Blood Pressure 92/75 L 11/30/22 22:42 Pulse Oximetry 100 11/30/22 22:42 Oxygen Delivery
[2022-12-01] MEDS: MAGNESIUM SULF 2 GM/WATER 50ML 2 GM/50 ML BAG IVPB (00:56)
[2022-12-01] MEDS: SODIUM CHLORIDE 0.9% IV 1,000 ML 999 ML IV CONT (01:48)
[2022-12-01 01:59] LABS: Reflex Lactic Acid Yes or No Add Lactic
[2022-12-01 03:13] LABS: Lactic Acid 1.1 mmol/L (0.7-2.0)
[2022-12-01 03:26] LABS: Troponin I < 0.012 ng/mL (0.000-0.034)
[2022-12-01] MEDS: SODIUM CHLORIDE 0.9% IV 1,000 ML 125 ML IV CONT (05:37)
--- NOTE | 2022-12-01 06:28 | ADMGEN ---
This patient, Sidney Raphael, was admitted to [facility] Surg Room 303-01. Patient/family oriented to hospital policies and general routines including ID bracelet, bed and alarms, visiting hours, pain management, procedures, bathroom and other care routines, personal items, smoking policy, room service/diet, and visiting hours. Information on how to activate the Rapid Response Team has been discussed. Patient/Family are encouraged to report perceived risks to care and to ask questions if they do not understand what they are told or what they should do.
--- NOTE | 2022-12-01 09:37 | PM.IMHP ---
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 He had gone to the bathroom and told his girlfriend he was feeling weak and dizzy. He lives with his girlfriend. He said down and the girlfriend noted that he was pale and diaphoretic he seem to freeze and stopped breathing for a few seconds. He resume breathing. He seemed confused afterwards. She called 911 and he was brought to the emergency room where he was found to be hypotensive. Blood pressure 60 systolic. He responded well to 2 L of IV saline. He had no spell since. Girlfriend stay with him overnight and his sister is in the room with him now. The patient could not recall any of the episode. The sister related history as related to her by the girlfriend. The only time he had a similar episode was in January of 2022 when he had an acute [place] with cardiac arrest. According to his sister he is now at his baseline mental status. At baseline his girlfriend takes care of all of his medications and checked his sugars 3 times daily. He has had no spells of severe hyperglycemia or hypoglycemia recently. He has been eating well and has had no issues with bowel movements or urination. He was diagnosed with type 1 diabetes when he had DKA about 12 years ago. At that time he had a drug-related issues with pain pills and alcohol. He had a coma that was induced during severe drug withdrawal around 2011. He stopped using pain pills then. He stopped drinking in 2015. He stopped smoking in January of 2022. He had an EEG in January 2022 that showed evidence for encephalopathy but no evidence for seizures. He takes no prophylactic seizure medication. Two months ago he had an MRI of the brain that reportedly showed no change from his brain imaging of January 2022. He does have a history of diabetic neuropathy with tingling and numbness in his feet that is actually improved with improved control of his blood sugar since his [place] in 01/2022. Emergency department evaluation [place] [address], hypokalemia with potassium 3.0, negative troponins and EKG showing evidence for old inferior and anterolateral myocardial infarctions but no acute changes. Initial lactic acid was elevated at 3.2 but after hydration was 1.1. Urine showed 2+ protein and trace ketones 1+ bilirubin trace leukocyte esterase and 11-20 red cells per high-power field. There is some amorphous sediment present as well as urine casts. System review is otherwise unremarkable with the patient denying chest pain, shortness are breath, constipation, dysuria or hematuria, hematochezia, loss of appetite, weight change, fevers, chills, focal weakness or numbness, headaches. Review of Systems Review of Systems: All systems reviewed & are unremarkable except as noted in HPI and below PMFSH Past Medical History Medical History Alcoholic pancreatitis Cirrhosis Continuous tobacco abuse Diabetes mellitus treated with insulin Diabetic peripheral neuropathy Surgical History Surgical History History of left inguinal hernia repair Family History Family History Father Family history of migraine headaches Mother Family history of alcoholism Other Unknown family medical history Social History Social History (Updated 12/01/22 @ 09:54 by Richmond Meneses MD) Social History: The patient lives with his girlfriend. He is unemployed with disability pending. Has 2 adult sons. Smoked a pac
[2022-12-01 09:55] LABS: Hematocrit 39.2 % (42.0-52.0); Hemoglobin 12.7 g/dL (14.0-18.0); Mean Corpuscular HGB Conc 32.4 g/dl (32-36); Mean Corpuscular Hemoglobin 28.8 pg (26-34); Mean Corpuscular Volume 88.9 fl (80-100); Mean Platelet Volume 10.4 fl (7.4-10.4); Platelet Count Result 233 k/mm3 (150-375); Red Blood Count 4.41 M/mm3 (4.6-6.20); Red Cell Distribution Width 12.5 % (11.5-14.5); White Blood Count 10.3 K/mm3 (4.5-10.0)
[2022-12-01 10:07] LABS: Alanine Aminotransferase 27 U/L (6-50); Albumin Level 3.7 g/dL (3.5-5.1); Alkaline Phosphatase 97 U/L (38-126); Anion Gap 6 mmol/L (8-16); Aspartate Amino Transferase 24 U/L (17-59); Bilirubin,Total 0.4 mg/dL (0.2-1.3); Blood Urea Nitrogen 15 mg/dL (9-20); Calcium 8.3 mg/dL (8.4-10.2); Carbon Dioxide 24 mmol/L (22-30); Chloride 107 mmol/L (98-107); Estimated CRCL calculation 114 ml/min; Estimated Glomerular Filt Rate > 60; Glucose 265 mg/dL (65-110); Hemoglobin A1C 8.1 % (<5.7); Magnesium 1.8 mg/dL (1.6-2.3); Phosphorus 2.8 mg/dL (2.5-4.5); Potassium 4.5 mmol/L (3.4-5.0); Sodium 137 mmol/L (137-145)
[2022-12-01 11:00] LABS: Ammonia < 9 umol/L (9-30)
[2022-12-01] MEDS: polyethylene glycoL 3350 17 GM POWD.PACK PO (11:19)
[2022-12-01] MEDS: SENNOSIDES 8.6 MG TABLET PO (11:19)
[2022-12-01] MEDS: ATORVASTATIN 40 MG TABLET PO (11:20)
[2022-12-01] MEDS: ASPIRIN 81 MG CHEWABLE TABLET PO (11:20)
[2022-12-01] MEDS: CLOPIDOGREL BISULFATE 75 MG TABLET PO (11:20)
[2022-12-01] MEDS: INSULIN ASPART (*BKC) 100 UNITS/ML SUB-Q ×3 (11:21→17:28)
[2022-12-01 11:23] LABS: Glucose Point of Care 301 mg/dl (65-105)
[2022-12-01] MEDS: INSULIN GLARGINE (*BKC) 100 UNITS/ML 20 UNITS SUB-Q (11:23)
[2022-12-01 11:24] LABS: Thyroid Stimulating Hormone Reflex 0.812 uIU/mL (0.465-4.68)
[2022-12-01 15:55] LABS: Glucose Point of Care 313 mg/dl (65-105)
[2022-12-01 21:23] LABS: Glucose Point of Care 293 mg/dl (65-105)
--- NOTE | 2022-12-02 05:16 | PC.NURSE ---
Spoke with Dr. Martini about patient's blood cultures coming back gram + with cocci clusters. New orders received for vancomycin 1 gm now, then pharmacy to dose after. Repeat blood cultures 48 hours from first set.
[2022-12-02 06:00] VITALS: BP 111/73; PULSE 65; RESP 12; TEMP 35.9; O2SAT 98
[2022-12-02] MEDS: VANCOMYCIN 1,250 MG/NS 250 ML 1,250 MG/250 ML BAG 166.67 MG IVPB (06:00)
[2022-12-02 06:05] VITALS: BP 135/91
[2022-12-02 06:10] VITALS: BP 130/83
[2022-12-02 06:43] LABS: Basophils Absolute Auto 0.1 K/mm3 (0.0-0.1); Basophils Percent Auto 1.1 % (0.2-1.2); Eosinophils Absolute Auto 0.4 K/mm3 (0-0.3); Eosinophils Percent Auto 4.8 % (0-4.4); Hematocrit 38.2 % (42.0-52.0); Hemoglobin 12.5 g/dL (14.0-18.0); Immature Granulocyte Absolute 0.02 K/mm3 (0.00-0.031); Immature Granulocyte Percent A 0.2 % (0-0.5); Lymphocytes Absolute Auto 3.76 K/mm3 (0.9-3.2); Lymphocytes Percent Auto 45.9 % (18.3-44.2); Mean Corpuscular HGB Conc 32.7 g/dl (32-36); Mean Corpuscular Hemoglobin 29.1 pg (26-34); Mean Corpuscular Volume 88.8 fl (80-100); Mean Platelet Volume 11.1 fl (7.4-10.4); Monocytes Absolute Auto 0.5 K/mm3 (0.1-0.6); Monocytes Percent Auto 6.3 % (2.6-8.5); Neutrophils Absolute Auto 3.4 K/mm3 (1.3-6.7); Neutrophils Percent Auto 41.7 % (45.5-73.1); Platelet Count Result 220 k/mm3 (150-375); Red Cell Distribution Width 12.6 % (11.5-14.5); White Blood Count 8.2 K/mm3 (4.5-10.0)
[2022-12-02 06:48] LABS: Anion Gap 6 mmol/L (8-16); Blood Urea Nitrogen 14 mg/dL (9-20); Calcium 8.6 mg/dL (8.4-10.2); Carbon Dioxide 29 mmol/L (22-30); Chloride 104 mmol/L (98-107); Estimated CRCL calculation 132 ml/min; Estimated Glomerular Filt Rate > 60; Glucose 174 mg/dL (65-110); Potassium 4.1 mmol/L (3.4-5.0); Sodium 139 mmol/L (137-145)
[2022-12-02 07:36] LABS: Glucose Point of Care 189 mg/dl (65-105)
[2022-12-02 08:00] VITALS: PULSE 65; RESP 12; O2SAT 98
[2022-12-02] MEDS: ASPIRIN 81 MG CHEWABLE TABLET PO (08:48)
[2022-12-02] MEDS: CLOPIDOGREL BISULFATE 75 MG TABLET PO (08:48)
[2022-12-02] MEDS: ATORVASTATIN 40 MG TABLET PO (08:48)
[2022-12-02] MEDS: INSULIN ASPART (*BKC) 100 UNITS/ML SUB-Q ×3 (08:51→12:14)
[2022-12-02] MEDS: INSULIN GLARGINE (*BKC) 100 UNITS/ML 20 UNITS SUB-Q (08:54)
[2022-12-02] MEDS: polyethylene glycoL 3350 17 GM POWD.PACK PO (08:57)
[2022-12-02] MEDS: SENNOSIDES 8.6 MG TABLET PO (08:57)
[2022-12-02 10:38] VITALS: BP 122/88; PULSE 77; RESP 18; TEMP 35.8; O2SAT 99
[2022-12-02] MEDS: levoFLOXacin 500 MG TABLET PO (10:39)
[2022-12-02 10:40] VITALS: BP 122/86; BP 131/80
--- NOTE | 2022-12-02 10:55 | PM.DS ---
DS: Admitting Diagnosis Discharge Date 12/02/2022 Admitting Diagnosis Altered mental status DS: Discharge Diagnosis Discharge Diagnosis (1) Spell of altered cognition: Code(s): R41.89 - Other symptoms and signs involving cognitive functions and awareness Status: Acute (2) Type I diabetes mellitus: Code(s): E10.9 - Type 1 diabetes mellitus without complications Status: Acute (3) Coronary artery disease: Qualifiers: Coronary Disease-Associated Artery/Lesion type: [place] artery [place] vs. 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 He had gone to the bathroom and told his girlfriend he was feeling weak and dizzy.? He sat down and the girlfriend noted that he was pale and diaphoretic he seem to freeze and stopped breathing for a few seconds.? He resume breathing.? He seemed confused afterwards.? She called 911 and he was brought to the emergency room where he was found to be hypotensive.? Blood pressure 60 systolic.? He responded well to 2 L of IV saline.? He had no spell since.? Emergency department evaluation [place] [address], hypokalemia with potassium 3.0, negative troponins and EKG showing evidence for old inferior and anterolateral myocardial infarctions but no acute changes.? Initial lactic acid was elevated at 3.2 but after hydration was 1.1.? Urine showed 2+ protein and trace ketones 1+ bilirubin trace leukocyte esterase and 11-20 red cells per high-power field.? There is some amorphous sediment present as well as urine casts. Head CT was unremarkable for any acute findings. Renal ultrasound normal. Abdominal CT normal. Patient is back to his baseline mental status at this time. He was started on oral Levaquin for UTI. We will get an EEG and then discharge the patient home Time Spent with Patient Time attestation: Total time spent providing and/or coordinating discharge services: DS: Data Data Completed and Pending Labs on day of discharge: Labs from last 24 hours 12/02/22 12/02/22 12/01/22 07:25 06:07 20:17 WBC 8.2 RBC 4.30 L Hgb 12.5 L Hct 38.2 L MCV 88.8 MCH 29.1 MCHC 32.7 RDW 12.6 Plt Count 220 MPV 11.1 H Immature Gran % (Auto) 0.2 Neut % (Auto) 41.7 L Lymph % (Auto) 45.9 H Graham % (Auto) 6.3 Eos % (Auto) 4.8 H Baso % (Auto) 1.1 Lymph # (Auto) 3.76 H Graham # (Auto) 0.5 Eos # (Auto) 0.4 H Baso # (Auto) 0.1 Abs Immat Gran (auto) 0.02 Absolute Neuts (auto) 3.4 Absolute Nucleated RBC 0.0 Nucleated RBC % 0.0 Sodium 139 Potassium 4.1 Chloride 104 Carbon Dioxide 29 Anion Gap 6 L BUN 14 Creatinine 0.60 L Estim Creat Clear Calc 132 Estimated GFR > 60 Glucose 174 H POC Capillary Glucose 189 H 293 H Calcium 8.6 Ammonia TSH (Reflex) 12/01/22 12/01/22 12/01/22 15:51 11:16 10:38 WBC RBC Hgb Hct MCV MCH MCHC RDW Plt Count MPV Immature Gran % (Auto) Neut % (Auto) Lymph % (Auto) Graham % (Auto) Eos % (Auto) Baso % (Auto) Lymph # (Auto) Graham # (Auto) Eos # (Auto) Baso # (Auto) Abs Immat Gran (auto) Absolute Neuts (auto) Absolute Nucleated RBC Nucleated RBC % Sodium Potassium Chloride Carbon Dioxide Anion Gap BUN Creatinine
--- NOTE | 2022-12-02 11:20 | PCCCNOTE ---
On 12/02/22, the student, [Nasra Marcus ], provided care and completed [facility] documentation on this patient. I have reviewed the student's documentation and agree with the findings.
[2022-12-02 11:37] LABS: Glucose Point of Care 296 mg/dl (65-105)
--- NOTE | 2022-12-03 14:16 | WPDNEUROLOGY ---
Neurology EEG Report General Information Date of Study: 12/02/22 TEST eeg DIAGNOSIS Recurrent spells of unresponsiveness CONDITION OF RECORDING awake and drowsy EEG NUMBER [id number] CLINICAL HISTORY patient was brought in to the hospital for loss of consciousness a couple of days ago. She has history of cardiac arrest over a year ago with anoxic brain injury EEG DESCRIPTION basic resting occipital frequency consists of low-voltage 9 to 11 hertz per 2nd alpha admixed with low-voltage 15 to 18 hertz per 2nd beta. Low-voltage beta activity seen diffusely admixed with waxing and waning posterior alpha rhythm. Bilateral symmetrical sleep activity seen during sleep. Hyperventilation not done. Photic stimulation not done. Non paroxysmal. Nonfocal. Nonlateralizing. IMPRESSION No significant abnormalities noted
== END 2022-12-02 12:30 | disposition home or self-care (01) ==
LOC: ANHED 12-01 05:09 → ANH3MEDSUR 12-01 05:24
PROVIDERS: Internal Medicine; Admitting Provider Internal Medicine; Emergency Provider Emergency Medicine; PCP Family Medicine; Visit Provider Hospitalist
DX: R41.89 Other symptoms and signs involving cognitive functions and awareness (principal); E10.42 Type 1 diabetes mellitus with diabetic polyneuropathy; E10.21 Type 1 diabetes mellitus with diabetic nephropathy; I25.10 Atherosclerotic heart disease of native coronary artery without angina pectoris; I95.9 Hypotension, unspecified; R94.31 Abnormal electrocardiogram [ECG] [EKG]; B95.7 Other staphylococcus as the cause of diseases classified elsewhere; D72.829 Elevated white blood cell count, unspecified; K86.1 Other chronic pancreatitis; E87.6 Hypokalemia; N28.1 Cyst of kidney, acquired; G93.1 Anoxic brain damage, not elsewhere classified; R90.82 White matter disease, unspecified; J43.9 Emphysema, unspecified; R74.02 Elevation of levels of lactic acid dehydrogenase [LDH]; R53.1 Weakness; Z86.74 Personal history of sudden cardiac arrest; Z87.898 Personal history of other specified conditions; Z87.891 Personal history of nicotine dependence; Z79.4 Long term (current) use of insulin; Z79.82 Long term (current) use of aspirin; Z79.02 Long term (current) use of antithrombotics/antiplatelets; Z79.899 Other long term (current) drug therapy
CPT/HCPCS: 36415; 70450; 71045; 71275; 74177; 76775; 80048; 80053; 81001; 82140; 82533; 82948; 83036; 83605; 83690; 83735; 83880; 84100; 84145; 84443; 84484; 85025; 85027; 85610; 85730; 87040; 87147; 87181; 87186; 93005; 95816; 96361; 96365; 99285; A9270; G0378; J1815; J3370; J3475; J7030; Q9967

== ENCOUNTER 2023-02-17 23:35 | Emergency (ER) | payer BC, MEDICAID, SELFPAY ==
--- NOTE | 2023-02-17 | ECG_ITS ---
Measurements Intervals [place] Rate: 66 P: 49 UT: 183 QRS: -40 QRSD: 101 T: -3 QT: 416 QTc: 438 Interpretive Statements SINUS RHYTHM MODERATE VOLTAGE CRITERIA FOR LVH, CONSIDER NORMAL VARIANT [MEETS CRITERIA IN ONE OF: R(aVL), S(V1), R(V5), R(V5/V6)+S(V1)] LATERAL MYOCARDIAL INFARCTION , OF INDETERMINATE AGE [40+ ms Q WAVE AND/OR ST/T ABNORMALITY IN I/aVL/V5/V6] INFERIOR MYOCARDIAL INFARCTION , OF INDETERMINATE AGE WITH POSTERIOR EXTENSION [40+ ms Q WAVE AND/OR ST/T ABNORMALITY IN II/aV COMPARED TO ECG 11/30/2022 22:51:23 NO SIGNIFICANT CHANGES Electronically Signed On 02-18-2023 12:18:09 CDT by Simon Cates M.D.
--- NOTE | ~2023-02-17 | CT_ITS ---
Non-contrast Head CT History: Altered mental status COMPARISON: 12/01/2022 Technique: Axial non-contrast imaging of the brain was performed. Dose reduction technique was used on this scan by utilizing automated exposure control and iterative reconstruction technique. The dose -length product (DLP) was 681.00 mGy-cm. Findings: Extensive hypodensity throughout the cerebellum is present, similar to prior exam. No paren chymal abnormality the cerebral hemispheres bilaterally. No intracranial hemorrhage. The ventricles a nd subarachnoid spaces are normal in size. The calvarium appears normal. The visualized paranasal s inuses and mastoid air cells are clear. Impression: Extensive hypodensity throughout the cerebellum, similar to prior exam. This could reflect chronic in farct. No acute abnormality evident. Reviewed, dictated and finalized at [facility]. Impression: Extensive hypodensity throughout the cerebellum, similar to prior exam. This co uld reflect chronic infarct. No acute abnormality evident.
--- NOTE | ~2023-02-17 | XR_ITS ---
Portable chest x-ray Comparison: 11/30/2022 Clinical History: Altered mental status Findings: Lungs are clear, without focal consolidation or pleural effusion. Cardiomediastinal silho uette is stable. Bones and soft tissues are unremarkable. Impression: Normal chest. Reviewed, dictated and finalized at location . Impression: Normal chest.
[2023-02-17 23:36] VITALS: BP 130/90; PULSE 65; RESP 14; TEMP 36.6; O2SAT 98
[2023-02-17 23:51] VITALS: PULSE 63
[2023-02-18 00:26] LABS: Basophils Absolute Auto 0.1 K/mm3 (0.0-0.1); Eosinophils Absolute Auto 0.4 K/mm3 (0-0.3); Eosinophils Percent Auto 3.5 % (0-4.4); Hematocrit 44.2 % (42.0-52.0); Hemoglobin 14.2 g/dL (14.0-18.0); Immature Granulocyte Absolute 0.02 K/mm3 (0.00-0.031); Immature Granulocyte Percent A 0.2 % (0-0.5); Lymphocytes Absolute Auto 5.87 K/mm3 (0.9-3.2); Lymphocytes Percent Auto 52.5 % (18.3-44.2); Mean Corpuscular HGB Conc 32.1 g/dl (32-36); Mean Corpuscular Hemoglobin 28.3 pg (26-34); Mean Platelet Volume 10.8 fl (7.4-10.4); Monocytes Absolute Auto 0.8 K/mm3 (0.1-0.6); Monocytes Percent Auto 6.7 % (2.6-8.5); Neutrophils Percent Auto 36.1 % (45.5-73.1); Platelet Count Result 269 k/mm3 (150-375); Red Blood Count 5.02 M/mm3 (4.6-6.20); Red Cell Distribution Width 12.3 % (11.5-14.5); White Blood Count 11.2 K/mm3 (4.5-10.0)
[2023-02-18 00:31] LABS: Ethanol < 10 mg/dL (<10)
[2023-02-18 00:32] LABS: Alanine Aminotransferase 31 U/L (6-50); Albumin Level 4.3 g/dL (3.5-5.1); Alkaline Phosphatase 95 U/L (38-126); Anion Gap 9 mmol/L (8-16); Aspartate Amino Transferase 36 U/L (17-59); Bilirubin,Total 0.6 mg/dL (0.2-1.3); Blood Urea Nitrogen 18 mg/dL (9-20); Calcium 9.7 mg/dL (8.4-10.2); Carbon Dioxide 31 mmol/L (22-30); Chloride 101 mmol/L (98-107); Estimated CRCL calculation 102 ml/min; Estimated Glomerular Filt Rate > 60; Glucose 92 mg/dL (65-110); Potassium 3.9 mmol/L (3.4-5.0); Sodium 141 mmol/L (137-145)
[2023-02-18 00:43] LABS: Troponin I < 0.012 ng/mL (0.000-0.034)
[2023-02-18 00:45] LABS: Alveolar/Arterial O2 Gradient 24.5 mmHg; Base Excess ABG 3.4 mEq/l (+/-2.0); Fractional Inspired Oxygen 21 %; HCO3 ABG 28.5 mEq/l (22.0-26.0); Oxygen Content ABG 19.2 %vol (16.0-22.0); Oxygen Saturation ABG 94.5 % (95.0-100.0); PCO2 ABG 45.2 mmHg (35.0-45.0); PO2 ABG 71.1 mmHg (80.0-100.0); PO2 FiO2 Ratio Arterial Blood 3.39 %; Total Hemoglobin 14.7 g/dL (12.0-18.0); pH ABG 7.418 (7.350-7.450)
[2023-02-18 00:47] LABS: Site Drawn RIGHT RADIAL
[2023-02-18 00:48] LABS: Device ROOM AIR; Modified Allen's Test Pass
[2023-02-18 01:32] LABS: Lactic Acid Reflex 1.1 mmol/L (0.7-2.0)
[2023-02-18 01:40] VITALS: BP 107/80; PULSE 71; RESP 18; O2SAT 98
--- NOTE | 2023-02-18 02:56 | ED.GENADULT ---
HPI - General Adult General Chief complaint: Weakness Stated complaint: weakness, syncope Time Seen by Provider: 02/17/23 23:44 History of Present Illness HPI narrative: Patient brought to the emergency department by EMS from home. He has an extensive past medical history. His states that a year ago he had a cardiac arrest secondary to a heart attack. CPR was completed for over an hour. As result he has no anoxic brain injury. He also had a significant history of excessive alcohol intake and smoking prior to the heart attack. Since then he has not been drinking. Patient had similar episode couple months ago. describes today that he was standing in the kitchen and became very pale. No syncope but decreased responsiveness overall. EMS states that when they arrived the patient was diaphoretic and pale. His blood sugar was 88. Related Data Home Medications Medication Instructions Recorded Confirmed aspirin 81 mg chewable tablet 81 mg PO DAILY 09/11/22 12/01/22 atorvastatin 40 mg tablet 40 mg PO DAILY 09/11/22 12/01/22 insulin aspart U-100 100 unit/mL 20 unit subcut TID 09/11/22 12/01/22 (3 mL) subcutaneous pen (Novolog FlexPen U-100 Insulin aspart) insulin glargine 100 unit/mL (3 20 unit subcut DAILY 09/11/22 12/01/22 mL) subcutaneous pen (Basaglar KwikPen U-100 Insulin) clopidogrel 75 mg tablet 75 mg PO DAILY 12/01/22 12/01/22 Allergies Allergy/AdvReac Type Severity Reaction Status Date / Time codeine Allergy Intermediate Vomiting Verified 02/17/23 23:44 olanzapine Allergy Intermediate Other Verified 02/17/23 23:44 Review of Systems Review of Systems: Review of systems negative except for what is documented in the HPI [facility] Past Medical History Medical History Alcoholic pancreatitis Cirrhosis Continuous tobacco abuse Diabetes mellitus treated with insulin Diabetic peripheral neuropathy Surgical History Surgical History History of left inguinal hernia repair Family History Family History Father Family history of migraine headaches Mother Family history of alcoholism Other Unknown family medical history Social History Social History (Updated 12/01/22 @ 09:54 by Richmond Meneses MD) Social History: The patient lives with his girlfriend. He is unemployed with disability pending. Has 2 adult sons. Smoked a pack of cigarettes per day since he was a teenager but quit in 01/2022 He has a history of alcohol and drug abuse but has been in recovery since 2016. Code status: Full code Smoking packs per day: 1 Smoking cigarettes per day: 20.0 Years smoked: 15 Smoking pack-years: 15.00 Smoking status: Former smoker Tobacco type: cigarettes Second hand tobacco smoke exposure: Yes Smoking end date: 08/07/21 Alcohol intake: former Substance use: former Substance use type: sedatives, opiates and painkillers Lack of Transportation: No Lack of Food: Never True Current Housing: I Have Housing Concerned About Future Housing: No Difficulty Paying Gas/Electric Bills: No Difficulty Paying for Meds: No Currently Unemployed: No Education: High School Diploma/GED Difficulty w/ Childcare or Family Care: No Spiritual care concerns: No Exam Narrative: GENERAL: in no acute distress. HEAD: Normocephalic, atraumatic. EYES: PERRLA and EOMI. ENT: Nares clear, no rhinorrhea or epistaxis. Mucous membranes moist. NECK: Supple. CHEST: Clear to auscultation. No respiratory distress. HEART: Regular rate and rhythm. ABDOMEN: Soft, nontender, nondistended. EXTREMITIES: Normal range of motion. No edema. SKIN: Warm, dry, no rash. NEURO: No focal deficits. Alert and oriented x3. PSYCH: Normal mood and affect. Course Course Emergency Course: Unclear etiology of patient's presenta
[2023-02-18 02:58] LABS: Appearance Urine Cloudy (Clear); Bacteria Urine None Seen /hpf; Bilirubin Urine Negative (Negative); Blood Urine Negative (Negative); Color Urine Dark Yellow (Yellow); Glucose Urine UA Negative (Negative); Ketones Urine Negative (Negative); Leukocyte Esterase Ur Negative LEU/UL (Negative); Need Manual Microscopic Reviewed; Nitrate Urine Negative (Negative); Non Pathogenic Casts 0-2; Protein Urine 1+ mg/dL (Negative); Specific Grav Ur 1.028 (1.001-1.035); Squamous Epithelial Cell Urine None seen /hpf (Few); WBC Urine 0-5 /hpf; pH Urine 5.5 (5.0-9.0)
[2023-02-18 03:00] VITALS: BP 133/93; PULSE 73; RESP 20; O2SAT 98
[2023-02-18 03:05] LABS: Add Urine Microscopic? YES
[2023-02-18 03:25] LABS: Amphetamine Screen Urine Negative (Negative); Barbiturate Screen Urine Negative (Negative); Benzodiazepines Screen Urine Negative (Negative); Cannabinoid Screen Urine Negative (Negative); Cocaine Screen Urine Negative (Negative); Methadone Screen Urine Negative (Negative); Opiate Screen Urine Negative (Negative); Phencyclidine Screen Urine Negative (Negative)
[2023-02-18 03:37] LABS: Troponin I < 0.012 ng/mL (0.000-0.034)
[2023-02-18 04:50] VITALS: BP 114/77; PULSE 70; RESP 17; O2SAT 97
== END 2023-02-18 04:55 | disposition home or self-care (01) ==
PROVIDERS: Emergency Provider Emergency Medicine; PCP Family Medicine
DX: R55 Syncope and collapse (principal); F17.210 Nicotine dependence, cigarettes, uncomplicated; E11.9 Type 2 diabetes mellitus without complications; Z79.4 Long term (current) use of insulin; I25.2 Old myocardial infarction; Z87.820 Personal history of traumatic brain injury
CPT/HCPCS: 36415; 36600; 70450; 71045; 80053; 80307; 81001; 82805; 83605; 84484; 85025; 93005; 99284

== ENCOUNTER 2023-03-27 02:21 | Day surgery (SDC) | payer BC, MEDICAID, SELFPAY ==
[2023-03-27] VITALS (12 sets, daily range): BP systolic 114–155; BP diastolic 76–100; PULSE 58–72; RESP 12–17; TEMP 36.6; O2SAT 96–100; BMI 22.4
[2023-03-27 09:34] LABS: Basophils Absolute Auto 0.1 K/mm3 (0.0-0.1); Basophils Percent Auto 0.9 % (0.2-1.2); Eosinophils Absolute Auto 0.3 K/mm3 (0-0.3); Eosinophils Percent Auto 3.5 % (0-4.4); Hematocrit 42.7 % (42.0-52.0); Hemoglobin 13.6 g/dL (14.0-18.0); Immature Granulocyte Absolute 0.02 K/mm3 (0.00-0.031); Immature Granulocyte Percent A 0.3 % (0-0.5); Lymphocytes Absolute Auto 2.85 K/mm3 (0.9-3.2); Lymphocytes Percent Auto 36.9 % (18.3-44.2); Mean Corpuscular HGB Conc 31.9 g/dl (32-36); Mean Corpuscular Hemoglobin 28.1 pg (26-34); Mean Corpuscular Volume 88.2 fl (80-100); Mean Platelet Volume 10.7 fl (7.4-10.4); Monocytes Absolute Auto 0.4 K/mm3 (0.1-0.6); Monocytes Percent Auto 5.6 % (2.6-8.5); Neutrophils Absolute Auto 4.1 K/mm3 (1.3-6.7); Neutrophils Percent Auto 52.8 % (45.5-73.1); Platelet Count Result 255 k/mm3 (150-375); Red Blood Count 4.84 M/mm3 (4.6-6.20); Red Cell Distribution Width 12.6 % (11.5-14.5); White Blood Count 7.7 K/mm3 (4.5-10.0)
[2023-03-27 09:43] LABS: Anion Gap 8 mmol/L (8-16); Blood Urea Nitrogen 15 mg/dL (9-20); Calcium 9.4 mg/dL (8.4-10.2); Carbon Dioxide 27 mmol/L (22-30); Chloride 104 mmol/L (98-107); Estimated CRCL calculation 112 ml/min; Estimated Glomerular Filt Rate > 60; Glucose 168 mg/dL (65-110); Potassium 5.1 mmol/L (3.4-5.0); Sodium 139 mmol/L (137-145)
[2023-03-27 09:44] LABS: INR 0.9; Prothrombin Time 12.9 Seconds (11.1-14.7)
--- NOTE | 2023-03-27 10:39 | WPDHPUPDATE1 ---
History and Physical Update Update Date/Time: 03/27/23 10:39 History and Physical has been reviewed, including an updated exam of the patient. There are NO changes in the patient's condition. Risks, benefits, and alternatives have been discussed and questions answered. Patient agrees to proceed with procedure.
--- NOTE | 2023-03-27 10:39 | WPDMODSED ---
Moderate Sedation Note-Pt Data Patient Data Diagnosis: Coronary artery disease Present Complaint: Coronary artery disease Procedure to be performed/Plan: Coronary angiography, left heart cath, +/- PCI Allergies Allergy/AdvReac Type Severity Reaction Status Date / Time olanzapine Allergy Intermediate Other Verified 03/27/23 09:15 codeine AdvReac Intermediate Vomiting Verified 03/27/23 09:15 Home Medications Medication Instructions Recorded Confirmed Type aspirin 81 mg chewable tablet 81 mg PO DAILY 09/11/22 03/27/23 History atorvastatin 40 mg tablet 40 mg PO DAILY 09/11/22 03/27/23 History clopidogrel 75 mg tablet 75 mg PO DAILY 12/01/22 03/27/23 History insulin aspart U-100 100 unit/mL 20 sliding scale dose subcut TID 03/26/23 03/26/23 History (3 mL) subcutaneous pen (Novolog PRN Hyperglycemia FlexPen U-100 Insulin aspart) insulin aspart U-100 100 unit/mL subcut 03/26/23 History (3 mL) subcutaneous pen (Novolog FlexPen U-100 Insulin aspart) insulin aspart U-100 100 unit/mL subcut 03/26/23 History (3 mL) subcutaneous pen (Novolog FlexPen U-100 Insulin aspart) insulin detemir U-100 100 unit/mL 20 unit subcut BID 03/26/23 03/26/23 History (3 mL) subcutaneous pen (Levemir FlexPen) memantine 5 mg tablet 10 mg PO BID 03/26/23 03/27/23 History Current Medications: Active Medications Sodium Chloride (Normal Saline Iv) 500 mls @ 100 mls/hr IV CONT .Q5H MAGGIE Sedation/Anesthesia: No previous sedation/anesthesia problems (including family history). [facility] Past Medical History Medical History Alcoholic pancreatitis Cirrhosis Continuous tobacco abuse Diabetes mellitus treated with insulin Diabetic peripheral neuropathy Surgical History Surgical History History of left inguinal hernia repair Family History Family History Father Family history of migraine headaches Mother Family history of alcoholism Other Unknown family medical history Social History Social History Social History: The patient lives with his girlfriend. He is unemployed with disability pending. Has 2 adult sons. Smoked a pack of cigarettes per day since he was a teenager but quit in 01/2022 He has a history of alcohol and drug abuse but has been in recovery since 2016. Code status: Full code Smoking packs per day: 2 Smoking cigarettes per day: 40.0 Years smoked: 20 Smoking pack-years: 40.00 Smoking status: Former smoker Tobacco type: cigarettes Second hand tobacco smoke exposure: Yes Smoking end date: 08/07/21 Alcohol intake: former Substance use: former Substance use type: sedatives, opiates and painkillers Lack of Transportation: No Lack of Food: Never True Current Housing: I Have Housing Concerned About Future Housing: No Difficulty Paying Gas/Electric Bills: No Difficulty Paying for Meds: No Currently Unemployed: No Education: High School Diploma/GED Difficulty w/ Childcare or Family Care: No Living arrangements: with family Spiritual care concerns: No Mod Sed Physical Exam Physical Exam Pre Procedural Exam: Normal: Appearance, Lungs, Heart Rate, Heart Rhythm, Extremities and Skin Hours since solid foods: 12 Hours since liquid intake: 8 Mallampati Classification: class II Internal Medicine - PN: Obj Da Vital Signs Vital Signs: Vital Signs - 24 hr 03/27/23 09:42 Temperature 36.6 C Pulse Rate 62 Respiratory Rate 16 Blood Pressure 155/92 H Pulse Oximetry 100 Oxygen Delivery Room Air Meds/Results Medications: Active Medications Generic Name Dose Route Start Last Admin Trade Name Freq PRN Reason Stop Dose Admin Sodium Chloride 500 mls @ 100 mls/hr 03/27/23 08:30 Normal Saline Iv IV CONT .Q5H [facility] Lab
--- NOTE | 2023-03-27 10:41 | WPDCARDPROC ---
Cardiac Cath Procedure Note Date of procedure:: 03/27/23 Performing physician:: CATHETERIZATION LABORATORY REPORT Procedure Date: 03/27/2023 Flat Optical Element Maker: Simon Cates M.D., [facility]? Referring Physician: Juan Lane M.D. ? Anesthesia: Versed and Fentanyl were ordered and given in my presence at 10:45, procedure ended at 11:10. Supervision of nurse monitored moderate sedation with Versed and Fentanyl was provided for 25 minutes. Total of Versed 1mg and Fentanyl 25mcg were administered by the Hog Dropper RN Linda Mccurdy. Pre-op Diagnosis: Coronary artery disease Post-op Diagnosis: 1. Moderate left circumflex stenosis. Angiographically, this lesion looks improved compared to prior cardiac catheterization from 07/2021. 2. Widely patent RCA stent. Procedure(s): 1. Moderate sedation 2. Ultrasound-guided access of the right radial artery 3. Coronary angiography Access Site: Right radial artery Brief History and Clinical Indications: Patient is a 47 year old male who is referred for [facility] for abnormal stress test. All risks, benefits and alternatives to left heart catheterization with or without percutaneous coronary intervention was discussed at length with the patient. Risk of complications including but not limited to bleeding, infection, arrhythmia, stroke, worsening kidney function, blood loss, groin hematoma, limb loss, emergency coronary artery bypass grafting, and even were discussed with the patient and all questions were answered. The patient understood and wished to proceed. Time out called, patient name, date of , medical record number, allergies, procedure performed, identify Flat Optical Element Maker, patient and staff member concurred with accurate data, procedure carried on. Findings: LEFT HEART CATHETERIZATION FINDINGS: 1. Left main: The left main coronary artery is widely patent without any significant obstructive disease. 2. Left anterior descending: The LAD has luminal irregularities. The first diagonal branch is a large caliber vessel with luminal irregularities. 3. Ramus: Luminal irregularities. 4. Left circumflex: The left circumflex bifurcates into two OM branches. Proximal to the bifurcation, there is a moderate 50-60% stenosis. The OM branches are of small caliber and with luminal irregularities. 5. Right coronary artery: The RCA is the dominant vessel. There is mild proximal RCA disease, just proximal to the RCA stent. Widely patent stent in the proximal-mid RCA. The distal RCA has mild disease. RPDA has luminal irregularities. The RPLV has mild disease in its proximal-mid portion. No obstructive disease in the RCA. Description of Procedure: Informed consent signed and placed in the chart. Patient transferred to senior cytogenetics laboratory director room. Prepped and draped in usual sterile fashion. 2% lidocaine injected subcutaneously in right wrist area. 22-gauge venipuncture catheter used to access the right radial artery under ultrasound guidance. 6-FR slender sheath placed in right radial artery. Nitroglycerine and Verapamil were given intraarterial through the sheath. Versacore wire advanced under fluoroscopy 5F FL 4 diagnostic catheter engaged Left Main Coronary Artery. 5F FR 4 diagnostic catheter engaged Right Coronary Artery Multiple orthogonal angiogram obtained and reviewed Hemostasis was achieved by application of TR band. ? Assessment: 1. Moderate left circumflex stenosis. Angiographically, this lesion looks improved compared to prior cardiac catheterization from 07/2021. 2. Widely patent RCA stent. Post Operative Condition: Stable No significant blood loss Disposition: Home Plan: The patient will be monitored in the recovery area. The above findings were discussed with the referring physician. Continue aggressive medical therapy and risk factor modification. ? Simon Cates M.D. Interventional Cardiology
[2023-03-27 12:38] LABS: Glucose Point of Care 166 mg/dl (65-105)
== END 2023-03-27 16:45 | disposition home or self-care (01) ==
PROVIDERS: PCP Family Medicine; Visit Provider Internal Medicine
PROC: (CPT 93454; principal; 2023-03-27 10:00)
DX: I25.10 Atherosclerotic heart disease of native coronary artery without angina pectoris (principal); E11.42 Type 2 diabetes mellitus with diabetic polyneuropathy; F41.8 Other specified anxiety disorders; K74.60 Unspecified cirrhosis of liver; K85.20 Alcohol induced acute pancreatitis without necrosis or infection; Y84.0 Cardiac catheterization as the cause of abnormal reaction of the patient, or of later complication, without mention of misadventure at the time of the procedure; Z87.891 Personal history of nicotine dependence; Z95.5 Presence of coronary angioplasty implant and graft; Z79.82 Long term (current) use of aspirin; Z79.4 Long term (current) use of insulin; Z79.02 Long term (current) use of antithrombotics/antiplatelets
CPT/HCPCS: 36415; 80048; 82948; 85025; 85610; 93454; C1769; C1887; C1894; J1644; J2250; J2305; J3010; J7040

== ENCOUNTER 2023-04-30 02:05 | Day surgery (SDC) | payer BC, MEDICAID, SELFPAY ==
[2023-04-30] VITALS (12 sets, daily range): BP systolic 104–158; BP diastolic 77–100; PULSE 64–95; RESP 12–20; TEMP 36.5; O2SAT 94–100; BMI 23.7
[2023-04-30 07:41] LABS: Hematocrit 41.6 % (42.0-52.0); Hemoglobin 13.2 g/dL (14.0-18.0); Mean Corpuscular HGB Conc 31.7 g/dl (32-36); Mean Corpuscular Hemoglobin 28.6 pg (26-34); Mean Platelet Volume 11.1 fl (7.4-10.4); Platelet Count Result 237 k/mm3 (150-375); Red Blood Count 4.62 M/mm3 (4.6-6.20); Red Cell Distribution Width 12.6 % (11.5-14.5); White Blood Count 8.5 K/mm3 (4.5-10.0)
[2023-04-30 07:48] LABS: Anion Gap 9 mmol/L (8-16); Blood Urea Nitrogen 23 mg/dL (9-20); Calcium 9.6 mg/dL (8.4-10.2); Carbon Dioxide 27 mmol/L (22-30); Chloride 103 mmol/L (98-107); Estimated CRCL calculation 114 ml/min; Estimated Glomerular Filt Rate > 60; Glucose 112 mg/dL (65-110); Potassium 4.5 mmol/L (3.4-5.0); Sodium 139 mmol/L (137-145)
--- NOTE | 2023-04-30 08:52 | WPDMODSED ---
Moderate Sedation Note-Pt Data Patient Data Diagnosis: Aortic valve mass Present Complaint: Aortic valve mass Procedure to be performed/Plan: 1. Multiplanar transesophageal echocardiography with color flow and pulse wave Doppler Number to moderate sedation Allergies Allergy/AdvReac Type Severity Reaction Status Date / Time olanzapine Allergy Intermediate Other Verified 04/30/23 07:18 codeine AdvReac Intermediate Vomiting Verified 04/30/23 07:18 Home Medications Medication Instructions Recorded Confirmed Type aspirin 81 mg chewable tablet 81 mg PO DAILY 09/11/22 04/29/23 History atorvastatin 40 mg tablet 40 mg PO DAILY 09/11/22 04/29/23 History clopidogrel 75 mg tablet 75 mg PO DAILY 12/01/22 04/29/23 History insulin aspart U-100 100 unit/mL 20 sliding scale dose subcut TID 03/26/23 04/29/23 History (3 mL) subcutaneous pen (Novolog PRN Hyperglycemia FlexPen U-100 Insulin aspart) insulin detemir U-100 100 unit/mL 20 unit subcut BID 03/26/23 04/29/23 History (3 mL) subcutaneous pen (Levemir FlexPen) memantine 5 mg tablet 10 mg PO BID 03/26/23 04/29/23 History Current Medications: Active Medications Sodium Chloride (Normal Saline Iv) 1,000 mls @ 30 mls/hr IV CONT .Q24H MAGGIE Sedation/Anesthesia: No previous sedation/anesthesia problems (including family history). [facility] Past Medical History Medical History Alcoholic pancreatitis Cirrhosis Continuous tobacco abuse Diabetes mellitus treated with insulin Diabetic peripheral neuropathy Surgical History Surgical History History of left inguinal hernia repair Family History Family History Father Family history of migraine headaches Mother Family history of alcoholism Other Unknown family medical history Social History Social History Social History: The patient lives with his girlfriend. He is unemployed with disability pending. Has 2 adult sons. Smoked a pack of cigarettes per day since he was a teenager but quit in 01/2022 He has a history of alcohol and drug abuse but has been in recovery since 2016. Code status: Full code Smoking packs per day: 2 Smoking cigarettes per day: 40.0 Years smoked: 20 Smoking pack-years: 40.00 Smoking status: Former smoker Tobacco type: cigarettes Second hand tobacco smoke exposure: Yes Smoking end date: 08/07/21 Alcohol intake: former Substance use: former Substance use type: sedatives, opiates and painkillers Lack of Transportation: No Lack of Food: Never True Current Housing: I Have Housing Concerned About Future Housing: No Difficulty Paying Gas/Electric Bills: No Difficulty Paying for Meds: No Currently Unemployed: No Education: High School Diploma/GED Difficulty w/ Childcare or Family Care: No Living arrangements: with family Spiritual care concerns: No Mod Sed Physical Exam Physical Exam Pre Procedural Exam: Normal: Appearance, Eyes, Ears, Nose, Neck, Throat, Airway, Lungs, Heart Size, Heart Rate, Heart Rhythm, Extremities and Skin and Variation: Neuro Exam (Impaired) Hours since solid foods: 12 Hours since liquid intake: 12 Mallampati Classification: class II Internal Medicine - PN: Obj Da Vital Signs Vital Signs: Vital Signs - 24 hr 04/30/23 07:20 04/30/23 08:45 Temperature 36.5 C Pulse Rate 71 64 Respiratory Rate 17 13 Blood Pressure 132/90 147/94 H Pulse Oximetry 100 100 Oxygen Delivery Room Air Room Air Meds/Results Medications: Active Medications Generic Name Dose Route Start Last Admin Trade Name Freq PRN Reason Stop Dose Admin Sodium Chloride 1,000 mls @ 30 mls/hr 04/30/23 07:00 Normal Saline Iv IV CONT .Q24H MAGGIE Labs 04/30/23 07:15 04/30/23 07:15
--- NOTE | 2023-04-30 09:26 | WPDTEECHO ---
[facility]IL[facility] TransEsophageal Echocardiogram Date of procedure: 04/30/23 Procedure Type: 1. Multiplanar transesophageal echocardiography with color-flow Doppler 2. Moderate sedation Diagnosis: Aortic valve mass Indications: Aortic valve mass Image Quality: Good Findings: After discussing risks benefits alternatives with patient as well as patient's family, he and they agreed both via verbal and written informed consent. Risks discussed included esophageal rupture perforation, adverse reaction to anesthesia, bleeding, pain, infection, sore throat. After establishing continuous telemetry monitoring, pulse oxygenation and 0 blood pressure assessments, procedure was started. Procedure start time 9:00 a.m. Procedure stop time 9:21 a.m. Medications used Versed 4 mg IV total and 75 mcg of fentanyl IV total given in divided dosages as well as Hurricaine spray to the hypopharynx x2 for topical sedation. Medications were administered patient was monitored by Robb Garcia RN After adequate sedation, the echoscope was advanced into place. Unfortunately planimetry her was not functioning after the echo scope was appropriately in place. That probe then needed to be taken out and then it patient needed to be esophageal reintubated. Second probe worked fine. Complications: None Blood loss: None Findings: Grossly normal left ventricular size and function with ejection fraction roughly estimated 60 65%. Mitral valve appears grossly normal with mild mitral regurgitation. The pulmonic valve was normal without significant pulmonic insufficiency. The tricuspid valve is grossly normal without significant tricuspid insufficiency. The aortic valve is trileaflet but it did appear that the non and left coronary cusps are partially fused. On the tip of the right coronary cusp there is a small calcification which is not hypermobile nor significant in my opinion. There is mild aortic insufficiency. Normal left and right atrial sizes. Normal right ventricular size and function. The atrial septum is normal. The left atrial appendage without mass or thrombus. Normal pericardium. Conclusions: 1. Normal left ventricular size and function with ejection fraction 60 65% 2. Mild mitral and aortic insufficiency 3. Small aortic valve calcification at the tip of the right coronary cusp. There is no significant mass or hypermobility. Possible bicuspid aortic valve functionally as detailed above 4. Moderate sedation
== END 2023-04-30 10:35 | disposition home or self-care (01) ==
PROVIDERS: PCP Family Medicine; Visit Provider Internal Medicine Cardiovascular Disease
PROC: (CPT 93312; principal; 2023-04-30 08:30)
DX: I08.0 Rheumatic disorders of both mitral and aortic valves (principal); I25.2 Old myocardial infarction; I70.0 Atherosclerosis of aorta; I25.10 Atherosclerotic heart disease of native coronary artery without angina pectoris; Z95.5 Presence of coronary angioplasty implant and graft; E11.42 Type 2 diabetes mellitus with diabetic polyneuropathy; K74.60 Unspecified cirrhosis of liver; Z79.82 Long term (current) use of aspirin; Z79.02 Long term (current) use of antithrombotics/antiplatelets; Z79.4 Long term (current) use of insulin; Z87.891 Personal history of nicotine dependence
CPT/HCPCS: 36415; 80048; 85027; 93312; 93320; 93325; J2250; J3010

== ENCOUNTER 2023-08-07 02:28 | Day surgery (SDC) | payer BC, MEDICAID, SELFPAY ==
[2023-08-06 16:18] VITALS: BMI 22.1
[2023-08-07 07:42] VITALS: BP 120/85; PULSE 78; RESP 18; TEMP 37.1; O2SAT 99
--- NOTE | 2023-08-07 08:42 | P.HPUP_ITS ---
History and Physical Update Update Date/Time: 08/07/23 08:42 Patient with history of STEMI cardiac arrest in July 2021, EF 70%, recurrent syncope X 2, here for a loop recorder implant. Followed by Dr. Lane. History and Physical has been reviewed, including an updated exam of the pa tient. There are NO changes in the patient's condition. Risks, benefits, and alternatives have been discussed and questions answered. Patient agrees to proceed with procedure.
--- NOTE | 2023-08-07 08:43 | WPDMODSED ---
Moderate Sedation Note-Pt Data Patient Data Diagnosis: Recurrent syncope x2, unclear etiology Present Complaint: Sidney Drummond is a 39 year male STEMI complicated by cardiac arrest in July 2021. 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 He had 2 syncopal episodes of unknown etiology. Ejection fraction is 70%. He is here for an loop recorder implant. He has held his Plavix for this morning. Procedure to be performed/Plan: Loop recorder implant under local anesthesia, possible mild sedation. Allergies Allergy/AdvReac Type Severity Reaction Status Date / Time olanzapine Allergy Intermediate Other Verified 08/07/23 07:41 codeine AdvReac Intermediate Vomiting Verified 08/07/23 07:41 Home Medications Medication Instructions Recorded Confirmed Type aspirin 81 mg chewable tablet 81 mg PO DAILY 09/11/22 08/06/23 History atorvastatin 40 mg tablet 40 mg PO DAILY 09/11/22 08/06/23 History clopidogrel 75 mg tablet 75 mg PO DAILY 12/01/22 08/06/23 History insulin aspart U-100 100 unit/mL 20 sliding scale dose subcut TID 03/26/23 08/06/23 History (3 mL) subcutaneous pen (Novolog PRN Hyperglycemia FlexPen U-100 Insulin aspart) insulin detemir U-100 100 unit/mL 20 unit subcut DAILY 03/26/23 08/06/23 History (3 mL) subcutaneous pen (Levemir FlexPen) memantine 5 mg tablet 10 mg PO BID 03/26/23 08/06/23 History Adult One Daily Multivitamin 1 tablet PO DAILY 08/06/23 08/06/23 History insulin detemir U-100 100 unit/mL 18 unit subcut HS 08/06/23 08/06/23 History (3 mL) subcutaneous pen (Levemir FlexPen) Sedation/Anesthesia: No previous sedation/anesthesia problems (including family history). [facility] Past Medical History Medical History Alcoholic pancreatitis Cirrhosis Continuous tobacco abuse Diabetes mellitus treated with insulin Diabetic peripheral neuropathy Surgical History Surgical History History of left inguinal hernia repair Family History Family History Father Family history of migraine headaches Mother Family history of alcoholism Other Unknown family medical history Social History Social History Social History: The patient lives with his girlfriend. He is unemployed with disability pending. Has 2 adult sons. Smoked a pack of cigarettes per day since he was a teenager but quit in 01/2022 He has a history of alcohol and drug abuse but has been in recovery since 2016. Code status: Full code Smoking packs per day: 2 Smoking cigarettes per day: 40.0 Years smoked: 25 Smoking pack-years: 50.00 Smoking status: Former smoker Tobacco type: cigarettes Second hand tobacco smoke exposure: Yes Smoking end date: 08/07/21 Alcohol intake: never Substance use: never Substance use type: does not use Lack of Transportation: No Lack of Food: Never True Current Housing: I Have Housing Concerned About Future Housing: No Difficulty Paying Gas/Electric Bills: No Difficulty Paying for Meds: No Currently Unemployed: No Education: High School Diploma/GED Difficulty w/ Childcare or Family Care: No Living arrangements: with family Spiritual care concerns: No Mod Sed Physical Exam Physical Exam Pre Procedural Exam: Normal: Appearance (Accompanied by girlfriend who provides history), Eyes, Ears, Nose, Neck, Throat, Airway, Lungs, Heart Size, Heart Rate, Heart Rhythm, Abdomen, Extremities and Skin (Skin over the left chest is free of lesions) and Variation: Neuro Exam (Flat affect, poor memory) Hours since solid foods: 12 (hr) Hours since liquid intake: 12 (hr) Mallampati Classification: class II Internal Medicine - PN: Obj Da Vital Signs Vital Signs: Vital Signs - 24 hr 08/07/23 07:42 Temperature
[2023-08-07 09:00] VITALS: BP 128/82; PULSE 71; RESP 19; O2SAT 98
[2023-08-07 09:15] VITALS: BP 125/86; PULSE 70; RESP 18; O2SAT 98
--- NOTE | 2023-08-07 09:26 | P.OP_ITS ---
Procedure Note - Detailed Date of Procedure 08/07/23 Pre-op Diagnosis Recurrent Syncope Post-op Diagnosis Other (Status post loop recorder) Procedure Performed Medtronic loop recorder implant under local anesthesia Surgeon Marilia Patel MD Anesthesia Local Indications Sidney Drummond is a 39 year male STEMI complicated by cardiac arrest in July 2021.? 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 He had 2 syncopal episodes of unknown etiology.? Ejection fraction is 70%.? He is here for an loop recorder implant.? He has held his Plavix for this morning. Description of Procedure After informed consent, the patient's left parasternal area was prepped and draped in usual fashion. He received 1% lidocaine over the 3rd-4th intercostal space and a Medtronic LINQ loop recorder was inserted in the standard fashion. Hemostasis was obtained with local pressure. The incision was closed with 2-0 Vicryl suture and dressed with a clean large Band-Aid. He tolerated the procedure well with no complications. The device was interrogated and R-wave sensing was found to be good at 0.29 mV. Follow-up: The patient is given information about remote monitoring, will follow-up in our office in 1 week for an incision check Implants Medtronic LINQ II loop recorder, Serial [id number] Estimated Blood Loss 1 (less than 1 cc) Complications No immediate complications Condition Stable Disposition Observation
--- NOTE | 2023-08-07 09:26 | PM.OP ---
Procedure Note - Brief Procedure Note - Brief Date of procedure: 08/07/23 Recurrent Syncope Post-op diagnosis: Other (s/p loop recorder implant) Surgeon: Marilia Patel MD Description of procedure: Uneventful loop recorder implant Complications: No immediate complications Condition: Stable Disposition: Observation
== END 2023-08-07 09:40 | disposition home or self-care (01) ==
PROVIDERS: PCP Family Medicine; Visit Provider Internal Medicine Cardiovascular Disease
PROC: (CPT 33285; principal; 2023-08-07 08:30)
DX: R55 Syncope and collapse (principal)
CPT/HCPCS: 33285; C1764